=== PATIENT | female | born 1990 | race Caucasian/White ===

== ENCOUNTER 2023-04-08 13:55 | Emergency (ER) | payer MEDICAID, SELFPAY ==
[2023-04-08 14:00] VITALS: BP 140/76; PULSE 88; RESP 16; TEMP 36.6; O2SAT 100; BMI 28.8
--- NOTE | 2023-04-08 14:14 | ED.ABDPAIN1 ---
HPI - Abdominal Pain General Chief Complaint: Abdominal Pain Stated Complaint: ABDOMINAL/BACK PAIN Time Seen by Provider: 04/08/23 14:08 Source: patient Mode of arrival: walk-in History of Present Illness HPI narrative: Patient is a 32-year-old female who presents to the emergency department for the evaluation of left upper quadrant/left inferior rib cage pain. Patient states the pain radiates to her left flank. It has been present for 4 to 5 days. She states that she recently had a 2-week course of illness of cough and congestion. She was placed on Augmentin, steroids and cough medication by her PCP and feels the cough is almost completely gone. She reports minimal residual congestion. No new fevers, vomiting, diarrhea. Pain in the left upper quadrant/left inferior ribs is worse with deep breathing and movement, she does not feel short of breath. No medications taken prior to arrival.She is not concerned for . Related Data Home Medications Medication Instructions Recorded Confirmed escitalopram oxalate 5 mg tablet 5 mg PO DAILY 04/08/23 04/08/23 levonorgestrel 120 mcg-e.estradiol 1 patch topical QWEEK 04/08/23 04/08/23 30 mcg/24 hr weekly transderm patch (Twirla) Previous Rx's Medication Instructions Recorded ketorolac 10 mg tablet 10 mg PO TID PRN pain #10 tabs 04/08/23 methocarbamol 750 mg tablet 750 mg PO TID PRN pain #20 tabs 04/08/23 Allergies Allergy/AdvReac Type Severity Reaction Status Date / Time No Known Drug Allergies Allergy Verified 04/08/23 14:04 Review of Systems ROS Constitutional Denies: fever or chills Ears, nose, mouth, and throat Reports: nasal congestion; Denies: throat pain Cardiovascular Denies: chest pain Respiratory Reports: cough; Denies: shortness of breath Gastrointestinal Reports: abdominal pain; Denies: nausea, vomiting or diarrhea Genitourinary Denies: painful urination Musculoskeletal Reports: back pain Integumentary/Breast Denies: rash Neurological Denies: headache Hematologic/Lymphatic Denies: easy bruising Exam Narrative Exam Narrative: Gen.: Awake, alert, in no distress Head: Normocephalic, atraumatic ENT: Moist mucous membranes, Bilateral TMs clear, no pharyngeal erythema Respiratory: No respiratory distress, lungs clear bilaterally Cardio: Regular rate and rhythm Gastrointestinal: Abdomen is soft, Tender in the left upper quadrant and left anterior/inferior ribs. No guarding or rebound. No pain out of proportion on exam. No CVA tenderness. Extremities: Moves extremities equally Psych: Normal mood and affect Neuro: No focal neuro deficit Skin: Warm, dry, intact Constitutional Vital Signs, click to edit/add: Last Vital Signs Temp 97.8 F 04/08/23 14:00 Pulse 88 04/08/23 14:00 Resp 16 04/08/23 14:00 BP 140/76 04/08/23 14:00 Pulse Ox 100 04/08/23 14:00 O2 Del Method Room Air 04/08/23 14:00 Course Vital Signs Vital signs: Vital Signs Temperature 97.8 F 04/08/23 14:00 Pulse Rate 88 04/08/23 14:00 Respiratory Rate 16 04/08/23 14:00 Blood Pressure 140/76 04/08/23 14:00 Pulse Oximetry 100 04/08/23 14:00 Oxygen Delivery Method Room Air 04/08/23 14:00 Temperature 97.8 F 04/08/23 14:00 Pulse Rate 88 04/08/23 14:00 Respiratory Rate 16 04/08/23 14:00 Blood Pressure 140/76 04/08/23 14:00 Pulse Oximetry 100 04/08/23 14:00 Oxygen Delivery Method Room Air 04/08/23 14:00 MDM - Abdominal Pain MDM Narrative Medical decision making narrative: Lab studies including LFTs, lipase, bilirubin within normal limits. Abdominal x-rays are unremarkable, chest x-ray is clear and the patient has normal vital signs. She has no persistent coughing, hemoptysis, chest pain or complaints of shortness of breath. She will be treated for chest wall/abdominal wall pain with NSAIDs and muscle relaxants for home. Follow-up with PCP and return to the ER if symptoms change or worsen Medical Records Attestation: I reviewed the patient's medical records. Lab Data Attestation: I reviewed the patient's lab results. Labs: Lab Results 04/08/23 04/08/23 Range/Units 14:15 14:24 WBC 5.3 (4.0-11.0) 10^3/uL RBC 3.87 L (4.20-5.40) 10^6/uL Hgb 12.4 (12.0-16.0) g/dL Hct 36.8 (36.0-48.0) % MCV 95.1 (81.0-99.0) fL MCH 32.0 (26.7-34.0) pg MCHC 33.7 (29.9-35.2) g/dL RDW 12.0 (11.0-15.0) % Plt Count 227 (150-450) 10^3/uL MPV 9.3 L (9.5-13.5) fL Neut % (Auto) 71.4 (43.0-75.0) % Lymph % (Auto) 19.1 L (20.5-60.0) % [place] % (Auto) 7.4 (1.7-12.0) % Eos % (Auto) 1.5 (0.9-7.0) % Baso % (Auto) 0.4 (0.2-2.0) % Neut # (Auto) 3.8 (1.4-6.5) 10^3/uL Lymph # (Auto) 1.0 L (1.2-3.8) 10^3/uL [place] # (Auto) 0.4 (0.3-0.8) 10^3/uL Eos # (Auto) 0.1 (0.0-0.7) 10^3/uL Baso # (Auto) 0.0 (0.0-0.1) 10^3/uL Abs Immat Gran (auto) 0.01 (0.00-0.03) 10^3/uL Imm/Tot Granulo (auto) 0.2 (0.0-0.5) % Sodium 140 (136-145) mmol/L Potassium 4.1 (3.5-5.1) mmol/L Chloride 103 (98-107) mmol/L Carbon Dioxide 27.6 (21.0-32.0) mmol/L Anion Gap 13.5 BUN 12.0 (7.0-18.0) mg/dL Creatinine 0.64 (0.55-1.02) mg/dL Est GFR ( Amer) >60 (>=60) Est GFR (Non-Af Amer) >60 (>=60) BUN/Creatinine Ratio 18.8 Glucose 80 (74-106) mg/dL Calcium 8.6 (8.5-10.1) mg/dL Total Bilirubin 0.8 (0.2-1.0) mg/dL AST 18 (15-37) U/L ALT 22 (14-59) U/L Alkaline Phosphatase 53 (46-116) U/L Total Protein 7.6 (6.4-8.2) g/dL Albumin 3.7 (3.4-5.0) g/dL Globulin 3.9 g/dL Albumin/Globulin Ratio 0.9 Lipase 39.0 (16.0-77.0) U/L Urine Color Lt. yellow (YELLOW) Urine Clarity Clear (CLEAR) Urine pH 6.0 (5.0-9.0) Ur Specific [place] 1.010 (1.005-1.025) Urine Protein Negative (NEG/TRACE) mg/dL Urine Glucose (UA) Negative (NEGATIVE) mg/dL Urine Ketones Negative (NEGATIVE) mg/dL Urine Occult Blood Negative (NEGATIVE) Urine Nitrite Negative (NEGATIVE) Urine Bilirubin Negative (NEGATIVE) Urine Urobilinogen 0.2 (0.2-1.0) EU/dL Ur Leukocyte Esterase Small A (NEGATIVE) Urine RBC 0-2 (0-2) #/HPF Urine WBC 0-2 A (NONE SEEN) #/HPF Ur Squamous Epith Cells Few A (NONE/RARE) #/LPF Urine Crystals None seen (None Seen) #/HPF Urine Bacteria Trace A (NONE SEEN) #/HPF Urine Casts None seen (NONE SEEN) #/LPF Urine Mucus None seen (NONE SEEN) Ur Culture Indicated? No Urine HCG, Qual Negative (NEGATIVE) Imaging Data Abdominal x-ray: Attestation: I have reviewed the pertinent imaging results. Radiologist's impression: ITS Impressions Chest/Abdomen X-ray 04/08/23 14:46 IMPRESSION: Clear lungs Nonobstructive bowel gas pattern Electronically authenticated by: MARANDA PEREYRA Date: 04/08/2023 15:10 Discharge Plan Discharge Chief Complaint: Abdominal Pain Clinical Impression: Abdominal pain Patient Disposition: Home, Self-Care Time of Disposition Decision: 15:14 Condition: Good Mode of Transportation: Private Vehicle Prescriptions / Home Meds: New ketorolac 10 mg tablet 10 mg PO TID PRN (Reason: pain) Qty: 10 0RF methocarbamol 750 mg tablet 750 mg PO TID PRN (Reason: pain) Qty: 20 0RF No Action escitalopram oxalate 5 mg tablet 5 mg PO DAILY Twirla 120-30 mcg/24 hr patch weekly 1 patch topical QWEEK Instructions: Acute Abdominal Pain (ED) Stand Alone Forms: Portal Instructions Referrals: Kelly Cain NP [Primary Care Provider] - 1 week Discharge Date/Time: 04/08/23 15:27
[2023-04-08] MEDS: KETOROLAC TROMETHAMINE 60 MG/2 ML VIAL IM (14:31)
[2023-04-08 14:37] LABS: Bilirubin Urine NEGATIVE (NEGATIVE); Blood Urine NEGATIVE (NEGATIVE); Clarity Urine CLEAR (CLEAR); Color Urine LT. YELLOW (YELLOW); Glucose Urine UA NEGATIVE (NEGATIVE); HCG Qualitative Urine* NEGATIVE (NEGATIVE); Ketones Urine NEGATIVE (NEGATIVE); Leukocyte Esterase Urine SMALL (NEGATIVE); Nitrite Urine NEGATIVE (NEGATIVE); Protein Urine NEGATIVE (NEG/TRACE); Urobilinogen Urine 0.2 EU/dL (0.2-1.0)
[2023-04-08 14:37] LABS: Basophils Percent Auto 0.4 % (0.2-2.0); Eosinophils Absolute Auto 0.1 10^3/uL (0.0-0.7); Eosinophils Percent Auto 1.5 % (0.9-7.0); Hematocrit 36.8 % (36.0-48.0); Hemoglobin 12.4 g/dL (12.0-16.0); Immature Granulocytes Abs Auto 0.01 10^3/uL (0.00-0.03); Immature Granulocytes Pct Auto 0.2 % (0.0-0.5); Lymphocytes Percent Auto 19.1 % (20.5-60.0); Mean Corpuscular HGB Conc 33.7 g/dL (29.9-35.2); Mean Corpuscular Volume 95.1 fL (81.0-99.0); Mean Platelet Volume 9.3 fL (9.5-13.5); Monocytes Absolute Auto 0.4 10^3/uL (0.3-0.8); Monocytes Percent Auto 7.4 % (1.7-12.0); Neutrophils Absolute Auto 3.8 10^3/uL (1.4-6.5); Neutrophils Percent Auto 71.4 % (43.0-75.0); Platelet Count 227 10^3/uL (150-450); Red Blood Count 3.87 10^6/uL (4.20-5.40); White Blood Count 5.3 10^3/uL (4.0-11.0)
[2023-04-08 14:39] LABS: Urine Microscopic Indicated YES
[2023-04-08 14:46] LABS: Bacteria Urine TRACE #/HPF (NONE SEEN); Cast Seen? NONE SEEN #/LPF (NONE SEEN); Crystals Seen? None Seen #/HPF (None Seen); Mucus Urine NONE SEEN (NONE SEEN); RBC Urine 0-2 #/HPF (0-2); Squamous Epithelial Cell Urine FEW #/LPF (NONE/RARE); Urine Culture Indicated NO; WBC Urine 0-2 #/HPF (NONE SEEN)
--- NOTE | 2023-04-08 14:46 | XR_ITS ---
The [address] [address] Patient Name: PARISA MISTRY MRN: [id number] date: 1990 Sex: F Assigned Patient Location: ER Current Patient Location: ER Accession/Order Number: [id number] Exam Date: 04/08/2023 14:40 Report Date: 04/08/2023 15:10 At the request of: ARMANDO LOPEZ Procedure: XR acute abdomen series EXAMINATION: XR acute abdomen series HISTORY: Left flank pain COMPARISON: 11/24/2021 FINDINGS: LUNGS: No infiltrate, pneumothorax, or pleural effusion. MEDIASTINUM: No abnormal widening. BOWEL GAS PATTERN: Non-obstructed. Moderate stool throughout the colon FREE AIR: None. CALCIFICATIONS: [Pelvic calcifications are stable likely vascular phleboliths BONES: No fracture or visible bone lesion. OTHER: Negative. XR/XR acute abdomen series IMPRESSION: Clear lungs Nonobstructive bowel gas pattern Electronically authenticated by: MARANDA PEREYRA Date: 04/08/2023 15:10
[2023-04-08 14:56] LABS: Albumin Globulin Ratio 0.9; Albumin Level 3.7 g/dL (3.4-5.0); Alkaline Phosphatase 53 U/L (46-116); Anion Gap 13.5; Aspartate Amino Transferase 18 U/L (15-37); BUN Creatinine Ratio 18.8; Bilirubin Total 0.8 mg/dL (0.2-1.0); Calcium 8.6 mg/dL (8.5-10.1); Carbon Dioxide 27.6 mmol/L (21.0-32.0); Chloride 103 mmol/L (98-107); Estimated GFR (African America >60 (>=60); Estimated GFR (Non-African Ame >60 (>=60); Globulin 3.9 g/dL; Glucose 80 mg/dL (74-106); Potassium 4.1 mmol/L (3.5-5.1); Sodium 140 mmol/L (136-145); Total Protein 7.6 g/dL (6.4-8.2)
[2023-04-08 15:22] LABS: Alanine Aminotransferase 22 U/L (14-59)
== END 2023-04-08 15:27 | disposition home or self-care (01) ==
PROVIDERS: Physician Assistant; Emergency Provider Emergency Medicine; PCP Nurse Practitioner
DX: R10.12 Left upper quadrant pain (principal)
CPT/HCPCS: 36415; 74022; 80053; 81001; 83690; 84703; 85025; 96372; 99285; J1885

== ENCOUNTER 2023-07-29 08:51 | Outpatient (OUT) | payer MEDICAID, SELFPAY ==
[2023-07-29 09:24] LABS: Basophils Percent Auto 0.3 % (0.2-2.0); Eosinophils Absolute Auto 0.1 10^3/uL (0.0-0.7); Eosinophils Percent Auto 1.7 % (0.9-7.0); Hemoglobin 11.8 g/dL (12.0-16.0); Immature Granulocytes Abs Auto 0.01 10^3/uL (0.00-0.03); Immature Granulocytes Pct Auto 0.3 % (0.0-0.5); Lymphocytes Percent Auto 28.2 % (20.5-60.0); Mean Corpuscular HGB Conc 32.8 g/dL (29.9-35.2); Mean Corpuscular Hemoglobin 30.5 pg (26.7-34.0); Mean Platelet Volume 9.2 fL (9.5-13.5); Monocytes Absolute Auto 0.4 10^3/uL (0.3-0.8); Monocytes Percent Auto 10.2 % (1.7-12.0); Neutrophils Absolute Auto 2.1 10^3/uL (1.4-6.5); Neutrophils Percent Auto 59.3 % (43.0-75.0); Platelet Count 152 10^3/uL (150-450); Red Blood Count 3.87 10^6/uL (4.20-5.40); Red Cell Distribution Width 12.3 % (11.0-15.0); White Blood Count 3.5 10^3/uL (4.0-11.0)
[2023-07-29 10:46] LABS: Percent Iron Saturation 42.3 %
[2023-07-29 12:45] LABS: Alanine Aminotransferase 25 U/L (14-59); Albumin Globulin Ratio 1.1; Albumin Level 3.8 g/dL (3.4-5.0); Alkaline Phosphatase 66 U/L (46-116); Anion Gap 13.2; Aspartate Amino Transferase 27 U/L (15-37); BUN Creatinine Ratio 20.3; Bilirubin Total 1.3 mg/dL (0.2-1.0); Calcium 9.2 mg/dL (8.5-10.1); Carbon Dioxide 27.8 mmol/L (21.0-32.0); Chloride 104 mmol/L (98-107); Estimated GFR (African America >60 (>=60); Estimated GFR (Non-African Ame >60 (>=60); Globulin 3.5 g/dL; Glucose 86 mg/dL (74-106); Sodium 141 mmol/L (136-145); TSH W/ REFLEX FT4 1.261 uIU/mL (0.358-3.740); Total Protein 7.3 g/dL (6.4-8.2)
== END 2023-07-29 08:52 | disposition home or self-care (01) ==
LOC: LAB 08:53
PROVIDERS: PCP Nurse Practitioner Family; Visit Provider Nurse Practitioner Family
DX: R42 Dizziness and giddiness (principal); D50.9 Iron deficiency anemia, unspecified; Z98.84 Bariatric surgery status
CPT/HCPCS: 36415; 80053; 82306; 82607; 83540; 83550; 84443; 85025

== ENCOUNTER 2024-02-04 11:28 | Emergency (ER) | payer MEDICAID, SELFPAY ==
[2024-02-04 11:37] VITALS: BP 128/83; PULSE 75; TEMP 36.7; O2SAT 100; BMI 29.1
--- OUTSIDE RECORDS SUMMARY | 2024-02-04 11:54 | XMS_ITS | CCD ---
Author Organization [facility] Care Team Providers Care Production Machine Operator Name Role Phone WADE ZHANG Unavailable Unavailable DAVIDA HARVEY M.D. Unavailable Unavailable JAYSHREE CARIAS CNP Unavailable Unavailable NESS ALEXANDER Unavailable Unavailable NESS ALEXANDER Unavailable Unavailable JUAN A DÍAZ Unavailable Unavailable VASU PURDY Unavailable Unavailable Denisse Lee Unavailable Unavailable No Family Physician given Unavailable ELÍAS Avalos Attending Unavailable KELLY CAIN Primary Care Unavailable Kelly Cain Primary Care Provider [phone] Julia Morris Unavailable AICHHOLCar, AUTOMOTIVE SHOP FOREMAN KELLY Primary Care Unavailable BARTOLOME, DR JACQUIE Rey Consulting Unavailable CONNER, DR TAYLOR Choi Attending Unavailabl e CONNER, DR TAYLOR Choi Admitting Unavailabl e COLLEEN SALES Consulting Unavailable PRATT, DR MARANDA Crews Consulting Unavailable MISC, DR RICH Admitting Unavailable MISC, DR RICH Attending Unavailable AICHHOLZ, AUTOMOTIVE SHOP FOREMAN KELLY Primary Care Unavailable MISC, DR RICH Consulting Unavailable STEPHANIAHHOLZ, AUTOMOTIVE SHOP FOREMAN KELLY Consulting Unavailable AICHHOLZ, AUTOMOTIVE SHOP FOREMAN KELLY Primary Care Unavailable AICHHOLZ, AUTOMOTIVE SHOP FOREMAN KELLY Admitting Unavailable AICHHOLZ, AUTOMOTIVE SHOP FOREMAN KELLY Attending Unavailable AICHHOLZ, AUTOMOTIVE SHOP FOREMAN KELLY Primary Care Unavailable MARKER, DR REAVES Attending Unavailable MARKER, DR REAVES Consulting Unavailable MARKER, DR REAVES Admitting Unavailable Nan Jewell Unavailable Chio Holley Unavailable Payton SILVER DESIGNER-Kelly MCMULLEN Primary Care Provider KELLY CAIN Referring Unavailable KELLY CAIN Primary Care Unavailable KELLY EDWARDS Referring Unavailable KELLY CAIN Primary Care Unavailable KELLY EDWARDS Attending Unavailable KELLY EDWARDS Referring Unavailable KELLY CAIN Primary Care Unavailable KELLY CAIN Attending Unavailable KELLY CAIN Attending Unavailable Medications Current Medications Medication Drug Class(es) Dates Sig (Normalized) Sig (Original) amoxicillin 875 mg oral tablet (2 sources) Penicillin-class Antibacterial Start: 05-24-2022 take 1 tablet by mouth every twelve hours Amoxicillin 875 MG 1 tablet Orally every 12 hrs for 7 days May, Active Start: 12-24-2020 take 1 tablet by gilberto th every twelve hours Amoxicillin 875 MG 1 tablet Orally every 12 hrs for 7 days Dec, Active calcium citrate 950 mg oral tablet (1 source) calcium citrate (CALCITRATE) 200 mg (950 mg) tablet three times daily 0 Active CLASSIC 28 mg iron- 800 mcg tablet (1 source) Start: 1 take 1 tablet by mouth once daily CLASSIC 28 mg iron- 800 mcg tablet Indications: Malnutrition, unspecified type (CMS-HCC) , Intestinal malabsorption, unspecified type , History of Alyssa-en-Y gastric bypass TAKE 1 TABLET BY MOUTH EVERY DAY 90 tablet 3 01/24/2021 Active dicyclomine hydrochloride 10 mg oral capsule (1 source) Anticholinergic Start: 0 take 1 capsule by mouth three times daily as needed for pain dicyclomine (BENTYL) 10 MG capsule Take 1 capsule by mouth 3 times daily as needed (abd pain) 30 capsule 3 01/28/2020 Active Start: 01-28-2020 take 1 capsule by mo uth three times daily as needed for pain dicyclomine (BENTYL) 10 MG capsule Take 1 capsule by mouth 3 times daily as needed (abd pain) 30 capsule 3 01/28/2020 Active escitalopram 5 mg oral tablet (9 sources) Serotonin Reuptake Inhibitor Start: 05-09-2023 take 5 mg by mouth once daily Escitalopram Oxalate Active 5 MG PO Daily May 09, 2023 1:00am Start: 12-30-2018 take 1 tablet by gilberto th once daily at breakfast escitalopram (LEXAPRO) 10 mg tablet Take 1 tablet (10 mg total) by mouth daily with breakfast. 5 12/30/2018 Active take 1 tablet by gilberto th every twenty-four hours Lexapro 5 MG 1 tablet Orally Once a day Active take 1 tablet by gilberto th once daily escitalopram (LEXAPRO) 20 MG tablet Take 20 mg by mouth daily 0 Active Levonorgestrel-Ethinyl Estra d (Twirla) 120-30 mcg/24 hr patch weekly (1 source) Start: 11-13-2023 Levonorgestrel -Ethinyl Estrad (Twirla) 120-30 mcg/24 hr patch weekly Active PATCH TOPICAL November 13, 2023 12:00am vit B complex no.12/niacin,B 3, (VITAMIN B COMPLEX NO.12-NIACIN ORAL) (1 source) vit B complex no .12/niacin,B3, (VITAMIN B COMPLEX NO.12-NIACIN ORAL) Take by mouth. 0 Active Completed/Discontinued Medications Medication Drug Class(es) Dates Sig (Normalized) Sig (Original) dextromethorphan hydrobromide 1.5 mg/ml / pyrilamine maleate 1.5 mg/ml oral solution (3 sources) Uncompetitive A-cvngzt-P-aspartat e Receptor Antagonist, Sigma-1 Agonist Start: 06-08-2023 End: 06-22-2023 take 1 mL by mouth every eight hours Pyrilamine-Dextr omethorphan (Wilton Dm) 7.5-7.5 mg/5 mL liquid Discontinued 10 ML PO Every 8 hours 150 5 June 08, 2023 12:00am June 22, 2023 3:50pm doxycycline monohydrate 100 mg oral tablet (2 sources) Tetracycline-class Drug Start: 06-23-2023 End: 07-28-2023 take 100 mg by mouth twice daily Doxycycline Monohydrate Discontinued 100 MG PO Twice daily 20 June 23, 2023 12:00am July 28, 2023 2:25pm fluconazole 150 mg oral tablet (1 source) Azole Antifungal Start: 07-02-2023 End: 07-28-2023 Fluconazole Discontinued 150 MG PO Q3D 2 0 July 02, 2023 12:00am July 28, 2023 2:25pm Take 1st dose at onset of symptoms then repeat in 3 days if continued symptoms iopamidol (ISOVUE-370) 76 % injection 75 mL (1 source) Start: 01-28-2020 End: 01-28-2020 iopamidol (ISOVUE-370) 76 % injection 75 mL Ketamine (KETALAR) injection syringe 10 mg (1 source) Start: 01-28-2020 End: 01-28-2020 Ketamine (KETALAR) injection syringe 10 mg methylPREDNISolone 4 mg oral tablet (2 sources) Corticosteroid Start: 03-19-2023 Medrol 4 MG as directed Orally As Directed for 6 days Mar, Not-Taking/PRN ondansetron 4 mg oral tablet (3 sources) Serotonin-3 Receptor Antagonist Start: 05-24-2022 take 1 tablet by mouth every eight hours as needed Zofran ODT 4 MG 1 tablet on the tongue and allow to dissolve Orally every 8 hrs as needed for 4 days May, Not-Taking/PRN predniSONE 20 mg oral tablet (7 sources) Start: 05-09-2023 End: 06-22-2023 take 20 mg by mouth twice daily Prednisone Discontinued 20 MG PO Twice daily 10 June 08, 2023 12:00am June 22, 2023 3:50pm Problems Active Problems Problem Classification Problem Date Documented Da te Episodic/Chronic Abdominal pain (9 sources) Upper abdominal pain; Translations: [Epigastric pain] Onset: 11-24-2021 Episodic Acute and chronic tonsillitis (1 source) Hypertrophy of tonsils; Translations: [Hypertrophy of tonsils] Onset: 01-11-2020 01-11-2020 Chronic Allergic reactions (1 source) Unspecified contact dermatitis, unspecified cause Episodic Anxiety disorders (5 sources) Anxiety; Translations: [Anxiety disorder, unspecified] Onset: 03-31-2023 05-09-2023 Chronic Cardiac dysrhythmias (1 source) Palpitations; Translations: [Palpitations] 07-28-2023 Episodic Chronic obstructive pulmonary disease and bronchiectasis (3 sources) Bronchitis; Translations: [Bronchitis, not specified as acute or chronic] 06-23-2023 Episodic Conditions associated with dizziness or vertigo (5 sources) Dizziness and giddiness; Translations: [Dizziness] Onset: 05-06-2021 Episodic Deficiency and other anemia (1 source) Iron deficiency anemia; Translations: [Iron deficiency anemia, unspecified] 07-28-2023 Episodic Immunizations and screening for infectious disease (4 sources) Contact with and (suspected) exposure to other viral communicable diseases; Translations: [Patient encounter status] Onset: 12-24-2020 Resolved: 12-24-2020 Episodic Nausea and vomiting (1 source) Nausea Episodic Nonmalignant breast conditions (1 source) Large breast; Translations: [Hypertrophy of breast] 07-29-2023 Episodic Other ear and sense organ disorders (3 sources) Otalgia, bilateral; Translations: [OTALGIA BILATERAL] Onset: 02-17-2022 Episodic Other gastrointestinal disorders (1 source) Intestinal malabsorption, unspecified; Translations: [INTESTINAL MALABSORPTION UNS] Onset: 05-08-2021 Chronic Other gastrointestinal disorders (1 source) Bariatric surgery status; Translations: [BARIATRIC SURGERY STATUS] Onset: 02-19-2022 Episodic Other gastrointestinal disorders (1 source) History of bypass of stomach; Translations: [Bariatric surgery status] 07-28-2023 Episodic Other nutritional; endocrine; and metabolic disorders (1 source) Overweight; Translations: [Overweight] Onset: 05-13-2023 05-13-2023 Episodic Other upper respiratory infections (3 sources) Maxillary sinusitis; Translations: [Chronic maxillary sinusitis] 06-23-2023 Chronic Other upper respiratory infections (9 sources) Acute pharyngitis, unspecified; Translations: [Streptococcal pharyngitis] Onset: 12-24-2020 Resolved: 12-24-2020 Episodic Screening and history of mental health and substance abuse codes (2 sources) Standardized adult depression screening tool completed ; Translations: [Encounter for screening for depression] Onset: 05-13-2023 05-13-2023 Episodic Unclassified (2 sources) Unknown / UNK(Unknown) Onset: 09-28-2016 Unclassified (1 source) CONTACT W/AND (SUSP) EXPOS COVID-19; Translations: [CONTACT W/AND (SUSP) EXPOS COVID-19] Onset: 02-19-2022 Unclassified (1 source) Annual Exam Onset: 05-13-2023 Past or Other Problems Problem Classification Problem Date Documented Da te Episodic/Chronic Mood disorders (1 source) Mood disorders Onset: 05-13-2023 05-13-2023 Other ear and sense organ disorders (1 source) Bilateral tinnitus; Translations: [Tinnitus, bilateral] Onset: 01-11-2020 01-11-2020 Episodic Other screening for suspected conditions (not mental disorders or infectious disease) (4 sources) Encounter for other screening follow-up; Translations: [ENCOUNTER FOR OTH SCR F/U] Onset: 06-09-2021 Episodic Otitis media and related conditions (3 sources) Otitis media, unspecified, left ear; Translations: [Otitis media, unspecified, bilateral] Onset: 01-11-2020 Resolved: 12-24-2020 Episodic Unclassified (1 source) Z34.92 Onset: 09-28-2016 Unclassified (1 source) SORE THROAT,EARACHE,RU NNY NOSE Onset: 03-26-2017 Unclassified (1 source) Contact with and (suspected) exposure to covid-19 Z20.822 Unclassified (1 source) Onset: 05-13-2023 05-13-2023 Results Test Name Value Interpretation Reference Range Facility US PELVIC WITH TRANSVAGINALo n 05-21-2023 US PELVIC WITH TRANSVAGINAL US PELVIC WITH TRANSVAGINAL CLINICAL INFORMATION: Pelvic pain COMPARISON: None. PROCEDURE: Transabdominal imaging was obtained for the detection of extra-adnexal pathology. Transvaginal imaging was obtained for better visualization of the adnexa and endometrium. FINDINGS: The uterus measures 8.5 x 5.5 x 5.1 cm. The endometrium measures 1.2 cm. The right ovary measures 4.2 x 1.5 x 2.1 cm. The left ovary measures 4.7 x 3.2 x 3.1 cm with a cyst measuring 2.6 cm, no follow-up required. Prominent left vasculature left adnexal region. This is nonspecific. . IMPRESSION: * No acute findings. Finalized by Jose Luis Hampton MD on 05/21/2023 3:34 PM Normal [facility] CHLAMYDIA/GC PCR, FLon CHLAMYDIA/GC PCR, FL SPECIMEN SOURCE ThinPrep CHLAMYDIA DNA(PCR) Negative (qualifier value) Chlamydia trachomatis not detected by nucleic acid amplification. This does not exclude the possibility of infection because results are dependent on adequate specimen collection. GONORRHOEAE DNA(PCR) Negative (qualifier value) Neisseria gonorrhoeae not detected by nucleic acid amplification. This does not exclude the possibility of infection because results are dependent on adequate specimen collection. Normal [facility] Comment on above: Performed By: #### C GT #### [facility] ([id number]) [address] [facility] [place] [address] [facility] ([id number]) [address] [place] [address], [address] [place] [address] Cytologyon 05-13-2023 Cytology Normal [facility] Comment on above: Result Comment: [facility] [address] [place] [address] Gynecologic Cytology Consultation Patient Name:SONIA MISTRY:1990 (Age: 32)Gender:FTaken:4Reported:4Physician(s):[facility] ([phone])Copy To: Rec. #:[id number]: #[id number] Final Cytologic Interpretation ThinPrep Pap Test (Cervical): Satisfactory for evaluation. A transformation zone component is present. NEGATIVE FOR INTRAEPITHELIAL LESION OR MALIGNANCY. Shift in jazmín suggestive of bacterial vaginosis. [facility] [place], [place]/05/24/2023 [facility], [address] [place] [address], License number: [id number]. Electronically Signed Out By MARTHA Schuler(ASCP) Date of Last Menstrual Period: 05/06/23 Other Clinical Conditions: Z01.419 Leaf Sticker exam wo/abn findings Z11.3 Encntr screen for infections w sexl mode of transmiss Source of Specimen ThinPrep Pap Test (Cervical) Thin Prep Pap (ASTRONOMY INSTRUCTOR) Fee Code(s): G0145 HIGH RISK HPV W/GENOon HPV 31+33+35+39+45+51+52 +56+58+59+66+68 DNA ODILIA+probe Ql (Cvx) HPV SPECIMEN TYPE ThinPrep HPV 16 Negative (qualifier value) HPV 18 Negative (qualifier value) OTHER HIGH RISK HPV Positive (qualifier value) For the DNA of any or combination of the following HPV types: 31,33,35,45, 52,56,58,59,66 and 68. Normal [facility] Comment on above: Performed By: #### 7 1431-1 #### [facility] ([id number]) [address] [facility] [place] [address] [facility] ([id number]) [address] [place] [address], [address] [place] [address] No Panel InformationOrdered By: Chio Holley on 05-09-2023 Quick Strep (POC) [facility] Quick Strep (POC) [facility] COVID/FLU/RSV RT-PCRon 03-25 SARS-CoV-2 (COVID-19) RNA ODILIA+probe Ql (Unsp spec) Negative [employer] Other COVID/FLU/RSV RT-PCR Negative [facility] [email or web address] Other Quick Strepon 05-24-2022 S. pyogenes Org specific cx Ql (Throat) Positive [employer] [facility] [email or web address] Other Quick Strep [facility] [email or web address] Other Covid-19 PCR ([facility]on SARS-CoV-2 (COVID-19) RNA ODILIA+probe Ql (Unsp spec) Not detected Normal NOT DETECTED [facility] Comment on above: Result Comment: When diagnostic testing is negative, the possibility of a false negative should be considered in the context of a patient's recent exposures and the presence of clinical signs and symptoms consistent with SARS-CoV-2. This test is not yet approved or cleared by the [place] FDA. When there are no FDA-approved or cleared tests available, and other criteria are met, FDA can make tests available under an emergency access mechanism called an Emergency Use Authorization (EUA). The EUA for this test is supported by the Hvac Residential Service Technician of Health and Human Service's declaration that circumstances exist to justify the emergency use of in vitro diagnostics for the detection and/or diagnosis of the virus that causes COVID-19. This EUA will remain in effect for the duration of the COVID-19 declaration justifying emergency of IVDs, unless it is terminated or revoked by the FDA (after which the test may no longer be used). Performed By: #### C VDTBH #### [facility] [address] [address] [address] Kathie Gates GROUP A STREP CULTUREon S. pyogenes Ag Ql (Unsp spec) Culture Observations: NEGATIVE FOR GROUP A STREPTOCOCCUS. Normal [facility] Comment on above: Performed By: #### S SCRN, GRASTCX ####[facility] [address] [address]Dr. Kathie Gates INFLUENZA A AND B AGon 02-17 INFLUANEGH SEE BELOW Normal [facility] Comment on above: Result Comment: Nega tive for Flu A protein angiten. Infection due to Flu A cannot be ruled out. Flu A angiten in the sample may be below the detection limit of the test. Performed By: #### I NFLUAB #### [facility] [address] [place] [address] Dr. Kathie Gates INFLUBNEG SEE BELOW Normal [facility] Comment on above: Result Comment: Nega tive for Flu B protein antigen. Infection due to Flu B cannot be ruled out. Flu B antigen in the sample may be below the detection limit of the test. Performed By: #### I NFLUAB #### [facility] [address] [place] [address] Dr. Kathie Gates INFLUENZA A AG Negative Normal NEGATIVE SEE COMMENT [facility] Comment on above: Performed By: #### I NFLUAB #### [facility] [address] [place] [address] Dr. Kathie Gates INFLUENZA B AG Negative Normal NEGATIVE SEE COMMENT [facility] Comment on above: Performed By: #### I NFLUAB #### [facility] [address] [place] [address] Dr. Kathie Gates INTERNAL CONTROLS Within Normal Limits Normal Wi thin Normal Limits [facility] Comment on above: Performed By: #### I NFLUAB #### [facility] [address] [address] [address] Kathie Gates STREPT SCREENon 02-17-2022 STREP SCREEN A Negative Normal NEGATIVE [facility] Comment on above: Performed By: #### S SCRN GRASTCX ####[facility] [id number] [address]Dr. Kathie Gates CBC AUTO DIFFon 11-24-2021 BASO # 0.0 103/ul Normal 0.0-0.1 [facility] Comment on above: Performed By: #### C BC #### [facility] [address] [address] [address] Kathie Gates Basophils/100 WBC (Bld) 0.2 % Normal 0.2-2.0 [facility] Comment on above: Performed By: #### C BC #### [facility] [address] [place] [address] Dr. Kathie Gates EO # 0.1 103/ul Normal 0.0-0.7 [facility] Comment on above: Performed By: #### C BC #### [facility] [address] [place] [address] Dr. Kathie Gates Eosinophils/100 WBC (Bld) 1.1 % Normal 0.9-7.0 [facility] Comment on above: Performed By: #### C BC #### [facility] [address] [place] [address] Dr. Kathie Gates Erythrocyte distribution width (RBC) [Ratio] 12.0 % Normal 11.0-15.0 [facility] Comment on above: Performed By: #### C BC #### [facility] [address] [place] [address] Dr. Kathie Gates Hematocrit (Bld) [Volume fraction] 36.8 % Normal 36.0-48.0 [facility] Comment on above: Performed By: #### C BC #### [facility] [address] [place] [address] Dr. Kathie Gates Hemoglobin (Bld) [Mass/Vol] 12.7 g/dL Normal 12.0-16.0 [facility] Comment on above: Performed By: #### C BC #### [facility] [address] [place] [address] Dr. Kathie Gates IG # 0.01 10e3/ul Normal 0.00-0.03 [facility] Comment on above: Performed By: #### C BC #### [facility] [address] [place] [address] Dr. Kathie Gates IG % 0.2 % Normal 0.0-0.5 [facility] Comment on above: Performed By: #### C BC #### [facility] [address] [place] [address] Dr. Kathie Gates LYMPH # 1.2 103/ul Normal 1.2-3.8 [facility] Comment on above: Performed By: #### C BC #### [facility] [address] [place] [address] Dr. Kathie Gates Lymphocytes/100 WBC (Bld) 18.3 % Critically low 20.5-60.0 [facility] Comment on above: Performed By: #### C BC #### [facility] [address] [place] [address] Dr. Kathie Gates MANUAL DIFF REQ NO Normal [facility] Comment on above: Performed By: #### C BC #### [facility] [address] [place] [address] Dr. Kathie Gates MCH (RBC) [Entitic mass] 31.9 pg Normal 26.7-34.0 [facility] Comment on above: Performed By: #### C BC #### [facility] [address] [place] [address] Dr. Kathie Gates MCHC (RBC) [Mass/Vol] 34.5 g/dL Normal 29.9-35.2 [facility] Comment on above: Performed By: #### C BC #### [facility] [address] [place] [address] Dr. Kathie Gates MCV (RBC) [Entitic vol] 92.5 fL Normal 81.0-99.0 [facility] Comment on above: Performed By: #### C BC #### [facility] [address] [address] [address] Kathie Gates MONO # 0.5 103/ul Normal 0.3-0.8 [facility] Comment on above: Performed By: #### C BC #### [facility] [address] [address] [address] Kathie Gates Monocytes/100 WBC (Bld) 7.6 % Normal 1.7-12.0 [facility] Comment on above: Performed By: #### C BC #### [facility] [address] [place] [address] Dr. Kathie Gates NEUT # 4.8 103/ul Normal 1.4-6.5 [facility] Comment on above: Performed By: #### C BC #### [facility] [address] [place] [address] Dr. Kathie Gates Neutrophils/100 WBC (Bld) 72.6 % Normal 43.0-75.0 [facility] Comment on above: Performed By: #### C BC #### [facility] [address] [place] [address] Dr. Kathie Gates Platelet mean volume (Bld) [Entitic vol] 10.1 fL Normal 9.5-13.5 [facility] Comment on above: Performed By: #### C BC #### [facility] [address] [place] [address] Dr. Kathie Gates PLT 180 103/ul Normal 150-450 [facility] Comment on above: Performed By: #### C BC #### [facility] [address] [place] [address] Dr. Kathie Gates RBC 3.98 106/ul Critically low 4.20-5.40 [facility] Comment on above: Performed By: #### C BC #### [facility] [address] [place] [address] Dr. Kathie Gates WBC 6.6 103/ul Normal 4.0-11.0 [facility] Comment on above: Performed By: #### C BC #### [facility] [address] [place] [address] Dr. Kathie Gates ER URINE PROFILEon 2 Bilirubin Ql (U) Negative Normal NEGATIVE [facility] Comment on above: Performed By: #### P REGU, ERUR ####[facility] [address] [place], [place] [address]Dr. Kathie Gates Clarity (U) CLEAR Normal CLEAR [facility] Comment on above: Performed By: #### P REGU, ERUR ####[facility] [address] [place], [place] [address]Dr. Kathie Gates Color (U) LT. YELLOW Normal YELLOW [facility] Comment on above: Performed By: #### P REGU, ERUR ####[facility] [address] [place], [place] [address]Dr. Kathie PORTILLO A micrscopic examina tion will be performed if indicated. Normal [facility] Comment on above: Performed By: #### P REGU, ERUR ####[facility] [address] [place], [place] [address]Dr. Kathie Gates Glucose Ql (U) Negative Normal NEGATIVE [facility] Comment on above: Performed By: #### P REGU, ERUR ####[facility] [address] [place], [place] [address]Dr. Kathie Gates Hemoglobin Ql (U) Negative Normal NEGATIVE [facility] Comment on above: Performed By: #### P REGU, ERUR ####[facility] [address] [place], [place] [address]Dr. Kathie Gates Ketones Ql (U) Negative Normal NEGATIVE [facility] Comment on above: Performed By: #### P REGU, ERUR ####[facility] [address] [place], [place] [address]Dr. Kathie Gates LEUKOCYTES Negative Normal NEGATIVE [facility] Comment on above: Performed By: #### P REGU, ERUR ####[facility] [address] [place], [place] [address]Dr. Kathie Gaets Nitrite Ql (U) Negative Normal NEGATIVE [facility] Comment on above: Performed By: #### P REGU, ERUR ####[facility] [facility] [address] [place] [address]Dr. Kathie Gates pH (U) 6.0 [pH] Normal 5-9 [facility] Comment on above: Performed By: #### P ANA MARIAU, ERUR ####[facility] [address] [place] [address]Dr. Kathie Gates SPEC GRAVITY <=1.005 Abnormal 1.005-<=1.0 25 [facility] Comment on above: Performed By: #### P REGHilary, ERUR ####[facility] [address] [place], [place] [address]Dr. Kathie Gates UA PROTEIN Negative Normal NEGATIVE/ TRACE [facility] Comment on above: Performed By: #### P JORDYN, ERUR ####[facility] Ozuvpkibti[address] [place], [place] [address]Dr. Kathie Gates UR MICRO IND NOT INDICATED Normal [facility] Comment on above: Performed By: #### P JORDYN, ERUR ####[facility] Tozcy[address]ut[address] [place], [place] [address]Dr. Kathie Gates Urobilinogen Qn (U) 0.2 {Joann'U}/dL Normal 0.2 - 1. 0 [facility] Comment on above: Performed By: #### P JORDYN, ERUR ####[facility] Ltbbcqygfw[address] [place], [place] [address]Dr. Kathie Gates LIPASEon 11-24-2021 Lipase [Catalytic activity/Vol] 125.0 U/L Normal 73.0-393.0 [facility] Comment on above: Performed By: #### C MP, LIPA ####[facility] Ccaw[address] [place], [place] [address]Dr. Kathie Gates URon 11-24-2021 , QUAL Negative Normal NEGATIVE [facility] Comment on above: Performed By: #### P REGU, ERUR ####[facility] [address] [place], [place] [address]Dr. Kathie Gates PROF 14(COMP METB)on 09-12-2 022 Albumin [Mass/Vol] 4.2 g/dL Normal 3.4-5.0 [facility] Comment on above: Performed By: #### C VIBHA, LIPA ####[facility] [address] [place] [address]Dr. Kathie Kody Albumin/Globulin [Mass ratio] 1.2 {ratio} Normal [facility] Comment on above: Performed By: #### C VIBHA, LIPA ####[facility] [address] [place] [address]Dr. Kathie Gates ALP [Catalytic activity/Vol] 50 U/L Normal 46-116 [facility] Comment on above: Performed By: #### C VIBHA, LIPA ####[facility] Rigyttoiex[address] [place] [address]Dr. Kathie Gates ALT [Catalytic activity/Vol] 18 U/L Normal 14-59 [facility] Comment on above: Performed By: #### C VIBHA, LIPA ####[facility] [address] [place] [address]Dr. Kathie Gates Anion gap [Moles/Vol] 11.7 mmol/L Normal [facility] Comment on above: Performed By: #### C VIBHA, LIPA ####[facility] Arymatiuag[address] [place], [place] [address]Dr. Kathie Gates AST [Catalytic activity/Vol] 16 U/L Normal 15-37 [facility] Comment on above: Performed By: #### C VIBHA, LIPA ####[facility] [address] [place] [address]Dr. Kathie Gates Bilirubin [Mass/Vol] 0.9 mg/dL Normal 0.2-1.0 [facility] Comment on above: Performed By: #### C VIBHA, LIPA ####[facility] [address]je[address] [place] [address]Dr. Kathie Gates Calcium [Mass/Vol] 8.7 mg/dL Normal 8.5-10.1 [facility] Comment on above: Performed By: #### C VIBHA, LIPA ####[facility] [address]xvfhviwwp[address] [place] [address]Dr. Kathie Gates Chloride [Moles/Vol] 103 mmol/L Normal 98-107 [facility] Comment on above: Performed By: #### C VIBHA, LIPA ####[facility] [address]wsq[address] [place] [address]Dr. Kathie Gates CO2 [Moles/Vol] 27.7 mmol/L Normal 21.0-32.0 [facility] Comment on above: Performed By: #### C VIBHA, LIPA ####[facility] [address]zu[address] [place] [address]Dr. Kathie Gates Creatinine [Mass/Vol] 0.62 mg/dL Normal 0.55-1.02 [facility] Comment on above: Performed By: #### C VIBHA, LIPA ####[facility] [address]os[address] [place] [address]Dr. Kathie Gates EGFR-AF PORTUGUESE >60 Normal >=60 [facility] Comment on above: Performed By: #### C VIBHA, LIPA ####[facility] Qstppaokkp[address] [place] [address]Dr. Kathie Gates EGFR-NON AF PORTUGUESE >60 Normal >=60 [facility] Comment on above: Performed By: #### C VIBHA, LIPA ####[facility] [address]jobw[address] [place] [address]Dr. Kathie Gates Globulin (S) [Mass/Vol] 3.5 g/dL Normal [facility] Comment on above: Performed By: #### C VIBHA, LIPA ####[facility] Qysbtmmuiw[address] [place] [address]Dr. Kathie Gates Glucose [Mass/Vol] 83 mg/dL Normal 74-106 [facility] Comment on above: Performed By: #### C VIBHA, LIPA ####[facility] [address]ewql[address]zw[address] [place] [address]Dr. Kathie Gates Potassium [Moles/Vol] 3.4 mmol/L Critically low 3.5-5.1 [facility] Comment on above: Performed By: #### C VIBHA, LIPA ####[facility] [address] [place] [id number]. Kathie Gates Protein [Mass/Vol] 7.7 g/dL Normal 6.4-8.2 [facility] Comment on above: Performed By: #### C MP, LIPA ####[facility] [address] [place], [place] [address]Pk. Kathie Gates Sodium [Moles/Vol] 139 mmol/L Normal 136-145 [facility] Comment on above: Performed By: #### C MP, LIPA ####[facility] [address]x37[address] [place], [place] [address]Lt. Kathie Gates Urea nitrogen [Mass/Vol] 12.0 mg/dL Normal 7.0-18.0 [facility] Comment on above: Performed By: #### C MP, LIPA ####[facility] [address] [place] [id number]. Kathie Gates Urea nitrogen/Creatinine [Mass ratio] 19.4 mg/mg Normal [facility] Comment on above: Performed By: #### C MP, LIPA ####[facility] [address]amm[address] [place] [id number]. Kathie Gates XR ABD FLAT UP_PA [place] 11-24 XR ABD FLAT UP_PA CH EXAMINATION: XR ABD FLAT UP_PA CH HISTORY: Abdominal pain ; acute epigastric pain radiating to back COMPARISON: No relevant comparison available. FINDINGS: LUNGS: No infiltrate, pneumothorax, or pleural effusion. MEDIASTINUM: No abnormal widening. BOWEL GAS PATTERN: Non-obstructed. No abnormal dilation or suspicious fluid levels. Bowel sutures within left abdomen. FREE AIR: None. CALCIFICATIONS: None significant. BONES: No fracture or visible bone lesion. OTHER: Right upper quadrant surgical clips suggesting cholecystectomy. IMPRESSION: 1. No acute cardiopulmonary process. 2. No acute or suspicious abdominal findings. Electronically authenticated by: JACQUIE MANCUSO Date: 2021-11-24 15:38 Normal [facility] US PREG TVon 06-09-2021 US PREG TV EXAMINATION: US PREG TV HISTORY: screening COMPARISON: 09/06/2019 FINDINGS: Transvaginal images Anechoic echogenicity identified within the endometrial cavity, a gestational sac is suspected with a mean sac diameter of 4.2 mm pole: Not visualized Yolk sac: Not visualized The cervix measures 4.6 cm closed Uterus: Normal in size and contour. The right ovary is normal in appearance measuring 3.1 x 2.2 x 1.5 cm. The left ovary is normal in appearance measuring 3.0 x 1.9 x 2.0 cm. Dilated bilateral adnexal blood vessels IMPRESSION: Possible early intrauterine gestation. Correlation with quantitative beta hCG recommended Electronically authenticated by: MARANDA PEREYRA Date: 2021-06-09 16:03 Normal [facility] CBC AUTO DIFFon 05-06-2021 BASO # 0.0 103/ul Normal 0.0-0.1 [facility] Comment on above: Performed By: #### C BC ####[facility] Xflmzdpyeq[address] [place], [place] [address]Dr. Kathie Gates Basophils/100 WBC (Bld) 0.2 % Normal 0.2-2.0 [facility] Comment on above: Performed By: #### C BC ####[facility] Olaxoyas[address] [place], [place] [address]Dr. Kathie Gates EO # 0.1 103/ul Normal 0.0-0.7 [facility] Comment on above: Performed By: #### C BC ####[facility] Yatosfisks[address] [place], [place] [address]Dr. Kathie Gates Eosinophils/100 WBC (Bld) 1.0 % Normal 0.9-7.0 [facility] Comment on above: Performed By: #### C BC ####[facility] Htvctnaxhn[address] [place], [place] [address]Dr. Kathie Gates Erythrocyte distribution width (RBC) [Ratio] 12.3 % Normal 11.0-15.0 [facility] Comment on above: Performed By: #### C BC ####[facility] Gmxsxkthac[address] [place], [place] [address]Dr. Kathie Gates Hematocrit (Bld) [Volume fraction] 35.5 % Critically low 36.0-48.0 [facility] Comment on above: Performed By: #### C BC ####[facility] F[address] [place], [place] [id number]. Kathie Gates Hemoglobin (Bld) [Mass/Vol] 12.0 g/dL Normal 12.0-16.0 [facility] Comment on above: Performed By: #### C BC ####[facility] [address]qdjchx[address] [place] [address]Dr. Kathie Gates IG # 0.02 10e3/ul Normal 0.00-0.03 [facility] Comment on above: Performed By: #### C BC ####[facility] Itkgdmbvwq85[address] [place] [address]Dr. Kathie Gates IG % 0.3 % Normal 0.0-0.5 [facility] Comment on above: Performed By: #### C BC ####[facility] Opnejerqva[address] [place], [place] [address]Dr. Kathie Gates LYMPH # 1.7 103/ul Normal 1.2-3.8 [facility] Comment on above: Performed By: #### C BC ####[facility] Vtrzdsfevb[address] [place], [place] [address]Dr. Kathie Gates Lymphocytes/100 WBC (Bld) 26.9 % Normal 20.5-60.0 [facility] Comment on above: Performed By: #### C BC ####[facility] [address]svchglink[address] [place] [address]Dr. Kathie Gates MANUAL DIFF REQ NO Normal [facility] Comment on above: Performed By: #### C BC ####[facility] Hadwgjzmxh189[address] [place], [place] [address]Dr. Kathie Gates MCH (RBC) [Entitic mass] 31.2 pg Normal 26.7-34.0 [facility] Comment on above: Performed By: #### C BC ####[facility] Lygrfapjwa[address] [place], [place] [address]DrMaty Gates MCHC (RBC) [Mass/Vol] 33.8 g/dL Normal 29.9-35.2 [facility] Comment on above: Performed By: #### C BC ####[facility] Hqsbxywaiw[address] [place], [place] [address]Dr. Kathie Gates MCV (RBC) [Entitic vol] 92.2 fL Normal 81.0-99.0 [facility] Comment on above: Performed By: #### C BC ####[facility] [address]fgshn[address] [place] [address]Dr. Kathie Gates MONO # 0.4 103/ul Normal 0.3-0.8 [facility] Comment on above: Performed By: #### C BC ####[facility] Tlygwvajzd[address] [place], [place] [address]Dr. Kathie Kody Monocytes/100 WBC (Bld) 6.0 % Normal 1.7-12.0 [facility] Comment on above: Performed By: #### C BC ####[facility] Tmwijuocvz[address] [place], [place] [address]Dr. Kathie Gates NEUT # 4.0 103/ul Normal 1.4-6.5 [facility] Comment on above: Performed By: #### C BC ####[facility] Gsuabzamgv[address] [place], [place] [address]Dr. Kathie Gates Neutrophils/100 WBC (Bld) 65.6 % Normal 43.0-75.0 [facility] Comment on above: Performed By: #### C BC ####[facility] Sbydotitwk[address] [place], [place] [address]Dr. Kathie Kody Platelet mean volume (Bld) [Entitic vol] 9.9 fL Normal 9.5-13.5 [facility] Comment on above: Performed By: #### C BC ####[facility] Ejnrtwnocn[address] [place], [place] [address]Dr. Kathie Kody PLT 244 103/ul Normal 150-450 [facility] Comment on above: Performed By: #### C BC ####[facility] K[address]wdrmwvu[address] [place], [place] [address]DrMaty Lewisangelic Kody RBC 3.85 106/ul Critically low 4.20-5.40 [facility] Comment on above: Performed By: #### C BC ####[facility] Lcvptpnhsg[address] [place], [place] [address]DrMaty Gates WBC 6.1 103/ul Normal 4.0-11.0 [facility] Comment on above: Performed By: #### C BC ####[facility] Dneyherxlg[address] [place] [address]Dr. Kathie Gates FERRITINon 05-06-2021 Ferritin [Mass/Vol] 24.0 ng/mL Normal 6.2-137.0 [facility] Comment on above: Performed By: #### V ITAD, IRON, VITB12, FT4, FERR #### [facility] [address] [place] [address] [address] Kathie Gates FREE T4on 05-06-2021 Free T4 [Mass/Vol] 1.19 ng/dL Normal 0.78-2.19 [facility] Comment on above: Performed By: #### V ITAD, IRON, VITB12, FT4, FERR #### [facility] [address] [place] [address] Dr. Kathie Gates IRONon 05-06-2021 Iron [Mass/Vol] 39.0 ug/dL Normal 37.0-170.0 [facility] Comment on above: Performed By: #### V ITAD, IRON, VITB12, FT4, FERR #### [facility] [address] [address] [address] Kathie Gates PROF 14(COMP METB)on 022 Albumin [Mass/Vol] 3.9 g/dL Normal 3.5-5.0 [facility] Comment on above: Performed By: #### T JARETT, CMP ####[facility] Exftuylfg[address] [place] [address]DrMaty Gates Albumin/Globulin [Mass ratio] 1.1 {ratio} Normal [facility] Comment on above: Performed By: #### T JARETT, CMP ####[facility] Vshdiljgct9997 [place] [address]DrMaty Gates ALP [Catalytic activity/Vol] 62 U/L Normal 38-126 [facility] Comment on above: Performed By: #### T JARETT, CMP ####[facility] Ombxaikjrc[address] [place] [address]Dr. Kathie Gates ALT [Catalytic activity/Vol] 16 U/L Normal 9-52 [facility] Comment on above: Performed By: #### T JARETT, CMP ####[facility] Uyypsmqaej[address] [place], [place] [address]Dr. Kathie Gates Anion gap [Moles/Vol] 12.0 mmol/L Normal [facility] Comment on above: Performed By: #### T JARETT, CMP ####[facility] Hsvzkzflle[address] [place], [place] [address]Dr. Kathie Gates AST [Catalytic activity/Vol] 16 U/L Normal 14-36 [facility] Comment on above: Performed By: #### T JARETT, CMP ####[facility] Ejsvznewjj[address] [place], [place] [address]Dr. Kathie Gates Bilirubin [Mass/Vol] 0.6 mg/dL Normal 0.2-1.3 [facility] Comment on above: Performed By: #### T JARETT, CMP ####[facility] Ndausdqodr[address] [place], [place] [address]Dr. Kathie Gates Calcium [Mass/Vol] 8.9 mg/dL Normal 8.4-10.2 [facility] Comment on above: Performed By: #### T JARETT, CMP ####[facility] [address]exojkwpua[address] [place], [place] [address]Dr. Kathie Gates Chloride [Moles/Vol] 105 mmol/L Normal 98-107 [facility] Comment on above: Performed By: #### T JARETT, CMP ####[facility] Vxsvjsdhaj[address] [place], [place] [address]Dr. Kathie Gates CO2 [Moles/Vol] 28.4 mmol/L Normal 22.0-30.0 [facility] Comment on above: Performed By: #### T JARETT, CMP ####[facility] Vyogtxvnkm[address] [place], [place] [address]Dr. Kathie Gates Creatinine [Mass/Vol] 0.61 mg/dL Normal 0.52-1.04 [facility] Comment on above: Performed By: #### T JARETT, CMP ####[facility] [address] [place] [id number]. Debbielan Gates EGFR-AF PORTUGUESE >60 Normal >=60 [facility] Comment on above: Performed By: #### T JARETT, CMP ####[facility] [address]jlcakj[address] [place] [id number]. Kathie Gates EGFR-NON AF PORTUGUESE >60 Normal >=60 [facility] Comment on above: Performed By: #### T JARETT, CMP ####[facility] Blimxnolta[address] [place] [id number]. Kathie Gates Globulin (S) [Mass/Vol] 3.6 g/dL Normal [facility] Comment on above: Performed By: #### T JARETT, CMP ####[facility] Xuoszdsykt[address] [place], [place] [address]Dr. Kathie Gates Glucose [Mass/Vol] 82 mg/dL Normal 74-106 [facility] Comment on above: Performed By: #### T JARETT, CMP ####[facility] Xdzeavcabh[address] [place], [place] [address]Dr. Kathie Gates Potassium [Moles/Vol] 4.4 mmol/L Normal 3.4-5.0 [facility] Comment on above: Performed By: #### T JARETT, CMP ####[facility] R[address]ztcqqfi[address] [place], [place] [address]Dr. Debbielan Gates Protein [Mass/Vol] 7.5 g/dL Normal 6.1-8.2 [facility] Comment on above: Performed By: #### T JARETT, CMP ####[facility] Xqghklxeod[address] [place] [address]Dr. Debbielan Gates Sodium [Moles/Vol] 141 mmol/L Normal 137-145 [facility] Comment on above: Performed By: #### T JARETT, CMP ####[facility] Rmkcwtsvhp30[address] [place] [address]Dr. Kathie Gates Urea nitrogen [Mass/Vol] 19.0 mg/dL Critically high 7.0-17.0 [facility] Comment on above: Performed By: #### T JARETT, CMP ####[facility] [address]osev[address] [place] [id number]. Kathie Gates Urea nitrogen/Creatinine [Mass ratio] 31.1 mg/mg Normal [facility] Comment on above: Performed By: #### T JARETT, CMP ####[facility] [address] [place] [id number]. Kathie Gates TSHon 05-06-2021 TSH 1.008 uIU/mL Normal 0.470-4.680 [facility] Comment on above: Performed By: #### T JARETT, CMP ####[facility] T[address]ctdo[address]vb[address] [place] [id number]. Kathie Gates TSH RANGE SEE BELOW Normal [facility] Comment on above: Result Comment: <0.3 4 UIU/ml HYPERTHYROID 0.34-5.60 UIU/ml EUTHYROID >5.60 UIU/ml HYPOTHYROID Performed By: #### T JARETT, CMP ####[facility] Kqjd[address]erm[address] [place] [id number]. Kathie Gates VITAMIN B12on 05-06-2021 Cobalamin (Vitamin B12) [Mass/Vol] 413.0 pg/mL Normal 239.0-931.0 [facility] Comment on above: Performed By: #### V ITAD, IRON, VITB12, FT4, FERR #### [facility] [address] [place] [address] Dr. Kathie Gates VITAMIN D 25 OHon 05-06-2021 VIT D 25-OH 45.0 ng/mL Normal [facility] Comment on above: Performed By: #### V ITAD, IRON, VITB12, FT4, FERR #### [facility] [address] [place] [address] Dr. Ktahie Gates VIT D RANGES SEE BELOW Normal [facility] Comment on above: Result Comment: <20 ng/mL Vit D deficient 20 - <30 ng/mL Vit D insufficient 30 - 100 ng/mL Vit D sufficient >100 ng/mL Potential Toxicity Performed By: #### V ITAD, IRON, VITB12, FT4, FERR #### [facility] [address] [place] [address] [address] Kathie DUBON Quick Testingon 2020 Result Negative [employer] Other Quick Strepon 12-24-2020 S. pyogenes Org specific cx Ql (Throat) Negative [employer] Other Quick Strep [employer] Other CBC Auto Differentialon 01-13 Basophils (Bld) [#/Vol] 10*3/uL [place] Basophils/100 WBC (Bld) 0 % 0 - 2 % [place] Differential Type NOT REPORTED [place] Eosinophils (Bld) [#/Vol] 0.09 10*3/uL [place] Eosinophils/100 WBC (Bld) 1 % 1 - 4 % [place] Erythrocyte distribution width (RBC) [Ratio] 12.2 % 11.8 - 14.4 % [place] Hematocrit (Bld) [Volume fraction] 39.6 % 36.3 - 47.1 % [place] Hemoglobin (Bld) [Mass/Vol] 13.3 g/dL 11.9 - 15.1 g/dL [place] Immature granulocytes (Bld) [#/Vol] 10*3/uL [place] Immature granulocytes (Bld) [#/Vol] 0 % 0 [place] Interpretation and review of laboratory results Abnormal [place] Lymphocytes (Bld) [#/Vol] 1.15 10*3/uL [place] Lymphocytes/100 WBC (Bld) 14 % Low 24 - 43 % [place] MCH (RBC) [Entitic mass] 31.4 pg 25.2 - 33.5 pg [place] MCHC (RBC) [Mass/Vol] 33.6 g/dL 28.4 - 34.8 g/dL [place] MCV (RBC) [Entitic vol] 93.6 fL 82.6 - 102.9 fL [place] Monocytes (Bld) [#/Vol] 0.61 10*3/uL [place] Monocytes/100 WBC (Bld) 7 % 3 - 12 % [place] Platelet mean volume (Bld) [Entitic vol] 9.2 fL 8.1 - 13.5 fL [place] Platelets (Bld) [#/Vol] NOT REPORTED [place] Platelets (Bld) [#/Vol] 256 10*3/uL [place] RBC (Bld) [#/Vol] 4.23 10*6/uL 3.95 - 5.1 1 m/uL [place] RBC morphology finding Nom (Bld) NOT REPORTED [place] Segmented neutrophils/100 WBC (Bld) 78 % High 36 - 65 % [place] Segs Absolute 6.58 [place] WBC (Bld) [#/Vol] 8.5 10*3/uL [place] WBC (Bld) [#/Vol] 0.0 10*3/uL 0.0 per 10 0 WBC [place] WBC Morphology NOT REPORTED [place] CBC with Diffon 01-28-2020 Abs. Basophil <0.03 Normal 0.00-0.20 [facility] Comment on above: Performed By: #### C P, CDP, LIP #### [facility] [address] [place] [address] Historical Guide: Lei Fitzgerald MD Abs.Imm.Granulocyte <0.03 Normal 0.00-0.30 [facility] Comment on above: Performed By: #### C P, CDP, LIP #### [facility] [address] [place] [address] Historical Guide: Lei Fitzgerald MD Abs.Neutrophil (Seg) 6.58 k/uL Normal 1.50-8.10 [facility] Comment on above: Performed By: #### C P, CDP, LIP #### [facility] [address] [place] [address] Historical Guide: Lei Fitzgerald MD Basophils/100 WBC (Bld) 0 % Normal 0-2 [facility] Comment on above: Performed By: #### C P, CDP, LIP #### [facility] [address] [place] [id number] Historical Guide: Lei Fitzgerald MD Eosinophils (Bld) [#/Vol] 0.09 10*3/uL Normal 0.00-0.44 [facility] Comment on above: Performed By: #### C P, CDP, LIP #### [facility] [address] [place] [address] Historical Guide: Lei Fitzgerald MD Eosinophils/100 WBC (Bld) 1 % Normal 1-4 [facility] Comment on above: Performed By: #### C P, CDP, LIP #### [address] [place] [address] Historical Guide: Lei Fitzgerald MD Erythrocyte distribution width (RBC) [Ratio] 12.2 % Normal 11.8-14.4 [facility] Comment on above: Performed By: #### C P, CDP, LIP #### [address] [place] [place] [address] Historical Guide: Lei Fitzgerald MD Hematocrit (Bld) [Volume fraction] 39.6 % Normal 36.3-47.1 [facility] Comment on above: Performed By: #### C P, CDP, LIP #### [address] [place] [id number] Historical Guide: Lei Fitzgerald MD Hemoglobin (Bld) [Mass/Vol] 13.3 g/dL Normal 11.9-15.1 [facility] Comment on above: Performed By: #### C P, CDP, LIP #### [address] [place] [id number] Historical Guide: Lei Fitzgerald MD Immature granulocytes (Bld) [#/Vol] 0 % Normal 0 [facility] Comment on above: Performed By: #### C P, CDP, LIP #### [facility] [address] [place], [place] [address] Historical Guide: Lei Fitzgerald MD Lymphocytes (Bld) [#/Vol] 1.15 10*3/uL Normal 1.10-3.70 [facility] Comment on above: Performed By: #### C P, CDP, LIP #### [facility] [address] [place] [address] Historical Guide: Lei Fitzgerald MD Lymphocytes/100 WBC (Bld) 14 % Low 24-43 [facility] Comment on above: Performed By: #### C P, CDP, LIP #### [facility] [address] [place] [address] Historical Guide: Lei Fitzgerald MD MCH (RBC) [Entitic mass] 31.4 pg Normal 25.2-33.5 [facility] Comment on above: Performed By: #### C P, CDP, LIP #### [facility] [address] [place] [address] Historical Guide: Lei Fitzgerald MD MCHC (RBC) [Mass/Vol] 33.6 g/dL Normal 28.4-34.8 [facility] Comment on above: Performed By: #### C P, CDP, LIP #### [facility] [address] [place], [place] [address] Historical Guide: Lei Fitzgerald MD MCV (RBC) [Entitic vol] 93.6 fL Normal 82.6-102.9 [facility] [facility] Comment on above: Performed By: #### C P, CDP, LIP #### [facility] [address] [place] [id number] Historical Guide: Lei Fitzgerald MD Monocytes (Bld) [#/Vol] 0.61 10*3/uL Normal 0.10-1.20 [facility] Comment on above: Performed By: #### C P, CDP, LIP #### [facility] [address] [place], [facility] Historical Guide: Lei Fitzgerald MD Monocytes/100 WBC (Bld) 7 % Normal 3-12 [facility] Comment on above: Performed By: #### C P, CDP, LIP #### [facility] [address] [place], [place] [address] Historical Guide: Lei Fitzgerald MD Neutrophil (Seg) 78 % High 36-65 [facility] Comment on above: Performed By: #### C P, CDP, LIP #### [facility] [address] [place], [facility] Historical Guide: Lei Fitzgerald MD NRBC Automated 0.0 per 100 WBC Normal 0.0 [facility] Comment on above: Performed By: #### C P, CDP, LIP #### [facility] [address] [place], [place] [address] Historical Guide: Lei Fitzgerald MD Platelet mean volume (Bld) [Entitic vol] 9.2 fL Normal 8.1-13.5 [facility] Comment on above: Performed By: #### C P, CDP, LIP #### [address] [place], [place] [address] Historical Guide: Lei Fitzgerald MD Platelets (Bld) [#/Vol] 256 10*3/uL Normal 138-453 [facility] Comment on above: Performed By: #### C P, CDP, LIP #### [facility] [address] [place], [facility] Historical Guide: Lei Fitzgerald MD RBC (Bld) [#/Vol] 4.23 10*6/uL Normal 3.95-5.11 [facility] Comment on above: Performed By: #### C P, CDP, LIP #### [facility] [address] [place] [facility] Historical Guide: Lei Fitzgerald MD WBC (Bld) [#/Vol] 8.5 10*3/uL Normal 3.5-11.3 [facility] Comment on above: Performed By: #### C P, CDP, LIP #### [facility] [address] [place] [id number] Historical Guide: Lei Fitzgerald MD Auto Diff Performed NOT REPORTED Normal [facility] Comment on above: Performed By: #### C P, CDP, LIP #### [facility] [address] [place] [address] Historical Guide: Lei Fitzgerald MD Platelets (Bld) [#/Vol] NOT REPORTED Normal [facility] Comment on above: Performed By: #### C P, CDP, LIP #### [facility] [address] [place] [address] Historical Guide: Lei Fitzgerald MD RBC morphology finding Nom (Bld) NOT REPORTED Normal [facility] Comment on above: Performed By: #### C P, CDP, LIP #### [facility] [address] [place] [id number] Historical Guide: Lei Fitzgerald MD WBC Morphology NOT REPORTED Normal [facility] Comment on above: Performed By: #### C P, CDP, LIP #### [facility] [address] [place] [id number] Historical Guide: Lei Fitzgerald MD CT ABDOMEN PELVIS W IV CONTR [place] 01-28-2020 CT ABDOMEN PELVIS W IV CONTRAST EXAMINATION: CT OF THE ABDOMEN AND PELVIS WITH CONTRAST 01/28/2020 11:08 am TECHNIQUE: CT of the abdomen and pelvis was performed with the administration of intravenous contrast. Multiplanar reformatted images are provided for review. Dose modulation, iterative reconstruction, and/or weight based adjustment of the mA/kV was utilized to reduce the radiation dose to as low as reasonably achievable. COMPARISON: None. 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 The visualized cardiac structures are unremarkable. Organs: The liver and spleen are normal size and overall attenuation. Gallbladder has been removed. The pancreas and adrenal glands are unremarkable. The kidneys are without obstructive uropathy. The ureters are not dilated. The urinary bladder is contracted. GI/Bowel: Stomach is unremarkable with postsurgical change. Loops of small bowel are normal in caliber without evidence for obstruction. The colon contains air and fecal residue and is unremarkable. The appendix is normal. There is free fluid in the pelvis that may be physiologic. There is no intraperitoneal free air. Pelvis: The uterus is age-appropriate. Phleboliths are seen in the pelvis. Peritoneum/Retroperitone um: The psoas muscles are symmetric. The abdominal aorta is normal in caliber. The inferior vena cava is unremarkable. There is no retroperitoneal or mesenteric adenopathy. Bones/Soft Tissues: There is a small umbilical hernia containing a portion of small bowel. There is no acute osseous abnormality. IMPRESSION: No acute abdominal or pelvic abnormality. Small umbilical hernia containing a portion of bowel. Small amount of free fluid in the pelvis that may be physiologic. Interpreted by: Michael Bedoya MD Signed by: Michael Bedoya MD 01/28/20 Final result Normal [facility] CT ABDOMEN PELVIS W IV CONTR AST Additional Contrast? Noneon 01-28-2020 EXAMINATION: CT OF T ABDOMEN AND PELVIS WITH CONTRAST 01/28/2020 11:08 am TECHNIQUE: CT of the abdomen and pelvis was performed with the administration of intravenous contrast. Multiplanar reformatted images are provided for review. Dose modulation, iterative reconstruction, and/or weight based adjustment of the mA/kV was utilized to reduce the radiation dose to as low as reasonably achievable. COMPARISON: None. 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 The visualized cardiac structures are unremarkable. Organs: The liver and spleen are normal size and overall attenuation. Gallbladder has been removed. The pancreas and adrenal glands are unremarkable. The kidneys are without obstructive uropathy. The ureters are not dilated. The urinary bladder is contracted. GI/Bowel: Stomach is unremarkable with postsurgical change. Loops of small bowel are normal in caliber without evidence for obstruction. The colon contains air and fecal residue and is unremarkable. The appendix is normal. There is free fluid in the pelvis that may be physiologic. There is no intraperitoneal free air. Pelvis: The uterus is age-appropriate. Phleboliths are seen in the pelvis. Peritoneum/Retroperitone um: The psoas muscles are symmetric. The abdominal aorta is normal in caliber. The inferior vena cava is unremarkable. There is no retroperitoneal or mesenteric adenopathy. Bones/Soft Tissues: There is a small umbilical hernia containing a portion of small bowel. There is no acute osseous abnormality. [place] No acute abdominal o r pelvic abnormality. Small umbilical hernia containing a portion of bowel. Small amount of free fluid in the pelvis that may be physiologic. [place], [place], [employer] Incoming Radiant Results From [employer] - 01/28/2020 11:28 AM EST EXAMINATION: CT OF THE ABDOMEN AND PELVIS WITH CONTRAST 01/28/2020 11:08 am TECHNIQUE: CT of the abdomen and pelvis was performed with the administration of intravenous contrast. Multiplanar reformatted images are provided for review. Dose modulation, iterative reconstruction, and/or weight based adjustment of the mA/kV was utilized to reduce the radiation dose to as low as reasonably achievable. COMPARISON: None. 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 The visualized cardiac structures are unremarkable. Organs: The liver and spleen are normal size and overall attenuation. Gallbladder has been removed. The pancreas and adrenal glands are unremarkable. The kidneys are without obstructive uropathy. The ureters are not dilated. The urinary bladder is contracted. GI/Bowel: Stomach is unremarkable with postsurgical change. Loops of small bowel are normal in caliber without evidence for obstruction. The colon contains air and fecal residue and is unremarkable. The appendix is normal. There is free fluid in the pelvis that may be physiologic. There is no intraperitoneal free air. Pelvis: The uterus is age-appropriate. Phleboliths are seen in the pelvis. Peritoneum/Retroperitone um: The psoas muscles are symmetric. The abdominal aorta is normal in caliber. The inferior vena cava is unremarkable. There is no retroperitoneal or mesenteric adenopathy. Bones/Soft Tissues: There is a small umbilical hernia containing a portion of small bowel. There is no acute osseous abnormality. IMPRESSION: No acute abdominal or pelvic abnormality. Small umbilical hernia containing a portion of bowel. Small amount of free fluid in the pelvis that may be physiologic. [facility] [place], [place] Comp Metabolic Profon 2019 (cont.) Normal [facility] Comment on above: Result Comment: Aver age GFR for 20-29 years old: 116 mL/min/1.73sq m Chronic Kidney Disease: <60 mL/min/1.73sq m Kidney failure: <15 mL/min/1.73sq m eGFR calculated using average adult body mass. Additional eGFR calculator available at: http://www.AVST/multiple_crcl_2011.htm Performed By: #### C P, CDP, LIP #### [facility] [address] [place] [address] Historical Guide: Lei Fitzgerald MD Albumin [Mass/Vol] 4.6 g/dL Normal 3.5-5.2 [facility] Comment on above: Performed By: #### C P, CDP, LIP #### [facility] [address] [place] [address] Historical Guide: Lei Fitzgerald MD Albumin/Globulin [Mass ratio] 1.7 {ratio} Normal 1.0-2.5 [facility] Comment on above: Performed By: #### C P, CDP, LIP #### [facility] [address] [place] [address] Historical Guide: Lei Fitzgerald MD Alkaline Phos 70 U/L Normal 35-104 [facility] Comment on above: Performed By: #### C P, CDP, LIP #### [facility] [address] [place] [address] Historical Guide: Lei Fitzgerald MD ALT [Catalytic activity/Vol] 10 U/L Normal 5-33 [facility] Comment on above: Performed By: #### C P, CDP, LIP #### [facility] [address] [place], [place] [id number] Historical Guide: Lei Fitzgerald MD Anion gap [Moles/Vol] 11 mmol/L Normal 9-17 [facility] Comment on above: Performed By: #### C P, CDP, LIP #### [facility] [address] [place], [place] [id number] Historical Guide: Lei Fitzgerald MD AST [Catalytic activity/Vol] 17 U/L Normal <32 [facility] Comment on above: Performed By: #### C P, CDP, LIP #### [facility] [address] [place], [place] [id number] Historical Guide: Lei Fitzgerald MD Bilirubin Ql (U) 1.02 mg/dL Normal 0.3-1.2 [facility] Comment on above: Performed By: #### C P, CDP, LIP #### [facility] [address] [place], [place] [id number] Historical Guide: Lei Fitzgerald MD BUN/CRE Ratio 29 High 9-20 [facility] Comment on above: Performed By: #### C P, CDP, LIP #### [facility] [address] [place], [place] [id number] Historical Guide: Lei Fitzgerald MD Calcium [Mass/Vol] 9.3 mg/dL Normal 8.6-10.4 [facility] Comment on above: Performed By: #### C P, CDP, LIP #### [facility] [address] [place] [address] Historical Guide: Lei Fitzgerald MD Chloride [Moles/Vol] 101 mmol/L Normal 98-107 [facility] Comment on above: Performed By: #### C P, CDP, LIP #### [facility] [address] [place], [place] [id number] Historical Guide: Lei Fitzgerald MD CO2 [Moles/Vol] 25 mmol/L Normal 20-31 [facility] Comment on above: Performed By: #### C P, CDP, LIP #### [facility] [address] [place] [address] Historical Guide: Lei Fitzgerald MD Creatinine [Mass/Vol] 0.45 mg/dL Low 0.50-0.90 [facility] Comment on above: Performed By: #### C P, CDP, LIP #### [facility] [address] [place] [address] Historical Guide: Lei Fitzgerald MD GFR, Amer >60 Normal >60 [facility] Comment on above: Performed By: #### C P, CDP, LIP #### [facility] [address] [place] [address] Historical Guide: Lei Fitzgerald MD GFR,non Amer >60 Normal >60 [facility] Comment on above: Performed By: #### C P, CDP, LIP #### [facility] [address] [place] [address] Historical Guide: Lei Fitzgerald MD Glucose [Mass/Vol] 90 mg/dL Normal 70-99 [facility] Comment on above: Performed By: #### C P, CDP, LIP #### [facility] [address] [place] [address] Historical Guide: Lei Fitzgerald MD Potassium [Moles/Vol] 4.3 mmol/L Normal 3.7-5.3 [facility] Comment on above: Performed By: #### C P, CDP, LIP #### [facility] [address] [place] [address] Historical Guide: Lei Fitzgerald MD Protein [Mass/Vol] 7.3 g/dL Normal 6.4-8.3 [facility] Comment on above: Performed By: #### C P, CDP, LIP #### [facility] [address] [place] [address] Historical Guide: Lei Fitzgerald MD Sodium [Moles/Vol] 137 mmol/L Normal 135-144 [facility] Comment on above: Performed By: #### C P, CDP, LIP #### [facility] [address] [place] [address] Historical Guide: Lei Fitzgerald MD Staging: Normal [facility] Comment on above: Result Comment: Stag e 1: Some kidney damage normal GFR Stage 2: Mild kidney damage GFR 60-89 Stage 3: Moderate kidney damage GFR 30-59 Stage 4: Severe kidney damage GFR 15-29 Stage 5: Severe kidney damage GFR <15 ESRD - chronic treatment by dialysis or transplant Performed By: #### C P, CDP, LIP #### [facility] [address] [place] [address] Historical Guide: Lei Fitzgerald MD Urea nitrogen [Mass/Vol] 13 mg/dL Normal 6-20 [facility] Comment on above: Performed By: #### C P, CDP, LIP #### [facility] [address] [place] [address] Historical Guide: Lei Fitzgerald MD [facility] 01-28-2020 Albumin [Mass/Vol] 4.6 g/dL 3.5 - 5.2 g/dL [place] Albumin/Globulin [Mass ratio] 1.7 {ratio} [place] ALP [Catalytic activity/Vol] 70 U/L 35 - 104 U/L [place] ALT [Catalytic activity/Vol] 10 U/L 5 - 33 U/L [place] Anion gap [Moles/Vol] 11 mmol/L 9 - 17 mmol/L [place] AST [Catalytic activity/Vol] 17 U/L <32 [place] Bilirubin Ql (U) 1.02 mg/dL 0.3 - 1.2 mg/dL [place] Bun/Cre Ratio 29 High [place], [place] Calcium [Mass/Vol] 9.3 mg/dL 8.6 - 10. 4 mg/dL [place] Chloride [Moles/Vol] 101 mmol/L 98 - 10 7 mmol/L [place] CO2 [Moles/Vol] 25 mmol/L 20 - 31 mmol/L [place] Creatinine [Mass/Vol] 0.45 mg/dL Low 0.5 - 0.9 mg/dL [place] GFR >60 >60 mL/min [place] GFR Non- >60 >60 mL/min [place] Glucose [Mass/Vol] 90 mg/dL 70 - 99 mg/dL [place] Interpretation and review of laboratory results Abnormal [place] Potassium [Moles/Vol] 4.3 mmol/L 3.7 - 5.3 mmol/L [place] Protein [Mass/Vol] 7.3 g/dL 6.4 - 8.3 g/dL [place] Sodium [Moles/Vol] 137 mmol/L 135 - 144 mmol/L [place] Urea nitrogen [Mass/Vol] 13 mg/dL 6 - 20 mg/dL [place] HCG, ,Urineon 01-27 Beta HCG ( test) Ql (U) Negative Normal NEG [facility] Comment on above: Result Comment: Spec imens with hCG levels near the threshold of the test (25 mIU/mL) may give a negative or indeterminate result. In such cases, another test should be performed with a new specimen in 48-72 hours. If early is suspected clinically in this setting, correlation with quantitative serum b-hCG level is suggested. [facility] has confirmed the use of plasma for this test. This has not been cleared or approved by the U.S. Food and Drug Administration. The FDA has determined that such clearance is not necessary. Performed By: #### U MILIND LYLES, [facility] #### [facility] [address] [place] [address] Historical Guide: Lei Fitzgerald MD Lactic Acidon 01-28-2020 Lactate [Moles/Vol] 1.1 mmol/L Normal 0.5-2.2 [facility] Comment on above: Performed By: #### L ACTIC #### [facility] [address] [place] [address] Historical Guide: Lei Fitzgerald MD Lactate [Moles/Vol] NOT REPORTED Normal 0.7-2.1 [facility] Comment on above: Performed By: #### L ACTIC #### [facility] [address] [place] [address] Historical Guide: Lei Fitzgerald MD Lactic Acid, Plasmaon 2019 Lactate [Moles/Vol] 1.1 mmol/L 0.5 - 2. 2 mmol/L [place] Lactic Acid, Whole Blood NOT REPORTED 0.7 - 2.1 mmol/L [place] Lipaseon 01-28-2020 Lipase [Catalytic activity/Vol] 33 U/L Normal 13-60 [facility] Comment on above: Performed By: #### C P, CDP, LIP #### [facility] [address] [place] [address] Historical Guide: Lei Fitzgerald MD Lipase [Catalytic activity/Vol] 33 U/L 13 - 60 U/L [place] Metabolic Panelon 01-28-2020 GFR/1.73 sq M predicted among non-blacks MDRD (S/P/Bld) [Vol rate/Area] [place] Comment on above: Stage 1: Some kidney damage normal GFR Stage 2: Mild kidney damage GFR 60-89 Stage 3: Moderate kidney damage GFR 30-59 Stage 4: Severe kidney damage GFR 15-29 Stage 5: Severe kidney damage GFR <15 ESRD - chronic treatment by dialysis or transplant Average GFR for 20-2 9 years old: 116 mL/min/1.73sq m Chronic Kidney Disease: <60 mL/min/1.73sq m Kidney failure: <15 mL/min/1.73sq m eGFR calculated using average adult body mass. Additional eGFR calculator available at: http://www.globalrp.GoodPeople/multiple_crcl_2012.htm Microscopic Urinalysison Amorphous, UA NOT REPORTED None [place] Bacteria, UA NOT REPORTED None [place], [place] Casts UA NOT REPORTED /LPF [place] Crystals, UA NOT REPORTED None /HPF [place] Epithelial Cells UA 0 TO 2 [place] Interpretation and review of laboratory results Abnormal [place] Mucus, UA TRACE Abnormal None [place] Other Observations UA NOT REPORTED NOT REQ. [place] RBC (U) [#/Vol] None [place], [place] Renal Epithelial, UA NOT REPORTED 0 /HPF [place] Trichomonas, UA NOT REPORTED None [facility] [place] WBC, UA None [place] Yeast, UA NOT REPORTED None [place], [place] - [place] , Urineon 0 Beta HCG ( test) Ql (U) Negative NEGATIVE [place] Comment on above: Specimens with hCG l evels near the threshold of the test (25 mIU/mL) may give a negative or indeterminate result. In such cases, another test should be performed with a new specimen in 48-72 hours. If early is suspected clinically in this setting, correlation with quantitative serum b-hCG level is suggested. [facility] has confirmed the use of plasma for this test. This has not been cleared or approved by the U.S. Food and Drug Administration. The FDA has determined that such clearance is not necessary. UA w/Reflex Cultureon 2019 Acetoacetic Acid,Ur TRACE Abnormal NEG [facility] Comment on above: Performed By: #### U MICAO, UAX, [facility] #### [facility] [address] [place] [address] [place] [address] Historical Guide: Lei Fitzgerald MD Bilirubin, SemiQt,Ur Negative Normal NEG [facility] Comment on above: Performed By: #### U MICAO, UAX, CG #### [facility] [address] [place], [place] [id number] Historical Guide: Lei Fitzgerald MD Color (U) YELLOW Normal YEL [facility] Comment on above: Performed By: #### U MICAO, UAX, UHCG #### [facility] [address] [place], [place] [id number] Historical Guide: Lei Fitzgerald MD Glucose Ql (U) Negative Normal NEG [facility] Comment on above: Performed By: #### U MICAO, UAX, UHCG #### [facility] [address] [place], [place] [id number] Historical Guide: Lei Fitzgerald MD Hemoglobin, Ur Negative Normal NEG [facility] Comment on above: Performed By: #### U MICAO, UAX, UHCG #### [facility] [address] [place] [address] Dr[address] [place], [place] [id number] Historical Guide: Lei Fitzgerald MD Leukocyte esterase Test strip Ql (U) Negative Normal NEG [facility] Comment on above: Performed By: #### U MICAO, UAX, UHCG #### [address] [place], [place] [id number] Historical Guide: Lei Fitzgerald MD Nitrite,Ur Negative Normal [facility] Comment on above: Performed By: #### U MICAO, UAX, UHCG #### [facility] [address] [place] [address] [place] [place], [place] [id number] Historical Guide: Lei Fitzgerald MD pH (U) 6.0 [pH] Normal 5.0-9.0 [facility] Comment on above: Performed By: #### U MICAO, UAX, UHCG #### [facility] [address] [place], [place] [id number] Historical Guide: Lei Fitzgerald MD Protein Ql (U) Negative Normal NEG [facility] Comment on above: Performed By: #### U MICAO, UAX, UHCG #### [facility] [address] [place] [address] Historical Guide: Lei Fitzgerald MD Specific gravity (U) [Rel density] >1.030 High 1.010-1.020 [facility] Comment on above: Performed By: #### U MICAO, UAX, UHCG #### [facility] [address] [place] [address] Historical Guide: Lei Fitzgerald MD Turbidity CLEAR Normal CLEAR [facility] Comment on above: Performed By: #### U MICAO, UAX, UHCG #### [facility] [address] [place] [address] Historical Guide: Lei Fitzgerald MD Urobilinogen,Ur Normal Normal NORM [facility] Comment on above: Performed By: #### U MICAO, UAX, UHCG #### [facility] [address] [place] [address] Historical Guide: Lei Fitzgerald MD Comment NOT REPORTED Normal [facility] Comment on above: Performed By: #### U MICAO, UAX, UHCG #### [facility] [address] [place] [address] [place] [address] Historical Guide: Lei Fitzgerald MD Urinalysis Reflex to Culture on 01-28-2020 Bilirubin Urine Negative NEGATIVE [facility] [place] Color, UA YELLOW YELLOW [facility] [place] Glucose, Ur Negative NEGATIVE [facility] [place] Interpretation and review of laboratory results Abnormal [facility]- [place] Ketones Ql (U) TRACE Abnormal NEGATIVE [facility] Leukocyte esterase Test strip Ql (U) Negative NEGATIVE [facility] Nitrite, Urine Negative NEGATIVE [facility] pH, UA 6.0 [facility] [place] Protein (U) [Mass/Vol] Negative NEGATIVE [facility] Specific [place], UA >1.030 High [facility]- [place] Turbidity UA CLEAR CLEAR [facility], [place] Urinalysis Comments NOT REPORTED [facility] Urine Hgb Negative NEGATIVE [facility], [place] Urobilinogen, Urine Normal Normal [facility], [place] Urinalysis,Microon 0 ----- Normal [facility] Comment on above: Performed By: #### U MICAO, UAX, UHCG #### [facility] [address] [place], [place] [id number] Historical Guide: Lei Fitzgerald MD Epithelial cells LM.HPF (Urine sed) [#/Area] 0 TO 2 Normal 0-25 [facility] Comment on above: Performed By: #### U MICAO, UAX, UHCG #### [facility] [address] [place] [address] Historical Guide: Lei Fitzgerald MD Mucus Strands TRACE Abnormal [facility] Comment on above: Performed By: #### U MICAO, UAX, UHCG #### [facility] [address] [place] [id number] Historical Guide: Lei Fitzgerald MD RBC (U) [#/Vol] None Normal 0-2 [facility] Comment on above: Performed By: #### U MICAO, UAX, UHCG #### [address] [place] [address] Historical Guide: Lei Fitzgerald MD WBC (U) [#/Vol] None Normal 0-5 [facility] Comment on above: Performed By: #### U MICAO, UAX, UHCG #### [facility] [address] [place] [address] Historical Guide: Lei Fitzgerald MD Amorphous sediment LM Ql (Urine sed) NOT REPORTED Normal [facility] Comment on above: Performed By: #### U MICAO, UAX, UHCG #### [address] [place] [address] Historical Guide: Lei Fitzgerald MD Bacteria LM.HPF (Urine sed) [#/Area] NOT REPORTED Normal NONE [facility] Comment on above: Performed By: #### U MICAO, UAX, UHCG #### [facility] [address] [place] [address] Historical Guide: Lei Fitzgerald MD Casts LM.LPF (Urine sed) [#/Area] NOT REPORTED Normal [facility] Comment on above: Performed By: #### U MICAO, UAX, UHCG #### [facility] [address] [place] [address] Historical Guide: Lei Fitzgerald MD Crystals LM Nom (Urine sed) NOT REPORTED Normal [facility] Comment on above: Performed By: #### U MICAO, UAX, UHCG #### [facility] [address] [place] [address] Historical Guide: Lei Fitzgerald MD Epithelial, Renal NOT REPORTED Normal 0 [facility] Comment on above: Performed By: #### U MICAO, UAX, UHCG #### [facility] [address] [place] [address] Historical Guide: Lei Fitzgerald MD Other Observations NOT REPORTED Normal NREQ [facility] Comment on above: Performed By: #### U MICAO, UAX, UHCG #### [facility] [address] [place] [address] Historical Guide: Lei Fitzgerald MD Trichomonas NOT REPORTED Normal NONE [facility] Comment on above: Performed By: #### U MICAO, UAX, UHCG #### [facility] [address] [place] [address] Historical Guide: Lei Fitzgerald MD Yeast LM Ql (Urine sed) NOT REPORTED Normal NONE [facility] Comment on above: Performed By: #### U MICAO, UAX, UHCG #### [facility] [address] [place] [place] [address] Historical Guide: Lei Fitzgerald MD FOOT 3 VIEWSon 05-13-2017 FOOT [address] [id number]: JULYCORBYE TPhys: ARETHAVISHALLuis Bustillo C.N.P. ([facility]): 89 Age: 26 Sex: FAcct: [id number] Loc: LABExam Date: 05/13/17 Status: REG CLIRadiology No.: [id number] Number: [id number] # Type/[id number] RAD / FOOT 3 VIEWS LTEXAMINATION: LEFT foot AP, oblique, and lateral viewCLINICAL INDICATION: Paresthesias LEFT heel for several months, no history oftrauma.COMPARISON: NoneFINDINGS: Minimal spurring is seen at the calcaneal origin of the plantaraponeurosis. There is no acute fracture, subluxation or destructive bonelesion. No soft tissue swelling is evident.IMPRESSION:1. Minimal spurring at the origin of the plantar aponeurosis.2. No acute bony abnormality.Professional interpretation provided by [facility] [place] [address].Thank you for this referral.< >Reported By: TAYLOR CROUCH D.O.Signed In NovaPro By: TAYLOR CROUCH D.O. << Signature on File>> Reported By: TAYLOR CROUCH D.O. Signed By: TAYLOR CROUCH D.O.Tests performed at:[address] [phone] [facility] DATE OF SERVICE: 03/26/2017A 26-year-old female with a chief complaint of sore throat, ear pain, nasalcongestion. The patient had symptoms for the past week. Denies any fever or cough.Has been using a nasal decongestant but it has not been helping.PHYSICAL EXAMINATION:Vital Signs: Stable on exam.General: The patient is in no acute distress.HEENT: Left tympanic membrane is erythematous. There is purulence behind theeardrum. Nasal turbinate hypertrophy, 2+ tonsillar hypertrophy. Anterior cervicallymphadenopathy. Heart: Regular rate and rhythm. No murmurs, rubs, or gallops.Lungs: Clear to auscultation bilaterally.ASSESSMENT:1 . Left otitis media.2. Tonsillitis.PLAN: Amoxicillin 875 mg twice daily for 10 days, Tylenol or ibuprofen. Follow upas needed. Denisse Lee, [facility]/[id number]: 03/26/2017 12:32DT: 03/27/2017 19:47SSI File#: [id number] #: [id number]/Reviewed by03/29/17 0841 [facility] PATIENT NAME: SONIA MISTRY [id number] [facility] [address] [place] MEDICAL REC #: [id number], [place] [address] STATCARE REPORT STATCARE PHYSICIAN [facility] STATCARE REPORT [facility] Maternal Transporton 0 11-13-2016 Maternal Transport Normal [facility] [place] OB Discharge Summaryon 11-11 OB Discharge Summary Normal [facility] [place] Depart Summaryon 11-08-2016 Depart Summary Normal [facility] ([place] OB Progress Noteon 7 OB Progress Note Normal [facility] [place] Women's Program Inpatient Awan mmaryon 11-08-2016 Women's Program Inpatient Summary Normal [facility] [place] OB Progress Noteon 7 OB Progress Note Normal [facility] [place] OB Progress Noteon 7 OB Progress Note Normal [facility] [place] .Auto Diffon 11-05-2016 Basophils Auto #/vol (Bld) 0.00 10 3/mcL Normal 0.00-0.27 [facility] ([place] Comment on above: Performed By: #### C BC, ADIFF, ANEU, LD, CMP, GFR, FIB, APTT, PRO ####[address] [address] Basophils/100 WBC Auto (Bld) 0.1 % Normal 0.0-2.5 [facility] ([place]) Comment on above: Performed By: #### C BC, ADIFF, ANEU, LD, CMP, GFR, FIB, APTT, PRO ####[address] [address] Eosinophils 0.10 10 3/mcL Normal 0.00-0.65 [facility] ([place]) Comment on above: Performed By: #### C BC, ADIFF, ANEU, LD, CMP, GFR, FIB, APTT, PRO ####[address] [address] Eosinophils/100 leukocytes 1.0 % Normal 0.0-6.0 [facility] ([place] Comment on above: Performed By: #### C BC, ADIFF, ANEU, LD, CMP, GFR, FIB, APTT, PRO ####[address] [address] Lymphocytes 1.60 10 3/mcL Normal 0.90-4.32 [facility] ([place]) Comment on above: Performed By: #### C BC, ADIFF, ANEU, LD, CMP, GFR, FIB, APTT, PRO ####[address] [address] Lymphocytes/100 leukocytes 10.9 % Low 20.0-40.0 [facility] ([place] Comment on above: Performed By: #### C BC, ADIFF, ANEU, LD, CMP, GFR, FIB, APTT, PRO ####[address] [address] Monocytes 0.90 10 3/mcL Normal 0.09-1.40 [facility] ([place]) Comment on above: Performed By: #### C BC, ADIFF, ANEU, LD, CMP, GFR, FIB, APTT, PRO ####[address] [address] Monocytes/100 leukocytes 6.2 % Normal 2.0-13.0 [facility] ([place] Comment on above: Performed By: #### C BC, ADIFF, ANEU, LD, CMP, GFR, FIB, APTT, PRO ####[address] [address] Neutrophils/100 WBC Auto (Bld) 81.8 % High 50.0-75.0 [facility] ([place] Comment on above: Performed By: #### C BC, ADIFF, ANEU, LD, CMP, GFR, FIB, APTT, PRO ####[address] [address] .GFRon 11-05-2016 eGFR (non-black) mL/min/{1.73_m2} Normal [facility] ([place]) Comment on above: Result Comment: GFR Population mean for , Non- Americans Ages 20-29 = 116 mL/min/1.73 sq.m. Ages 30-39 = 107 mL/min/1.73 sq.m. Ages 40-49 = 99 mL/min/1.73 sq.m. Ages 50-59 = 93 mL/min/1.73 sq.m. Ages 60-69 = 85 mL/min/1.73 sq.m. Ages 70+ = 75 mL/min/1.73 sq.m.Chronic Kidney Disease: Less than 60 mL/min/1.73 square metersEnd Stage Renal Disease: Less than 15 mL/min/1.73 square meters Performed By: #### C BC, ADIFF, ANEU, LD, CMP, GFR, FIB, APTT, PRO ####[address] [address] .NEUABSon 11-05-2016 Neutrophils 11.80 10 3/mcL High 2.25-8.10 [facility] ([place]) Comment on above: Performed By: #### C BC, ADIFF, ANEU, LD, CMP, GFR, FIB, APTT, PRO ####[place] [address] CBCon 11-05-2016 Erythrocyte distribution width Auto Ratio (RBC) 13.9 % Normal 11.5-15.5 [facility] ([place] Comment on above: Performed By: #### C BC, ADIFF, ANEU, LD, CMP, GFR, FIB, APTT, PRO ####[place] [address] Erythrocytes (RBC) 3.57 10 6/mcL Low 4.10-5.30 [facility] ([place]) Comment on above: Performed By: #### C BC, ADIFF, ANEU, LD, CMP, GFR, FIB, APTT, PRO ####[place] [address] Hematocrit (HCT) 33.1 % Low 34.0-46.0 [facility] ([place] Comment on above: Performed By: #### C BC, ADIFF, ANEU, LD, CMP, GFR, FIB, APTT, PRO ####[place] [address] Hemoglobin mass conc (Bld) 11.3 G/dL Low 12.0-16.0 [facility] ([place] Comment on above: Performed By: #### C BC, ADIFF, ANEU, LD, CMP, GFR, FIB, APTT, PRO ####[place] [address] MCH 31.7 pg Normal 27.0-33.0 [facility] ([place] Comment on above: Performed By: #### C BC, ADIFF, ANEU, LD, CMP, GFR, FIB, APTT, PRO ####[place] [address] MCHC mass conc (RBC) 34.1 G/dL Normal 32.0-36.0 [facility] [place] Comment on above: Performed By: #### C BC, ADIFF, ANEU, LD, CMP, GFR, FIB, APTT, PRO ####[place] [address] MCV 92.9 fL Normal 80.0-99.0 [facility] ([place] Comment on above: Performed By: #### C BC, ADIFF, ANEU, LD, CMP, GFR, FIB, APTT, PRO ####[place] [address] Platelet mean volume (PMV) 7.8 fL Normal 6.6-10.5 [facility] ([place] Comment on above: Performed By: #### C BC, ADIFF, ANEU, LD, CMP, GFR, FIB, APTT, PRO ####[place] [address] Platelets 159 10 3/mcL Normal 150-450 [facility] ([place]) Comment on above: Performed By: #### C BC, ADIFF, ANEU, LD, CMP, GFR, FIB, APTT, PRO ####[place] [address] WBC (Leukocytes) 14.50 10 3/mcL High 4.50-10.80 [facility] [place] Comment on above: Performed By: #### C BC, ADIFF, ANEU, LD, CMP, GFR, FIB, APTT, PRO ####[place] [address] CMPon 11-05-2016 Alanine aminotransferase (ALT) 16 U/L Normal 10-49 [facility] ([place] Comment on above: Performed By: #### C BC, ADIFF, ANEU, LD, CMP, GFR, FIB, APTT, PRO ####[place] [address] Albumin 2.0 G/dL Low 3.2-4.8 [facility] ([place] Comment on above: Performed By: #### C BC, ADIFF, ANEU, LD, CMP, GFR, FIB, APTT, PRO ####[place] [address] Albumin/Globulin Ratio 0.6 {ratio} Low 0.9-1.6 [facility] ([place] Comment on above: Performed By: #### C BC, ADIFF, ANEU, LD, CMP, GFR, FIB, APTT, PRO ####[address] [address] Alk Phos 76 U/L Normal 38-126 [facility] ([place] Comment on above: Performed By: #### C BC, ADIFF, ANEU, LD, CMP, GFR, FIB, APTT, PRO ####[place] [address] Aspartate aminotransferase (AST) 21 U/L Normal 8-34 [facility] ([place] Comment on above: Performed By: #### C BC, ADIFF, ANEU, LD, CMP, GFR, FIB, APTT, PRO ####[place] [address] Bili Total 0.6 mg/dL Normal 0.2-1.2 [facility] ([place] Comment on above: Performed By: #### C BC, ADIFF, ANEU, LD, CMP, GFR, FIB, APTT, PRO ####[place] [address] BUN/Creatinine Ratio 23.3 ratio High 10.0-22.0 [facility] [place] Comment on above: Performed By: #### C BC, ADIFF, ANEU, LD, CMP, GFR, FIB, APTT, PRO ####[place] [address] Calcium 7.3 mg/dL Low 8.4-10.1 [facility] ([place] Comment on above: Performed By: #### C BC, ADIFF, ANEU, LD, CMP, GFR, FIB, APTT, PRO ####[place] [address] Chloride 100 mmol/L Normal 98-110 [facility] ([place] Comment on above: Performed By: #### C BC, ADIFF, ANEU, LD, CMP, GFR, FIB, APTT, PRO ####[place] [address] CO2 28 mmol/L Normal 22-32 [facility] ([place] Comment on above: Performed By: #### C BC, ADIFF, ANEU, LD, CMP, GFR, FIB, APTT, PRO ####[place] [address] Creatinine 0.60 mg/dL Normal 0.50-1.20 [facility] ([place] Comment on above: Performed By: #### C BC, ADIFF, ANEU, LD, CMP, GFR, FIB, APTT, PRO ####[place] [address] Electrolyte Balance 9.0 mEq/L Normal 4.0-15.0 [facility] ([place]) Comment on above: Performed By: #### C BC, ADIFF, ANEU, LD, CMP, GFR, FIB, APTT, PRO ####[place] [address] Globulin 3.3 G/dL Normal 1.5-3.8 [facility] ([place] Comment on above: Performed By: #### C BC, ADIFF, ANEU, LD, CMP, GFR, FIB, APTT, PRO ####[place] [address] Glucose mass conc 85 mg/dL Normal 70-110 [facility] ([place] Comment on above: Performed By: #### C BC, ADIFF, ANEU, LD, CMP, GFR, FIB, APTT, PRO ####[place] [address] Potassium molar conc 4.3 mmol/L Normal 3.5-5.0 [facility] [place] Comment on above: Performed By: #### C BC, ADIFF, ANEU, LD, CMP, GFR, FIB, APTT, PRO ####[place] [address] Protein 5.3 G/dL Low 6.0-8.5 [facility] ([place] Comment on above: Performed By: #### C BC, ADIFF, ANEU, LD, CMP, GFR, FIB, APTT, PRO ####[place] [address] Sodium 137 mmol/L Normal 136-145 [facility] ([place] Comment on above: Performed By: #### C BC, ADIFF, ANEU, LD, CMP, GFR, FIB, APTT, PRO ####[address] [address] Urea nitrogen 14.0 mg/dL Normal 8.0-22.0 [facility] ([place]) Comment on above: Performed By: #### C BC, ADIFF, ANEU, LD, CMP, GFR, FIB, APTT, PRO ####[place] [address] Drilling Manager Progress Noteon 11-05-2016 Drilling Manager Progress Note Normal [facility] ([place] LDHon 11-05-2016 LDH 275 U/L High 120-246 [facility] ([place] Comment on above: Performed By: #### C BC, ADIFF, ANEU, LD, CMP, GFR, FIB, APTT, PRO ####[place] [address] MGon 11-05-2016 Magnesium 5.8 mg/dL Critically abnormal 1.6-2.4 [facility] ([place] Comment on above: Performed By: #### C BC, ADIFF, ANEU, LD, CMP, GFR, FIB, APTT, PRO ####[place] [address] OB Anesthesia Procedure Prog ress Noteon 11-05-2016 OB Anesthesia Procedure Progress Note Normal [facility] ([place] OB Progress Noteon 7 OB Progress Note Normal [facility] ([place] .Auto Diffon 11-04-2016 Basophils Auto #/vol (Bld) 0.00 10 3/mcL Normal 0.00-0.27 [facility] ([place] Comment on above: Performed By: #### C BC, ADIFF, ANEU, LD, CMP, GFR, FIB, APTT, PRO ####[place] [address] Basophils/100 WBC Auto (Bld) 0.1 % Normal 0.0-2.5 [facility] ([place] Comment on above: Performed By: #### C BC, ADIFF, ANEU, LD, CMP, GFR, FIB, APTT, PRO ####[place] [id number] Eosinophils 0.10 10 3/mcL Normal 0.00-0.65 [facility] ([place]) Comment on above: Performed By: #### C BC, ADIFF, ANEU, LD, CMP, GFR, FIB, APTT, PRO ####[address] [address] Eosinophils/100 leukocytes 0.5 % Normal 0.0-6.0 [facility] ([place] Comment on above: Performed By: #### C BC, ADIFF, ANEU, LD, CMP, GFR, FIB, APTT, PRO ####[address] [address] Lymphocytes 1.80 10 3/mcL Normal 0.90-4.32 [facility] ([place]) Comment on above: Performed By: #### C BC, ADIFF, ANEU, LD, CMP, GFR, FIB, APTT, PRO ####[address] [address] Lymphocytes/100 leukocytes 10.4 % Low 20.0-40.0 [facility] ([place] Comment on above: Performed By: #### C BC, ADIFF, ANEU, LD, CMP, GFR, FIB, APTT, PRO ####[address] [address] Monocytes 1.00 10 3/mcL Normal 0.09-1.40 [facility] ([place]) Comment on above: Performed By: #### C BC, ADIFF, ANEU, LD, CMP, GFR, FIB, APTT, PRO ####[address] [address] Monocytes/100 leukocytes 5.4 % Normal 2.0-13.0 [facility] ([place] Comment on above: Performed By: #### C BC, ADIFF, ANEU, LD, CMP, GFR, FIB, APTT, PRO ####[address] [address] Neutrophils/100 WBC Auto (Bld) 83.6 % High 50.0-75.0 [facility] ([place] Comment on above: Performed By: #### C BC, ADIFF, ANEU, LD, CMP, GFR, FIB, APTT, PRO ####[address] [address] Basophils Auto #/vol (Bld) 0.00 10 3/mcL Normal 0.00-0.27 [facility] ([place] Comment on above: Performed By: #### C BC, ADIFF, ANEU, LD, CMP, GFR, FIB, APTT, PRO ####[address] [address] Basophils/100 WBC Auto (Bld) 0.2 % Normal 0.0-2.5 [facility] ([place]) Comment on above: Performed By: #### C BC, ADIFF, ANEU, LD, CMP, GFR, FIB, APTT, PRO ####[address] [address] Eosinophils 0.10 10 3/mcL Normal 0.00-0.65 [facility] ([place]) Comment on above: Performed By: #### C BC, ADIFF, ANEU, LD, CMP, GFR, FIB, APTT, PRO ####[address] [address] Eosinophils/100 leukocytes 0.6 % Normal 0.0-6.0 [facility] ([place] Comment on above: Performed By: #### C BC, ADIFF, ANEU, LD, CMP, GFR, FIB, APTT, PRO ####[address] [address] Lymphocytes 1.60 10 3/mcL Normal 0.90-4.32 [facility] ([place]) Comment on above: Performed By: #### C BC, ADIFF, ANEU, LD, CMP, GFR, FIB, APTT, PRO ####[address] [address] Lymphocytes/100 leukocytes 11.4 % Low 20.0-40.0 [facility] ([place] Comment on above: Performed By: #### C BC, ADIFF, ANEU, LD, CMP, GFR, FIB, APTT, PRO ####[address] [address] Monocytes 0.80 10 3/mcL Normal 0.09-1.40 [facility] ([place]) Comment on above: Performed By: #### C BC, ADIFF, ANEU, LD, CMP, GFR, FIB, APTT, PRO ####[address] [address] Monocytes/100 leukocytes 5.8 % Normal 2.0-13.0 [facility] ([place]) Comment on above: Performed By: #### C BC, ADIFF, ANEU, LD, CMP, GFR, FIB, APTT, PRO ####[address] [address] Neutrophils/100 WBC Auto (Bld) 82.0 % High 50.0-75.0 [facility] ([place] Comment on above: Performed By: #### C BC, ADIFF, ANEU, LD, CMP, GFR, FIB, APTT, PRO ####[address] [address] Basophils Auto #/vol (Bld) 0.00 10 3/mcL Normal 0.00-0.27 [facility] ([place] Comment on above: Performed By: #### C BC, ADIFF, ANEU, LD, CMP, GFR, FIB, APTT, PRO ####[address] [address] Basophils/100 WBC Auto (Bld) 0.2 % Normal 0.0-2.5 [facility] ([place] Comment on above: Performed By: #### C BC, ADIFF, ANEU, LD, CMP, GFR, FIB, APTT, PRO ####[address] [address] Eosinophils 0.10 10 3/mcL Normal 0.00-0.65 [facility] ([place]) Comment on above: Performed By: #### C BC, ADIFF, ANEU, LD, CMP, GFR, FIB, APTT, PRO ####[address] [address] Eosinophils/100 leukocytes 0.7 % Normal 0.0-6.0 [facility] ([place] Comment on above: Performed By: #### C BC, ADIFF, ANEU, LD, CMP, GFR, FIB, APTT, PRO ####[address] [address] Lymphocytes 2.00 10 3/mcL Normal 0.90-4.32 [facility] ([place]) Comment on above: Performed By: #### C BC, ADIFF, ANEU, LD, CMP, GFR, FIB, APTT, PRO ####[address] [address] Lymphocytes/100 leukocytes 16.6 % Low 20.0-40.0 [facility] ([place]) Comment on above: Performed By: #### C BC, ADIFF, ANEU, LD, CMP, GFR, FIB, APTT, PRO ####[address] [address] Monocytes 1.10 10 3/mcL Normal 0.09-1.40 [facility] ([place]) Comment on above: Performed By: #### C BC, ADIFF, ANEU, LD, CMP, GFR, FIB, APTT, PRO ####[address] [address] Monocytes/100 leukocytes 9.4 % Normal 2.0-13.0 [facility] ([place] Comment on above: Performed By: #### C BC, ADIFF, ANEU, LD, CMP, GFR, FIB, APTT, PRO ####[address] [address] Neutrophils/100 WBC Auto (Bld) 73.1 % Normal 50.0-75.0 [facility] ([place] Comment on above: Performed By: #### C BC, ADIFF, ANEU, LD, CMP, GFR, FIB, APTT, PRO ####[address] [address] .GFRon 11-04-2016 eGFR (non-black) mL/min/{1.73_m2} Normal [facility] ([place]) Comment on above: Result Comment: GFR Population mean for , Non- Americans Ages 20-29 = 116 mL/min/1.73 sq.m. Ages 30-39 = 107 mL/min/1.73 sq.m. Ages 40-49 = 99 mL/min/1.73 sq.m. Ages 50-59 = 93 mL/min/1.73 sq.m. Ages 60-69 = 85 mL/min/1.73 sq.m. Ages 70+ = 75 mL/min/1.73 sq.m.Chronic Kidney Disease: Less than 60 mL/min/1.73 square metersEnd Stage Renal Disease: Less than 15 mL/min/1.73 square meters Performed By: #### C BC, ADIFF, ANEU, LD, CMP, GFR, FIB, APTT, PRO ####[address] [address] eGFR (non-black) mL/min/{1.73_m2} Normal [facility] ([place]) Comment on above: Result Comment: GFR Population mean for , Non- Americans Ages 20-29 = 116 mL/min/1.73 sq.m. Ages 30-39 = 107 mL/min/1.73 sq.m. Ages 40-49 = 99 mL/min/1.73 sq.m. Ages 50-59 = 93 mL/min/1.73 sq.m. Ages 60-69 = 85 mL/min/1.73 sq.m. Ages 70+ = 75 mL/min/1.73 sq.m.Chronic Kidney Disease: Less than 60 mL/min/1.73 square metersEnd Stage Renal Disease: Less than 15 mL/min/1.73 square meters Performed By: #### C BC, ADIFF, ANEU, LD, CMP, GFR, FIB, APTT, PRO ####[address] [address] eGFR (non-black) mL/min/{1.73_m2} Normal [facility] ([place]) Comment on above: Result Comment: GFR Population mean for , Non- Americans Ages 20-29 = 116 mL/min/1.73 sq.m. Ages 30-39 = 107 mL/min/1.73 sq.m. Ages 40-49 = 99 mL/min/1.73 sq.m. Ages 50-59 = 93 mL/min/1.73 sq.m. Ages 60-69 = 85 mL/min/1.73 sq.m. Ages 70+ = 75 mL/min/1.73 sq.m.Chronic Kidney Disease: Less than 60 mL/min/1.73 square metersEnd Stage Renal Disease: Less than 15 mL/min/1.73 square meters Performed By: #### C BC, ADIFF, ANEU, LD, CMP, GFR, FIB, APTT, PRO ####[address] [address] .NEUABSon 11-04-2016 Neutrophils 14.90 10 3/mcL High 2.25-8.10 [facility] ([place]) Comment on above: Performed By: #### C BC, ADIFF, ANEU, LD, CMP, GFR, FIB, APTT, PRO ####[place] [address] Neutrophils 11.40 10 3/mcL High 2.25-8.10 [facility] ([place]) Comment on above: Performed By: #### C BC, ADIFF, ANEU, LD, CMP, GFR, FIB, APTT, PRO ####[place] [address] Neutrophils 8.70 10 3/mcL High 2.25-8.10 [facility] ([place]) Comment on above: Performed By: #### C BC, ADIFF, ANEU, LD, CMP, GFR, FIB, APTT, PRO ####[place] [address] CBCon 11-04-2016 Erythrocyte distribution width Auto Ratio (RBC) 13.7 % Normal 11.5-15.5 [facility] ([place]) Comment on above: Performed By: #### C BC, ADIFF, ANEU, LD, CMP, GFR, FIB, APTT, PRO ####[place] [address] Erythrocytes (RBC) 3.90 10 6/mcL Low 4.10-5.30 [facility] ([place] Comment on above: Performed By: #### C BC, ADIFF, ANEU, LD, CMP, GFR, FIB, APTT, PRO ####[place] [address] Hematocrit (HCT) 36.5 % Normal 34.0-46.0 [facility] ([place] Comment on above: Performed By: #### C BC, ADIFF, ANEU, LD, CMP, GFR, FIB, APTT, PRO ####[place] [address] Hemoglobin mass conc (Bld) 12.1 G/dL Normal 12.0-16.0 [facility] ([place] Comment on above: Performed By: #### C BC, ADIFF, ANEU, LD, CMP, GFR, FIB, APTT, PRO ####[place] [address] MCH 30.9 pg Normal 27.0-33.0 [facility] ([place] Comment on above: Performed By: #### C BC, ADIFF, ANEU, LD, CMP, GFR, FIB, APTT, PRO ####[place] [address] MCHC mass conc (RBC) 33.0 G/dL Normal 32.0-36.0 [facility] [place] Comment on above: Performed By: #### C BC, ADIFF, ANEU, LD, CMP, GFR, FIB, APTT, PRO ####[place] [address] MCV 93.7 fL Normal 80.0-99.0 [facility] ([place] Comment on above: Performed By: #### C BC, ADIFF, ANEU, LD, CMP, GFR, FIB, APTT, PRO ####[place] [address] Platelet mean volume (PMV) 7.9 fL Normal 6.6-10.5 [facility] ([place] Comment on above: Performed By: #### C BC, ADIFF, ANEU, LD, CMP, GFR, FIB, APTT, PRO ####[place] [address] Platelets 205 10 3/mcL Normal 150-450 [facility] ([place]) Comment on above: Performed By: #### C BC, ADIFF, ANEU, LD, CMP, GFR, FIB, APTT, PRO ####[place] [address] WBC (Leukocytes) 17.80 10 3/mcL High 4.50-10.80 [facility] [place] Comment on above: Performed By: #### C BC, ADIFF, ANEU, LD, CMP, GFR, FIB, APTT, PRO ####[place] [address] Erythrocyte distribution width Auto Ratio (RBC) 13.9 % Normal 11.5-15.5 [facility] ([place] Comment on above: Performed By: #### C BC, ADIFF, ANEU, LD, CMP, GFR, FIB, APTT, PRO ####[place] [address] Erythrocytes (RBC) 4.02 10 6/mcL Low 4.10-5.30 [facility] [place] Comment on above: Performed By: #### C BC, ADIFF, ANEU, LD, CMP, GFR, FIB, APTT, PRO ####[place] [address] Hematocrit (HCT) 37.8 % Normal 34.0-46.0 [facility] ([place] Comment on above: Performed By: #### C BC, ADIFF, ANEU, LD, CMP, GFR, FIB, APTT, PRO ####[place] [address] Hemoglobin mass conc (Bld) 12.6 G/dL Normal 12.0-16.0 [facility] ([place] Comment on above: Performed By: #### C BC, ADIFF, ANEU, LD, CMP, GFR, FIB, APTT, PRO ####[place] [address] MCH 31.4 pg Normal 27.0-33.0 [facility] ([place] Comment on above: Performed By: #### C BC, ADIFF, ANEU, LD, CMP, GFR, FIB, APTT, PRO ####[place] [address] MCHC mass conc (RBC) 33.4 G/dL Normal 32.0-36.0 [facility] [place] Comment on above: Performed By: #### C BC, ADIFF, ANEU, LD, CMP, GFR, FIB, APTT, PRO ####[address] [address] MCV 94.0 fL Normal 80.0-99.0 [facility] ([place] Comment on above: Performed By: #### C BC, ADIFF, ANEU, LD, CMP, GFR, FIB, APTT, PRO ####[address] [address] Platelet mean volume (PMV) 8.4 fL Normal 6.6-10.5 [facility] ([place] Comment on above: Performed By: #### C BC, ADIFF, ANEU, LD, CMP, GFR, FIB, APTT, PRO ####[place] [id number] Platelets 199 10 3/mcL Normal 150-450 [facility] ([place]) Comment on above: Performed By: #### C BC, ADIFF, ANEU, LD, CMP, GFR, FIB, APTT, PRO ####[place] [address] WBC (Leukocytes) 13.90 10 3/mcL High 4.50-10.80 [facility] [place] Comment on above: Performed By: #### C BC, ADIFF, ANEU, LD, CMP, GFR, FIB, APTT, PRO ####[place] [address] Erythrocyte distribution width Auto Ratio (RBC) 13.9 % Normal 11.5-15.5 [facility] ([place] Comment on above: Performed By: #### C BC, ADIFF, ANEU, LD, CMP, GFR, FIB, APTT, PRO ####[place] [address] Erythrocytes (RBC) 3.92 10 6/mcL Low 4.10-5.30 [facility] [place] Comment on above: Performed By: #### C BC, ADIFF, ANEU, LD, CMP, GFR, FIB, APTT, PRO ####[address] [address] Hematocrit (HCT) 36.5 % Normal 34.0-46.0 [facility] ([place] Comment on above: Performed By: #### C BC, ADIFF, ANEU, LD, CMP, GFR, FIB, APTT, PRO ####[place] [address] Hemoglobin mass conc (Bld) 12.3 G/dL Normal 12.0-16.0 [facility] ([place] Comment on above: Performed By: #### C BC, ADIFF, ANEU, LD, CMP, GFR, FIB, APTT, PRO ####[place] [address] MCH 31.3 pg Normal 27.0-33.0 [facility] ([place] Comment on above: Performed By: #### C BC, ADIFF, ANEU, LD, CMP, GFR, FIB, APTT, PRO ####[place] [address] MCHC mass conc (RBC) 33.7 G/dL Normal 32.0-36.0 [facility] [place] Comment on above: Performed By: #### C BC, ADIFF, ANEU, LD, CMP, GFR, FIB, APTT, PRO ####[place] [address] MCV 93.0 fL Normal 80.0-99.0 [facility] ([place] Comment on above: Performed By: #### C BC, ADIFF, ANEU, LD, CMP, GFR, FIB, APTT, PRO ####[place] [address] Platelet mean volume (PMV) 8.7 fL Normal 6.6-10.5 [facility] ([place] Comment on above: Performed By: #### C BC, ADIFF, ANEU, LD, CMP, GFR, FIB, APTT, PRO ####[place] [address] Platelets 203 10 3/mcL Normal 150-450 [facility] ([place] Comment on above: Performed By: #### C BC, ADIFF, ANEU, LD, CMP, GFR, FIB, APTT, PRO ####[place] [address] WBC (Leukocytes) 11.90 10 3/mcL High 4.50-10.80 [facility] [place] Comment on above: Performed By: #### C BC, ADIFF, ANEU, LD, CMP, GFR, FIB, APTT, PRO ####[address] [address] [facility] DNAon 11-04-2016 [facility] DNA Negative Normal Negative [facility] Comment on above: Performed By: #### L 200.3000, L200.3190 ####ML - [facility] [id number] [place] [address] CMPon 11-04-2016 Albumin/Globulin Ratio 0.6 {ratio} Low 0.9-1.6 [facility] ([place] Comment on above: Performed By: #### C BC, ADIFF, ANEU, LD, CMP, GFR, FIB, APTT, PRO ####[address] [address] Alk Phos 86 U/L Normal 38-126 [facility] ([place] Comment on above: Performed By: #### C BC, ADIFF, ANEU, LD, CMP, GFR, FIB, APTT, PRO ####[place] [address] Bili Total 0.4 mg/dL Normal 0.2-1.2 [facility] ([place] Comment on above: Performed By: #### C BC, ADIFF, ANEU, LD, CMP, GFR, FIB, APTT, PRO ####[place] [address] BUN/Creatinine Ratio 20.3 ratio Normal 10.0-22.0 [facility] [place] Comment on above: Performed By: #### C BC, ADIFF, ANEU, LD, CMP, GFR, FIB, APTT, PRO ####[place] [address] Creatinine 0.74 mg/dL Normal 0.50-1.20 [facility] ([place] Comment on above: Performed By: #### C BC, ADIFF, ANEU, LD, CMP, GFR, FIB, APTT, PRO ####[address] [address] Globulin 3.5 G/dL Normal 1.5-3.8 [facility] ([place] Comment on above: Performed By: #### C BC, ADIFF, ANEU, LD, CMP, GFR, FIB, APTT, PRO ####[place] [address] Protein 5.6 G/dL Low 6.0-8.5 [facility] ([place] Comment on above: Performed By: #### C BC, ADIFF, ANEU, LD, CMP, GFR, FIB, APTT, PRO ####[place] [address] Alanine aminotransferase (ALT) 18 U/L Normal 10-49 [facility] ([place] Comment on above: Performed By: #### C BC, ADIFF, ANEU, LD, CMP, GFR, FIB, APTT, PRO ####[place] [address] Albumin 2.1 G/dL Low 3.2-4.8 [facility] ([place] Comment on above: Performed By: #### C BC, ADIFF, ANEU, LD, CMP, GFR, FIB, APTT, PRO ####[place] [address] Aspartate aminotransferase (AST) 24 U/L Normal 8-34 [facility] ([place] Comment on above: Performed By: #### C BC, ADIFF, ANEU, LD, CMP, GFR, FIB, APTT, PRO ####[place] [address] Calcium 7.9 mg/dL Low 8.4-10.1 [facility] ([place] Comment on above: Performed By: #### C BC, ADIFF, ANEU, LD, CMP, GFR, FIB, APTT, PRO ####[place] [address] Chloride 98 mmol/L Normal 98-110 [facility] ([place] Comment on above: Performed By: #### C BC, ADIFF, ANEU, LD, CMP, GFR, FIB, APTT, PRO ####[address] [address] CO2 26 mmol/L Normal 22-32 [facility] ([place] Comment on above: Performed By: #### C BC, ADIFF, ANEU, LD, CMP, GFR, FIB, APTT, PRO ####[address] [address] Electrolyte Balance 10.0 mEq/L Normal 4.0-15.0 [facility] ([place]) Comment on above: Performed By: #### C BC, ADIFF, ANEU, LD, CMP, GFR, FIB, APTT, PRO ####[address] [address] Glucose mass conc 83 mg/dL Normal 70-110 [facility] ([place] Comment on above: Performed By: #### C BC, ADIFF, ANEU, LD, CMP, GFR, FIB, APTT, PRO ####[place] [address] Potassium molar conc 4.3 mmol/L Normal 3.5-5.0 [facility] [place] Comment on above: Performed By: #### C BC, ADIFF, ANEU, LD, CMP, GFR, FIB, APTT, PRO ####[place] [address] Sodium 134 mmol/L Low 136-145 [facility] ([place] Comment on above: Performed By: #### C BC, ADIFF, ANEU, LD, CMP, GFR, FIB, APTT, PRO ####[place] [address] Urea nitrogen 15.0 mg/dL Normal 8.0-22.0 [facility] ([place]) Comment on above: Performed By: #### C BC, ADIFF, ANEU, LD, CMP, GFR, FIB, APTT, PRO ####[place] [id number] Albumin/Globulin Ratio 0.6 {ratio} Low 0.9-1.6 [facility] ([place] Comment on above: Performed By: #### C BC, ADIFF, ANEU, LD, CMP, GFR, FIB, APTT, PRO ####[place] [address] Alk Phos 84 U/L Normal 38-126 [facility] ([place] Comment on above: Performed By: #### C BC, ADIFF, ANEU, LD, CMP, GFR, FIB, APTT, PRO ####[place] [address] Bili Total 0.2 mg/dL Normal 0.2-1.2 [facility] ([place] Comment on above: Performed By: #### C BC, ADIFF, ANEU, LD, CMP, GFR, FIB, APTT, PRO ####[place] [address] Globulin 3.4 G/dL Normal 1.5-3.8 [facility] ([place] Comment on above: Performed By: #### C BC, ADIFF, ANEU, LD, CMP, GFR, FIB, APTT, PRO ####[place] [address] Protein 5.5 G/dL Low 6.0-8.5 [facility] ([place] Comment on above: Performed By: #### C BC, ADIFF, ANEU, LD, CMP, GFR, FIB, APTT, PRO ####[place] [address] Alanine aminotransferase (ALT) 16 U/L Normal 10-49 [facility] ([place] Comment on above: Performed By: #### C BC, ADIFF, ANEU, LD, CMP, GFR, FIB, APTT, PRO ####[place] [address] Albumin 2.1 G/dL Low 3.2-4.8 [facility] ([place] Comment on above: Performed By: #### C BC, ADIFF, ANEU, LD, CMP, GFR, FIB, APTT, PRO ####[place] [address] Aspartate aminotransferase (AST) 21 U/L Normal 8-34 [facility] ([place] Comment on above: Performed By: #### C BC, ADIFF, ANEU, LD, CMP, GFR, FIB, APTT, PRO ####[place] [address] BUN/Creatinine Ratio 23.1 ratio High 10.0-22.0 [facility] [place] Comment on above: Performed By: #### C BC, ADIFF, ANEU, LD, CMP, GFR, FIB, APTT, PRO ####[place] [address] Calcium 8.6 mg/dL Normal 8.4-10.1 [facility] ([place] Comment on above: Performed By: #### C BC, ADIFF, ANEU, LD, CMP, GFR, FIB, APTT, PRO ####[place] [address] Chloride 103 mmol/L Normal 98-110 [facility] ([place] Comment on above: Performed By: #### C BC, ADIFF, ANEU, LD, CMP, GFR, FIB, APTT, PRO ####[place] [address] CO2 25 mmol/L Normal 22-32 [facility] ([place] Comment on above: Performed By: #### C BC, ADIFF, ANEU, LD, CMP, GFR, FIB, APTT, PRO ####[place] [address] Creatinine 0.65 mg/dL Normal 0.50-1.20 [facility] ([place] Comment on above: Performed By: #### C BC, ADIFF, ANEU, LD, CMP, GFR, FIB, APTT, PRO ####[place] [address] Electrolyte Balance 11.0 mEq/L Normal 4.0-15.0 [facility] ([place]) Comment on above: Performed By: #### C BC, ADIFF, ANEU, LD, CMP, GFR, FIB, APTT, PRO ####[place] [address] Glucose mass conc 81 mg/dL Normal 70-110 [facility] ([place] Comment on above: Performed By: #### C BC, ADIFF, ANEU, LD, CMP, GFR, FIB, APTT, PRO ####[place] [address] Potassium molar conc 4.6 mmol/L Normal 3.5-5.0 [facility] [place] Comment on above: Performed By: #### C BC, ADIFF, ANEU, LD, CMP, GFR, FIB, APTT, PRO ####[address] [address] Sodium 139 mmol/L Normal 136-145 [facility] ([place] Comment on above: Performed By: #### C BC, ADIFF, ANEU, LD, CMP, GFR, FIB, APTT, PRO ####[place] [address] Urea nitrogen 15.0 mg/dL Normal 8.0-22.0 [facility] ([place]) Comment on above: Performed By: #### C BC, ADIFF, ANEU, LD, CMP, GFR, FIB, APTT, PRO ####[place] [id number] Calcium 8.7 mg/dL Normal 8.4-10.1 [facility] ([place] Comment on above: Performed By: #### C BC, ADIFF, ANEU, LD, CMP, GFR, FIB, APTT, PRO ####[place] [address] Alanine aminotransferase (ALT) 18 U/L Normal 10-49 [facility] ([place] Comment on above: Performed By: #### C BC, ADIFF, ANEU, LD, CMP, GFR, FIB, APTT, PRO ####[place] [address] Albumin 2.2 G/dL Low 3.2-4.8 [facility] ([place] Comment on above: Performed By: #### C BC, ADIFF, ANEU, LD, CMP, GFR, FIB, APTT, PRO ####[place] [address] Albumin/Globulin Ratio 0.6 {ratio} Low 0.9-1.6 [facility] ([place] Comment on above: Performed By: #### C BC, ADIFF, ANEU, LD, CMP, GFR, FIB, APTT, PRO ####[address] [address] Alk Phos 86 U/L Normal 38-126 [facility] ([place] Comment on above: Performed By: #### C BC, ADIFF, ANEU, LD, CMP, GFR, FIB, APTT, PRO ####[place] [address] Aspartate aminotransferase (AST) 22 U/L Normal 8-34 [facility] ([place] Comment on above: Performed By: #### C BC, ADIFF, ANEU, LD, CMP, GFR, FIB, APTT, PRO ####[place] [address] Bili Total 0.4 mg/dL Normal 0.2-1.2 [facility] ([place] Comment on above: Performed By: #### C BC, ADIFF, ANEU, LD, CMP, GFR, FIB, APTT, PRO ####[place] [address] BUN/Creatinine Ratio 28.6 ratio High 10.0-22.0 [facility] [place] Comment on above: Performed By: #### C BC, ADIFF, ANEU, LD, CMP, GFR, FIB, APTT, PRO ####[place] [address] Chloride 106 mmol/L Normal 98-110 [facility] ([place] Comment on above: Performed By: #### C BC, ADIFF, ANEU, LD, CMP, GFR, FIB, APTT, PRO ####[place] [address] CO2 22 mmol/L Normal 22-32 [facility] ([place] Comment on above: Performed By: #### C BC, ADIFF, ANEU, LD, CMP, GFR, FIB, APTT, PRO ####[place] [address] Creatinine 0.56 mg/dL Normal 0.50-1.20 [facility] ([place] Comment on above: Performed By: #### C BC, ADIFF, ANEU, LD, CMP, GFR, FIB, APTT, PRO ####[place] [address] Electrolyte Balance 11.0 mEq/L Normal 4.0-15.0 [facility] ([place]) Comment on above: Performed By: #### C BC, ADIFF, ANEU, LD, CMP, GFR, FIB, APTT, PRO ####[place] [id number] Globulin 3.5 G/dL Normal 1.5-3.8 [facility] ([place] Comment on above: Performed By: #### C BC, ADIFF, ANEU, LD, CMP, GFR, FIB, APTT, PRO ####[place] [address] Glucose mass conc 75 mg/dL Normal 70-110 [facility] ([place] Comment on above: Performed By: #### C BC, ADIFF, ANEU, LD, CMP, GFR, FIB, APTT, PRO ####[place] [address] Potassium molar conc 4.6 mmol/L Normal 3.5-5.0 [facility] [place] Comment on above: Performed By: #### C BC, ADIFF, ANEU, LD, CMP, GFR, FIB, APTT, PRO ####[place] [address] Protein 5.7 G/dL Low 6.0-8.5 [facility] ([place] Comment on above: Performed By: #### C BC, ADIFF, ANEU, LD, CMP, GFR, FIB, APTT, PRO ####[place] [address] Sodium 139 mmol/L Normal 136-145 [facility] ([place] Comment on above: Performed By: #### C BC, ADIFF, ANEU, LD, CMP, GFR, FIB, APTT, PRO ####[place] [address] Urea nitrogen 16.0 mg/dL Normal 8.0-22.0 [facility] ([place]) Comment on above: Performed By: #### C BC, ADIFF, ANEU, LD, CMP, GFR, FIB, APTT, PRO ####[place] [address] LANDD Anesthesia Recordon LANDD Anesthesia Record Normal [facility] ([place] LANDD Intraop Recordon 11-04 LANDD Intraop Record Normal [facility] [place] LDHon 11-04-2016 LDH 281 U/L High 120-246 [facility] ([place] Comment on above: Performed By: #### C BC, ADIFF, ANEU, LD, CMP, GFR, FIB, APTT, PRO ####[place] [address] LDH 205 U/L Normal 120-246 [facility] ([place] Comment on above: Performed By: #### C BC, ADIFF, ANEU, LD, CMP, GFR, FIB, APTT, PRO ####[place] [address] LDH 193 U/L Normal 120-246 [facility] ([place] Comment on above: Performed By: #### C BC, ADIFF, ANEU, LD, CMP, GFR, FIB, APTT, PRO ####[place] [address] MABOon 11-04-2016 ABO/Rh Interp Positive Invalid Interpretation Code [facility] ([place] Comment on above: Performed By: #### C BC, ADIFF, ANEU, LD, CMP, GFR, FIB, APTT, PRO ####[place] [address] MABSon 11-04-2016 Antibody Screen Manual Negative Normal [facility] ([place] Comment on above: Performed By: #### C BC, ADIFF, ANEU, LD, CMP, GFR, FIB, APTT, PRO ####[place] [address] MGon 11-04-2016 Magnesium 5.8 mg/dL Critically abnormal 1.6-2.4 [facility] ([place] Comment on above: Performed By: #### C BC, ADIFF, ANEU, LD, CMP, GFR, FIB, APTT, PRO ####[place] [id number] [place] [address] Magnesium 5.1 mg/dL High 1.6-2.4 [facility] ([place] Comment on above: Performed By: #### C BC, ADIFF, ANEU, LD, CMP, GFR, FIB, APTT, PRO ####[place] [id number] [place] [address] Maternal Medicine Prog ress Noteon 11-04-2016 Maternal Medicine Progress Note Normal [facility] ([place] NEISGONNAAon 11-04-2016 NEISGONNAA Negative Normal Negative [facility] Comment on above: Result Comment: Perf ormed at: =G - [facility] [address] [id number] Director: Rita Aguilera MD, Phone: [phone] Performed By: #### L 200.7177, L225.8236 ####ML - [facility] [id number] [place] [address] OB Progress Noteon 7 OB Progress Note Normal [facility] ([place] OB Progress Note Normal [facility] ([place] Operative Noteon 11-04-2016 Operative Note Normal [facility] ([place]) Operative Reporton 7 Operative Report Normal [facility] ([place] CTPCRon 11-03-2016 C. trachomatis Interp C. trachomatis DNA not detected. Specimen is presumptive negative for C. trachomatis. A negative result does not preclude C. trachomatis infection because results depend on adequate specimen collection, absence of inhibitors, and sufficient DNA to be detected. Normal [facility] ([place] Comment on above: Performed By: #### C BC, ADIFF, ANEU, LD, CMP, GFR, FIB, APTT, PRO ####[place] [id number] [place] [address] C.trachomatis PCR Negative Normal [facility] ([place] Comment on above: Result Comment: Ceci lloyd (PCR) assay performed on the [employer] 4800 system. Performed By: #### C BC, ADIFF, ANEU, LD, CMP, GFR, FIB, APTT, PRO ####[address] [address] Chlam Source Cervix Normal [facility] ([place] Comment on above: Performed By: #### C BC, ADIFF, ANEU, LD, CMP, GFR, FIB, APTT, PRO ####[place] [address] Maternal Medicine Prog ress Noteon 11-03-2016 Maternal Medicine Progress Note [facility] ([place]) NGPCRon 11-03-2016 GC PCR Source Cervix Normal [facility] ([place]) Comment on above: Performed By: #### C BC, ADIFF, ANEU, LD, CMP, GFR, FIB, APTT, PRO ####[place] [address] N. gonorrhoeae (PCR) Negative [facility] ([place]) Comment on above: Result Comment: Mole cular (PCR) assay performed on the [employer] 4800 System. Performed By: #### C BC, ADIFF, ANEU, LD, CMP, GFR, FIB, APTT, PRO ####[place] [address] N. gonorrhoeae Interp N. gonorrhoeae DNA not detected. Specimen is presumptive negative for N. gonorrhoeae. A negative result does not preclude Neisseria gonorrhoeae infection because results depend on adequate specimen collection, absence of inhibitors, and sufficient DNA to be detected. [facility] ([place]) Comment on above: Performed By: #### C BC, ADIFF, ANEU, LD, CMP, GFR, FIB, APTT, PRO ####[place] [address] Neonatology Consultationon 0 11-03-2016 Neonatology Consultation [facility] ([place]) OB Progress Noteon 7 OB Progress Note [facility] ([place]) OB Progress Note [facility] ([place] US BIOPHYSICAL PROFILEon US BIOPHYSICAL PROFILE ORIGINAL ------ OBSTETRICS REPORT (Signed Final 11/03/2016 08:56 am) -Patient Info ID #: [id number] : [birth year] (26 yrs)(F) Name: SONIA Jordan JULY Visit Date: 11/03/2016 06:28 am Performed By Performed By: Paula Forte RDMS Referred By: Wade Zhang MD Location: [facility] --Indications Severe PreE Labor and Delivery patient ----- Evaluation Num Of Fetuses: 1 Heart Rate: 136 bpm Presentation: Cephalic Placenta: Anterior, Fundal, Grade 2 Amniotic Fluid VALE FV: Within Normal Limits VALE Sum: 18.28 cm Larg Pckt: 5.03 cm RUQ: 4.37 cm LUQ: 5.03 cm RLQ: 4.48 cm LLQ: 4.4 cm Biophysical Evaluation Amniotic F.V: Pocket => 2 cm two F. Tone: Observed planes F. Movement: Observed Score: 6/8 F. Breathing: Not Observed ------Biometry Ge stational Age Clinical WILLIAM: 32w 0d WILLIAM: 12/29/16 Best: 32w 0d Det. By: Clinical WILLIAM WILLIAM: 12/29/16 ------Impression BIOPHYSICAL PROFILE, utilizing the More protocol, established a score of 6 out of 8 was obtained and breathing was not seen. Incidental cord Doppler studies normal. Clinical correlation recommended. The imaging study is done on Labor and Delivery Unit and the results were made available to the resident physicians at the conclusion of the imaging study for incorporation into the clinical management. --------- Thank you for sharing in the care of Ms. YANGTTE Nikki MISTRY with us. Please do not hesitate to contact us if you have any questions or concerns. Rg Purdy MDElectronically Signed Final Report 11/03/2016 08:56 am Normal [facility] ([place] .Auto Diffon 11-02-2016 Basophils Auto #/vol (Bld) 0.00 10 3/mcL Normal 0.00-0.27 [facility] ([place] Comment on above: Performed By: #### C BC, ADIFF, ANEU, LD, CMP, GFR, FIB, APTT, PRO ####[address] [address] Basophils/100 WBC Auto (Bld) 0.2 % Normal 0.0-2.5 [facility] ([place] Comment on above: Performed By: #### C BC, ADIFF, ANEU, LD, CMP, GFR, FIB, APTT, PRO ####[address] [address] Eosinophils 0.00 10 3/mcL Normal 0.00-0.65 [facility] ([place]) Comment on above: Performed By: #### C BC, ADIFF, ANEU, LD, CMP, GFR, FIB, APTT, PRO ####[address] [address] Eosinophils/100 leukocytes 0.1 % Normal 0.0-6.0 [facility] ([place] Comment on above: Performed By: #### C BC, ADIFF, ANEU, LD, CMP, GFR, FIB, APTT, PRO ####[address] [address] Lymphocytes 1.60 10 3/mcL Normal 0.90-4.32 [facility] ([place]) Comment on above: Performed By: #### C BC, ADIFF, ANEU, LD, CMP, GFR, FIB, APTT, PRO ####[address] [address] Lymphocytes/100 leukocytes 8.2 % Low 20.0-40.0 [facility] ([place] Comment on above: Performed By: #### C BC, ADIFF, ANEU, LD, CMP, GFR, FIB, APTT, PRO ####[address] [address] Monocytes 1.10 10 3/mcL Normal 0.09-1.40 [facility] ([place]) Comment on above: Performed By: #### C BC, ADIFF, ANEU, LD, CMP, GFR, FIB, APTT, PRO ####[address] [address] Monocytes/100 leukocytes 5.9 % Normal 2.0-13.0 [facility] ([place] Comment on above: Performed By: #### C BC, ADIFF, ANEU, LD, CMP, GFR, FIB, APTT, PRO ####[address] [address] Neutrophils/100 WBC Auto (Bld) 85.6 % High 50.0-75.0 [facility] ([place] Comment on above: Performed By: #### C BC, ADIFF, ANEU, LD, CMP, GFR, FIB, APTT, PRO ####[address] [address] .NEUABSon 11-02-2016 Neutrophils 16.60 10 3/mcL High 2.25-8.10 [facility] ([place]) Comment on above: Performed By: #### C BC, ADIFF, ANEU, LD, CMP, GFR, FIB, APTT, PRO ####[address] [address] CBCon 11-02-2016 Erythrocyte distribution width Auto Ratio (RBC) 14.1 % Normal 11.5-15.5 [facility] ([place] Comment on above: Performed By: #### C BC, ADIFF, ANEU, LD, CMP, GFR, FIB, APTT, PRO ####[address] [address] Erythrocytes (RBC) 4.14 10 6/mcL Normal 4.10-5.30 [facility] [place] Comment on above: Performed By: #### C BC, ADIFF, ANEU, LD, CMP, GFR, FIB, APTT, PRO ####[address] [address] Hematocrit (HCT) 38.5 % Normal 34.0-46.0 [facility] ([place] Comment on above: Performed By: #### C BC, ADIFF, ANEU, LD, CMP, GFR, FIB, APTT, PRO ####[place] [address] Hemoglobin mass conc (Bld) 13.0 G/dL Normal 12.0-16.0 [facility] ([place] Comment on above: Performed By: #### C BC, ADIFF, ANEU, LD, CMP, GFR, FIB, APTT, PRO ####[place] [address] MCH 31.3 pg Normal 27.0-33.0 [facility] ([place] Comment on above: Performed By: #### C BC, ADIFF, ANEU, LD, CMP, GFR, FIB, APTT, PRO ####[place] [address] MCHC mass conc (RBC) 33.7 G/dL Normal 32.0-36.0 [facility] [place] Comment on above: Performed By: #### C BC, ADIFF, ANEU, LD, CMP, GFR, FIB, APTT, PRO ####[place] [address] MCV 92.9 fL Normal 80.0-99.0 [facility] ([place] Comment on above: Performed By: #### C BC, ADIFF, ANEU, LD, CMP, GFR, FIB, APTT, PRO ####[place] [address] Platelet mean volume (PMV) 8.0 fL Normal 6.6-10.5 [facility] ([place] Comment on above: Performed By: #### C BC, ADIFF, ANEU, LD, CMP, GFR, FIB, APTT, PRO ####[place] [address] Platelets 238 10 3/mcL Normal 150-450 [facility] ([place]) Comment on above: Performed By: #### C BC, ADIFF, ANEU, LD, CMP, GFR, FIB, APTT, PRO ####[place] [address] WBC (Leukocytes) 19.40 10 3/mcL High 4.50-10.80 [facility] [place] Comment on above: Performed By: #### C BC, ADIFF, ANEU, LD, CMP, GFR, FIB, APTT, PRO ####[place] [address] CMPon 11-02-2016 Albumin/Globulin Ratio 0.6 {ratio} Low 0.9-1.6 [facility] ([place] Comment on above: Performed By: #### C BC, ADIFF, ANEU, LD, CMP, GFR, FIB, APTT, PRO ####[place] [address] Alk Phos 105 U/L Normal 38-126 [facility] ([place] Comment on above: Performed By: #### C BC, ADIFF, ANEU, LD, CMP, GFR, FIB, APTT, PRO ####[place] [address] Bili Total 0.3 mg/dL Normal 0.2-1.2 [facility] ([place] Comment on above: Performed By: #### C BC, ADIFF, ANEU, LD, CMP, GFR, FIB, APTT, PRO ####[place] [address] Globulin 3.8 G/dL Normal 1.5-3.8 [facility] ([place] Comment on above: Performed By: #### C BC, ADIFF, ANEU, LD, CMP, GFR, FIB, APTT, PRO ####[place] [address] Protein 6.0 G/dL Normal 6.0-8.5 [facility] ([place] Comment on above: Performed By: #### C BC, ADIFF, ANEU, LD, CMP, GFR, FIB, APTT, PRO ####[place] [address] Alanine aminotransferase (ALT) 21 U/L Normal 10-49 [facility] ([place] Comment on above: Performed By: #### C BC, ADIFF, ANEU, LD, CMP, GFR, FIB, APTT, PRO ####[place] [address] Albumin 2.2 G/dL Low 3.2-4.8 [facility] ([place] Comment on above: Performed By: #### C BC, ADIFF, ANEU, LD, CMP, GFR, FIB, APTT, PRO ####[place] [address] Aspartate aminotransferase (AST) 23 U/L Normal 8-34 [facility] ([place] Comment on above: Performed By: #### C BC, ADIFF, ANEU, LD, CMP, GFR, FIB, APTT, PRO ####[place] [address] BUN/Creatinine Ratio 22.4 ratio High 10.0-22.0 [facility] [place] Comment on above: Performed By: #### C BC, ADIFF, ANEU, LD, CMP, GFR, FIB, APTT, PRO ####[place] [address] Calcium 7.6 mg/dL Low 8.4-10.1 [facility] ([place] Comment on above: Performed By: #### C BC, ADIFF, ANEU, LD, CMP, GFR, FIB, APTT, PRO ####[place] [address] Chloride 101 mmol/L Normal 98-110 [facility] ([place] Comment on above: Performed By: #### C BC, ADIFF, ANEU, LD, CMP, GFR, FIB, APTT, PRO ####[place] [address] CO2 24 mmol/L Normal 22-32 [facility] ([place] Comment on above: Performed By: #### C BC, ADIFF, ANEU, LD, CMP, GFR, FIB, APTT, PRO ####[place] [address] Creatinine 0.67 mg/dL Normal 0.50-1.20 [facility] ([place] Comment on above: Performed By: #### C BC, ADIFF, ANEU, LD, CMP, GFR, FIB, APTT, PRO ####[address] [address] Electrolyte Balance 10.0 mEq/L Normal 4.0-15.0 [facility] ([place]) Comment on above: Performed By: #### C BC, ADIFF, ANEU, LD, CMP, GFR, FIB, APTT, PRO ####[address] [address] Glucose mass conc 96 mg/dL Normal 70-110 [facility] ([place] Comment on above: Performed By: #### C BC, ADIFF, ANEU, LD, CMP, GFR, FIB, APTT, PRO ####[place] [address] Potassium molar conc 4.3 mmol/L Normal 3.5-5.0 [facility] [place] Comment on above: Performed By: #### C BC, ADIFF, ANEU, LD, CMP, GFR, FIB, APTT, PRO ####[place] [address] Sodium 135 mmol/L Low 136-145 [facility] ([place] Comment on above: Performed By: #### C BC, ADIFF, ANEU, LD, CMP, GFR, FIB, APTT, PRO ####[place] [address] Urea nitrogen 15.0 mg/dL Normal 8.0-22.0 [facility] ([place]) Comment on above: Performed By: #### C BC, ADIFF, ANEU, LD, CMP, GFR, FIB, APTT, PRO ####[place] [address] GFRon 11-02-2016 eGFR (non-black) mL/min/{1.73_m2} Normal [facility] ([place]) Comment on above: Result Comment: GFR Population mean for , Non- Americans Ages 20-29 = 116 mL/min/1.73 sq.m. Ages 30-39 = 107 mL/min/1.73 sq.m. Ages 40-49 = 99 mL/min/1.73 sq.m. Ages 50-59 = 93 mL/min/1.73 sq.m. Ages 60-69 = 85 mL/min/1.73 sq.m. Ages 70+ = 75 mL/min/1.73 sq.m.Chronic Kidney Disease: Less than 60 mL/min/1.73 square metersEnd Stage Renal Disease: Less than 15 mL/min/1.73 square meters Performed By: #### C BC, ADIFF, ANEU, LD, CMP, GFR, FIB, APTT, PRO ####[place] [address] GRP B SCNon 11-02-2016 GRP B SCN GROUP B STREP NO BET A HEMOLYTIC STREP ISOLATED Normal [facility] Comment on above: Performed By: #### M 150.0200 ####[facility] - [facility] [id number] [place] [address] LDHon 11-02-2016 LDH 266 U/L High 120-246 [facility] ([place] Comment on above: Performed By: #### C BC, ADIFF, ANEU, LD, CMP, GFR, FIB, APTT, PRO ####[place] [address] MGon 11-02-2016 Magnesium 6.3 mg/dL Critically abnormal 1.6-2.4 [facility] ([place] Comment on above: Performed By: #### C BC, ADIFF, ANEU, LD, CMP, GFR, FIB, APTT, PRO ####[place] [address] .Auto Diffon 11-01-2016 Basophils Auto #/vol (Bld) 0.00 10 3/mcL Normal 0.00-0.27 [facility] ([place] Comment on above: Performed By: #### C BC, ADIFF, ANEU, LD, CMP, GFR, FIB, APTT, PRO ####[place] [address] Basophils/100 WBC Auto (Bld) 0.1 % Normal 0.0-2.5 [facility] ([place] Comment on above: Performed By: #### C BC, ADIFF, ANEU, LD, CMP, GFR, FIB, APTT, PRO ####[place] [address] Eosinophils 0.00 10 3/mcL Normal 0.00-0.65 [facility] ([place]) Comment on above: Performed By: #### C BC, ADIFF, ANEU, LD, CMP, GFR, FIB, APTT, PRO ####[address] [address] Eosinophils/100 leukocytes 0.0 % Normal 0.0-6.0 [facility] ([place] Comment on above: Performed By: #### C BC, ADIFF, ANEU, LD, CMP, GFR, FIB, APTT, PRO ####[address] [address] Lymphocytes 0.90 10 3/mcL Normal 0.90-4.32 [facility] ([place]) Comment on above: Performed By: #### C BC, ADIFF, ANEU, LD, CMP, GFR, FIB, APTT, PRO ####[address] [address] Lymphocytes/100 leukocytes 4.8 % Low 20.0-40.0 [facility] ([place] Comment on above: Performed By: #### C BC, ADIFF, ANEU, LD, CMP, GFR, FIB, APTT, PRO ####[address] [address] Monocytes 0.50 10 3/mcL Normal 0.09-1.40 [facility] ([place]) Comment on above: Performed By: #### C BC, ADIFF, ANEU, LD, CMP, GFR, FIB, APTT, PRO ####[address] [address] Monocytes/100 leukocytes 2.5 % Normal 2.0-13.0 [facility] ([place] Comment on above: Performed By: #### C BC, ADIFF, ANEU, LD, CMP, GFR, FIB, APTT, PRO ####[address] [address] Neutrophils/100 WBC Auto (Bld) 92.6 % High 50.0-75.0 [facility] ([place] Comment on above: Performed By: #### C BC, ADIFF, ANEU, LD, CMP, GFR, FIB, APTT, PRO ####[address] [address] Basophils Auto #/vol (Bld) 0.10 10 3/mcL Normal 0.00-0.27 [facility] ([place] Comment on above: Performed By: #### C BC, ADIFF, ANEU, LD, CMP, GFR, FIB, APTT, PRO ####[address] [address] Basophils/100 WBC Auto (Bld) 0.3 % Normal 0.0-2.5 [facility] ([place] Comment on above: Performed By: #### C BC, ADIFF, ANEU, LD, CMP, GFR, FIB, APTT, PRO ####[address] [address] Eosinophils 0.00 10 3/mcL Normal 0.00-0.65 [facility] ([place] Comment on above: Performed By: #### C BC, ADIFF, ANEU, LD, CMP, GFR, FIB, APTT, PRO ####[address] [address] Eosinophils/100 leukocytes 0.0 % Normal 0.0-6.0 [facility] ([place] Comment on above: Performed By: #### C BC, ADIFF, ANEU, LD, CMP, GFR, FIB, APTT, PRO ####[address] [address] Lymphocytes 0.80 10 3/mcL Low 0.90-4.32 [facility] ([place]) Comment on above: Performed By: #### C BC, ADIFF, ANEU, LD, CMP, GFR, FIB, APTT, PRO ####[address] [address] Lymphocytes/100 leukocytes 4.4 % Low 20.0-40.0 [facility] ([place] Comment on above: Performed By: #### C BC, ADIFF, ANEU, LD, CMP, GFR, FIB, APTT, PRO ####[address] [address] Monocytes 0.40 10 3/mcL Normal 0.09-1.40 [facility] ([place]) Comment on above: Performed By: #### C BC, ADIFF, ANEU, LD, CMP, GFR, FIB, APTT, PRO ####[address] [address] Monocytes/100 leukocytes 2.0 % Normal 2.0-13.0 [facility] ([place] Comment on above: Performed By: #### C BC, ADIFF, ANEU, LD, CMP, GFR, FIB, APTT, PRO ####[address] [address] Neutrophils/100 WBC Auto (Bld) 93.3 % High 50.0-75.0 [facility] ([place] Comment on above: Performed By: #### C BC, ADIFF, ANEU, LD, CMP, GFR, FIB, APTT, PRO ####[address] [address] .NEUABSon 11-01-2016 Neutrophils 16.80 10 3/mcL High 2.25-8.10 [facility] ([place]) Comment on above: Performed By: #### C BC, ADIFF, ANEU, LD, CMP, GFR, FIB, APTT, PRO ####[address] [address] Neutrophils 16.90 10 3/mcL High 2.25-8.10 [facility] ([place]) Comment on above: Performed By: #### C BC, ADIFF, ANEU, LD, CMP, GFR, FIB, APTT, PRO ####[address] [address] APTTon 11-01-2016 aPTT 19.8 s Low 25.0-35.0 [facility] ([place] Comment on above: Result Comment: For Heparin anticoagulation therapy, the recommendedtherapeutic range is: 54-77 seconds (APTT Correlationwith Anti-Xa therapeutic range of 0.3-0.7 units/ml).PLEASE REFERENCE THE PHARMACY PROTOCOL FOR DOSING. Performed By: #### C BC, ADIFF, ANEU, LD, CMP, GFR, FIB, APTT, PRO ####[place] [address] aPTT None Normal [facility] ([place] Comment on above: Performed By: #### C BC, ADIFF, ANEU, LD, CMP, GFR, FIB, APTT, PRO ####[place] [address] CBCon 11-01-2016 Erythrocyte distribution width Auto Ratio (RBC) 14.0 % Normal 11.5-15.5 [facility] ([place] Comment on above: Performed By: #### C BC, ADIFF, ANEU, LD, CMP, GFR, FIB, APTT, PRO ####[place] [address] Erythrocytes (RBC) 4.33 10 6/mcL Normal 4.10-5.30 [facility] [place] Comment on above: Performed By: #### C BC, ADIFF, ANEU, LD, CMP, GFR, FIB, APTT, PRO ####[place] [address] Hematocrit (HCT) 39.9 % Normal 34.0-46.0 [facility] ([place] Comment on above: Performed By: #### C BC, ADIFF, ANEU, LD, CMP, GFR, FIB, APTT, PRO ####[place] [address] Hemoglobin mass conc (Bld) 13.6 G/dL Normal 12.0-16.0 [facility] ([place] Comment on above: Performed By: #### C BC, ADIFF, ANEU, LD, CMP, GFR, FIB, APTT, PRO ####[place] [address] MCH 31.3 pg Normal 27.0-33.0 [facility] ([place] Comment on above: Performed By: #### C BC, ADIFF, ANEU, LD, CMP, GFR, FIB, APTT, PRO ####[place] [address] MCHC mass conc (RBC) 34.0 G/dL Normal 32.0-36.0 [facility] [place] Comment on above: Performed By: #### C BC, ADIFF, ANEU, LD, CMP, GFR, FIB, APTT, PRO ####[address] [address] MCV 92.1 fL Normal 80.0-99.0 [facility] ([place] Comment on above: Performed By: #### C BC, ADIFF, ANEU, LD, CMP, GFR, FIB, APTT, PRO ####[place] [address] Platelet mean volume (PMV) 8.3 fL Normal 6.6-10.5 [facility] ([place] Comment on above: Performed By: #### C BC, ADIFF, ANEU, LD, CMP, GFR, FIB, APTT, PRO ####[place] [address] Platelets 223 10 3/mcL Normal 150-450 [facility] ([place] Comment on above: Performed By: #### C BC, ADIFF, ANEU, LD, CMP, GFR, FIB, APTT, PRO ####[place] [address] WBC (Leukocytes) 18.10 10 3/mcL High 4.50-10.80 [facility] [place] Comment on above: Performed By: #### C BC, ADIFF, ANEU, LD, CMP, GFR, FIB, APTT, PRO ####[place] [address] Erythrocyte distribution width Auto Ratio (RBC) 13.6 % Normal 11.5-15.5 [facility] ([place] Comment on above: Performed By: #### C BC, ADIFF, ANEU, LD, CMP, GFR, FIB, APTT, PRO ####[place] [address] Erythrocytes (RBC) 4.45 10 6/mcL Normal 4.10-5.30 [facility] [place] Comment on above: Performed By: #### C BC, ADIFF, ANEU, LD, CMP, GFR, FIB, APTT, PRO ####[place] [address] Hematocrit (HCT) 40.7 % Normal 34.0-46.0 [facility] ([place] Comment on above: Performed By: #### C BC, ADIFF, ANEU, LD, CMP, GFR, FIB, APTT, PRO ####[place] [address] Hemoglobin mass conc (Bld) 13.9 G/dL Normal 12.0-16.0 [facility] ([place] Comment on above: Performed By: #### C BC, ADIFF, ANEU, LD, CMP, GFR, FIB, APTT, PRO ####[place] [address] MCH 31.2 pg Normal 27.0-33.0 [facility] ([place] Comment on above: Performed By: #### C BC, ADIFF, ANEU, LD, CMP, GFR, FIB, APTT, PRO ####[place] [address] MCHC mass conc (RBC) 34.1 G/dL Normal 32.0-36.0 [facility] [place] Comment on above: Performed By: #### C BC, ADIFF, ANEU, LD, CMP, GFR, FIB, APTT, PRO ####[place] [address] MCV 91.5 fL Normal 80.0-99.0 [facility] ([place] Comment on above: Performed By: #### C BC, ADIFF, ANEU, LD, CMP, GFR, FIB, APTT, PRO ####[place] [address] Platelet mean volume (PMV) 8.0 fL Normal 6.6-10.5 [facility] ([place] Comment on above: Performed By: #### C BC, ADIFF, ANEU, LD, CMP, GFR, FIB, APTT, PRO ####[place] [address] Platelets 207 10 3/mcL Normal 150-450 [facility] ([place] Comment on above: Performed By: #### C BC, ADIFF, ANEU, LD, CMP, GFR, FIB, APTT, PRO ####[address] [address] WBC (Leukocytes) 18.10 10 3/mcL High 4.50-10.80 [facility] [place] Comment on above: Performed By: #### C BC, ADIFF, ANEU, LD, CMP, GFR, FIB, APTT, PRO ####[facility] [place] [address] Basophils Auto #/vol (Bld) 0.10 x10(3) Normal 0.00-0.10 [facility] Comment on above: Performed By: #### L 200.0010 ####ML [facility] [id number] [place] [address] Basophils/100 WBC Auto (Bld) 0.4 % Normal 0.0-1.0 [facility] Comment on above: Performed By: #### L 200.0010 ####ML [facility] [id number] [place] [address] Eosinophils 0.10 x10(3) Normal 0.00-0.54 [facility] Comment on above: Performed By: #### L 200.0010 ####ML [facility] MICNF[address]HFV[address] [place] [address] Eosinophils/100 leukocytes 0.8 % Normal 0.5-4.9 [facility] Comment on above: Performed By: #### L 200.0010 ####ML [facility] AJRMVFJAMM[address] [place] [address] Erythrocyte distribution width Auto Ratio (RBC) 13.4 % Normal 12.5-15.7 [facility] Comment on above: Performed By: #### L 200.0010 ####[facility] [id number] [place] [address] Erythrocytes (RBC) 4.43 x10(6) Normal 3.30-5.00 [facility] Comment on above: Performed By: #### L 200.0010 ####[facility] [id number] [place] [address] Hematocrit (HCT) 40.6 % Normal 36.0-48.0 [facility] Comment on above: Performed By: #### L 200.0010 ####ML [address] [address] Hemoglobin mass conc (Bld) 13.8 g/dL Normal 12.0-16.0 [facility] Comment on above: Performed By: #### L 200.0010 ####ML [address] [address] Lymphocytes 1.60 x10(3) Normal 1.00-3.50 [facility] Comment on above: Performed By: #### L 200.0010 ####ML [address] [address] Lymphocytes/100 leukocytes 10.0 % Low 16.0-48.0 [facility] Comment on above: Performed By: #### L 200.0010 ####ML [address] [address] MCH 31.2 pg Normal 28.5-32.9 [facility] Comment on above: Performed By: #### L 200.0010 ####ML [address] [address] MCHC mass conc (RBC) 34.0 g/dL Normal 33.0-36.0 [facility] Comment on above: Performed By: #### L 200.0010 ####ML [address] [address] MCV 91.6 fL Normal 80.0-99.0 [facility] Comment on above: Performed By: #### L 200.0010 ####ML [address] [address] Monocytes 1.00 x10(3) High 0.30-0.80 [facility] Comment on above: Performed By: #### L 200.0010 ####ML [address] [address] Monocytes/100 leukocytes 6.5 % Normal 4.3-11.2 [facility] Comment on above: Performed By: #### L 200.0010 ####ML [address] [address] Neutrophils 12.90 x10(3) High 1.40-6.50 [facility] Comment on above: Performed By: #### L 200.0010 ####[facility] [id number] [place] [address] Neutrophils/100 WBC Auto (Bld) 82.3 % High 45.0-73.0 [facility] Comment on above: Performed By: #### L 200.0010 ####[facility] [id number] [place] [address] Platelet mean volume (PMV) 8.0 fL Normal 7.5-9.5 [facility] Comment on above: Performed By: #### L 200.0010 ####[facility] - [facility] [id number] [place] [address] Platelets 184 X10(3) Normal 150-450 [facility] Comment on above: Performed By: #### L 200.0010 ####[facility] - [facility] [id number] [place] [address] WBC (Leukocytes) 15.6 x10(3) High 4.5-10.0 [facility] Comment on above: Performed By: #### L 200.0010 ####[facility] - [facility] [id number] [place] [address] CMPon 11-01-2016 Albumin/Globulin Ratio 0.6 {ratio} Low 0.9-1.6 [facility] ([place] Comment on above: Performed By: #### C BC, ADIFF, ANEU, LD, CMP, GFR, FIB, APTT, PRO ####[place] [address] [place] [address] Alk Phos 97 U/L Normal 38-126 [facility] ([place] Comment on above: Performed By: #### C BC, ADIFF, ANEU, LD, CMP, GFR, FIB, APTT, PRO ####[place] [address] [place] [address] Bili Total 0.4 mg/dL Normal 0.2-1.2 [facility] ([place] Comment on above: Performed By: #### C BC, ADIFF, ANEU, LD, CMP, GFR, FIB, APTT, PRO ####[place] [address] BUN/Creatinine Ratio 22.8 ratio High 10.0-22.0 [facility] [place] Comment on above: Performed By: #### C BC, ADIFF, ANEU, LD, CMP, GFR, FIB, APTT, PRO ####[place] [address] Creatinine 0.57 mg/dL Normal 0.50-1.20 [facility] ([place] Comment on above: Performed By: #### C BC, ADIFF, ANEU, LD, CMP, GFR, FIB, APTT, PRO ####[place] [address] Globulin 4.0 G/dL High 1.5-3.8 [facility] ([place] Comment on above: Performed By: #### C BC, ADIFF, ANEU, LD, CMP, GFR, FIB, APTT, PRO ####[place] [address] Protein 6.3 G/dL Normal 6.0-8.5 [facility] ([place] Comment on above: Performed By: #### C BC, ADIFF, ANEU, LD, CMP, GFR, FIB, APTT, PRO ####[place] [address] Alanine aminotransferase (ALT) 23 U/L Normal 10-49 [facility] ([place] Comment on above: Performed By: #### C BC, ADIFF, ANEU, LD, CMP, GFR, FIB, APTT, PRO ####[place] [address] Albumin 2.3 G/dL Low 3.2-4.8 [facility] ([place] Comment on above: Performed By: #### C BC, ADIFF, ANEU, LD, CMP, GFR, FIB, APTT, PRO ####[place] [address] Aspartate aminotransferase (AST) 26 U/L Normal 8-34 [facility] ([place] Comment on above: Performed By: #### C BC, ADIFF, ANEU, LD, CMP, GFR, FIB, APTT, PRO ####[place] [address] Calcium 8.2 mg/dL Low 8.4-10.1 [facility] ([place] Comment on above: Performed By: #### C BC, ADIFF, ANEU, LD, CMP, GFR, FIB, APTT, PRO ####[place] [address] Chloride 103 mmol/L Normal 98-110 [facility] ([place] Comment on above: Performed By: #### C BC, ADIFF, ANEU, LD, CMP, GFR, FIB, APTT, PRO ####[place] [address] CO2 22 mmol/L Normal 22-32 [facility] ([place] Comment on above: Performed By: #### C BC, ADIFF, ANEU, LD, CMP, GFR, FIB, APTT, PRO ####[place] [address] Electrolyte Balance 12.0 mEq/L Normal 4.0-15.0 [facility] ([place]) Comment on above: Performed By: #### C BC, ADIFF, ANEU, LD, CMP, GFR, FIB, APTT, PRO ####[place] [id number] Glucose mass conc 101 mg/dL Normal 70-110 [facility] [facility] ([place] Comment on above: Performed By: #### C BC, ADIFF, ANEU, LD, CMP, GFR, FIB, APTT, PRO ####[place] [address] Potassium molar conc 5.2 mmol/L High 3.5-5.0 [facility] ([place]) Comment on above: Performed By: #### C BC, ADIFF, ANEU, LD, CMP, GFR, FIB, APTT, PRO ####[place] [address] Sodium 137 mmol/L Normal 136-145 [facility] ([place]) Comment on above: Performed By: #### C BC, ADIFF, ANEU, LD, CMP, GFR, FIB, APTT, PRO ####[place] [id number] Urea nitrogen 13.0 mg/dL Normal 8.0-22.0 [facility] ([place]) Comment on above: Performed By: #### C BC, ADIFF, ANEU, LD, CMP, GFR, FIB, APTT, PRO ####[address] [address] Alanine aminotransferase (ALT) 26 U/L Normal 10-49 [facility] ([place]) Comment on above: Performed By: #### C BC, ADIFF, ANEU, LD, CMP, GFR, FIB, APTT, PRO ####[place] [address] Albumin 2.2 G/dL Low 3.2-4.8 [facility] ([place]) Comment on above: Performed By: #### C BC, ADIFF, ANEU, LD, CMP, GFR, FIB, APTT, PRO ####[place] [id number] Albumin/Globulin Ratio 0.6 {ratio} Low 0.9-1.6 [facility] ([place]) Comment on above: Performed By: #### C BC, ADIFF, ANEU, LD, CMP, GFR, FIB, APTT, PRO ####[place] [address] Alk Phos 105 U/L Normal 38-126 [facility] ([place]) Comment on above: Performed By: #### C BC, ADIFF, ANEU, LD, CMP, GFR, FIB, APTT, PRO ####[place] [address] Aspartate aminotransferase (AST) 46 U/L High 8-34 [facility] ([place]) Comment on above: Performed By: #### C BC, ADIFF, ANEU, LD, CMP, GFR, FIB, APTT, PRO ####[place] [address] Bili Total 0.5 mg/dL Normal 0.2-1.2 [facility] ([place]) Comment on above: Performed By: #### C BC, ADIFF, ANEU, LD, CMP, GFR, FIB, APTT, PRO ####[place] [address] BUN/Creatinine Ratio 17.9 ratio Normal 10.0-22.0 [facility] [place]) Comment on above: Performed By: #### C BC, ADIFF, ANEU, LD, CMP, GFR, FIB, APTT, PRO ####[place] [address] Calcium 8.7 mg/dL Normal 8.4-10.1 [facility] ([place]) Comment on above: Performed By: #### C BC, ADIFF, ANEU, LD, CMP, GFR, FIB, APTT, PRO ####[place] [address] Chloride 105 mmol/L Normal 98-110 [facility] ([place]) Comment on above: Performed By: #### C BC, ADIFF, ANEU, LD, CMP, GFR, FIB, APTT, PRO ####[place] [address] CO2 22 mmol/L Normal 22-32 [facility] ([place]) Comment on above: Performed By: #### C BC, ADIFF, ANEU, LD, CMP, GFR, FIB, APTT, PRO ####[place] [address] Creatinine 0.56 mg/dL Normal 0.50-1.20 [facility] ([place]) Comment on above: Performed By: #### C BC, ADIFF, ANEU, LD, CMP, GFR, FIB, APTT, PRO ####[place] [address] Electrolyte Balance 10.0 mEq/L Normal 4.0-15.0 [facility] ([place]) Comment on above: Performed By: #### C BC, ADIFF, ANEU, LD, CMP, GFR, FIB, APTT, PRO ####[place] [address] Globulin 3.9 G/dL High 1.5-3.8 [facility] ([place]) Comment on above: Performed By: #### C BC, ADIFF, ANEU, LD, CMP, GFR, FIB, APTT, PRO ####[address] [address] Glucose mass conc 88 mg/dL Normal 70-110 [facility] ([place]) Comment on above: Performed By: #### C BC, ADIFF, ANEU, LD, CMP, GFR, FIB, APTT, PRO ####[address] [address] Potassium molar conc 4.9 mmol/L Normal 3.5-5.0 [facility] [place]) Comment on above: Result Comment: Spec imen slightly hemolyzed. Performed By: #### C BC, ADIFF, ANEU, LD, CMP, GFR, FIB, APTT, PRO ####[place] [address] Protein 6.1 G/dL Normal 6.0-8.5 [facility] ([place]) Comment on above: Performed By: #### C BC, ADIFF, ANEU, LD, CMP, GFR, FIB, APTT, PRO ####[place] [address] Sodium 137 mmol/L Normal 136-145 [facility] ([place]) Comment on above: Performed By: #### C BC, ADIFF, ANEU, LD, CMP, GFR, FIB, APTT, PRO ####[place] [address] Urea nitrogen 10.0 mg/dL Normal 8.0-22.0 [facility] ([place]) Comment on above: Performed By: #### C BC, ADIFF, ANEU, LD, CMP, GFR, FIB, APTT, PRO ####[address] [address] A:G RATIO 0.90 Low 1.1-2.5 [facility] Comment on above: Performed By: #### L 100.0005 ####ML - U[facility] [id number] [place] [address] Alanine aminotransferase (ALT) 18 U/L Normal 5-33 [facility] Comment on above: Performed By: #### L 100.0005 ####ML - U[facility] [id number] [place] [address] Albumin 2.9 g/dL Low 3.5-5.2 [facility] Comment on above: Performed By: #### L 100.0005 ####[address] [address] ALK. PHOS 81 U/L Normal 35-105 [facility] Comment on above: Performed By: #### L 100.0005 ####[facility] [id number] [place] [address] Anion gap 17.4 mmol/L Normal 15-22 [facility] Comment on above: Performed By: #### L 100.0005 ####[facility] [id number] [place] [address] Aspartate aminotransferase (AST) 29 U/L Normal 5-32 [facility] Comment on above: Performed By: #### L 100.0005 ####[address] [address] Bilirubin Ql (U) 0.5 mg/dL Normal 0.2-1.2 [facility] Comment on above: Performed By: #### L 100.0005 ####[facility] [id number] [place] [address] Calcium 8.8 mg/dL Normal 8.6-10.0 [facility] Comment on above: Performed By: #### L 100.0005 ####[facility] [id number] [place] [address] Chloride 103 mmol/L Normal 98-107 [facility] Comment on above: Performed By: #### L 100.0005 ####ML [facility] YPBZIWKFHA[address] [place] [address] CO2 21 mmol/L Low 22-29 [facility] Comment on above: Performed By: #### L 100.0005 ####[facility] [id number] [place] [address] Creatinine 0.53 mg/dL Normal 0.50-0.90 [facility] Comment on above: Performed By: #### L 100.0005 ####[facility] CRSORFZHYS[address] [place] [address] eGFR (non-black) > 60 ml/min/1.73m2 Normal [facility] Comment on above: Result Comment: eGFR >= 60 Indicates normal kidney function. * eGFR IS AN ESTIMATE * (AFR LU = ) (non-AFR AM = NON-) ____ MDRD calculation used in the eGFR should not be used to dose medications. For further limitations of the eGFR please refer to the Physician Website or the National Kidney Disease Education Program website (www.nkdep.nih.gov). Performed By: #### L 100.0005 #### - [address] [address] Globulin 3.2 g/dL Normal 1.5-4.5 [facility] Comment on above: Performed By: #### L 100.0005 ####[address] [address] Glucose mass conc 89 mg/dL Normal 74-106 [facility] Comment on above: Performed By: #### L 100.0005 ####ML [address] [address] Potassium molar conc 4.4 mmol/L Normal 3.5-5.0 [facility] Comment on above: Performed By: #### L 100.0005 ####[address] [address] Protein 6.1 g/dL Low 6.4-8.3 [facility] Comment on above: Performed By: #### L 100.0005 ####[address] [address] Sodium 137 mmol/L Normal 135-145 [facility] Comment on above: Performed By: #### L 100.0005 ####[address] [address] Urea nitrogen 11 mg/dL Normal 6-20 [facility] Comment on above: Performed By: #### L 100.0005 ####ML - UH [id number] [place] [address] FIBon 11-01-2016 Fibrinogen >700 High 250-550 [facility] ([place]) Comment on above: Performed By: #### C BC, ADIFF, ANEU, LD, CMP, GFR, FIB, APTT, PRO ####[address] [address] GFRon 11-01-2016 eGFR (non-black) mL/min/{1.73_m2} Normal [facility] ([place]) Comment on above: Result Comment: GFR Population mean for , Non- Americans Ages 20-29 = 116 mL/min/1.73 sq.m. Ages 30-39 = 107 mL/min/1.73 sq.m. Ages 40-49 = 99 mL/min/1.73 sq.m. Ages 50-59 = 93 mL/min/1.73 sq.m. Ages 60-69 = 85 mL/min/1.73 sq.m. Ages 70+ = 75 mL/min/1.73 sq.m.Chronic Kidney Disease: Less than 60 mL/min/1.73 square metersEnd Stage Renal Disease: Less than 15 mL/min/1.73 square meters Performed By: #### C BC, ADIFF, ANEU, LD, CMP, GFR, FIB, APTT, PRO ####[address] [address] eGFR (non-black) mL/min/{1.73_m2} Normal [facility] ([place]) Comment on above: Result Comment: GFR Population mean for , Non- Americans Ages 20-29 = 116 mL/min/1.73 sq.m. Ages 30-39 = 107 mL/min/1.73 sq.m. Ages 40-49 = 99 mL/min/1.73 sq.m. Ages 50-59 = 93 mL/min/1.73 sq.m. Ages 60-69 = 85 mL/min/1.73 sq.m. Ages 70+ = 75 mL/min/1.73 sq.m.Chronic Kidney Disease: Less than 60 mL/min/1.73 square metersEnd Stage Renal Disease: Less than 15 mL/min/1.73 square meters Performed By: #### C BC, ADIFF, ANEU, LD, CMP, GFR, FIB, APTT, PRO ####[place] [id number] [place] [address] HISTORY AND PHYSICALon 11-01 HISTORY AND PHYSICAL [place], [place] [address]SWRVET INFORMATION MANAGEMENTHISTORY AND PHYSICALPatient: SONIA MISTRY CHINYERE M.D.[id number] FStatus: REG CLI LDDATE OF DWVOXFLQL66/20/2017BRIEF HISTORY OF PRESENT ILLNESSThe patient is a very pleasant 26-year-old 1 at 31 weeks' and 5 days' gestation whopresented with complaints of nausea as well as lower backache and just not feeling right.The patient states her has been uncomplicated prior to this point. Good fetalmovement. No leakage of fluid. No vaginal bleeding. Blood pressures at the office hadbeen very normal but when she arrived here her blood pressure was markedly elevated,initial blood pressure 192/112 and so her repeat blood pressure was 185/117, so first doseof labetalol 20 mg IV was administered as soon as an IV placement was confirmed. Bloodpressure cuff sizing was double checked and appropriate fit of the cuff was present. Whileresting here at the hospital her lower backache has improved. Her nausea has remained. Noemesis.PAST MEDICAL HISTORYMorbid obesity. Anxiety. The patient was on Prozac prior to but has not takenit during her . No other medical problems.PAST SURGICAL HISTORYNo surgeries.FAMILY HISTORYThe patient denies any family history of medical problems.SOCIAL HISTORYThe patient denies any tobacco, alcohol or street drug use.REVIEW OF SYSTEMSThe patient has nausea. No headache. No vision change. Lower back pain that has improvedbut occasionally does radiate to her right and left lower quadrant. No upper abdominalpain at all. No dysuria or frequency. No leakage of fluid. No vaginal bleeding. Goodfetal movement.PHYSICAL EXAMINATIONVital signs: Her last blood pressure was 166/98 and then now 178/91 and she is going to bedue for another dose of labetalol. heart tone baseline is 135-140 with accelerationsup to the 150s, reassuring for this early gestation, category I. TOCO shows nocontractions at all. General appearance: Well nourished female comfortablysitting up in bed, alert and oriented x 3, in no distress. Lungs: Clear to auscultationbilaterally. Cardiovascular: Regular rate and rhythm. Abdomen: Positive bowel sounds,gravid. No right upper quadrant or epigastric tenderness. Back: No CVA tenderness. Thepatient has mild tenderness with palpation of the sacral area of her spine. Abdomen issoft, nontender. Extremities: No clubbing, cyanosis. Trace to +1 edema. Calvesnontender. No palpable cord. +2 to 3 deep tendon reflexes. Negative clonus.LABORATORY STUDIESShow her protein creatinine ratio is 4. Urinalysis shows over 300 of protein of course andher AST, ALT is 29 and 18 respectively and alk phos is actually 81 which is within normal.Platelets are 184,000, H&H of 13.8/40.6 with white count of 15.6. The remainder of herlabs are unremarkable.IMPRESSIONS evere preeclampsia.PLANThe patient has been given Celestone and magnesium sulfate has been initiated. Labetaloldosing x 2 with her third dose being due. First dose was 20, second dose was 40 and wewill increase to 80 as per the hypertensive protocol. The patient has also gottenpenicillin. Once her blood pressures have been stabilized (I have discussed the patientwith Dr. Alexander) then we will be transporting her to [facility]. We will continue toclosely follow and preeclampsia protocols have been initiated and have been closelyfollowing fetus and heart tracing has remained very reassuring. Discussed plan withthe patient and she clearly understands and is agreeable with plan. The goal at [facility] be to hopefully get her second dose of steroids at [place] and closely follow there. 11/02/16 0842 __DAVIDA HARVEY M.D.cc: [facility]; NESS ALEXANDER M.D.; WADE ZHANG M.D.; ORAFU,CHINYEREM.D. << Signature on File>> Reported By: DAVIDA HARVEY M.D. Signed By: DAVIDA HARVEY M.D.Tests performed at:[address] [phone] Normal [facility] LDHon 11-01-2016 LDH 248 U/L High 120-246 [facility] ([place]) Comment on above: Performed By: #### C BC, ADIFF, ANEU, LD, CMP, GFR, FIB, APTT, PRO ####[place] [address] LDH 369 U/L High 120-246 [facility] ([place]) Comment on above: Performed By: #### C BC, ADIFF, ANEU, LD, CMP, GFR, FIB, APTT, PRO ####[place] [address] MABSon 11-01-2016 Antibody Screen Manual Negative Normal [facility] ([place]) Comment on above: Performed By: #### C BC, ADIFF, ANEU, LD, CMP, GFR, FIB, APTT, PRO ####[place] [address] MGon 11-01-2016 Magnesium 5.9 mg/dL Critically abnormal 1.6-2.4 [facility] ([place]) Comment on above: Result Comment: Spec imen slightly hemolyzed. Results may be falsely elevated. Performed By: #### C BC, ADIFF, ANEU, LD, CMP, GFR, FIB, APTT, PRO ####[place] [address] Magnesium 5.4 mg/dL Critically abnormal 1.6-2.4 [facility] ([place]) Comment on above: Performed By: #### C BC, ADIFF, ANEU, LD, CMP, GFR, FIB, APTT, PRO ####[place] [address] MTP/CREA RATIOon 11-01-2016 MTP/CREAT RATIO 4.06 RATIO Normal [facility] Comment on above: Result Comment: NORM AL RATIO IS <0.2 Performed By: #### L 100.0779 ####ML - [facility] [id number] [place] [address] URINE PROTEIN ( 414.5 mg/dL High 0-10 [facility] Comment on above: Performed By: #### L 100.0779 ####ML - [facility] [id number] [place] [address] URINE CREATININ 102.2 mg/dL Normal [facility] Comment on above: Result Comment: NO R EFERENCE RANGES ESTABLISHED. Performed By: #### L 100.0779 ####ML - [facility] [id number] [place] [address] OB History and Physicalon OB History and Physical Normal [facility] ([place]) OB History and Physical Normal [facility]) OB Progress Noteon 7 OB Progress Note Normal [facility]) PROon 11-01-2016 INR Coag RelTime (PPP) 0.8 {INR} Normal [facility]) Comment on above: Result Comment: The [employer] (CHEST, 1992, 102:312S-25S)recommended therapeutic range for oral anticoagulant therapy is:LOW RISK: Prophylaxis of venous thrombosis INR: 2.0-3.0 Treatment of pulmonary embolism 2.0-3.0 Prevention of systemic embolism 2.0-3.0HIGH RISK: Mechanical prosthetic valves 2.5-3.5 Performed By: #### C BC, ADIFF, ANEU, LD, CMP, GFR, FIB, APTT, PRO ####[place] [id number] [place] [address] Prothrombin time (PT) Coag time (PPP) 9.9 s Normal 9.0-14.4 [facility] ([place]) Comment on above: Result Comment: Effe ctive 09/27/07, Protime results may be affected by some antibiotics (i.e. Ciprofloxacin, Azithromycin, Bactrim) which may potentiate the action of oral anticoagulants, with further increase in Protime/INR. Performed By: #### C BC, ADIFF, ANEU, LD, CMP, GFR, FIB, APTT, PRO ####[place] [address] [place] [address] RPCURon 11-01-2016 Creatinine 29.1 mg/dL Normal [facility] ([place]) Comment on above: Performed By: #### C BC, ADIFF, ANEU, LD, CMP, GFR, FIB, APTT, PRO ####[address] [address] U Protein 142.0 mg/dL Normal [facility] ([place]) Comment on above: Performed By: #### C BC, ADIFF, ANEU, LD, CMP, GFR, FIB, APTT, PRO ####[address] [address] U Ratio Prot/Creat 4.9 ratio Normal [facility] ([place]) Comment on above: Performed By: #### C BC, ADIFF, ANEU, LD, CMP, GFR, FIB, APTT, PRO ####[address] [address] TABOon 11-01-2016 ABO/Rh Interp Positive Invalid Interpretation Code [facility] ([place]) Comment on above: Order Comment: colle ct every 72 hours Performed By: #### C BC, ADIFF, ANEU, LD, CMP, GFR, FIB, APTT, PRO ####[address] [address] TABSon 11-01-2016 Antibody Screen Tango Positive [facility] ([place]) Comment on above: Order Comment: Tango antibody screen results invalidated by fibrin/clotting in test wells. Repeat antibody screen performed at bench.collect every 72 hours Performed By: #### C BC, ADIFF, ANEU, LD, CMP, GFR, FIB, APTT, PRO ####[address] [address] TYPE AND SCREENon 11-01-2016 AB SCRN Negative [facility] Comment on above: Performed By: #### B 100.0700 ####ML - [facility] [id number] [place] [address] BLD TYPE Positive [facility] Comment on above: Performed By: #### B 100.0700 ####ML - [facility] [id number] [place] [address] UAon 11-01-2016 UA Appear Clear Normal Clear [facility] ([place]) Comment on above: Performed By: #### U A, RPCUR, UAMIC ####[place] [address] UA Blood Negative Normal Neg-Trace [facility] ([place]) Comment on above: Performed By: #### U A, RPCUR, UAMIC ####[place] [address] UA Leuk Est Negative Normal Negative [facility] ([place]) Comment on above: Performed By: #### U A, RPCUR, UAMIC ####[place] [address] UA Nitrite Negative Normal Negative [facility] ([place]) Comment on above: Performed By: #### U A, RPCUR, UAMIC ####[place] [address] UA pH 5.5 Normal 5.0 - 8.0 [facility] ([place]) Comment on above: Performed By: #### U A, RPCUR, UAMIC ####[place] [address] UA Protein 100 mg/dL Abnormal Negative [facility] ([place]) Comment on above: Performed By: #### U A, RPCUR, UAMIC ####[place] [address] UA Spec Grav 1.010 Normal 1.006-1.029 [facility] ([place]) Comment on above: Performed By: #### U A, RPCUR, UAMIC ####[place] [address] UA Specimen Type Catheter Normal [facility] ([place]) Comment on above: Performed By: #### U A, RPCUR, UAMIC ####[place] [address] UA Urobilinogen 0.2 E.U./dL Normal 0.2-1.0 [facility] ([place]) Comment on above: Performed By: #### U A, RPCUR, UAMIC ####[address] [address] Urine, color Yellow Normal [facility] ([place]) Comment on above: Performed By: #### U A, RPCUR, UAMIC ####[address] [address] Urine, glucose Negative Normal Negative [facility] ([place]) Comment on above: Performed By: #### U A, RPCUR, UAMIC ####[address] [address] Urine, ketones presence Negative Normal Neg-Trace [facility] ([place]) Comment on above: Performed By: #### U A, RPCUR, UAMIC ####[address] [address] Urine, urobilinogen Negative Normal Neg-Trace [facility] ([place]) Comment on above: Performed By: #### U A, RPCUR, UAMIC ####[address] [address] UAMICon 11-01-2016 UA Amorphus Trace Normal [facility] ([place]) Comment on above: Performed By: #### C BC, ADIFF, ANEU, LD, CMP, GFR, FIB, APTT, PRO ####[address] [address] UA Mucous Trace Normal [facility] ([place]) Comment on above: Performed By: #### C BC, ADIFF, ANEU, LD, CMP, GFR, FIB, APTT, PRO ####[address] [address] UA Squam Epithelial 0-2 Normal 0-20 [facility] ([place]) Comment on above: Performed By: #### C BC, ADIFF, ANEU, LD, CMP, GFR, FIB, APTT, PRO ####[address] [address] UA WBC 0-2 Normal 0-5 [facility] ([place]) Comment on above: Performed By: #### C BC, ADIFF, ANEU, LD, CMP, GFR, FIB, APTT, PRO ####[address] [address] Urine, erythrocytes 0-2 Normal 0-2 [facility] ([place]) Comment on above: Performed By: #### C BC, ADIFF, ANEU, LD, CMP, GFR, FIB, APTT, PRO ####[address] [place] [address] UCon 11-01-2016 UC No Growth Normal [facility] Comment on above: Performed By: #### M 120.0100 ####ML - [id number] [place] [address] URINALYSISon 11-01-2016 Bilirubin Ql (U) Negative Normal NEGATIVE [facility] Comment on above: Performed By: #### L 200.3000, L200.3190 ####ML - [id number] [place] [address] URINE APPEARANC CLEAR Normal CLEAR [facility] Comment on above: Performed By: #### L 200.3000, L200.3190 ####ML - [id number] [place] [address] URINE KETONE Negative Normal NEGATIVE [facility] Comment on above: Performed By: #### L 200.3000, L200.3190 ####ML - U[facility] [id number] [place] [address] URINE SPECIFIC 1.025 Normal 1.001-1.035 [facility] Comment on above: Performed By: #### L 200.3000, L200.3190 ####ML - [id number] [place] [address] URINE UROBILINO 0.2 EU/DL Normal 0.2-1.0 [facility] Comment on above: Performed By: #### L 200.3000, L200.3190 ####ML - U[facility] [id number] [place] [address] Urine, color YELLOW Normal YELLOW [facility] Comment on above: Performed By: #### L 200.3000, L200.3190 ####ML - U[facility] [id number] [place] [address] Urine, glucose presence Negative Normal NEGATIVE [facility] Comment on above: Performed By: #### L 200.3000, L200.3190 ####ML - [id number] [place] [address] Urine, hemoglobin presence TRACE-INTACT Normal [facility] Comment on above: Performed By: #### L 200.3000, L200.3190 ####ML - [id number] [place] [address] Urine, leukocyte esterase presence Negative Normal [facility] Comment on above: Performed By: #### L 200.3000, L200.3190 ####ML - [id number] [place] [address] Urine, nitrite presence Negative Normal [facility] Comment on above: Performed By: #### L 200.3000, L200.3190 ####ML - [id number] [place] [address] Urine, pH 6.5 [pH] Normal 5.0-8.0 [facility] Comment on above: Performed By: #### L 200.3000, L200.3190 ####ML - [id number] [place] [address] Urine, protein presence >=300 [facility] Comment on above: Performed By: #### L 200.3000, L200.3190 ####ML - [id number] [place] [address] URINE MICROSCOPon 11-01-2016 AMORPHOUS TR Normal [facility] Comment on above: Performed By: #### L 200.3000, L200.3190 ####ML - [id number] [place] [address] FINE GRANULAR 0-1 Normal [facility] Comment on above: Performed By: #### L 200.3000, L200.3190 ####ML - [id number] [place] [address] HYALINE 0-3 Normal [facility] Comment on above: Performed By: #### L 200.3000, L200.3190 ####ML - [id number] [place] [address] RENAL EPI OCC Normal [facility] Comment on above: Performed By: #### L 200.3000, L200.3190 ####ML - UH [id number] [place] [address] SQUAMOUS MOD Normal NEGATIVE [facility] Comment on above: Performed By: #### L 200.3000, L200.3190 ####ML - UH [id number] [place] [address] Urine, bacteria in sediment 1+ Normal NEGATIVE [facility] Comment on above: Performed By: #### L 200.3000, L200.3190 ####ML - UH [id number] [place] [address] Urine, erythrocytes 3-6 Normal 0-2 [facility] Comment on above: Performed By: #### L 200.3000, L200.3190 ####ML - UH [id number] [place] [address] Urine, leukocytes 3-6 Normal 0-5 [facility] Comment on above: Performed By: #### L 200.3000, L200.3190 ####ML - UH [id number] [facility] [facility] [address] Urine, mucus presence in sediment 2+ Normal NEGATIVE [facility] Comment on above: Performed By: #### L 200.3000, L200.3190 ####ML - UH [id number] [place] [facility] [address] US OB W/BIOPHYSICAL /CORD DO PPLERon 11-01-2016 US OB W/BIOPHYSICAL /CORD DOPPLER ORIGINAL ------ OBSTETRICS REPORT (Signed Final 11/01/2016 12:21 pm) -Patient Info ID #: [id number] : [birth year] (26 yrs)(F) Name: SONIA Jordan JULY Visit Date: 11/01/2016 11:34 am Performed By Performed By: Justa Gaspar RDMN Referred By: Wade Zhang MD Location: [facility] --Indications Pre-E with severe features Labor and Delivery patient ----- Evaluation Num Of Fetuses: 1 Heart Rate: 143 bpm Presentation: Cephalic Placenta: Anterior, Fundal, Grade 3 Amniotic Fluid VALE FV: Within Normal Limits VALE Sum: 13.39 cm Larg Pckt: 4.18 cm RUQ: 2.6 cm LUQ: 4.18 cm RLQ: 3.2 cm LLQ: 3.41 cm Biophysical Evaluation Amniotic F.V: Pocket => 2 cm two F. Tone: Observed planes F. Movement: Observed Score: 8/8 in 10 minutes F. Breathing: Observed ------Biometry BPD: 79.3 mm G. Age: 31w 6d OFD: 105.2 mm HC: 294.4 mm G. Age: 32w 4d 34 % AC: 275.5 mm G. Age: 31w 5d 45 % FL: 62 mm G. Age: 32w 1d 49 % CI: 75.4 % 70 - 86 FL/HC: 21.1 % 19.1 - 21.3 HC/AC: 1.07 0.96 - 1.17 FL/BPD: 78.2 % 71 - 87 FL/AC: 22.5 % 20 - 24 Est. FW: 1857 gm 4 lb 2 oz 35 % G estational Age Clinical WILLIAM: 31w 5d WILLIAM: 12/29/16 U/S Today: 32w 0d WILLIAM: 12/27/16 Best: 31w 5d Det. By: Clinical WILLIAM WILLIAM: 12/29/16 ------Anatomy Cranium: Normal appearance Cavum: Normal appearance Ventricles: Normal appearance Choroid Plexus: Normal appearance Cerebellum: Normal appearance Posterior Fossa: Normal appearance Face: Normal appearance Heart: Normal appearing 4 Chamber view RVOT: Normal appearance LVOT: Normal appearance Aortic Arch: Suboptimal views due to body habitus Ductal Arch: Suboptimal views due to body habitus Diaphragm: Normal appearance Stomach: Normal appearance Abdomen: Normal appearance Abdominal Wall: Normal appearance Cord Vessels: Normal appearing 3 vessel Kidneys: Normal appearance Bladder: Normal appearance Spine: Normal appearance --------Targeted Anatomy Central Nervous System Lat. Ventricles: 5.1 -Doppler - Vessels Artery S/D RI PI PSV cm/s UA/Vess Comments Umbilical 5.6 Artery - Abdomen Umbilical 3.3 Artery - Mid Umbilical 2.8 Artery - Placenta Ce rvix Uterus Adnexa Left Ovary: Not visualized due to patient body habitus Right Ovary: Not visualized due to patient body habitus -----Impression The uterus contains a single live active fetus in cephalic presentation. Amniotic fluid volume is normal. Previous studies are not available for comparison for this but estimated weight and biometry are appropriate for gestational age based upon provided clinical WILLIAM. No evidence of anomaly was seen but ultrasound is limited in its ability to detect all anomalies. The study was slightly difficult due to maternal body habitus. BIOPHYSICAL PROFILE: Biophysical profile was carried out using the More protocol. Score of 8/8 is reassuring well-being at present. UMBILICAL CORD ARTERY DOPPLER STUDY: Umbilical artery S/D ratios demonstrate diastolic flow. --- Thank you for sharing in the care of Ms. SONIA MISTRY with us. Please do not hesitate to contact us if you have any questions or concerns. Ness Alexander MDElectronically Signed Final Report 11/01/2016 12:21 pm Normal [facility] ([place]) 1HR GLUCOSEon 09-28-2016 Glucose mass conc 119 mg/dL Normal [facility] Comment on above: Order Comment: 1HR G LUCOSE VERNON 1H GLU 1HR GLUCOSE from [id number]. Performed By: #### L 100.0080 ####ML - UH [id number] [place] [address] Vital Signs Date Time Vital Sign Value Performing Clinician Facility 11-13-2023 09:56-0400 Body height 167.64 cm [facility] 11-13-2023 09:56-0400 Body mass index (BMI) [Ratio] 29.5 kg/m2 [facility] 11-13-2023 09:56-0400 Body temperature 97.9 [degF] [facility] 11-13-2023 09:56-0400 Body weight 83.09 kg [facility] 11-13-2023 09:56-0400 Diastolic blood pressure 76 mm[Hg] [facility] 11-13-2023 09:56-0400 Heart rate 65 /min [facility] 11-13-2023 09:56-0400 Respiratory rate 18 /min [facility] 11-13-2023 09:56-0400 SaO2% (BldA) [Mass fraction] 97 % [facility] 11-13-2023 09:56-0400 Systolic blood pressure 115 mm[Hg] [facility] 06-23-2023 15:43-0400 Body height 165.1 cm [facility] 06-23-2023 15:43-0400 Body mass index (BMI) [Ratio] 31.1 kg/m2 [facility] 06-23-2023 15:43-0400 Body weight 84.82 kg [facility] 06-23-2023 15:43-0400 Diastolic blood pressure 76 mm[Hg] [facility] 06-23-2023 15:43-0400 Systolic blood pressure 120 mm[Hg] [facility] 06-08-2023 18:03-0400 Body height 165.1 cm [facility] 06-08-2023 18:03-0400 Body mass index (BMI) [Ratio] 29.9 kg/m2 [facility] 06-08-2023 18:03-0400 Body temperature 98.5 [degF] [facility] 06-08-2023 18:03-0400 Body weight 81.64 kg [facility] 06-08-2023 18:03-0400 Heart rate 76 /min [facility] 06-08-2023 18:03-0400 Respiratory rate 16 /min [facility] 06-08-2023 18:03-0400 SaO2% (BldA) [Mass fraction] 98 % [facility] 05-13-2023 13:58-0500 Body height 167.6 cm [facility] 05-13-2023 13:58-0500 Body mass index (BMI) [Ratio] 29.89 kg/m2 [facility] 05-13-2023 13:58-0500 Body weight 84.01 kg [facility] 05-13-2023 13:58-0500 Diastolic blood pressure 76 mm[Hg] [facility] 05-13-2023 13:58-0500 Systolic blood pressure 114 mm[Hg] [facility] 05-09-2023 13:19-0500 Body height 165.1 cm [facility] 05-09-2023 13:19-0500 Body mass index (BMI) [Ratio] 29.9 kg/m2 [facility] 05-09-2023 13:19-0500 Body temperature 96.8 [degF] [facility] 05-09-2023 13:19-0500 Body weight 81.76 kg [facility] 05-09-2023 13:19-0500 Heart rate 76 /min [facility] 05-09-2023 13:19-0500 Respiratory rate 18 /min [facility] 05-09-2023 13:19-0500 SaO2% (BldA) [Mass fraction] 97 % [facility] 04-05-2023 13:50-0500 Body height 165.1 cm [facility] 04-05-2023 13:50-0500 Body weight 81.64 kg [facility] 03-25-2023 17:20-0500 Body height 165.1 cm Chio Holley Other [facility] 03-25-2023 17:20-0500 Body mass index (BMI) [Ratio] 30.18 kg/m2 Chio Holley Other [employer] [facility] [email or web address] Other 03-25-2023 17:20-0500 Body temperature 97.4 [degF] Chio Holley Other [employer] Other 03-25-2023 17:20-0500 Body weight 82.28 kg Chio Holley Other [facility] 03-25-2023 17:20-0500 Respiratory rate 18 /min Hcio Holley Other [employer] Other 03-25-2023 17:20-0500 SaO2% (BldA) [Mass fraction] 99 % Chio Holley Other [employer] Other 03-19-2023 17:40-0500 Body height 165.1 cm Nan Jewell Other [facility] 03-19-2023 17:40-0500 Body mass index (BMI) [Ratio] 29.82 kg/m2 Nan Jewell Other [employer] Other 03-19-2023 17:40-0500 Body temperature 96.8 [degF] Nan Jewell Other [employer] Other 03-19-2023 17:40-0500 Body weight 81.29 kg Nan Jewell Other [employer] Other 03-19-2023 17:40-0500 Body weight 81.28 kg [facility] 03-19-2023 17:40-0500 Respiratory rate 18 /min Nan Jewell Other [employer] Other 03-19-2023 17:40-0500 SaO2% (BldA) [Mass fraction] 99 % Nan Jewell Other [employer] Other 05-24-2022 13:45-0400 Body height 165.1 cm Julia Riveraault Other [employer] Other 05-24-2022 13:45-0400 Body mass index (BMI) [Ratio] 28.19 kg/m2 Julia Alexandra Other [employer] Other 05-24-2022 13:45-0400 Body temperature 97.8 [degF] Julia Alexandra Other [employer] Other 05-24-2022 13:45-0400 Body weight 76.84 kg Julia Alexandra Other [employer] Other 05-24-2022 13:45-0400 Diastolic blood pressure 74 mm[Hg] Julia Alexandra Other [employer] Other 05-24-2022 13:45-0400 SaO2% (BldA) [Mass fraction] 99 % Julia Morris Other [employer] Other 05-24-2022 13:45-0400 Systolic blood pressure 134 mm[Hg] Julia Morris Other [employer] Other 12-24-2020 16:15-0400 Body height 165.1 cm Julia Morris Other [employer] Other 12-24-2020 16:15-0400 Body mass index (BMI) [Ratio] 26.12 kg/m2 Julia Morris Other [employer] Other 12-24-2020 16:15-0400 Body weight 71.22 kg Julia Morris Other [employer] Other 01-28-2020 11:45-0500 Pulse Oximetry 100 % [facility] [employer] [facility] [place] 01-28-2020 11:31-0500 BP Diastolic 81 mm[Hg] [facility] [employer]- [facility], [place] 01-28-2020 11:31-0500 BP Systolic 122 mm[Hg] [facility] [employer] [facility] [place] 01-28-2020 10:15-0500 Body Temperature 96.91 [degF] [facility] [place] 01-28-2020 10:15-0500 Body weight 72.58 kg [facility] [place] 01-28-2020 10:15-0500 Pulse (Heart Rate) 76 /min [facility]ías [email or web address] [facility] 01-28-2020 10:15-0500 Respiratory Rate 16 /min [facility] [employer] [email or web address] [place] Encounters Encounter Date Encounter Type Care Provider Facility Start: 12-07-2023 End: 12-07-2023 ambulatory KELLY CAIN Not Available Start: 11-13-2023 End: 11-13-2023 ambulatory [facility] Work Phone: Start: 11-13-2023 End: 11-13-2023 Patient encounter procedure [facility] Work Phone: Start: 11-10-2023 End: 11-10-2023 [facility] Start: 06-23-2023 End: 06-23-2023 ambulatory [facility] Work Phone: Start: 06-23-2023 End: 06-23-2023 [facility] encounter [facility] Work Phone: Start: 06-08-2023 End: 06-08-2023 ambulatory [facility] Work Phone: Start: 06-08-2023 End: 06-08-2023 Patient encounter procedure [facility] Work Phone: Start: 05-21-2023 End: 05-22-2023 ambulatory [facility] Start: 05-13-2023 End: 05-13-2023 ambulatory [facility] Start: 05-13-2023 End: 05-13-2023 Initial preventive medicine new pt age 18-39yrs [facility] [employer] [facility] Comment on above: Well woman exam with routine gynecological exam (Primary Dx); Cervical smear, as part of routine gynecological examination; Screening for STD (sexually transmitted disease); Pelvic pain; Standardized adult depression screening tool completed Start: 05-13-2023 End: 05-13-2023 Patient encounter procedure [facility] [employer] [facility] Start: 05-13-2023 End: 05-14-2023 ambulatory [facility] Start: 05-13-2023 End: 05-13-2023 Encounter for gynecological examination (general) (routine) without abnormal findings [facility] Work Phone: Start: 05-09-2023 End: 05-09-2023 ambulatory [facility] Work Phone: Start: 05-09-2023 End: 05-09-2023 Patient encounter procedure [facility] Work Phone: Start: 04-05-2023 End: 04-05-2023 Patient encounter procedure [facility]- Start: 03-25-2023 End: 03-25-2023 ambulatory Chio Kishan Other [employer] Other Start: 03-25-2023 Office outpatient vi sit 25 minutes Chio Kishan [facility] Start: 03-25-2023 End: 03-25-2023 Patient encounter procedure [facility] Work Phone: Start: 03-19-2023 End: 03-19-2023 ambulatory Nan Fanta Other [employer] Other Start: 03-19-2023 Office outpatient vi sit 15 minutes Nan Fanta [facility] Start: 03-19-2023 End: 03-19-2023 Patient encounter procedure [facility] Work Phone: Start: 05-24-2022 End: 05-24-2022 ambulatory Julai Morris Other [employer] Other Start: 05-24-2022 Office outpatient vi sit 15 minutes Julia Morris [facility] Start: 02-17-2022 End: 02-17-2022 ambulatory [employer] KELLY AICHKATINAZ Facility:[facility]1 Start: 11-24-2021 End: 11-24-2021 ambulatory [employer] KELLY AICHHOLZ Facility:[facility] Start: 06-09-2021 End: 06-10-[address] MARANDA PEREYRA Facility:[facility] Start: 05-06-2021 End: 05-07-2021 ambulatory [employer] KELLY AICHMARCOS Facility:[facility]1 Start: 12-24-2020 Office outpatient vi sit 15 minutes Julia Morris [facility] Start: 01-28-2020 Emergency department patient visit ELÍAS CRISMARU [facility] Start: 01-28-2020 End: 01-28-2020 Emergency department patient visit Elías Crismaru Work Phone: [facility] ED Comment on above: Pain of upper abdome n (Primary Dx) Start: 05-13-2017 Ambulatory JAYSHREE CARIAS Facil ity:[facility] Start: 03-26-2017 Ambulatory Denisse Lee Facili ty:[facility] Start: 11-01-2016 End: 11-08-2016 Evaluation and management of inpatient NESS ALEXANDER Facility:A Start: 11-01-2016 Ambulatory DAVIDA Rowe ORCARMELITAU Fac ility:[facility] Start: 09-28-2016 Ambulatory WADE Julien NWIZU Facility :[facility] Procedures Date Procedure Procedure Detail Performing Clinician Start: 05-13-2023 Adult depression scr eening assessment [facility] [employer] Start: 05-09-2023 Quick Strep (POC) Start: 01-28-2020 Ct abdomen & pelvis w/contrast material ELÍAS CRISMARU Start: 01-28-2020 Assay of lactate CIPRIA N CRISMARU Start: 01-28-2020 Urinalysis microscopic only ELÍAS CRISMARU Start: 01-28-2020 Urine test visual color cmprsn meths ELÍAS CRISMARU Start: 01-28-2020 Urnls dip stick/tabl et rgnt auto w/o microscopy ELÍAS CRISMARU Start: 01-28-2020 Assay of lipase ELÍAS CRISMARU Start: 01-28-2020 Blood count complete auto&auto difrntl wbc ELÍAS CRISMARU Start: 01-28-2020 Comprehensive metabo lic panel ELÍAS CRISMARU Start: 01-28-2020 INSERT PERIPHERAL IV CI PRIAN CRISMARU Start: 01-28-2020 Ct abdomen & pelvis w/contrast material Elías Crismaru Work Phone: Start: 01-28-2020 Assay of lactate Cipria n Crismaru Work Phone: Start: 01-28-2020 Urinalysis microscopic only Elías Crismaru Work Phone: Start: 01-28-2020 Urine test visual color cmprsn meths Elías Au Work Phone: Start: 01-28-2020 Urnls dip stick/tabl et rgnt auto w/o microscopy Elías Au Work Phone: Start: 01-28-2020 Assay of lipase Elías Au Work Phone: Start: 01-28-2020 Blood count complete auto&auto difrntl wbc Elías Au Work Phone: Start: 01-28-2020 Comprehensive metabo lic panel Elías Au Work Phone: Start: 02-24-2019 Microscopic observat ion [Identifier] in Cervix by Cyto stain [facility] [employer] Plan of Treatment Date Care Activity Detail Author Start: 05-12-2024 Adult BMI Follow Up Plan Adult BMI Follow Up Plan [employer] Start: 05-12-2024 [facility] Start: 05-12-2024 [facility] Start: 05-12-2024 Tobacco [facility]ening [facility] Start: 05-13-2023 End: 05-12-2024 Cytopathology procedure, preparation of smear, genital source Pap Smear Pathology and Cytology Routine Cervical smear, as part of routine gynecological examination Expected: 05/13/2023 (Approximate), Expires: 05/12/2024 [employer] Work Phone: Comment on above: Expected: 05/13/2023 (Approximate), Expires: 05/12/2024 Start: 05-13-2023 End: 05-12-2024 US Pelvis transabdominal and transvaginal Ultrasound pelvic with transvaginal Imaging Routine Pelvic pain Expected: 05/13/2023, Expires: 05/12/2024 [employer] Comment on above: Expected: 05/13/2023 , Expires: 05/12/2024 Start: 05-13-2023 End: 05-12-2024 Vaginitis Panel PCR Vaginitis Panel PCR Microbiology Routine Screening for STD (sexually transmitted disease) Expected: 05/13/2023 (Approximate), Expires: 05/12/2024 [facility] Comment on above: Expected: 05/13/2023 (Approximate), Expires: 05/12/2024 Start: 11-13-2022 COVID-19 Vaccine () COVID-19 Vaccine () [facility] Start: 11-13-2022 Influenza vaccination Influenza Vacc ine [facility] Start: 02-24-2022 Screening for malign ant neoplasm of cervix Pap Smear [facility] Start: 11-14-2019 Influenza vaccination Flu vaccine (# 1) [place], [place] Start: 07-11-2011 Screening for malign ant neoplasm of cervix Cervical cancer screen [place], [place] Start: 2009 DTaP,Tdap and Td Vac cines (1 - Tdap) DTaP,Tdap and Td Vaccines (1 - Tdap) [facility] Start: 2009 DTaP/Tdap/Td vaccine (1 - Tdap) DTaP/Tdap/Td vaccine (1 - Tdap) [place], [place] Start: 2005 HIV screening HIV screen [place], [place] Start: 07-11-1991 Varicella vaccine (1 of 2 - 2-dose childhood series) Varicella vaccine (1 of 2 - 2-dose childhood series) [place], [place] End: 05-12-2024 Chlamydia/GC by PCR ThinPrep fluid Chlamydia/GC by PCR ThinPrep fluid Microbiology Routine Screening for STD (sexually transmitted disease) 1 Occurrences starting 05/13/2023 until 05/12/2024 [facility] Comment on above: 1 Occurrences starti ng 05/13/2023 until 05/12/2024 End: 05-12-2024 High risk HPV w/robert High risk HPV w/robert Lab Routine Cervical smear, as part of routine gynecological examination 1 Occurrences starting 05/13/2023 until 05/12/2024 [facility] Comment on above: 1 Occurrences starti ng 05/13/2023 until 05/12/2024 Immunizations Immunization Date Immunization Notes Care Provider Yon Rivers15-2020 influenza virus vacc ine, unspecified formulation [facility] [employer] Payers Date Payer Category Payer Medicaid [facility] MEDICAID [facility] MEDICAID [id number] 2022-Present [address] [place] [address] [id number] 2022 Medicaid [id number] 2016 Unknown [id number] 1990 Unknown [id number] 1990 Unknown [id number] 1990 Unknown [id number] 1990 Unknown [id number] 1990 Unknown [id number] 1990 Unknown [id number] [id number] 1990 Unknown [id number] 1990 Unknown [id number] 1990 Unknown [id number] 1990 Unknown [id number] 1959 Unknown [id number] Unknown [id number] Social History Date Type Detail Facility Start: 01-28-2020 End: 06-23-2023 Tobacco smoking status NHIS Never smoker [facility] Start: 01-28-2020 End: 05-13-2023 Tobacco use and exposure Never used [employer] [facility] ANGELA Stephens Start: 1990 Sex Assigned At Not on file M [place], [place] Exposure to SARS-CoV -2 (event) Yes [place], [place] Start: 07-16-2021 End: 05-13-2023 Sex Assigned At [facility] Start: 1990 Sex Assigned At Female F [facility] Start: 05-13-2023 Alcohol intake Ex-drinker (finding) [facility] Start: 07-16-2021 End: 05-13-2023 History of Social function [facility] Do you belong to any clubs or organizations such as judaism groups, unions, fraternal or athletic groups, or school groups? No [facility] Are you now , , , , never or living with a partner? Never [facility] How often to you hav e a drink containing alcohol? 2-4 times a month [facility] How many standard dr inks containing alcohol do you have on a typical day? 1 or 2 [facility] How often do you hav e 6 or more drinks on 1 occasion? Never [facility] How hard is it for y ou to pay for the very basics like food, housing, medical care, and heating Somewhat hard [facility] Adolescent depressio n screening assessment 4 [facility] Do you feel stress - tense, restless, nervous, or anxious, or unable to sleep at night because your mind is troubled all the time - these days [OSQ] Only a little [facility] Start: 07-16-2021 Education 12 [facility] Goals Date Patient Goal Desired Activity /State Personal health goal Comment on above: Formatting of this n ote might be different from the original. Evaluation of progress towards goal: Patients goal is to discharge to home. Clinical Notes 10-13-2016 to 05-13-2023 Kelly Edwards APRN-[employer] - 05/13/2023 2:00 PM EST Note Date & Type Note Facility 05-13-2023 History of Present illness Narrative Annual Well Woman Visit 05/13/2023 Phong Mistry is a 32 y.o. 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 Periods are regular every 28-30 days, lasting 5 days. Dysmenorrhea: moderate, occurring premenstrually. Cyclic symptoms include breast tenderness. No intermenstrual bleeding, spotting, or abnormal discharge. Some pelvic pain prior to periods. Patient desires STD testing today. Complaints today: none Relationship status: not in a relationship The patient reports that there is not domestic violence in her life. 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 Non-smoker Children YES How many One Current contraception: condoms History of abnormal Pap smear: no Last pap: 02/2019 Regular self breast exam: yes Last mammogram: n/a Family history of breast cancer: yes - Maternal Great Grandmother Family history of uterine or ovarian cancer: no Family history of pancreatic or prostate cancer: yes - Mother-pancreatic Family history of colon cancer: no Covid vaccinated: yes Flu shot this flu season: no HPV vaccinated: yes PHQ9 depression screenin LMP 05/06/2023 OB History 1 Para 1 Term 1 AB Living SAB IAB Ectopic Multiple Live Births The following portions of the patient's history were reviewed and updated as appropriate: allergies, current medications, past family history, past medical history, past social history, past surgical history and problem list. MEDICAL HX Past Medical History: Diagnosis Date Visual impairment Glasses SURGICAL HX Past Surgical History: Procedure Laterality Date ABDOMINOPLASTY N/A 07/09/2020 Performed by Karthik Denney MD at [facility] SECTION 2017 EXCISION CYST HEAD/NECK Left 05/02/2020 Performed by Milton Richard MD PhD at [facility] GASTRIC BYPASS 04/2019 LAPAROSCOPIC ALYSSA EN Y GASTRIC BYPASS WITH CHOLECYSTECTOMY N/A 04/25/2019 Performed by Karthik Denney MD at [facility] PANNICULECTOMY N/A 07/09/2020 Performed by Karthik Denney MD at [facility] PLANTAR FASCIA RELEASE Left 2018 FAMILY HX Family History Problem Relation Age of Onset Pancreatic cancer Mother 55 No known genetic testing Stroke Father Diabetes Father Hypertension Father Melanoma Father 65 nose Diabetes Sister Hypertension Sister Breast cancer Maternal great-grandmother MGMs mom, age unknown Anesthesia problems Neg Hx MEDS Current Outpatient Medications Medication Sig Dispense Refill calcium citrate (CALCITRATE) 200 mg (950 mg) tablet three times daily CLASSIC 28 mg iron- 800 mcg tablet TAKE 1 TABLET BY MOUTH EVERY DAY 90 tablet 3 escitalopram (LEXAPRO) 10 mg tablet Take 1 tablet (10 mg total) by mouth daily with breakfast. 5 vit B complex no.12/niacin,B3, (VITAMIN B COMPLEX NO.12-NIACIN ORAL) Take by mouth. No current facility-administered medications for this visit. ALLERGIES No Known Allergies Review of Systems Constitutional: Negative. Respiratory: Negative. Negative for chest tightness and shortness of breath. Cardiovascular: Negative. Negative for chest pain and palpitations. Gastrointestinal: Negative. Negative for constipation, diarrhea, nausea and vomiting. Endocrine: Negative. Genitourinary: Positive for dyspareunia and pelvic pain. Negative for menstrual problem. Musculoskeletal: Negative. Skin: Negative. Allergic/Immunologic: Negative. Neurological: Negative. Hematological: Negative. Psychiatric/Behavioral: Negative. Objective BP 114/76 Ht 167.6 cm (5' 6 ) Wt 84 kg (185 lb 3.2 oz) LMP 05/06/2023 (Approximate) BMI 29.89 kg/m Physical Exam Vitals and nursing note reviewed. Constitutional: Appearance: Normal appearance. HENT: Head: Normocephalic and atraumatic. Cardiovascular: Rate and Rhythm: Normal rate and regular rhythm. Pulses: Normal pulses. Heart sounds: Normal heart sounds. Pulmonary: Effort: Pulmonary effort is normal. Breath sounds: Normal breath sounds. Chest: Breasts: Breasts are symmetrical. Right: Normal. No mass, skin change or tenderness. Left: Normal. No mass, skin change or tenderness. Abdominal: General: Bowel sounds are normal. Palpations: Abdomen is soft. Genitourinary: General: Normal vulva. Labia: Right: No rash or lesion. Left: No rash or lesion. Vagina: Normal. Cervix: Normal. Uterus: Normal. Not enlarged and not tender. Adnexa: Right adnexa normal and left adnexa normal. Right: No mass, tenderness or fullness. Left: No mass, tenderness or fullness. Musculoskeletal: General: Normal range of motion. Cervical back: Normal range of motion and neck supple. Skin: General: Skin is warm and dry. Neurological: Mental Status: She is alert and oriented to person, place, and time. Psychiatric: Mood and Affect: Mood normal. Speech: Speech normal. Behavior: Behavior normal. Thought Content: Thought content normal. Judgment: Judgment normal. Assessment/Plan: Sonia was seen today for annual exam. Diagnoses and all orders for this visit: Well woman exam with routine gynecological exam Cervical smear, as part of routine gynecological examination - Pap Smear; Future - High risk HPV w/robert; Future Screening for STD (sexually transmitted disease) - Chlamydia/GC by PCR ThinPrep fluid; Future - Vaginitis Panel PCR; Future Pelvic pain - Ultrasound pelvic with transvaginal; Future Standardized adult depression screening tool completed BMI is above average; Discussed eating tips for weight loss and and exercise steps. Breast self exam technique reviewed and patient encouraged to perform self-exam monthly. Discussed healthy lifestyle modifications. Educational material distributed. 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 Follow up as needed. Await pap. Discussed ASCCP screening guidelines. Discussed taking a multivitamin. Discussed Calcium and Vitamin D for prevention of osteoporosis. Discussed need for yearly mammogram after 40 yo. Discussed colon cancer screening recommendations to begin at 45 yo, patient to discuss with PCP. All questions answered. NATASHA SANTIAGO APRN-CNP Lisa M Franco, APRN-CNP 05/13/23 1433 documented in this encounter [facility] 03-25-2023 Evaluation note Encounter Date Diagnosis Assessment Notes Mar, Contact with and (suspected) exposure to covid-19 (ICD-10 - Z20.822) Mar, Viral URI with cough (ICD-10 - J06.9) Advised patient that COVID/Influenza A/B/RSV test was negative today. Advised patient that will treat as viral URI. Supportive care as directed, increase fluids and rest, Tylenol/Motrin as directed, OTC cough/cold remedies as directed on packaging, cool mist humidifier, throat lozenges. Discussed infection control practices such as good hand washing and mask wearing. Patient to follow up with PCP if symptoms persist or worsen despite treatment. Immediate eval for SOB, difficulty breathing, chest pain, fevers that do not break with antipyretic or any other concerning symptoms as reviewed on patient education handout. Patient verbalizes understanding and is agreeable to treatment plan. Patient left in stable condition. [facility] Other 01-05-2024 Evaluation note* Encounter Date Diagnosis Assessment Notes Treatment Notes Treatment Clinical Notes Mar, Contact dermatitis, unspecified contact dermatitis type, unspecified trigger (ICD-10 - L25.9) Drink plenty fluids, get plenty of rest. Take the Medrol Dosepak as prescribed until gone. Be very careful of any make-up or lotions that you apply to your face. You may apply's very small amounts of hydrocortisone cream to your face once or twice a day for the rash. Take Benadryl if the rash becomes itchy. Follow-up with your family physician if no improvement in 2 to 3 days [employer] Other 03-12-2023 Evaluation note* Encounter Date Diagnosis Assessment Notes Treatment Notes Treatment Clinical Notes May, Sore throat (ICD-10 - J02.9) May, Strep pharyngitis (ICD-10 - J02.0) Symptoms presented in office today indicate Strep Throat. Take medications as directed. Saltwater gargles may help with pain and disrupts bacteria and viral infections. Continue tylenol/ibu for general discomfort. Encourage fluids. Symptoms should improve within the next 4-7 days. May, Nausea (ICD-10 - R11.0) Teresa Greco 05/24/2022 01:01:08 PM > Pt given Zofran 4mg 2 tab po in office [employer] Other 10-12-2021 Evaluation note* Encounter Date Diagnosis Assessment Notes Treatment Notes Treatment Clinical Notes Dec, Contact with and (suspected) exposure to other viral communicable diseases (ICD-10 - Z20.828) Today test was performed in office. Results are currently negative. That does not mean that you will not develop COVID or do not currently have a low viral count of COVID. The rapid test works best if symptoms have been over 72 hours and the results can vary if you are asymptomatic There is a higher chance of false negative results to occur if testing is performed too soon. It is recommended that even if results are negative and you have been exposed to someone that has COVID that you follow current CDC recommendations. These can be found at CDC.GOV. Follow up with primary care provider if symptoms persist or do not improve Dec, Sore throat (ICD-10 - J02.9) Dec, Left acute otitis media (ICD-10 - H66.92) Dec, Other Additional time spent conducting pre-visit phone call, screening for symptoms, instructions on social distancing, application and removal of PPE, and cleaning of examination room, equipment and supplies was preformed. Patient education given for testing methodology and results. Patient care instructions given in writting by [facility] document. [employer] Other 08-01-2017 History general Narrative - Reported* Type Description Date Medical History Anxiety Surgical History C section Surgical History Foot Surgery Surgical History gastric bypass Hospitalization History in oct high blood pressure baby had to be delivered. [employer] Other Evaluation noteNo assessment information available [facility] Work Phone: Evaluation note* Diagnosis Well woman exam with routine gynecological exam- Primary Routine gynecological examination Cervical smear, as part of routine gynecological examination Screening for malignant neoplasm of the cervix Screening for STD (sexually transmitted disease) Pelvic pain Standardized adult depression screening tool completed [facility] Diagnosis Onset Date Resolution Status Viral URI with cough noneact rigoberto Viral URI with cough noneact rigoberto [facility] Work Phone: Evaluation note* Diagnosis Onset Date Resolution Status Viral URI with cough noneact rigoberto Viral URI with cough noneact rigoberto Bronchitis acute Maxillary sinusitis acute [facility] Work Phone: Instructions* Attachments The following attachments cannot be sent through Care Everywhere. * Pelvic Pain (Chadian) * Control Options (Chadian) [facility] Family History No Family History Records Found Relationship Condition Age at Onset Recorded Date/T sarah father Heart disease Unknown Unknown Not Specified Malignant neoplasm Unknown Relationship Condition Age at Onset Recorded Date/T sarah father Heart disease Unknown Unknown mother Malignant neoplasm Unknown Advance Directives No Advanced Directives Records Found Advance Directive Response Recorded Date/ Time Advance Directives No April 1:03pm Latest Code Status on File Code Status Date Activated Date Inactivated Comments Full Code 07/09/2020 1:46 PM 2020 4:02 PM Code Status History Code Status Date Activated Date Inactivated Comments Full Code 04/25/2019 11:02 AM 04/26/2019 3:24 PM Advance Directive Response Recorded Date/ Time Advance Directives No April 2:03pm Assessments Diagnosis Pain of upper abdomen Abdominal pain, other specified site Chief Complaint and Reason for Visit Chief Complaint Rash On Face Ear Ache, Chest Congestion, Cough Cough, Left Chest/Rib Pain With Cough/De head cold, congestion, cough Chief Complaint Rash On Face Ear Ache, Chest Congestion, Cough Cough, Left Chest/Rib Pain With Cough/De head cold, congestion, cough Chest congestion, cough, sore throat Reason for Visit Viral URI with cough Viral URI with cough Chief Complaint Cough, Left Chest/Ri b Pain With Cough/De head cold, congestion, cough Chest congestion, cough, sore throat Sick Reason for Visit Viral URI with cough Viral URI with cough Bronchitis Maxillary sinusitis Chief Complaint both eyes, poss pink eye Additional Source Comments INFORMATION SOURCE (unrecogn ized section and content) DATE CREATED AUTHOR 09/03/2017 [facility] DATE CREATED AUTHOR AUTHOR'S ORGANIZ ATION 09/08/2017 [facility] ([place]) DATE CREATED AUTHOR AUTHOR'S ORGANIZ ATION 09/10/2017 [facility] DATE CREATED AUTHOR AUTHOR[facility]S ORGANIZ ATION [facility] DATE CREATED AUTHOR AUTHOR'S ORGANIZ ATION 02/23/2022 [facility] DATE CREATED AUTHOR AUTHOR'S ORGANIZ ATION 05/16/2023 [facility] DATE CREATED AUTHOR AUTHOR'S ORGANIZ ATION [facility]20[facility] DATE CREATED AUTHOR AUTHOR'S ORGANIZ ATION 12/10/2023 [facility] Reason for Visit (unrecogniz ed section and content) Reason Comments Abdominal Pain mid upper abd pain, onset for a week. PT states she has an out pt CT ordered for tomorrow Reason Comments Annual Exam Care Teams (unrecognized sec tion and content) Team Status: Active Member Role Status Dates Kelly Cain Primary Care Provider Active Team Status: Inactive Member Role Status Dates NURIS JimenezC Attending Provider Active S tart: March 19, 2023 End: March 19, 2023 Team Status: Inactive Member Role Status Dates Chio Holley APRN Attending Provider Active Start: March 25, 2023 End: March 25, 2023 Team Status: Inactive Member Role Status Dates Maria Victoria Nguyen RN Attending Provider Active Start : April 05, 2023 End: April 05, 2023 Team Status: Inactive Member Role Status Dates Kelly Cain Primary Care Provider Active Sta rt: May 09, 2023 End: May 09, 2023 Chio Holley APRN Attending Provider Active Start: May 09, 2023 End: May 09, 2023 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 [address] [place] [address] PCP - General Nurse Practitioner 01/09/19 Team Status: Inactive Member Role Status Dates Kelly Cain Primary Care Provider Active Sta rt: June 08, 2023 End: June 08, 2023 Chio Holley APRN Attending Provider Active Start: June 08, 2023 End: June 08, 2023 Team Status: Active Member Role Status Dates Olive Russo APRN NP-C Primary Care Provider Active Team Status: Inactive Member Role Status Dates Olive Russo APRN NP-C Primary Care Provider, Attending Provider Active Start: June 23, 2023 End: June 23, 2023 Team Status: Inactive Member Role Status Dates Olive Russo APRN NP-C Primary Care Provider Active Start: November 13, 2023 End: November 13, 2023 Eliana Fernandez APRN Attending Provider Active Start: November 13, 2023 End: November 13, 2023 Goals (unrecognized section and content) Goals may be documented in a n alternate section FOR RECORDS PERTAINING TO PATIENTS WHO ARE OR HAVE BEEN ENROLLED IN A CHEMICAL DEPENDENCY/SUBSTANCEABUSE PROGRAM, SOME INFORMATION MAY BE OMITTED. This clinical summary was aggregated from multiple sources. Caution should be exercised in using it in the provision of clinical care. This summary normalizes information from multiple sources, and as a consequence, information in this document may materially change the coding, format and clinical context of patient data. In addition, data may be omitted in some cases. CLINICAL DECISIONS SHOULD BE BASED ON THE PRIMARY CLINICAL RECORDS. [facility]. provides no warranty or guarantee of the accuracy or completeness of information in this document.
[2024-02-04 12:14] LABS: Basophils Percent Auto 0.2 % (0.2-2.0); Eosinophils Absolute Auto 0.1 10^3/uL (0.0-0.7); Eosinophils Percent Auto 1.3 % (0.9-7.0); Hematocrit 36.5 % (36.0-48.0); Hemoglobin 12.8 g/dL (12.0-16.0); Lymphocytes Absolute Auto 1.5 10^3/uL (1.2-3.8); Lymphocytes Percent Auto 31.4 % (20.5-60.0); Mean Corpuscular HGB Conc 35.1 g/dL (29.9-35.2); Mean Corpuscular Hemoglobin 33.1 pg (26.7-34.0); Mean Corpuscular Volume 94.3 fL (81.0-99.0); Mean Platelet Volume 9.1 fL (9.5-13.5); Monocytes Absolute Auto 0.4 10^3/uL (0.3-0.8); Monocytes Percent Auto 8.5 % (1.7-12.0); Neutrophils Absolute Auto 2.8 10^3/uL (1.4-6.5); Neutrophils Percent Auto 58.6 % (43.0-75.0); Platelet Count 202 10^3/uL (150-450); Red Blood Count 3.87 10^6/uL (4.20-5.40); White Blood Count 4.7 10^3/uL (4.0-11.0)
[2024-02-04 12:27] LABS: HCG Qualitative NEGATIVE (NEGATIVE); Internal Control Within Normal Limits
[2024-02-04 12:28] LABS: Alanine Aminotransferase 16 U/L (14-59); Albumin Globulin Ratio 1.1; Alkaline Phosphatase 59 U/L (46-116); Anion Gap 12.4; Aspartate Amino Transferase 18 U/L (15-37); BUN Creatinine Ratio 17.9; Bilirubin Total 1.3 mg/dL (0.2-1.0); Carbon Dioxide 27.7 mmol/L (21.0-32.0); Chloride 104 mmol/L (98-107); Estimated GFR (African America >60 (>=60 mL/min/1.73m^2); Estimated GFR (Non-African Ame >60 (>=60 mL/min/1.73m^2); Globulin 3.6 g/dL; Glucose 90 mg/dL (74-106); Potassium 4.1 mmol/L (3.5-5.1); Sodium 140 mmol/L (136-145); Total Protein 7.6 g/dL (6.4-8.2)
--- NOTE | 2024-02-04 13:06 | ED.GENADUL1 ---
HPI HPI - General Adult General Chief complaint: Headache Stated complaint: HEADACHES Time Seen by Provider: 02/04/24 11:48 Source: patient Mode of arrival: walk-in History of Present Illness HPI narrative: The patient is coming today after she had a headache 5 days ago that resolved she also had abdominal pain that is continuous comes and goes on the right side sometimes with a history of cholecystectomy and on the left side sometimes The patient does not have any active pain at the moment Related Data Home Medications ?Medication ?Instructions ?Recorded ?Confirmed escitalopram oxalate 5 mg tablet 5 mg PO DAILY 04/08/23 02/04/24 Allergies Allergy/AdvReac Type Severity Reaction Status Date / Time No Known Drug Allergies Allergy Verified 04/08/23 14:04 Opioid HPI Opioid Management Most Recent Opioid Data: Last Pain Scale 6 02/04/24 11:45 02/04/24 Review of Systems ROS Status of ROS 10 or more systems reviewed and unremarkable except as noted in history and below PFSH PFSH Social History Little interest or pleasure in doing things: not at all Feeling down, depressed, or hopeless: not at all Exam Narrative Exam Narrative: Nurses notes and vital signs reviewed and patient is not hypoxic. General: Well-appearing and in no apparent distress. Skin: Warm, dry, no pallor noted. No rash. Head: Normocephalic, atraumatic. Neck: Supple, non-tender. Eye: Pupils are equal, round and EOMI. No scleral icterus. Ears, Nose, Mouth, and Throat: TM are clear, no nasal mucosal hypertrophy. Oral mucosa is moist, no posterior oropharynx erythema, uvula is mid-line Cardiovascular: Regular Rate and Rhythm without murmur, gallop or rub. Respiratory: No accessory muscle use or respiratory distress. Lungs are clear to auscultation, no wheezing, rales or rhonchi Chest Wall: no tenderness Back: No midline thoracic or lumbar vertebral tenderness. No CVA tenderness Musculoskeletal: normal ROM, no calf or popliteal tenderness, no lower extremity edema/swelling GI: Abdomen is soft, non-distended. Normal bowel sounds. No masses appreciated. No tenderness to palpation. No rebound, guarding, or rigidity noted. Neurological: A&O x4. No cranial nerve dysfunction observed. No truncal ataxia. Moves all extremities. Sensation intact. Psychiatric: Cooperative and interactive. Normal mood and affect. Constitutional Vital Signs, click to edit/add: Last Vital Signs Temp 98.0 F 02/04/24 11:37 Pulse 75 02/04/24 11:37 Resp 18 02/04/24 11:37 BP 128/83 02/04/24 11:37 Pulse Ox 100 02/04/24 11:37 O2 Del Method Room Air 02/04/24 11:37 Course Vital Signs Vital signs: Vital Signs Temperature 98.0 F 02/04/24 11:37 Pulse Rate 75 02/04/24 11:37 Respiratory Rate 18 02/04/24 11:37 Blood Pressure 128/83 02/04/24 11:37 Pulse Oximetry 100 02/04/24 11:37 Oxygen Delivery Method Room Air 02/04/24 11:37 Temperature 98.0 F 02/04/24 11:37 Pulse Rate 75 02/04/24 11:37 Respiratory Rate 18 02/04/24 11:37 Blood Pressure 128/83 02/04/24 11:37 Pulse Oximetry 100 02/04/24 11:37 Oxygen Delivery Method Room Air 02/04/24 11:37 Medical Decision Making MDM Narrative Medical decision making narrative: The patient examination was benign and her pain is not active her CBC chemistry did not show any acute pathology Patient was discharged to follow-up with her primary care The patient is to follow up with primary care physician in next 2-3 days or to return to the emergency department should any of the signs or symptoms worsen or new symptoms develop. The patient agrees with the following Diagnosis and Treatment plan and the patient will be discharged home. Lab Data Labs: Lab Results 02/04/24 Range/Units 12:05 WBC 4.7 (4.0-11.0) 10^3/uL RBC 3.87 L (4.20-5.40) 10^6/uL Hgb 12.8 (12.0-16.0) g/dL Hct 36.5 (36.0-48.0) % MCV 94.3 (81.0-99.0) fL MCH 33.1 (26.7-34.0) pg MCHC 35.1 (29.9-35.2) g/dL RDW 12.0 (11.0-15.0) % Plt Count 202 (150-450) 10^3/uL MPV 9.1 L (9.5-13.5) fL Neut % (Auto) 58.6 (43.0-75.0) % Lymph % (Auto) 31.4 (20.5-60.0) % Stephenson % (Auto) 8.5 (1.7-12.0) % Eos % (Auto) 1.3 (0.9-7.0) % Baso % (Auto) 0.2 (0.2-2.0) % Neut # (Auto) 2.8 (1.4-6.5) 10^3/uL Lymph # (Auto) 1.5 (1.2-3.8) 10^3/uL Stephenson # (Auto) 0.4 (0.3-0.8) 10^3/uL Eos # (Auto) 0.1 (0.0-0.7) 10^3/uL Baso # (Auto) 0.0 (0.0-0.1) 10^3/uL Abs Immat Gran (auto) 0.00 (0.00-0.03) 10^3/uL Imm/Tot Granulo (auto) 0.0 (0.0-0.5) % Sodium 140 (136-145) mmol/L Potassium 4.1 (3.5-5.1) mmol/L Chloride 104 (98-107) mmol/L Carbon Dioxide 27.7 (21.0-32.0) mmol/L Anion Gap 12.4 BUN 12.0 (7.0-18.0) mg/dL Creatinine 0.67 (0.55-1.02) mg/dL Est GFR ( Amer) >60 (>=60 mL/min/1.73m^2) Est GFR (Non-Af Amer) >60 (>=60 mL/min/1.73m^2) BUN/Creatinine Ratio 17.9 Glucose 90 (74-106) mg/dL Calcium 9.0 (8.5-10.1) mg/dL Total Bilirubin 1.3 H (0.2-1.0) mg/dL AST 18 (15-37) U/L ALT 16 (14-59) U/L Alkaline Phosphatase 59 (46-116) U/L Total Protein 7.6 (6.4-8.2) g/dL Albumin 4.0 (3.4-5.0) g/dL Globulin 3.6 g/dL Albumin/Globulin Ratio 1.1 Serum HCG, Qual Negative (NEGATIVE) Discharge Plan Discharge Chief Complaint: Headache Clinical Impression: Abdominal pain, Headache Patient Disposition: Home, Self-Care Time of Disposition Decision: 13:06 Condition: Good Prescriptions / Home Meds: No Action escitalopram oxalate 5 mg tablet 5 mg PO DAILY Print Language: Indonesian Instructions: Abdominal Pain (ED) Referrals: JANIE AGUIRRE [Primary Care Provider] - 1 week
== END 2024-02-04 13:17 | disposition home or self-care (01) ==
PROVIDERS: Emergency Provider Emergency Medicine; PCP Nurse Practitioner Family
DX: R51.9 Headache, unspecified (principal); R10.9 Unspecified abdominal pain; Z90.49 Acquired absence of other specified parts of digestive tract
CPT/HCPCS: 36415; 80053; 84703; 85025; 99283

== ENCOUNTER 2024-06-12 12:24 | Outpatient (OUT) | payer MEDICAID, SELFPAY ==
[2024-06-12 13:09] LABS: Alanine Aminotransferase 14 U/L (14-59); Albumin Globulin Ratio 1.2; Albumin Level 3.9 g/dL (3.4-5.0); Alkaline Phosphatase 58 U/L (46-116); Aspartate Amino Transferase 18 U/L (15-37); Bilirubin Direct 0.2 mg/dL (0.0-0.2); Bilirubin Total 0.7 mg/dL (0.2-1.0); Globulin 3.3 g/dL; Total Protein 7.2 g/dL (6.4-8.2)
[2024-06-14 08:09] LABS: Deamidated Gliadin Abs, IgA 3 units (0-19); Deamidated Gliadin Abs, IgG 2 units (0-19); Endomysial Antibody IgA Negative (Negative); Immunoglobulin A, Qn, Serum 179 mg/dL (87-352); t-Transglutaminase (tTG) IgA <2 U/mL (0-3); t-Transglutaminase (tTG) IgG 4 U/mL (0-5)
== END 2024-06-12 12:25 | disposition home or self-care (01) ==
LOC: LAB 12:25
PROVIDERS: PCP Nurse Practitioner Family; Visit Provider Internal Medicine
DX: R19.5 Other fecal abnormalities (principal); Z98.84 Bariatric surgery status
CPT/HCPCS: 36415; 80076; 82784; 86231; 86258; 86364

== ENCOUNTER 2024-09-22 02:27 | Emergency (ER) | payer MEDICAID, SELFPAY ==
[2024-09-22 02:32] VITALS: BP 149/88; PULSE 85; O2SAT 100; BMI 29.1
--- OUTSIDE RECORDS SUMMARY | 2024-09-22 02:39 | XMS_ITS | Clinical Summary ---
Author Organization [facility] Address [address] [place] [address] Care Team Providers Care Cryptographic Technician Name Role Phone Kelly Cain APRN - LEONEL Primary Care Provide r Allergies No known active allergies Medications escitalopram (LEXAPRO) 20 MG tablet Take 20 mg by mouth daily Active dicyclomine (BENTYL) 10 MG capsule Take 1 capsule by mouth 3 times daily as needed (abd pain) 30 capsule 3 01/28/2020 Active Social History Tobacco Use Types Packs/Day Years Used Date Smoking Tobacco: Never Smokeless Tobacco: Never Comments No Sex and Gender Information Value Date Recorded Sex Assigned at Not on file Legal Sex Female 10:09 AM EST Gender Identity Not on file Sexual Orientation Not on file Last Filed Vital Signs Vital Sign Reading Time Taken Comments Blood Pressure 122/81 01/28/2020 11:31 AM EST Pulse 76 01/28/2020 10:15 AM EST Temperature 36.1 C (96.9 F) 01/28/2020 10:15 AM EST Respiratory Rate 16 01/28/2020 10:15 AM EST Oxygen Saturation 100% 01/28/2020 11:45 AM EST Inhaled Oxygen Concentration - - Weight 72.6 kg (160 lb) 01/28/2020 10:15 AM EST Height - - Body Mass Index - - Plan of Treatment Not on file Insurance [employer] Care Teams Cryptographic Technician Relationship Specialty Start Date End Date Kelly Cain, TURNER MACHINE - [employer] [address] [place] [address] PCP - General Nurse Practitioner 01/28/20
--- OUTSIDE RECORDS SUMMARY | 2024-09-22 02:39 | XMS_ITS | Clinical Summary ---
Author Organization [facility] Healthcare Address [address] [facility] [place] [address] [place] [address] Care Team Providers Care Digital Librarian Name Role Phone Christopher Ruffin MD Primary Care Provider [phone] Kelly Cain NP Unavailable [phone] Allergies No known active allergies Medications cetirizine (ZyrTEC) 10 MG tabletIndication s:Environmental and seasonal allergies Take 1 tablet (10 mg) by mouth Daily 30 tablet 2 06/15/2023 Active calcium citrate (Calcitrate) 950 (200 Ca) MG tablet three times daily Active escitalopram (Lexapro) 5 MG tabletIndication s:Generalized anxiety disorder Take 1 tablet (5 mg) by mouth in the morning. 90 tablet 1 11/10/2023 Active Active Problems Problem Noted Date Diagnosed Date Nausea & vomiting 03/06/2024 Iron deficiency anemia 12/07/2023 Change in consistency of stool 12/07/2023 Assessment & Plan (12/07/2023 3:07 PM EDT): Will refer to GI Differentials: EPI, related to bariatric procedure/absorption issues Macromastia 11/10/2023 Assessment & Plan (11/10/2023 3:37 PM EDT): Referral for plastics to discuss breast reduction surgery Yeast dermatitis 11/10/2023 Equinus contracture of left ankle 06/24/2023 S/P bariatric surgery 06/24/2023 Environmental and seasonal allergies 06/15/2023 Pelvic pain in female 05/13/2023 Generalized anxiety disorder 03/31/2023 Assessment & Plan (11/10/2023 3:35 PM EDT): Continue with use of lexapro at 5mg daily Resolved Problems Problem Noted Date Diagnosed Date Resolved Date GERD (gastroesophageal reflux disease) 06/24/2023 11/10/2023 Encounters Date Type Department Care Team Description 2024 [facility] [address] [place] [address] Rose Mary Cornejo MD from Last 3 Months Family History Medical History Relation Name Comments Asthma Brother Diabetes Father Stroke Father Diabetes Sister Relation Name Status Comments Brother Father Sister Social History Tobacco Use Types Packs/Day Years Used Date Smoking Tobacco: Never Smokeless Tobacco: Never Tobacco Cessation:Counseling Given: Not Answered Alcohol Use Standard Drinks/Week Comments Not Currently 0 (1 standard drink = 0.6 oz pur e alcohol) coffee 1 cup daily B1300 Health Literacy Answer Date Recor ded How often do you need to hav e someone help you when you read instructions, pamphlets, or other written material from your doctor or pharmacy? Never 11/09/2023 Social Connection and Isolation Panel [NHANES] A nswer Date Recorded In a typical week, how many times do you talk on the phone with family, friends, or neighbors? Once a week 11/09/2023 How often do you get together with friends or re latives? Once a week 11/09/2023 How often do you attend latter-day or anglican serv ices? Never 11/09/2023 Do you belong to any clubs o r organizations such as latter-day groups, unions, fraternal or athletic groups, or school groups? No 11/09/2023 How often do you attend meet ings of the clubs or organizations you belong to? Never 11/09/2023 Are you , , di vorced, , never , or living with a partner? Never 11/09/2023 AUDIT-C Answer Date Recorded Q1: How often do you have a drink containing alc ohol? Monthly or less 11/09/2023 Q2: How many drinks containi ng alcohol do you have on a typical day when you are drinking? 1 or 2 11/09/2023 Q3: How often do you have si x or more drinks on one occasion? Never 11/09/2023 Overall Financial Resource Strain (CARDIA) Answe r Date Recorded How hard is it for you to pa y for the very basics like food, housing, medical care, and heating? Hard 11/09/2023 [facility] [place] of Occupat ional Health - Occupational Stress Questionnaire Answer Date Recorded Do you feel stress - tense, restless, nervous, or anxious, or unable to sleep at night because your mind is troubled all the time - these days? To some extent 11/09/2023 Exercise Vital Sign Answer Date Recorde d On average, how many days pe r week do you engage in moderate to strenuous exercise (like a brisk walk)? 4 days 11/09/2023 On average, how many minutes do you engage in exercise at this level? 60 min 11/09/2023 Hunger Vital Sign Answer Date Recorded Within the past 12 months, y ou worried that your food would run out before you got the money to buy more. Often true 11/09/19 24 Within the past 12 months, t he food you bought just didn't last and you didn't have money to get more. Often true 11/09/2023 PRAPARE - Transportation Answer Date Re corded In the past 12 months, has l ack of transportation kept you from medical appointments or from getting medications? No 10/14 In the past 12 months, has l ack of transportation kept you from meetings, work, or from getting things needed for daily living? No 11/09/2023 Housing Stability Vital Sign Answer Tip e Recorded In the last 12 months, was t here a time when you were not able to pay the mortgage or rent on time? Yes 11/09/2023 Number of Times Moved in the Last Year Not on fi le 11/09/2023 At any time in the past 12 m [facility], were you homeless or living in a care home (including now)? No 11/09/2023 Comments Unknown Sex and Gender Information Value Date Recorded Sex Assigned at Not on file Legal Sex Female 8:24 PM EDT Gender Identity Not on file Sexual Orientation Not on file Last Filed Vital Signs Vital Sign Reading Time Taken Comments Blood Pressure 112/80 12/07/2023 1:47 PM EDT Pulse 68 12/07/2023 1:47 PM EDT Temperature 36.9 C (98.5 F) 12/07/2023 1:47 PM EDT Respiratory Rate 18 12/07/2023 1:47 PM EDT Oxygen Saturation 100% 12/07/2023 1:47 PM EDT Inhaled Oxygen Concentration - - Weight 83.9 kg (185 lb) 12/07/2023 1:47 PM EDT Height 167.6 cm (5' 6 ) 12/07/2023 1:47 PM EDT Body Mass Index 29.86 12/07/2023 1:47 PM EDT Plan of Treatment Health Maintenance Due Date Last Done Comments Pap Smear 09/11/2018 09/12/2015, 08/02/2014 Influenza Vaccine (#1) 2024 Cervical Cancer Screening 06/12/2029 HPV/Cotest 06/12/2029 06/12/2024, 05/13/2023 Procedures Procedure Name Priority Date/Time Associated Diagnosis Comments SCANNED LABS Routine 2024 2:38 PM EDT from Last 3 Months Results * SCANNED LABS (2024 2:38 PM EDT) Rose Mary Cornejo MD LAB CHG PERFORMABLES Final Resul t from Last 3 Months Insurance [employer] [place] Care Teams Digital Librarian Relationship Specialty Start Date End Date Christopher Ruffin MD [address] [place] [address] PCP - General Family Medicine 05/07/23 Kelly Cain NP [address] [place] [address] Nurse Practitioner Family Medicine 10/19/23
--- OUTSIDE RECORDS SUMMARY | 2024-09-22 02:39 | XMS_ITS | Encounter Summary ---
Author Organization [facility] Address [address] [facility] [facility] [place] [address] [place] [address] Care Team Providers Care Photoradio Operator Name Role Phone Christopher Ruffin MD Primary Care Provider [phone] Kelly Cain NP Unavailable [phone] Encounter Details Date Type Department Care Team ([facility] Contact Info) Description 2024 Orders Only [facility] [address] [place] [id number] Rose Mary Cornejo MD [address] [place], [place] [id number] Social History Tobacco Use Types Packs/Day Years Used Date Smoking Tobacco: Never Smokeless Tobacco: Never Alcohol Use Standard Drinks/Week Comments Not Currently [...] week 11/09/2023 How often do you attend christianity or quaker serv ices? Never 11/09/2023 Do you belong to any clubs o r organizations such as christianity groups, unions, fraternal or athletic groups, or [...] housing, medical care, and heating? Hard 11/09/2023 [facility] [place] of Occupat ional Health - Occupational Stress [...] any time in the past 12 m [facility], were you homeless or living in a detention (including now)? No 11/09/2023 Comments Unknown Sex and Gender Information Value Date Recorded Sex Assigned at Not on file Legal Sex Female 8:24 PM EDT Gender Identity Not on file Sexual Orientation Not on file documented as of this encounter Plan of Treatment Not on file documented as of this encounter Procedures Procedure Name Priority Date/Time Associated Diagnosis Comments SCANNED LABS Routine 2024 2:38 PM EDT documented in this encounter Results * SCANNED LABS (2024 2:38 PM EDT) us Rose Mary Cornejo MD LAB CHG PERFORMABLES Final Resul t documented in this encounter Visit Diagnoses Not on filedocumented in this encounter Care Teams Photoradio Operator Relationship Specialty Start Date End Date Christopher Ruffin MD [address] [place] [id number] PCP - General Family Medicine 05/07/23 Kelly Cain NP [address] [place] [id number] Nurse Practitioner Family Medicine 10/19/23 documented as of this encounter
--- OUTSIDE RECORDS SUMMARY | 2024-09-22 02:39 | XMS_ITS | CCD ---
Author Organization [facility] CliniSypr Care Team Providers Care Evaluation Manager Name Role Phone WADE ZHANG Unavailable Unavailable DAVIDA HARVEY M.D. Unavailable Unavailable JAYSHREE CARIAS CNP Unavailable Unavailable NESS ZAMARRIPA Unavailable Unavailable NESS ZAMARRIPA Unavailable Unavailable JUAN A DÍAZ Unavailable Unavailable VASU PURDY Unavailable Unavailable Denisse Lee Unavailable Unavailable No Family Physician given Unavailable ELÍAS Avalos Attending Unavailable KELLY CAIN Primary Care Unavailable Kelly Cain Primary Care Provider Julia Morris Unavailable AICHHOLZ, MEAT SEAFOOD ASSOCIATE KELLY Primary Care Unavailable BARTOLOME, DR JACQUIE Rey Consulting Unavailable CONNER, DR TAYLOR Choi Attending Unavailpalmer PRIETO, DR TAYLOR Choi Admitting Unavailpalmer e COLLEEN SALES Consulting Unavailable WEST, DR MARANDA Crews Consulting Unavailable MISC, DR RICH Admitting Unavailable MISC, DR RICH Attending Unavailable AICHHOLZ, MEAT SEAFOOD ASSOCIATE KELLY Primary Care Unavailable MISC, DR RICH Consulting Unavailable AICHHOLZ, MEAT SEAFOOD ASSOCIATE KELLY Consulting Unavailable AICHHOLZ, MEAT SEAFOOD ASSOCIATE KELLY Primary Care Unavailable AICHHOLZ, MEAT SEAFOOD ASSOCIATE KELLY Admitting Unavailable AICHHOLZ, MEAT SEAFOOD ASSOCIATE KELLY Attending Unavailable AICHHOLZ, MEAT SEAFOOD ASSOCIATE KELLY Primary Care Unavailable MARKER, DR REAVES Attending Unavailable MARKER, DR REAVES Consulting Unavailable MARKER, DR REAVES Admitting Unavailable Nan Jewell Unavailable Chio Holley Unavailable AICHHOLZ, KELLY Attending Unavailable AICHHOLZ, KELLY Attending Unavailable Christopher Ruffin MD Primary Care Provider Aicemily WORKERS COMPENSATION CLAIMS SPECIALIST, Kelly Unavailable Aichholz TECHNICAL ADVISOR-MEAT SEAFOOD ASSOCIATE, Kelly J Primary Care Provider Aichholz TECHNICAL ADVISOR-MEAT SEAFOOD ASSOCIATE, Kelly J Primary Care Provider Aichholz TECHNICAL ADVISOR-MEAT SEAFOOD ASSOCIATE, Kelly J Primary Care Provider FELICITY SARAH Attending Unavailable AICHHOLZ, KELLY J Referring Unavailable AICHHOLZ, KELLY J Primary Care Unavailable BLAYNE, RIMA Referring Unavailable AICHHOLZ, KELLY J Primary Care Unavailable CISNEROS, RIMA Admitting Unavailable CISNEROS, RIMA Attending Unavailable BLAYNE, RIMA Referring Unavailable AICHHOLZ, KELLY J Primary Care Unavailable ANITA LAI Attending Unavailable AICHHOLZ, KELLY J Primary Care Unavailable Eriberto Kimbrough MD Attending Provider [phone] Payton, Kelly J Primary Care Provider Eriberto Kimbrough Attending Unavailable Eriberto Kimbrough Admitting Unavailable Aichholz, Kelly J Primary Care Unavailable Aichholz TECHNICAL ADVISOR-MEAT SEAFOOD ASSOCIATE, Kelly J Primary Care Provider Aicholz TECHNICAL ADVISOR-MEAT SEAFOOD ASSOCIATE, Kelly J Primary Care Provider FELICITY SARAH Referring Unavailable AICHHOLZ, KELLY J Primary Care Unavailable DELILAH CAIN Referring Unavailable AICHHOLZ, KELLY J Primary Care Unavailable SUZIE, ROSE MARY L Referring Unavailable AICHHOLZ, KELLY J Primary Care Unavailable AICHHOLZ, KELLY J Referring Unavailable AICHHOLZ, KELLY J Primary Care Unavailable SUZIE, ROSE MARY L Admitting Unavailable SUZIE, ROSE MARY L Attending Unavailable SUZIE, ROSE MARY L Referring Unavailable AICHHOLZ, KELLY J Primary Care Unavailable DELILAH CAIN Attending Unavailable AICHHOLZ, KELLY J Referring Unavailable AICHHOLZ, KELLY J Primary Care Unavailable SUZIE, ROSE MARY L Attending Unavailable AICHHOLZ, KELLY J Referring Unavailable AICHHOLZ, KELLY J Primary Care Unavailable SUZIE, ROSE MARY L Attending Unavailable AICHHOLZ, KELLY J Referring Unavailable AICHHOLZ, KELLY J Primary Care Unavailable SUZIE, ROSE MARY L Attending Unavailable KELLY CAIN Referring Unavailable KELLY CAIN Primary Care Unavailable Medications Current Medications Medication Drug Class(es) [...] 12 hrs for 7 days Dec, Active ascorbic acid 1000 mg oral tablet (7 sources) Vitamin C take 1 tablet by gilberto th in the morning ascorbic acid, vitamin C, (VITAMIN C) 1000 mg tablet Take 1 tablet (1,000 mg total) by mouth in the morning. Active calcium citrate 950 mg oral tablet (17 sources) calcium citrate (CALCITRATE) 200 mg (950 mg) tablet Active calcium citrate (CALCITRATE) 200 mg (950 mg) tablet three times daily Active cetirizine hydrochloride 10 mg oral tablet (7 sources) Histamine-1 Receptor Antagonist Start: 06-15-2023 take 1 tablet by mouth once daily cetirizine (ZyrTEC) 10 MG tablet Indications: Environmental and seasonal allergies Take 1 tablet (10 mg) by mouth Daily 30 tablet 2 06/15/2023 Active CLASSIC 28 mg iron- 800 mcg tablet (10 sources) Start: 01-24-2021 take 1 tablet by mouth once daily CLASSIC 28 mg iron- 800 mcg tablet Indications: Malnutrition, unspecified type , Intestinal malabsorption, unspecified type , History of Alyssa-en-Y gastric bypass TAKE 1 TABLET BY MOUTH EVERY DAY 90 tablet 3 01/24/2021 Active Start: 01-24-2021 take 1 tablet by gilberto th once daily CLASSIC 28 mg iron- 800 mcg tablet Indications: Malnutrition, unspecified type (CMS-HCC) , Intestinal malabsorption, unspecified type , History of Alyssa-en-Y gastric bypass TAKE 1 TABLET BY MOUTH EVERY DAY 90 tablet 3 01/24/2021 Active CLENPIQ 10 mg-3.5 gram- 12 gram/175 mL solution (3 sources) Start: 06-06-2024 End: 07-18-2024 CLENPIQ 10 mg-3.5 gram- 12 gram/175 mL solution 06/06/2024 07/18/2024 Discontinued Start: 06-06-2024 CLENPIQ 10 mg- 3.5 gram- 12 gram/175 mL solution 06/06/2024 Active dicyclomine hydrochloride 10 mg oral capsule (1 source) Anticholinergic Start: 01-28-2020 take 1 capsule by mouth three times [...] 01/28/2020 Active escitalopram 5 mg oral tablet (20 sources) Serotonin Reuptake Inhibitor Start: 05-09-2023 End: 02-08-2024 take 1 tablet by mouth once daily Escitalopram Oxalate 5 mg tablet Active 5 MG PO Daily May 09, 2023 1:00am Start: 12-30-2018 End: 05-01-2024 take 1 tablet by mouth once daily at breakfast escitalopram (LEXAPRO) 10 mg tablet Take 1 tablet (10 mg total) by mouth daily with breakfast. 5 12/30/2018 05/01/2024 Discontinued take 1 tablet by gilberto once daily escitalopram (LEXAPRO) 20 MG tablet Take 20 mg by mouth daily 0 Active Levonorgestrel-Eth Estradiol (Twirla) 120-30 MCG/24HR patch weekly (4 sources) Start: 11-13-2023 Levonorgestrel-Eth Estradiol (Twirla) 120-30 MCG/24HR patch weekly 11/13/2023 Active ondansetron 4 mg disintegrating oral tablet (4 sources) Serotonin-3 Receptor Antagonist Start: 03-06-2024 End: 03-11-2024 take 1 tablet by mouth every eight hours for nausea ondansetron ODT (Zofran-ODT) 4 MG disintegrating tablet Indications: Nausea and vomiting, unspecified vomiting type Take 1 tablet (4 mg) by mouth every 8 (eight) hours if needed for nausea or vomiting for up to 5 days 15 tablet 03/06/2024 03/11/2024 Active Start: 05-24-2022 take 1 tablet by gilberto th every eight hours as needed Zofran ODT 4 MG 1 tablet on the tongue and allow to dissolve Orally every 8 hrs as needed for 4 days May, Not-Taking/PRN vit B complex no.12/niacin,B 3, (VITAMIN B COMPLEX NO.12-NIACIN ORAL) (10 sources) vit B complex no .12/niacin,B3, (VITAMIN B COMPLEX NO.12-NIACIN ORAL) Take by mouth. Active vit B complex no .12/niacin,B3, (VITAMIN B COMPLEX NO.12-NIACIN ORAL) Take by mouth. 0 Active Completed/Discontinued Medications Medication Drug Class(es) Dates Sig (Normalized) Sig (Original) amoxicillin 875 mg / clavulanate 125 mg oral tablet (2 sources) Penicillin-class Antibacterial Start: 05-01-2024 End: 06-06-2024 take 1 tablet by mouth twice daily Amoxicillin-Pot Clavulanate 875-125 mg tablet Discontinued 1 TAB PO Twice daily 01 01May 01, 2024 1:00am June 06, 2024 12:03pm cephalexin 500 mg oral capsule (3 sources) Cephalosporin Antibacterial Start: 05-01-2024 End: 06-06-2024 Cephalexin 500 mg capsule Discontinued MG PO May 01, 2024 1:00am June 06, 2024 12:03pm dextromethorphan hydrobromide 1.5 mg/ml / pyrilamine maleate 1.5 mg/ml oral solution (6 sources) Uncompetitive O-xcnjhl-B-aspartat e Receptor Antagonist, Sigma-1 Agonist Start: 06-08-2023 End: 06-22-2023 take 1 mL by mouth every eight hours Pyrilamine-Dextrom ethorphan ([place] Dm) 7.5-7.5 mg/5 mL liquid Discontinued 10 ML PO Every 8 hours 150 5 June 08, 2023 12:00am June 22, 2023 3:50pm doxycycline monohydrate 100 mg oral tablet (5 sources) Tetracycline-class Drug Start: 06-23-2023 End: 07-28-2023 take 1 tablet by mouth twice daily Doxycycline Monohydrate 100 mg tablet Discontinued 100 MG PO Twice daily 20 June 23, 2023 12:00am July 28, 2023 2:25pm fluconazole 150 mg oral tablet (4 sources) Azole Antifungal Start: 07-02-2023 End: 07-28-2023 Fluconazole 150 mg tablet Discontinued 150 MG PO Q3D 2 0 July 02, 2023 12:00am July 28, 2023 2:25pm Take 1st dose at onset of symptoms then repeat in 3 days if continued symptoms fluticasone propionate 0.05 mg/actuat metered dose nasal spray (2 sources) Corticosteroid Start: 06-15-2023 End: 11-10-2023 take 2 spray(s) nasal route once daily fluticasone (Flonase) 50 MCG/ACT nasal spray Indications: Environmental and seasonal allergies Administer 2 sprays into each nostril Daily Shake gently. Before first use, prime pump. After use, clean tip and replace cap. 16 g 2 06/15/2023 11/10/2023 Discontinued (Therapy completed) iopamidol (ISOVUE-370) 76 % injection 75 mL (1 source) Start: 01-28-2020 End: 01-28-2020 iopamidol (ISOVUE-370) 76 % injection 75 mL Ketamine (KETALAR) injection syringe 10 mg (1 source) Start: 01-28-2020 End: 01-28-2020 Ketamine (KETALAR) injection syringe 10 mg Levonorgestrel-Ethiny l Estrad (Twirla) 120-30 mcg/24 hr patch weekly (4 sources) Start: 11-13-2023 End: 06-06-2024 Levonorgestrel-Eth inyl Estrad (Twirla) 120-30 mcg/24 hr patch weekly Discontinued PATCH TOPICAL November 13, 2023 12:00am June 06, 2024 12:03pm Start: 11-13-2023 Levonorgestrel -Ethinyl Estrad (Twirla) 120-30 mcg/24 hr patch weekly Active PATCH TOPICAL November 12, 2023 11:00pm Start: 11-13-2023 Levonorgestrel -Ethinyl Estrad (Twirla) 120-30 mcg/24 hr patch weekly Active PATCH TOPICAL November 13, 2023 12:00am methylPREDNISolone 4 mg oral tablet (2 sources) Corticosteroid Start: 03-19-2023 Medrol 4 MG as directed Orally As Directed for 6 days Mar, Not-Taking/PRN oxyCODONE hydrochloride 5 mg oral tablet (3 sources) Opioid Agonist Start: 05-01-2024 End: 06-06-2024 Oxycodone 5 mg tablet Discontinued MG PO May 01, 2024 1:00am June 06, 2024 12:03pm polymyxin b [id number] unt/ml / trimethoprim 1 mg/ml ophthalmic solution (3 sources) Dihydrofolate Reductase Inhibitor Antibacterial, Polymyxin-class Antibacterial Start: 11-13-2023 End: 06-06-2024 Polymyxin B Sulf-Trimethoprim 10,000 unit- 1 mg/mL drops Discontinued 1 DROPS EYE-BOTH Every three hours 10 7 November 13, 2023 12:00am June 06, 2024 12:03pm while awake; do not exceed 6 doses in 24 hours predniSONE 20 mg oral tablet (13 sources) Start: 05-09-2023 End: 06-22-2023 take 1 tablet by mouth twice daily Prednisone 20 mg tablet Discontinued 20 MG PO Twice daily 10 June 08, 2023 12:00am June 22, 2023 3:50pm Scopolamine Base 1 mg over 3 days patch 3 day (3 sources) Start: 05-01-2024 End: 06-06-2024 Scopolamine Base 1 mg over 3 days patch 3 day Discontinued TOPICAL May 01, 2024 1:00am June 06, 2024 12:03pm Start: 05-01-2024 Scopolamine Ba se 1 mg over 3 days patch 3 day Active TOPICAL May 01, 2024 12:00am Sod Picosulf-Mag Ox-Citric Ac (2 sources) Start: 06-06-2024 End: 06-15-2024 take 1 dose by mouth once daily Sod Picosulf-Mag Ox-Citric Ac (Clenpiq) 10 mg-3.5 gram- 12 gram/175 mL solution Discontinued 175 ML PO Daily 350 0 June 06, 2024 12:00am June 15, 2024 7:22am take first dose at 3PM evening before colonoscopy; 2nd dose at 9pm the night before colonoscopy Start: 06-06-2024 take 1 dose by mouth once daily Sod Picosulf-Mag Ox-Citric Ac (Clenpiq) 10 mg-3.5 gram- 12 gram/175 mL solution Active 175 ML PO Daily 350 0 June 06, 2024 12:00am take first dose at 3PM evening before colonoscopy; 2nd dose at 9pm the night before colonoscopy Twirla 120-30 MCG/24HR patch weekly (2 sources) Start: 05-21-2023 End: 11-10-2023 Twirla 120-30 MCG/24HR patch weekly 05/21/2023 11/10/2023 Discontinued (Therapy completed) Problems Active Problems Problem Classification Problem Date Documented Da te Episodic/Chronic Acute and chronic tonsillitis (10 sources) Hypertrophy of tonsils; Translations: [Hypertrophy of tonsils] Onset: 01-11-2020 01-11-2020 Chronic Allergic reactions (1 source) Unspecified contact dermatitis, unspecified cause Episodic Anxiety disorders (20 sources) Anxiety; Translations: [Anxiety disorder, unspecified] Onset: 03-31-2023 05-09-2023 Chronic Blindness and vision defects (7 sources) Visual impairment; Translations: [Unspecified visual loss] 05-01-2024 Chronic Cancer of cervix (10 sources) Low grade squamous intraepithelial lesion on cervical Papanicolaou smear; Translations: [Low grade squamous intraepithelial lesion on cytologic smear of cervix (LGSIL)] Onset: 06-28-2024 07-04-2024 Episodic Cardiac dysrhythmias (4 sources) Palpitations; Translations: [Palpitations] 07-28-2023 Episodic Chronic obstructive pulmonary disease and bronchiectasis (6 sources) Bronchitis; Translations: [Bronchitis, not specified as acute or chronic] 06-23-2023 Episodic Complications of surgical procedures or medical care (6 sources) Post-surgical malabsorption; Translations: [Postsurgical malabsorption, not elsewhere classified] Onset: 03-10-2024 03-09-2024 Chronic Conditions associated with dizziness or vertigo (8 sources) Dizziness and giddiness; Translations: [Dizziness] Onset: 05-06-2021 Episodic Contraceptive and procreative management (1 source) Patient encounter status; Translations: [Encounter for other general counseling and advice on procreation] 06-12-2024 Episodic Immunizations and screening for infectious disease (4 sources) Contact with and (suspected) exposure to other viral communicable diseases; Translations: [Patient encounter status] Onset: 12-24-2020 Resolved: 12-24-2020 Episodic Inflammation; infection of eye (except that caused by tuberculosis or sexually transmitteddisease) (3 sources) Bacterial conjunctivitis; Translations: [Unspecified conjunctivitis] 11-13-2023 Episodic Nausea and vomiting (3 sources) Nausea; Translations: [Nausea and vomiting] Onset: 03-06-2024 Episodic Other ear and sense organ disorders (3 sources) Otalgia, bilateral; Translations: [OTALGIA BILATERAL] Onset: 02-17-2022 Episodic Other gastrointestinal disorders (1 source) Intestinal malabsorption, unspecified; Translations: [INTESTINAL MALABSORPTION UNS] Onset: 05-08-2021 Chronic Other gastrointestinal disorders (4 sources) History of bypass of stomach; Translations: [Bariatric surgery status] 07-28-2023 Episodic Other gastrointestinal disorders (7 sources) Change in stool consistency; Translations: [Other fecal abnormalities] Onset: 12-07-2023 12-07-2023 Episodic Other gastrointestinal disorders (2 sources) Other fecal abnormalities; Translations: [Abnormal feces] 06-06-2024 Episodic Other gastrointestinal disorders (1 source) Change in bowel habit; Translations: [Change in bowel habit] Onset: 06-15-2024 Episodic Other liver diseases (1 source) Increased bilirubin level; Translations: [Unspecified jaundice] 06-06-2024 Episodic Other liver diseases (1 source) Unspecified jaundice; Translations: [Disorders of bilirubin excretion] 06-06-2024 Episodic Other screening for suspected conditions (not mental disorders or infectious disease) (7 sources) Encounter for other screening follow-up; Translations: [Patient encounter status] Onset: 06-09-2021 Episodic Other upper respiratory disease (14 sources) Allergic disposition; Translations: [Other allergic rhinitis] Onset: 06-15-2023 06-15-2023 Chronic Other upper respiratory infections (6 sources) Maxillary sinusitis; Translations: [Chronic maxillary sinusitis] 06-23-2023 Chronic Other upper respiratory infections (11 sources) Acute pharyngitis, unspecified; Translations: [Streptococcal pharyngitis] Onset: 12-24-2020 Resolved: 12-24-2020 Episodic Residual codes; unclassified (1 source) Family history of malignant neoplasm of pancreas; Translations: [Family history of malignant neoplasm of digestive organs] 06-12-2024 Episodic Unclassified (2 sources) Unknown / UNK(Unknown) Onset: 09-28-2016 Unclassified (1 source) CONTACT W/AND (SUSP) EXPOS COVID-19; Translations: [CONTACT W/AND (SUSP) EXPOS COVID-19] Onset: 02-19-2022 Unclassified (1 source) MACROMASTIA Onset: 05-11-2024 Unclassified (1 source) Consult Onset: 03-20-2024 Unclassified (1 source) Autogenerated Problem Onset: 07-19-2024 07-19-2024 Unclassified (1 source) abnormal PAP test Onset: 08-14-2024 Unclassified (1 source) Gynecologic Exam Onset: 06-12-2024 Past or Other Problems Problem Classification Problem Date Documented Da te Episodic/Chronic Abdominal pain (20 sources) Upper abdominal pain; Translations: [Epigastric pain] Onset: 2 Episodic Complications of surgical procedures or medical care (7 sources) Postprocedural hematoma of skin and subcutaneous tissue following other procedure; Translations: [Subcutaneous hematoma] Onset: 5 05-11-2024 Episodic Deficiency and other anemia (15 sources) Iron deficiency anemia; Translations: [Iron deficiency anemia, unspecified] Onset: 4 Resolved: 5 07-28-2023 Episodic Esophageal disorders (7 sources) Gastroesophageal reflux disease; Translations: [Gastro-esophageal reflux disease without esophagitis] Onset: 4 Resolved: 4 11-10-2023 Chronic Mood disorders (10 sources) Mood disorders Onset: 4 Resolved: 5 05-13-2023 Mycoses (8 sources) Candidiasis of skin; Translations: [Candidiasis of skin and nail] Onset: 4 11-10-2023 Episodic Nonmalignant breast conditions (19 sources) Large breast; Translations: [Hypertrophy of breast] Onset: 4 07-29-2023 Episodic Other acquired deformities (14 sources) Equinus contracture of the ankle; Translations: [Contracture, left ankle] Onset: 4 Resolved: 5 06-24-2023 Chronic Other ear and sense organ disorders (10 sources) Bilateral tinnitus; Translations: [Tinnitus, bilateral] Onset: 0 01-11-2020 Episodic Other gastrointestinal disorders (3 sources) Bariatric surgery status; Translations: [BARIATRIC SURGERY STATUS] Onset: 2 Episodic Other gastrointestinal disorders (11 sources) History of bariatric surgical procedure; Translations: [Bariatric surgery status] Onset: 4 11-10-2023 Episodic Other nutritional; endocrine; and metabolic disorders (10 sources) Overweight; Translations: [Overweight] Onset: 4 05-13-2023 Episodic Otitis media and related conditions (14 sources) Otitis media, unspecified, left ear; Translations: [Otitis media, unspecified, bilateral] Onset: 0 Resolved: 1 Episodic Residual codes; unclassified (2 sources) Acquired absence of stomach [part of]; Translations: [Acquired absence of stomach (part of)] Onset: 4 Episodic Screening and history of mental health and substance abuse codes (1 source) Standardized adult depression screening tool completed ; Translations: [Encounter for screening for depression] 05-13-2023 Episodic Unclassified (1 source) Z34.92 Onset: 7 Unclassified (1 source) SORE THROAT,EARACHE,RUNNY NOSE Onset: 8 Unclassified (1 source) Contact with and (suspected) exposure to covid-19 Z20.822 Unclassified (10 sources) Onset: 4 Resolved: 5 05-13-2023 Results Test Name Value Interpretation Reference Range Facility POCT , urineon 06-14 Beta HCG ( test) Ql (U) Negative [facility] Interpretation and review of laboratory results Normal [facility] Surgical Pathologyon 025 Surgical Pathology Normal [facility] Comment on above: Result Comment: [facility] [address] [place] [address] Surgical Pathology Consultation Patient Name:SONIA MISTRY:1990 (Age: 33)Gender:FTaken:07/04/2024Reported:2024Physician(s):Rose Mary Larsen M.D. ([phone])Copy To: Rec. #:[id number]: #[id number] Final Pathologic Diagnosis 1. Cervix at 7:00, biopsy: Low-grade squamous intraepithelial lesion (MARCIO-1). 2. Endocervical curettings: Low-grade squamous intraepithelial lesion (MARCIO-1). Report Electronically Signed Out acr/5Aisaias Rodriguez MD Interpretation performed at [facility], [address] [place] [id number], License number: [id number]. Clinical History LSIL on Pap smear of cervix R87.612. LSIL pap smear and positive other high risk HPV. Gross Description 1. Received in formalin labeled JULY, 7:00 o'clock colposcopy is a pale-hairston delicate soft tissue bit, 0.6 cm in greatest dimension. The specimen is filtered and submitted in a single cassette. (1, ns, [id number], m4) TB 2. Received in formalin labeled, JULY, ECC is a plastic metal brush with a pale-hairston mucoid material mixed with scant hairston friable soft tissue fragments, 1.6 x 0.8 x 0.1 cm in aggregate. The specimens are filtered and submitted in a single cassette. (1, ns, [id number], m4) TB tgb/07/05/2024RG Specimen(s) Received 1: Cervical biopsy 7 o'clock 2: Endocervical curettings Fee Codes(s): 1; 36541 2; 00266 Basophils Auto (Bld) [#/Vol] Ordered By: Eriberto Kimbrough on 06-15-2024 Basophils (Bld) [#/Vol] Automated basophil count 0.0-0.2 [facility] Basophils/100 WBC Auto (Bld) Ordered By: Eriberto Kimbrough on 06-15-2024 Basophils/100 WBC (Bld) Automated basophil % . [facility] C-Reactive Proteinon 025 CRP [Mass/Vol] mg/L Normal 0.0-0.5 [facility] Comment on above: Result Comment: PERF ORMED BY: [facility] [place] [address] PATHOLOGIST RADIOLOGICAL EQUIPMENT SPECIALIST LACI MILNER M.D. Performed By: #### I BD DIAG, CBC, CRP, ESR #### [place] [address] [place] Calprotectin, Fecalon 2024 Calprotectin, Fecal 112 Normal 0-120 [facility] Comment on above: Result Comment: Conc entration Interpretation Follow-Up < 5 - 50 ug/g Normal None >50 -120 ug/g Borderline Re-evaluate in 4-6 weeks >120 ug/g Abnormal Repeat as clinically indicated Performed at: - [facility] [id number] Librarian Special Collections: Fabi Barakat MD, Phone: [phone] PERFORMED BY: [place] [id number] PATHOLOGIST RADIOLOGICAL EQUIPMENT SPECIALIST LACI MILNER M.D. Performed By: #### C ALPROTECT #### [facility] , Complete Blood Count Auto Di ffon 06-15-2024 Basophils (Bld) [#/Vol] 0.0 10*3/uL Normal 0.0-0.2 [facility] Comment on above: Performed By: #### I BD DIAG, CBC, CRP, ESR #### [place] [address] [place] Basophils/100 WBC (Bld) 0.4 % Normal . [facility] Comment on above: Performed By: #### I BD DIAG, CBC, CRP, ESR #### [place] [address] [place] Eosinophils (Bld) [#/Vol] 0.0 10*3/uL Normal 0.0-0.45 [facility] Comment on above: Performed By: #### I BD DIAG, CBC, CRP, ESR #### [place] [address] [place] Eosinophils/100 WBC (Bld) 0.9 % Normal . [facility] Comment on above: Performed By: #### I BD DIAG, CBC, CRP, ESR #### [address] Erythrocyte distribution width (RBC) [Ratio] 15.1 % Normal 11.9-15.3 [facility] Comment on above: Performed By: #### I BD DIAG, CBC, CRP, ESR #### [address] Hematocrit (Bld) [Volume fraction] 26.5 % Low 34.0-46.4 [facility] Comment on above: Performed By: #### I BD DIAG, CBC, CRP, ESR #### [address] Hemoglobin (Bld) [Mass/Vol] 8.7 g/dL Low 11.8-15.4 [facility] Comment on above: Performed By: #### I BD DIAG, CBC, CRP, ESR #### [address] Lymphocytes (Bld) [#/Vol] 0.9 10*3/uL Low 1.00-4.8 [facility] Comment on above: Performed By: #### I BD DIAG, CBC, CRP, ESR #### [address] Lymphocytes/100 WBC (Bld) 17.1 % Normal . [facility] Comment on above: Performed By: #### I BD DIAG, CBC, CRP, ESR #### [address] MCH (RBC) [Entitic mass] 27.6 pg Normal 24.7-34.3 [facility] Comment on above: Performed By: #### I BD DIAG, CBC, CRP, ESR #### [address] MCV (RBC) [Entitic vol] 83.9 fL Normal 80-100 [facility] Comment on above: Performed By: #### I BD DIAG, CBC, CRP, ESR #### [place] [address] Mean Corpuscular HGB Conc 32.9 g/dL Normal 32.0-35.0 [facility] Comment on above: Performed By: #### I BD DIAG, CBC, CRP, ESR #### [address] Monocytes (Bld) [#/Vol] 0.4 10*3/uL Normal 0.0-0.8 [facility] Comment on above: Performed By: #### I BD DIAG, CBC, CRP, ESR #### [address] Monocytes/100 WBC (Bld) 7.2 % Normal . [facility] Comment on above: Performed By: #### I BD DIAG, CBC, CRP, ESR #### [address] Neutrophils (Bld) [#/Vol] 3.8 10*3/uL Normal 1.8-7.7 [facility] Comment on above: Performed By: #### I BD DIAG, CBC, CRP, ESR #### [address] Neutrophils/100 WBC (Bld) 74.4 % Normal . [facility] Comment on above: Performed By: #### I BD DIAG, CBC, CRP, ESR #### [address] NRBC% 0.1 /100{WBC} Normal 0-0.5 [facility] Comment on above: Performed By: #### I BD DIAG, CBC, CRP, ESR #### [address] Platelet mean volume (Bld) [Entitic vol] 7.6 fL Normal 6.3-10.[address] [facility] Comment on above: Performed By: #### I BD DIAG, CBC, CRP, ESR #### [place] [address] [place] Platelets (Bld) [#/Vol] 172 10*3/uL Normal 150-450 [facility] Comment on above: Performed By: #### I BD DIAG, CBC, CRP, ESR #### [address] RBC (Bld) [#/Vol] 3.16 10*6/uL Low 3.60-5.00 [facility] Comment on above: Performed By: #### I BD DIAG, CBC, CRP, ESR #### [facility] [address] WBC (Bld) [#/Vol] 5.1 10*3/uL Normal 3.8-11.6 [facility] Comment on above: Performed By: #### I BD DIAG, CBC, CRP, ESR #### [address] Eosinophils Auto (Bld) [#/Vo l]Ordered By: Eriberto Kimbrough on 06-15-2024 Eosinophils (Bld) [#/Vol] Automated eosinophil count 0.0-0.45 [facility] Eosinophils/100 WBC Auto (Bl d)Ordered By: Eriberto Kimbrough on 06-15-2024 Eosinophils/100 WBC (Bld) Automated eosinophil % . [facility] Erythrocyte Sedimentation Ra van 06-15-2024 ESR (Bld) [Velocity] 4 mm/h Normal 0-19 [facility] Comment on above: Result Comment: PERF ORMED BY: [address] [place] [address] PATHOLOGIST RADIOLOGICAL EQUIPMENT SPECIALIST LACI MILNER M.D. Performed By: #### I BD DIAG, CBC, CRP, ESR #### [address] Erythrocyte distribution wid th Auto (RBC) [Ratio]Ordered By: Eriberto Kimbrough on 06-15-2024 Erythrocyte distribution width (RBC) [Ratio] Erythrocyte distribution width [Ratio] by Automated count 11.9-15.3 [facility] Gastrointestinal Profile, PC Hong 06-15-2024 Adenovirus F 40/41 Not detected Normal Not Detected [facility] Comment on above: Order Comment: SOURC E OF SPECIMEN: colonoscopy aspirate Performed By: #### G I PROFILE, STL #### [facility] , Astrovirus Not detected Normal Not Detected [facility] Comment on above: Order Comment: SOURC E OF SPECIMEN: colonoscopy aspirate Performed By: #### G I PROFILE, STL #### [facility] , C Difficile Toxin A/B Not detected Normal Not Detected [facility] Comment on above: Order Comment: SOURC E OF SPECIMEN: colonoscopy aspirate Performed By: #### G I PROFILE, STL #### [facility] , Campylobacter Not detected Normal Not Detected [facility] Comment on above: Order Comment: SOURC E OF SPECIMEN: colonoscopy aspirate Performed By: #### G I PROFILE, STL #### [facility] , Cryptosporidium Not detected Normal Not Detected [facility] Comment on above: Order Comment: SOURC E OF SPECIMEN: colonoscopy aspirate Performed By: #### G I PROFILE, STL #### [facility] , Cyclospora cayetanensis Not detected Normal Not Detected [facility] Comment on above: Order Comment: SOURC E OF SPECIMEN: colonoscopy aspirate Performed By: #### G I PROFILE, STL #### [facility] , E coli O157 Not applicable Normal Not Detected [facility] Comment on above: Order Comment: SOURC E OF SPECIMEN: colonoscopy aspirate Performed By: #### G I PROFILE, STL #### [facility] , Entamoeba histolytica Not detected Normal Not Detected [facility] Comment on above: Order Comment: SOURC E OF SPECIMEN: colonoscopy aspirate Performed By: #### G I PROFILE, STL #### [facility] , Enteroaggregative E coli Not detected Normal Not Detected [facility] Comment on above: Order Comment: SOURC E OF SPECIMEN: colonoscopy aspirate Performed By: #### G I PROFILE, STL #### [facility] , Enteropathogenic E coli Not detected Normal Not Detected [facility] Comment on above: Order Comment: SOURC E OF SPECIMEN: colonoscopy aspirate Performed By: #### G I PROFILE, STL #### [facility] , Enterotoxigenic E coli Not detected Normal Not Detected [facility] Comment on above: Order Comment: SOURC E OF SPECIMEN: colonoscopy aspirate Performed By: #### G I PROFILE, STL #### [facility] , Giardia lamblia Not detected Normal Not Detected [facility] Comment on above: Order Comment: SOURC E OF SPECIMEN: colonoscopy aspirate Performed By: #### G I PROFILE, STL #### [facility] , Norovirus GI/GII Not detected Normal Not Detected [facility] Comment on above: Order Comment: SOURC E OF SPECIMEN: colonoscopy aspirate Performed By: #### G I PROFILE, STL #### [facility] , Plesiomonas shigelloides Not detected Normal Not Detected [facility] Comment on above: Order Comment: SOURC E OF SPECIMEN: colonoscopy aspirate Performed By: #### G I PROFILE, STL #### [facility] , Rotavirus A Not detected Normal Not Detected [facility] Comment on above: Order Comment: SOURC E OF SPECIMEN: colonoscopy aspirate Performed By: #### G I PROFILE, STL #### [facility] , Salmonella Not detected Normal Not Detected [facility] Comment on above: Order Comment: SOURC E OF SPECIMEN: colonoscopy aspirate Performed By: #### G I PROFILE, STL #### [facility] , Sapovirus Not detected Normal Not Detected [facility] Comment on above: Order Comment: SOURC E OF SPECIMEN: colonoscopy aspirate Result Comment: Perf ormed at: - [facility] [address] [id number] Librarian Special Collections: Fabi Barakat MD, Phone: [phone] PERFORMED BY: [address] [place] [address] PATHOLOGIST RADIOLOGICAL EQUIPMENT SPECIALIST LACI MILNER M.D. Performed By: #### G I PROFILE, STL #### [facility] , Ipvqx-fjrvj-fwriwmjj g E coli Not detected Normal Not Detected [facility] Comment on above: Order Comment: SOURC E OF SPECIMEN: colonoscopy aspirate Performed By: #### G I PROFILE, STL #### [facility] , Shigella/Enteroinvas rigoberto E coli Not detected Normal Not Detected [facility] Comment on above: Order Comment: SOURC E OF SPECIMEN: colonoscopy aspirate Performed By: #### G I PROFILE, STL #### [facility] , Vibrio Not detected Normal Not Detected [facility] Comment on above: Order Comment: SOURC E OF SPECIMEN: colonoscopy aspirate Performed By: #### G I PROFILE, STL #### [facility] , Vibrio cholerae Not detected Normal Not Detected [facility] Comment on above: Order Comment: SOURC E OF SPECIMEN: colonoscopy aspirate Performed By: #### G I PROFILE, STL #### [facility] , Yersinia enterocolitica Not detected Normal Not Detected [facility] Comment on above: Order Comment: SOURC E OF SPECIMEN: colonoscopy aspirate Performed By: #### G I PROFILE, STL #### [facility] , HCG ( test) IA.rapi d Ql (U)Ordered By: Eriberto Kimbrough on 06-15-2024 HCG ( test) Ql (U) Urine human chorionic gonadotropin (hCG) detection by immunoassay [facility] HCG,Urineon 06-15-2024 Beta HCG ( test) Ql (U) Negative Normal [facility] Comment on above: Result Comment: PERF ORMED BY: [place] [address] PATHOLOGIST RADIOLOGICAL EQUIPMENT SPECIALIST LACI MILNER M.D. Performed By: #### U HCG #### [place] [address] [place] Hematocrit Auto (Bld) [Volum e fraction]Ordered By: Eriberto Kimbrough on 06-15-2024 Hematocrit (Bld) [Volume fraction] Hematocrit [Volume Fraction] of Blood by Automated count Low 34.0-46.4 [facility] Hemoglobin [Mass/volume] in BloodOrdered By: Eriberto Kimbrough on 06-15-2024 Hemoglobin (Bld) [Mass/Vol] Hemoglobin [Mass/volume] in Blood Low 11.8-15.4 [facility] IBD [facility] 025 IBD Comment Normal [facility] Comment on above: Result Comment: See report. Scanned copy available in EMR. PERFORMED BY: [facility] [address] [place] [address] PATHOLOGIST RADIOLOGICAL EQUIPMENT SPECIALIST LACI MILNER M.D. Performed By: #### I BD DIAG, CBC, CRP, ESR #### [facility] [address] [place] [id number] [facility] 06-15-2024 L ---- Specimen: [id number] Received: 06/15/24 Status: MICHELLE Osorio Num: [id number] Spec Type: Surgical Subm Dr: Eriberto Kimbrough MD Tissues: A Small Intestine - Biopsy/Polyp (TERMINAL ILEUM) B Colon Biopsy (RANDOM COLON BX) Procedures: HE/4, Gross/Micro L4/2 Age/ Patient Sex Location Account Attending Physician Sonia Mistry Nikki 33/F [id number] Eriberto Kimbrough MD SPEC NUM: [id number] RECD: 06/15/24 STATUS: MICHELLE OSORIO NUM: [id number] ASHLYN: 06/15/24 [facility] DR: Eriberto Kimbrough MD ENTERED: 06/15/24 [facility] DR: EFE TYPE: Surgical DEPT: S ENTERED BY: [id number] RECV BY: [id number] ORDERED: HE/4, Gross/Micro L4/2 ORDERED: HE/4, Gross/Micro L4/2 Pathological Diagnosis A. Terminal ileum (biopsy): ? Fragments of terminal ileal mucosa, no diagnostic abnormality ? No acute or chronic inflammatory changes or granuloma are identified B. Random colon biopsy: ? Fragments of colonic mucosa with lymphoid aggregates, no diagnostic abnormality ? No acute or chronic inflammatory changes are identified ? No adenomatous changes are identified Clinical Information Change in stool diarrhea, Part A rule out Crohn's, Part B rule out microscopic colitis and irritable bowel disease Gross Description Part A is received in formalin labeled with the patients name, date of , and terminal ileum are 2 hairston-urrutia, focally erythematous, friable, 0.3 and 0.4 cm in greatest dimension tissue bits. The specimen is entirely submitted in a single cassette. (1, ns, [id number] A) Part B is received in formalin labeled with the patients name, date of , and random colon BX are 7 hairston-urrutia, focally erythematous, friable, 0.2 to 0.4 cm in greatest dimension tissue bits. The specimen is entirely submitted in a single cassette. (1, ns, B) Specimen: Received: 06/15/24 Status: MICHELLE Osorio Num: [id number] Spec Type: Surgical Subm Dr: Eriberto Kimbrough MD Tissues: A Small Intestine - Biopsy/Polyp (TERMINAL ILEUM) B Colon Biopsy (RANDOM COLON BX) Procedures: HE/Rose, Gross/Micro L4/2 Patient: Sonia Mistry T [id number] (Continued) Specimen: Received: 06/15/24 (Continued) Gross Description (Continued) Signed (signature on file) Wilian Lobato MD 06/16/24 0836 Specimen: Received: 06/15/24 Status: MICHELLE Osorio Num: [id number] Spec Type: Surgical Subm Dr: Eriberto Kimbrough MD Tissues: A Small Intestine - Biopsy/Polyp (TERMINAL ILEUM) B Colon Biopsy (RANDOM COLON BX) Procedures: HE/4, Gross/Micro L4/2 Patient: Sonia Mistry T [id number] (Continued) Specimen: Received: 06/15/24 (Continued) Gross Description (Continued) J CPT Codes 02500 x 2 Specimen: [id number] Received: 06/15/24 Status: MICHELLE Osorio Num: [id number] Spec Type: Surgical Subm Dr: Eriberto Kimbrough MD Tissues: A Small Intestine - Biopsy/Polyp (TERMINAL ILEUM) B Colon Biopsy (RANDOM COLON BX) Procedures: HE/4, Gross/Micro L4/2 Patient: Sonia Mistry [id number] (Continued) Signed (signature on file) Wilian Lobato MD 06/16/2436 Normal [facility] Leukocytes [#/volume] correc rosaura for nucleated erythrocytes in Blood by Automated counOrdered By: Eriberto Kimbrough on 06-15-2024 WBC corrected for nucl RBC Auto (Bld) [#/Vol] Leukocytes [#/volume] corrected for nucleated erythrocytes in Blood by Automated coun 3.8-11.6 [facility] Lymphocytes Auto (Bld) [#/Vo l]Ordered By: Eriberto Kimbrough on 06-15-2024 Lymphocytes (Bld) [#/Vol] Lymphocytes [#/volume] in Blood by Automated count Low 1.00-4.8 [facility] Lymphocytes/100 WBC Auto (Bl d)Ordered By: Eriberto Kimbrough on 06-15-2024 Lymphocytes/100 WBC (Bld) Lymphocytes/100 leukocytes in Blood by Automated count . [facility] MCH Auto (RBC) [Entitic mass ]Ordered By: Eriberto Kimbrough on 06-15-2024 MCH (RBC) [Entitic mass] MCH [Entitic mass] by Automated count 24.7-34.3 [facility] MCHC Auto (RBC) [Mass/Vol]Or dered By: Eriberto Kimbrough on 06-15-2024 MCHC (RBC) [Mass/Vol] MCHC [Mass/volume] by Automated count 32.0-35.0 [facility] MCV Auto (RBC) [Entitic vol] Ordered By: Eriberto Kimbrough on 06-15-2024 MCV (RBC) [Entitic vol] MCV [Entitic volume] by Automated count 80-100 [facility] Monocytes Auto (Bld) [#/Vol] Ordered By: Eriberto Kimbrough on 06-15-2024 Monocytes (Bld) [#/Vol] Automated blood monocyte count 0.0-0.8 [facility] Monocytes/100 WBC Auto (Bld) Ordered By: Eriberto Kimbrough on 06-15-2024 Monocytes/100 WBC (Bld) Automated monocyte % . [facility] Neutrophils Auto (Bld) [#/Vo l]Ordered By: Eriberto Kimbrough on 06-15-2024 Neutrophils (Bld) [#/Vol] Neutrophils [#/volume] in Blood by Automated count 1.8-7.7 [facility] Neutrophils/100 WBC Auto (Bl d)Ordered By: Eriberto Kimbrough on 06-15-2024 Neutrophils/100 WBC (Bld) Automated neutrophil % . [facility] Nucleated erythrocytes [Pres ence] in Blood by Automated countOrdered By: Eriberto Kimbrough on 06-15-2024 Nucleated RBC Auto Ql (Bld) Nucleated erythrocytes [Presence] in Blood by Automated count 0-0.5 [facility] Platelet mean volume Auto (B ld) [Entitic vol]Ordered By: Eriberto Kimbrough on 06-15-2024 Platelet mean volume (Bld) [Entitic vol] Platelet mean volume [Entitic volume] in Blood by Automated count 6.3-10.7 [facility] Platelets Auto (Bld) [#/Vol] Ordered By: Eriberto Kimbrough on 06-15-2024 Platelets (Bld) [#/Vol] Platelets [#/volume] in Blood by Automated count 150-450 [facility] RBC Auto (Bld) [#/Vol]Ordere d By: Eriberto iKmbrough on 06-15-2024 RBC (Bld) [#/Vol] Erythrocytes [#/volu me] in Blood by Automated count Low 3.60-5.00 [facility] WBC Auto (Bld) [#/Vol]Ordere d By: Eriberto Kimbrough on 06-15-2024 WBC (Bld) [#/Vol] Leukocytes [#/volume ] in Blood by Automated count 3.8-11.6 [facility] CHLAMYDIA/GC PCR, FLon 06-12 CHLAMYDIA/GC PCR, FL CHLAMYDIA PCR, FL Negative (qualifier value) Chlamydia trachomatis not detected by nucleic acid amplification. This does not exclude the possibility of infection because results are dependent on adequate specimen collection. GONORRHOEAE PCR, FL Negative (qualifier value) Neisseria gonorrhoeae not detected by nucleic acid amplification. This does not exclude the possibility of infection because results are dependent on adequate specimen collection. Normal [facility] Comment on above: Performed By: #### C BCA, 76810-5, 2498-4, LIVR, 2731-8, 2284- 8, 2132-9, 70109-5 #### [facility] ([id number]) [address], [address] [place] [address] #### 5631-7, 5763-8, VITASP, 15048-6 #### [facility] ([id number]) [address] [facility] [place] [address] Cytologyon 06-12-2024 Cytology Abnormal [facility] Comment on above: Result Comment: [facility] [address] [place] [address] Gynecologic Cytology Consultation Patient Name:SONIA MISTRY:1990 (Age: 33)Gender:FTaken:06/12/2024Reported:06/20/2024Physician(s):Delilah Cain C.N.M. ([phone])Copy To: Rec. #:[id number]: #[id number] Final Cytologic Interpretation ThinPrep Pap Test (Cervical): Satisfactory for evaluation. A transformation zone component is present. SQUAMOUS EPITHELIAL CELL ABNORMALITY A low-grade squamous intraepithelial lesion (LSIL) is present. k/06/20/2024 Interpretation performed at [email or web address], [address] [place] [address], License number: [id number]. Electronically Signed Out By Zeke Sarmiento MD Date of Last Menstrual Period: 05/23/24 Other Clinical Conditions: Z01.419 Wax Pumper exam wo/abn findings Z12.4 Screening for malignant neoplasm of cervix Source of Specimen ThinPrep Pap Test (Cervical) Thin Prep Pap (CHILDCARE AIDE) Fee Code(s): G0145, 41904 The Pap test is a screening test with an inherent, but low, probability of error. The Pap test is primarily effective for the diagnosis and prevention of squamous cell carcinoma. Regular screening is critical for prevention. ThinPrep liquid-based slides, which meet the Agency Cashier criteria for automated screening, have been screened by the ThinPrep Imaging System (as of 11/29/06) along with an additional manual rescreening by a box toe cementer and, if indicated, by a pathologist. Globulin Calc (S) [Mass/Vol] on 06-12-2024 Globulin (S) [Mass/Vol] Serum globulin measurement by calculation (mass/volume) [facility] HIGH RISK HPV W/GENOon 06-12 HPV 31+33+35+39+45+51+52 +56+58+59+66+68 DNA ODILIA+probe Ql (Cvx) HPV SPECIMEN TYPE ThinPrep HPV 16 Negative (qualifier value) HPV 18 Negative (qualifier value) OTHER HIGH RISK HPV Positive (qualifier value) For the DNA of any or combination of the following HPV types: 31,33,35,45, 52,56,58,59,66 and 68. Normal [facility] Comment on above: Performed By: #### C BCA, 19217-8, 2498-4, LIVR, 2731-8, 2284- 8, 2132-9, 16098-3 #### [facility] ([id number]) [address] [place] [address], [address] [place] [address] #### 5631-7, 5763-8, VITASP, 94190-0 #### [facility] ([id number]) [address] [facility] [place] [address] IgA [Mass/volume] in Serum o r Plasmaon 06-12-2024 IgA [Mass/Vol] IgA [Mass/volume] in Serum or Plasma 87-352 [facility] Comment on above: Performed at: - [facility] [address] [id number] Director: Rafael Mares PhD, Phone: [phone] Laboratory - Chemistry and C hemistry - challengeon 06-12-2024 Albumin [Mass/Vol] 3.9 g/dL 3.4-5.0 [facility] ALP [Catalytic activity/Vol] 58 U/L 46-116 [facility] ALT [Catalytic activity/Vol] 14 U/L 14-59 [facility] AST [Catalytic activity/Vol] 18 U/L 15-37 [facility] Bilirubin [Mass/Vol] 0.7 mg/dL 0.2-1.0 [facility] Bilirubin.direct [Mass/Vol] 0.2 mg/dL 0.0-0.2 [facility] Protein [Mass/Vol] 7.2 g/dL 6.4-8.2 [facility] No Panel Informationon 06-12 Endomysial IgA Antibody Negative Negative [facility] Serum gliadin peptide IgA an tibody assay (units/volume)on 06-12-2024 Gliadin peptide IgA Qn (S) Serum gliadin peptide IgA antibody assay (units/volume) 0-19 [facility] Comment on above: Negative 0 - 19 Weak Positive 20 - 30 Moderate to Strong Positive >30 Serum gliadin peptide IgG an tibody assay (units/volume)on 06-12-2024 Gliadin peptide IgG Qn (S) Serum gliadin peptide IgG antibody assay (units/volume) 0-19 [facility] Comment on above: Negative 0 - 19 Weak Positive 20 - 30 Moderate to Strong Positive >30 Serum or plasma albumin/glob ulin mass ratioon 06-12-2024 Albumin/Globulin [Mass ratio] Serum or plasma albumin/globulin mass ratio [facility] Serum tissue transglutaminas e (tTG) IgA antibody assay (units/volume)on 06-12-2024 tTG IgA Qn (S) Serum tissue transglutaminase (tTG) IgA antibody assay (units/volume) 0-3 [facility] Comment on above: Negative 0 - 3 Weak Positive 4 - 10 Positive >10 Tissue Transglutaminase (tTG) has been identified as the endomysial antigen. Studies have demonstr- ated that endomysial IgA antibodies have over 99% specificity for gluten sensitive enteropathy. Serum tissue transglutaminas e (tTG) IgG antibody assay (units/volume)on 06-12-2024 tTG IgG Qn (S) Serum tissue transglutaminase (tTG) IgG antibody assay (units/volume) 0-5 [facility] Comment on above: Negative 0 - 5 Weak Positive 6 - 9 Positive >9 COMPLETE BLOOD COUNTon 05-12 Erythrocyte distribution width (RBC) [Ratio] 12.9 % Normal 11.5-15.0 [facility] Comment on above: Performed By: #### C BC #### [facility] ([id number]) [address] [place] [address], [address] [place] [address] Hematocrit (Bld) [Volume fraction] 25.1 % Low 35-47 [facility] Comment on above: Performed By: #### C BC #### [facility] ([id number]) [address] [place] [address], [address] [place] [address] Hemoglobin (Bld) [Mass/Vol] 8.6 g/dL Low 11.7-15.5 [facility] Comment on above: Performed By: #### C BC #### [facility] ([id number]) [address], [address] [place] [address] MCH (RBC) [Entitic mass] 32.4 pg Normal 27-34 [facility] Comment on above: Performed By: #### C BC #### [facility] ([id number]) [address], [address] [place] [address] MCHC (RBC) [Mass/Vol] 34.3 g/dL Normal 32-36 [facility] Comment on above: Performed By: #### C BC #### [facility] ([id number]) [address], [address] [place] [address] MCV (RBC) [Entitic vol] 95 fL Normal 80-100 [facility] Comment on above: Performed By: #### C BC #### [facility] ([id number]) [address], [address] [place] [address] Platelet mean volume (Bld) [Entitic vol] 8.2 fL Normal 7-12 [facility] Comment on above: Performed By: #### C BC #### [facility] ([id number]) [address], [address] [place] [address] Platelets (Bld) [#/Vol] 235 10*3/uL Normal 150-450 [facility] Comment on above: Performed By: #### C BC #### [facility] ([id number]) [address] [facility] [address] [place] [address] RBC COUNT 2.66 X10E12/L Low 3.80-5.20 [facility] Comment on above: Performed By: #### C BC #### [facility] ([id number]) [address] [place] [address] WBC (Bld) [#/Vol] 14.9 10*3/uL High 4.0-11.0 [facility] Comment on above: Performed By: #### C BC #### [facility] ([id number]) [address] [facility], [address] [place] [address] HCG ( test) Ql (U)o n 05-11-2024 Beta HCG ( test) Ql (U) Negative Normal NEG [facility] Comment on above: Performed By: #### 2 106-3 #### [facility] ([id number]) [address] [place] [address] Surgical Pathologyon 025 Surgical Pathology Normal [facility] Comment on above: Result Comment: [facility] [address] [place] [address] Surgical Pathology Consultation Patient Name:SONIA MISTRY:1990 (Age: 33)Gender:FTaken:05/11/2024Reported:05/17/2024Physician(s):Rima Cisneros MD ([phone])Copy To: Rec. #:[id number]: #[id number] Final Pathologic Diagnosis 1. Right breast tissue (360 g): Benign breast parenchyma with stromal fibrosis and fibrocystic changes. Incidental fibroadenoma. Unremarkable skin. 2. Left breast tissue (179 g): Benign breast parenchyma with stromal fibrosis. Apocrine metaplasia. Unremarkable skin. Report Electronically Signed Out ssi/05/17/2024Selvin Flores M.D. Interpretation performed at [facility], [address] [place] [address], License number: [id number]. Clinical History Macromastia. Gross Description 1. Received in formalin labeled JULY, right breast tissue are 360 g of multiple portions of skin and subcutaneous tissue, 19.5 x 13 x 4.5 cm in aggregate. The epidermal surface is focally disrupted, pink-hairston, finely wrinkled, and generally unremarkable. The subcutaneous tissue is serially sectioned to reveal cut surfaces consisting of 5% pale urrutia, focally dense-nodular breast tissue and 95% yellow-hairston lobulated adipose tissue. No definitive lesion is identified. Latin Dance Instructor sections of the specimens are submitted in cassettes A-C. (3, ss, [id number], m5) LUCÍA 2. Received in formalin labeled JULY, left breast tissue are 179 g of multiple portions of skin and subcutaneous tissue, 16 x 12.5 x 3.0 cm in aggregate. The epidermal surface is focally disrupted, pink-hairston, finely wrinkled, and generally unremarkable. The subcutaneous tissue is serially sectioned to reveal cut surfaces consisting of 5% pale urrutia, focally dense interspersed fibrous breast tissue and 95% yellow-hairston lobulated adipose tissue. No definitive nodule or lesion is identified. Latin Dance Instructor sections of the specimens are submitted in cassettes A-C. (3, ss, [id number], m5) LUCÍA hayes/05/12/2024NSK Specimen(s) Received 1: Right breast tissue 2: Left breast tissue Fee Codes(s): 1; 44559 2; 06151 BASIC METABOLIC PANLon 05-01 Anion gap [Moles/Vol] 13 mmol/L Normal 5-15 [facility] Comment on above: Performed By: #### B MP #### [facility] ([id number]) [address], [address] [place] [address] Calcium [Mass/Vol] 10.2 mg/dL Normal 8.5-10.5 [facility] Comment on above: Performed By: #### B MP #### [facility] ([id number]) [address], [address] [place] [address] Chloride [Moles/Vol] 102 mmol/L Normal 98-109 [facility] Comment on above: Performed By: #### B MP #### [facility] ([id number]) [address], [address] [place] [address] CO2 [Moles/Vol] 28 mmol/L Normal 22-32 [facility] Comment on above: Performed By: #### B MP #### [facility] ([id number]) [address], [address] [place] [address] Creatinine [Mass/Vol] 0.74 mg/dL Normal 0.40-1.00 [facility] Comment on above: Result Comment: METH OD TRACEABLE TO IDMS STANDARD Performed By: #### B MP #### [facility] ([id number]) [address], [address] [place] [address] eGFR (CKD-EPI) NON-RACE DEPENDENT >90 Normal >59 [facility] Comment on above: Result Comment: Reported eGFR is based on the CKD-EPI 2020 equation that does not use a race coefficient. Performed By: #### B MP #### [facility] ([id number]) [address], [address] [place] [address] Glucose [Mass/Vol] 83 mg/dL Normal 65-99 [facility] Comment on above: Performed By: #### B MP #### [facility] ([id number]) [address], [address] [place] [address] Potassium [Moles/Vol] 4.1 mmol/L Normal 3.5-5.0 [facility] Comment on above: Performed By: #### B MP #### [facility] ([id number]) [address], [address] [place] [address] Sodium [Moles/Vol] 143 mmol/L Normal 134-146 [facility] Comment on above: Performed By: #### B MP #### [facility] ([id number]) [address], [address] [place] [address] Urea nitrogen [Mass/Vol] 15 mg/dL Normal 5-23 [facility] Comment on above: Performed By: #### B MP #### [facility] ([id number]) [address] [facility], [address] [place] [address] Basic Metabolic Panelon 04-15 Anion gap [Moles/Vol] 13 mmol/L 5 - 15 mmol/L [facility] Calcium [Mass/Vol] 10.2 mg/dL 8.5 - 10. 5 mg/dL [facility] Chloride [Moles/Vol] 102 mmol/L 98 - 10 9 mmol/L [facility] CO2 [Moles/Vol] 28 mmol/L 22 - 32 mmol/L [facility] Creatinine [Mass/Vol] 0.74 mg/dL 0.40 - 1.00 mg/dL [facility] Comment on above: METHOD TRACEABLE TO [facility] STANDARD eGFR (CKD-EPI)non-race dependent - PINF [facility] Comment on above: Reported eGFR is based on the CKD-EPI 2020 equation that does not use a race coefficient. Glucose [Mass/Vol] 83 mg/dL 65 - 99 mg/dL [facility] Potassium [Moles/Vol] 4.1 mmol/L 3.5 - 5.0 mmol/L [facility] Sodium [Moles/Vol] 143 mmol/L 134 - 146 mmol/L [facility] Urea nitrogen [Mass/Vol] 15 mg/dL 5 - 23 mg/dL [facility] CALCIUMon 03-10-2024 Calcium [Mass/Vol] 9.3 mg/dL Normal 8.5-10.5 [facility] Comment on above: Performed By: #### C BCA, 92520-5, 2498-4, LIVR, 2731-8, 2284- 8, 2132-9, 12124-5 #### [facility] ([id number]) [address] [facility], [address] [place] [address] #### 5631-7, 5763-8, VITASP, 96746-2 #### [facility] ([id number]) [address] [place] [address], [place] [address] CBC AND AUTO DIFFon 03-10-20 ABSOLUTE BASOPHIL 0.0 X10E9/L Normal 0.0-0.2 [facility] Comment on above: Performed By: #### C BCA, 54884-9, 2498-4, LIVR, 2731-8, 2284- 8, 2-9, 60315-0 #### [facility] ([id number]) [address], [address] [place] [address] #### 5631-7, 5763-8, VITASP, 12729-4 #### [facility] ([id number]) [address] [place] [address] ABSOLUTE NEUTROPHIL 3.2 X10E9/L Normal 1.5-6.6 [facility] Comment on above: Performed By: #### C BCA, 95814-2, 2498-4, LIVR, 2731-8, 2284- 8, 2131-9, 33163-7 #### [facility] ([id number]) [address] [facility] [place] [address] #### 5631-7, 5763-8, VITASP, 92280-1 #### [facility] ([id number]) [address] [place] [address] Basophils/100 WBC (Bld) 0.2 % Normal [facility] Comment on above: Performed By: #### C BCA, 08863-5, 2498-4, LIVR, 2731-8, 2284- 8, 2131-9, 22713-8 #### [facility] ([id number]) [address] [facility] [place] [address] #### 5631-7, 5763-8, VITASP, 92281-8 #### [facility] ([id number]) [address] [place] [address] Eosinophils (Bld) [#/Vol] 0.0 10*3/uL Normal 0.0-0.4 [facility] Comment on above: Performed By: #### C BCA, 78060-8, 2498-4, LIVR, 2731-8, 2284- 8, 213-9, 55255-4 #### [facility] ([id number]) [address], [address] [place] [address] #### 5631-7, 5763-8, VITASP, 74922-5 #### [facility] ([id number]) [address] [place] [address] Eosinophils/100 WBC (Bld) 1.0 % Normal [facility] Comment on above: Performed By: #### C BCA, 58110-2, 2498-4, LIVR, 2731-8, 2283- 8, 2131-9, 91772-3 #### [facility] ([id number]) [address], [address] [place] [address] #### 5631-7, 5763-8, VITASP, 63762-7 #### [facility] ([id number]) [address] [place] [address] Erythrocyte distribution width (RBC) [Ratio] 12.6 % Normal 11.5-15.0 [facility] Comment on above: Performed By: #### C BCA, 15788-5, 2498-4, LIVR, 2731-8, 2284- 8, 2131-9, 78908-4 #### [facility] ([id number]) [address], [address] [place] [address] #### 5631-7, 5763-8, VITASP, 46046-0 #### [facility] ([id number]) [address] [place] [address] Hematocrit (Bld) [Volume fraction] 38.8 % Normal 35-47 [facility] Comment on above: Performed By: #### C BCA, 31566-2, 2498-4, LIVR, 2731-8, 2284- 8, 2131-9, 66535-4 #### [facility] ([id number]) [address] [place] [address], [address] [place] [address] #### 5631-7, 5763-8, VITASP, 74112-7 #### [facility] ([id number]) [address] [place] [address] Hemoglobin (Bld) [Mass/Vol] 13.5 g/dL Normal 11.7-15.5 [facility] Comment on above: Performed By: #### C BCA, 99240-8, 2498-4, LIVR, 2731-8, 4- 8, 2131-9, 63955-8 #### [facility] ([id number]) [address] [place] [address], [address] [place] [address] #### 5631-7, 5763-8, VITASP, 61914-2 #### [facility] ([id number]) [address] [place] [address] Lymphocytes (Bld) [#/Vol] 1.1 10*3/uL Normal 1.0-3.5 [facility] Comment on above: Performed By: #### C BCA, 91357-5, 2498-4, LIVR, 2731-8, 2284- 8, 2131-9, 95261-3 #### [facility] ([id number]) [address] [place] [address], [address] [place] [address] #### 5631-7, 5763-8, VITASP, 88487-2 #### [facility] ([id number]) [address] [place] [address] Lymphocytes/100 WBC (Bld) 23.9 % Normal [facility] Comment on above: Performed By: #### C BCA, 74941-7, 2498-4, LIVR, 2731-8, 2284- 8, 2131-9, 20260-8 #### [facility] ([id number]) [address], [address] [place] [address] #### 5631-7, 5763-8, VITASP, 08807-3 #### [facility] ([id number]) [address] [place] [address]20 MCH (RBC) [Entitic mass] 32.8 pg Normal 27-34 [facility] Comment on above: Performed By: #### C BCA, 91505-5, 2498-4, LIVR, 2731-8, 2284- 8, 2131-9, 30400-6 #### [facility] ([id number]) [address], [address] [place] [address] #### 5631-7, 5763-8, VITASP, 91959-5 #### [facility] ([id number]) [address] [place] [address] MCHC (RBC) [Mass/Vol] 34.7 g/dL Normal 32-36 [facility] Comment on above: Performed By: #### C BCA, 23351-3, 2498-4, LIVR, 2731-8, 2284- 8, 2131-9, 40845-3 #### [facility] ([id number]) [address], [address] [place] [address] #### 5631-7, 5763-8, VITASP, 65497-9 #### [facility] ([id number]) [address] [place] [address]40 MCV (RBC) [Entitic vol] 95 fL Normal 80-100 [facility] Comment on above: Performed By: #### C BCA, 12024-7, 2498-4, LIVR, 2731-8, 2284- 8, 2131-9, 12321-5 #### [facility] ([id number]) [address], [address] [place] [address] #### 5631-7, 5763-8, VITASP, 29749-7 #### [facility] ([id number]) [address] [place] [address] Monocytes (Bld) [#/Vol] 0.3 10*3/uL Normal 0-0.9 [facility] Comment on above: Performed By: #### C BCA, 91565-7, 2498-4, LIVR, 2731-8, 2284- 8, 2-9, 53589-6 #### [facility] ([id number]) [address], [address] [place] [address] #### 5631-7, 5763-8, VITASP, 46173-0 #### [facility] ([id number]) [address] [place] [address]41 Monocytes/100 WBC (Bld) 7.4 % Normal [facility] Comment on above: Performed By: #### C BCA, 24377-4, 2498-4, LIVR, 2731-8, 2284- 8, 2-9, 18423-3 #### [facility] ([id number]) [address], [address] [place] [address] #### 5631-7, 5763-8, VITASP, 28826-0 #### [facility] ([id number]) [address] [place] [address]234 Neutrophils/100 WBC (Bld) 67.5 % Normal [facility] Comment on above: Performed By: #### C BCA, 22190-0, 2498-4, LIVR, 2731-8, 2284- 8, 2132-9, 63421-4 #### [facility] ([id number]) [address], [address] [place] [address] #### 5631-7, 5763-8, VITASP, 98631-8 #### [facility] ([id number]) [address] [place] [address] Platelet mean volume (Bld) [Entitic vol] 8.3 fL Normal 7-12 [facility] Comment on above: Performed By: #### C BCA, 03381-1, 2498-4, LIVR, 2731-8, 2284- 8, 2132-9, 59122-6 #### [facility] ([id number]) [address], [address] [place] [address] #### 5631-7, 5763-8, VITASP, 81856-2 #### [facility] ([id number]) [address] [place] [address] Platelets (Bld) [#/Vol] 194 10*3/uL Normal 150-450 [facility] Comment on above: Performed By: #### C BCA, 12139-8, 2498-4, LIVR, 2731-8, 2284- 8, 2132-9, 79338-6 #### [facility] ([id number]) [address], [address] [place] [address] #### 5631-7, 5763-8, VITASP, 04596-0 #### [facility] ([id number]) [address] [place] [address] 27549 RBC COUNT 4.10 X10E12/L Normal 3.80-5.20 [facility] Comment on above: Performed By: #### C BCA, 10398-0, 2498-4, LIVR, 2731-8, 2284- 8, 2132-9, 12797-9 #### [facility] ([id number]) [address], [address] [place] [address] #### 5631-7, 5763-8, VITASP, 54277-9 #### [facility] ([id number]) [address] [place] [address]37 WBC (Bld) [#/Vol] 4.7 10*3/uL Normal 4.0-11.0 [facility] Comment on above: Performed By: #### C BCA, 91790-7, 2498-4, LIVR, 2731-8, 2284- 8, 2132-9, 00267-8 #### [facility] ([id number]) [address] [place] [address], [address] [place] [address] #### 5631-7, 5763-8, VITASP, 38552-3 #### [facility] ([id number]) [address] [place] [address] 82271 Copper [Mass/Vol]on 03-10-20 24 Copper, S 109 mcg/dL Normal 77-206 [facility] Comment on above: Result Comment: NOTE ADDITIONAL INFORMATION This test was developed and its performance characteristics determined by [facility] in a manner consistent with CLIA requirements. This test has not been cleared or approved by the U.S. Food and Drug Administration. Test Performed by: [facility] [address] [place] [address] Librarian Special Collections: Slava Martino Ph.D.; CLIA# [id number] Performed By: #### C BCA, 36699-9, 2498-4, LIVR, 2731-8, 2284-8, 2132-9, 99032-3 #### [facility] ([id number]) [address] [place] [address], [address] [place] [address] #### 5631-7, 5763-8, VITASP, 28975-4 #### [facility] ([id number]) [address] [place] [address] 38633 Folate [Mass/Vol]on 03-10-20 24 FOLIC ACID 17.5 ng/mL Normal >5.8 [facility] Comment on above: Result Comment: NEW REFERENCE RANGE Performed By: #### C BCA, 09997-0, 2498-4, LIVR, 2731-8, 2284-8, 2132-9, 22284-0 #### [facility] ([id number]) [address], [address] [place] [address] #### 5631-7, 5763-8, VITASP, 01770-2 #### [facility] ([id number]) [address] [place] [address] 78097 IRONon 03-10-2024 Iron [Mass/Vol] 123 ug/dL Normal 50-170 [facility] Comment on above: Performed By: #### C BCA, 20687-5, 2498-4, LIVR, 2731-8, 2284- 8, 2132-9, 29188-1 #### [facility] ([id number]) [address], [address] [place] [address] #### 5631-7, 5763-8, VITASP, 66747-6 #### [facility] ([id number]) [address] [place] [address] 19726 LIVER PANELon 03-10-2024 Albumin [Mass/Vol] 4.6 g/dL Normal 3.2-5.3 [facility] Comment on above: Performed By: #### C BCA, 71187-9, 2498-4, LIVR, 2731-8, 2284- 8, 2132-9, 45863-1 #### [facility] ([id number]) [address], [address] [place] [address] #### 5631-7, 5763-8, VITASP, 39351-7 #### [facility] ([id number]) [address] [place] [address] 67267 ALP [Catalytic activity/Vol] 49 U/L Normal 39-130 [facility] Comment on above: Performed By: #### C BCA, 80441-9, 2498-4, LIVR, 2731-8, 2284- 8, 2132-9, 19108-4 #### [facility] ([id number]) [address], [address] [place] [address] #### 5631-7, 5763-8, VITASP, 46064-6 #### [facility] ([id number]) [address] [place] [address] 64956 ALT [Catalytic activity/Vol] 9 U/L Normal 0-31 [facility] Comment on above: Performed By: #### C BCA, 20724-1, 2498-4, LIVR, 2731-8, 2284- 8, 2-9, 19713-5 #### [facility] ([id number]) [address], [address] [place] [address] #### 5631-7, 5763-8, VITASP, 93083-4 #### [facility] ([id number]) [address] [place] [address] 13715 AST [Catalytic activity/Vol] 17 U/L Normal 0-41 [facility] Comment on above: Performed By: #### C BCA, 25071-1, 2498-4, LIVR, 2731-8, 2284- 8, 2-9, 68173-0 #### [facility] ([id number]) [address], [address] [place] [address] #### 5631-7, 5763-8, VITASP, 06579-1 #### [facility] ([id number]) [address] [place] [address] 56586 Bilirubin [Mass/Vol] 1.4 mg/dL High 0.3-1.2 [facility] Comment on above: Performed By: #### C BCA, 07518-4, 2498-4, LIVR, 2731-8, 2284- 8, 2132-9, 02054-6 #### [facility] ([id number]) [address], [address] [place] [address] #### 5631-7, 5763-8, VITASP, 57223-1 #### [facility] ([id number]) [address] [place] [address] 16785 Bilirubin.direct [Mass/Vol] 0.2 mg/dL Normal 0.0-0.4 [facility] Comment on above: Performed By: #### C BCA, 32740-2, 2498-4, LIVR, 2731-8, 2284- 8, 2132-9, 92794-6 #### [facility] ([id number]) [address], [address] [place] [address] #### 5631-7, 5763-8, VITASP, 94675-2 #### [facility] ([id number]) [address] [place] [address] 06039 Protein [Mass/Vol] 7.2 g/dL Normal 6.0-8.0 [facility] Comment on above: Performed By: #### C BCA, 73545-0, 2498-4, LIVR, 2731-8, 2284- 8, 2132-9, 89391-1 #### [facility] ([id number]) [address], [address] [place] [address] #### 5631-7, 5763-8, VITASP, 08398-2 #### [facility] ([id number]) [address] [place] [address] 13527 Parathyrin.intact [Mass/Vol] on 03-10-2024 PTH INTACT 54 pg/mL Normal 12-88 [facility] Comment on above: Performed By: #### C BCA, 87078-5, 2498-4, LIVR, 2731-8, 2284- 8, 2-9, 82405-2 #### [facility] ([id number]) [address] [facility], [address] [place] [address] #### 5631-7, 5763-8, VITASP, 49432-3 #### [facility] ([id number]) [address] [place] [address] Thiamine (Bld) [Moles/Vol]on 03-10-2024 Thiamin (Vitamin B1), WB 103 nmol/L Normal 70-180 [facility] Comment on above: Result Comment: NOTE ADDITIONAL INFORMATION This test was developed and its performance characteristics determined by [facility] in a manner consistent with CLIA requirements. This test has not been cleared or approved by the U.S. Food and Drug Administration. Test Performed by: [facility] [address] [place] [address] Librarian Special Collections: Slava Martino Ph.D.; CLIA# [id number] Performed By: #### C BCA, 67160-7, 2498-4, LIVR, 1-8, 4-8, 2131-9, 26593-6 #### [facility] ([id number]) [address] [facility] [place] [address] #### 5631-7, 5763-8, VITASP, 75902-2 #### [facility] ([id number]) [address] [place] [address] 47877 VITAMIN A(RETINOL)on 024 RETINYL PALMITATE <0.02 Normal 0.00-0.10 [facility] Comment on above: Performed By: #### C BCA, 53283-6, 2498-4, LIVR, 2731-8, 2284- 8, 2-9, 38047-8 #### [facility] ([id number]) [address] [facility], [address] [place] [address] #### 5631-7, 5763-8, VITASP, 02979-1 #### [facility] ([id number]) [address] [place] [address] 22504 VIT A,SER/PL INTERP NORMAL Normal [facility] Comment on above: Result Comment: NOTE This test was developed and its performance characteristics determined by [facility]. It has not been cleared or approved by the US Food and Drug Administration. This test was performed in a CLIA certified laboratory and is intended for clinical purposes. Performed By: [facility] [address] [place] [address] [facility] Dentist: Yo García MD, PhD CLIA Number: [id number] Performed By: #### C BCA, 31596-9, 2498-4, LIVR, 2731-8, 2284-8, 2-9, 09841-0 #### [facility] ([id number]) [address] [place] [address], [address] [place] [address] #### 5631-7, 5763-8, VITASP, 44514-6 #### [facility] ([id number]) [address] [place] [address] VITAMIN A(RETINOL) 0.50 mg/L Normal 0.30-1.20 [facility] Comment on above: Performed By: #### C BCA, 58974-5, 2498-4, LIVR, 2731-8, 2284- 8, 2132-9, 72229-8 #### [facility] ([id number]) [address] [place] [address], [address] [place] [address] #### 5631-7, 5763-8, VITASP, 58069-7 #### [facility] ([id number]) [address] [place] [address] VITAMIN B12on 03-10-2024 Cobalamin (Vitamin B12) [Mass/Vol] 439 pg/mL Normal 180-914 [facility] Comment on above: Performed By: #### C BCA, 91900-3, 2498-4, LIVR, 2731-8, 2284- 8, 2-9, 09326-3 #### [facility] ([id number]) [address], [address] [place] [address] #### 5631-7, 5763-8, VITASP, 74137-8 #### [facility] ([id number]) [address] [place] [address] Vitamin D+Metabolites [Mass/ Vol]on 03-10-2024 VITAMIN D 25 HYD TOT 36.6 ng/mL Normal 30-100 [facility] Comment on above: Result Comment: Vitamin D status 25 [place] Vitamin D Deficiency <20 ng/mL Insufficiency 20-29 ng/mL Sufficiency 30-100 ng/mL Toxicity >100 ng/mL NOTE: A pediatric reference range has not been established by the plug and mold finisher of this kit. The [place] [employer] recommends a Vitamin D level of = or >20ng/mL in infants and children. Performed By: #### C BCA, 61579-7, 2498-4, LIVR, 2731-8, 2284-8, 2-9, 73802-3 #### [facility] ([id number]) [address], [address] [place] [address] #### 5631-7, 5763-8, VITASP, 77079-7 #### [facility] ([id number]) [address] [place] [address] Zinc [Mass/Vol]on 03-10-2024 Zinc, S 83 mcg/dL Normal 60-106 [facility] Comment on above: Result Comment: NOTE ADDITIONAL INFORMATION This test was developed and its performance characteristics determined by [facility] in a manner consistent with CLIA requirements. This test has not been cleared or approved by the U.S. Food and Drug Administration. Test Performed by: [facility] [address] [place] [address] Librarian Special Collections: Slava Martino Ph.D.; CLIA# [id number] Performed By: #### C BCA, 57768-0, 2498-4, LIVR, 2731-8, 2284-8, 2132-9, 87694-0 #### [facility] ([id number]) [address] [place] [address], [address] [place] [address] #### 5631-7, 5763-8, VITASP, 38657-6 #### [facility] ([id number]) [address] [place] [address], [place] [address] Basophils Auto (Bld) [#/Vol] on 02-04-2024 Basophils (Bld) [#/Vol] Automated basophil count 0.0-0.1 [facility] Basophils/100 WBC Auto (Bld) on 02-04-2024 Basophils/100 WBC (Bld) Automated basophil % 0.2-2.0 [facility] [facility] Eosinophils/100 WBC Auto (Bl d)on 02-04-2024 Eosinophils/100 WBC (Bld) Automated eosinophil % 0.9-7.0 [facility] Erythrocyte distribution wid th Auto (RBC) [Ratio]on 02-04-2024 Erythrocyte distribution width (RBC) [Ratio] Erythrocyte distribution width [Ratio] by Automated count 11.0-15.0 [facility] Estimated glomerular filtrat ion rate (GFR) non- Americanon 02-04-2024 GFR/1.73 sq M.predicted among non-blacks MDRD (S/P/Bld) [Vol rate/Area] Estimated glomerular filtration rate (GFR) non- >=60 mL/min/1.73 m 2 [facility] Globulin Calc (S) [Mass/Vol] on 02-04-2024 Globulin (S) [Mass/Vol] Serum globulin measurement by calculation (mass/volume) [facility] Hematocrit Auto (Bld) [Volum e fraction]on 02-04-2024 Hematocrit (Bld) [Volume fraction] Hematocrit [Volume Fraction] of Blood by Automated count 36.0-48.0 [facility] Hemoglobin [Mass/volume] in Bloodon 02-04-2024 Hemoglobin (Bld) [Mass/Vol] Hemoglobin [Mass/volume] in Blood 12.0-16.0 [facility] Laboratory - Chemistry and C hemistry - challengeon 02-04-2024 Albumin [Mass/Vol] 4.0 g/dL 3.4-5.0 [facility] ALP [Catalytic activity/Vol] 59 U/L 46-116 [facility] ALT [Catalytic activity/Vol] 16 U/L 14-59 [facility] AST [Catalytic activity/Vol] 18 U/L 15-37 [facility] Bilirubin [Mass/Vol] 1.3 mg/dL High 0.2-1.0 [facility] [place] [facility] Calcium [Mass/Vol] 9.0 mg/dL 8.5-10.1 [facility] Chloride [Moles/Vol] 104 mmol/L 98-107 [facility] [place] [facility] CO2 [Moles/Vol] 27.7 mmol/L 21.0-32.0 [facility] Creatinine [Mass/Vol] 0.67 mg/dL 0.55-1.02 [facility] GFR/1.73 sq M.predicted MDRD (S/P/Bld) [Vol rate/Area] mL/min/{1.73_m2} >=60 mL/min/1.73 m 2 [facility] Glucose [Mass/Vol] 90 mg/dL 74-106 [facility] Potassium [Moles/Vol] 4.1 mmol/L 3.5-5.1 [facility] Protein [Mass/Vol] 7.6 g/dL 6.4-8.2 [facility] Sodium [Moles/Vol] 140 mmol/L 136-145 [facility] Urea nitrogen [Mass/Vol] 12.0 mg/dL 7.0-18.0 [facility] Urea nitrogen/Creatinine [Mass ratio] 17.9 mg/mg [facility] Laboratory - Hematology and Cell countson 02-04-2024 Immature granulocytes/100 WBC (Bld) 0.0 % 0.0-0.5 [facility] Leukocytes [#/volume] correc rosaura for nucleated erythrocytes in Blood by Automated counon 02-04-2024 WBC corrected for nucl RBC Auto (Bld) [#/Vol] Leukocytes [#/volume] corrected for nucleated erythrocytes in Blood by Automated coun 4.0-11.0 [facility] Lymphocytes Auto (Bld) [#/Vo l]on 02-04-2024 Lymphocytes (Bld) [#/Vol] Lymphocytes [#/volume] in Blood by Automated count 1.2-3.8 [facility] Lymphocytes/100 WBC Auto (Bl d)on 02-04-2024 Lymphocytes/100 WBC (Bld) Lymphocytes/100 leukocytes in Blood by Automated count 20.5-60.0 [facility] MCH Auto (RBC) [Entitic mass ]on 02-04-2024 MCH (RBC) [Entitic mass] MCH [Entitic mass] by Automated count 26.7-34.0 [facility] MCHC Auto (RBC) [Mass/Vol]on 02-04-2024 MCHC (RBC) [Mass/Vol] MCHC [Mass/volume] by Automated count 29.9-35.2 [facility] MCV Auto (RBC) [Entitic vol] on 02-04-2024 MCV (RBC) [Entitic vol] MCV [Entitic volume] by Automated count 81.0-99.0 [facility] Monocytes Auto (Bld) [#/Vol] on 02-04-2024 Monocytes (Bld) [#/Vol] Automated blood monocyte count 0.3-0.8 [facility] Monocytes/100 WBC Auto (Bld) on 02-04-2024 Monocytes/100 WBC (Bld) Automated monocyte % 1.7-12.0 [facility] Neutrophils Auto (Bld) [#/Vo l]on 02-04-2024 Neutrophils (Bld) [#/Vol] Neutrophils [#/volume] in Blood by Automated count 1.4-6.5 [facility] Neutrophils/100 WBC Auto (Bl d)on 02-04-2024 Neutrophils/100 WBC (Bld) Automated neutrophil % 43.0-75.0 [facility] No Panel Informationon 02-03 Eosinophils # (Auto) 0.1 10 3/uL 0.0-0.7 [facility] Human Chorionic Gonadotropin, Qual Negative NEGATIVE [facility] Immature Granulocyte # (Auto) 0.00 10 3/uL 0.00-0.03 [facility] Platelet mean volume Auto (B ld) [Entitic vol]on 02-04-2024 Platelet mean volume (Bld) [Entitic vol] Platelet mean volume [Entitic volume] in Blood by Automated count Low 9.5-13.5 [facility] Platelets Auto (Bld) [#/Vol] on 02-04-2024 Platelets (Bld) [#/Vol] Platelets [#/volume] in Blood by Automated count 150-450 [facility] RBC Auto (Bld) [#/Vol]on RBC (Bld) [#/Vol] Erythrocytes [#/volu me] in Blood by Automated count Low 4.20-5.40 [facility] Serum or plasma albumin/glob ulin mass ratioon 02-04-2024 Albumin/Globulin [Mass ratio] Serum or plasma albumin/globulin mass ratio [facility] Serum or plasma anion gap de terminationon 02-04-2024 Anion gap [Moles/Vol] Serum or plasma anion gap determination [facility] No Panel InformationOrdered By: Chio Holley on 05-09-2023 Quick Strep (POC) [facility] Quick Strep (POC) [facility] COVID/FLU/RSV RT-PCRon 03-25 SARS-CoV-2 (COVID-19) RNA ODILIA+probe Ql (Unsp spec) Negative [facility] Other COVID/FLU/RSV RT-PCR Negative [facility] Other Quick Strepon 05-24-2022 S. pyogenes Org specific cx Ql (Throat) Positive [facility] Other Quick Strep [facility] Other Covid-19 PCR (CVDTB)on SARS-CoV-2 (COVID-19) RNA ODILIA+probe Ql (Unsp spec) Not detected Normal NOT DETECTED [facility] Comment on above: Result Comment: When diagnostic [...] for this test is supported by the Preparing Box Tender of Health and Human Service's declaration that [...] used). Performed By: #### C VDTBH #### [facility] [address] [address] [address] Kathie Gates GROUP A STREP CULTUREon S. pyogenes Ag Ql (Unsp spec) Culture Observations: NEGATIVE FOR GROUP A STREPTOCOCCUS. Normal [facility] Comment on above: Performed By: #### S SCRN, GRASTCX ####[facility] [address] [place], [place] [address]IwDr. Kathie Gates INFLUENZA A AND B AGon 02-17 INFLUANEGH SEE BELOW Normal [facility] Comment on above: Result Comment: Nega tive for Flu A protein angiten. Infection due to Flu A cannot be ruled out. Flu A angiten in the sample may be below the detection limit of the test. Performed By: #### I NFLUAB #### [facility] [address] [place], [place] [address] Dr. Kathie Gates INFLUBNEG SEE BELOW Normal [facility] Comment on above: Result Comment: Nega tive for Flu B protein antigen. Infection due to Flu B cannot be ruled out. Flu B antigen in the sample may be below the detection limit of the test. Performed By: #### I NFLUAB #### [facility] [address] [place] [address] Dr. Kathie Gates INFLUENZA A AG Negative Normal NEGATIVE SEE COMMENT [facility] Comment on above: Performed By: #### I NFLUAB #### [facility] [address] [place] [address] Dr. Kathie Gates INFLUENZA B AG Negative Normal NEGATIVE SEE COMMENT [facility] Comment on above: Performed By: #### I NFLUAB #### [facility] [address] [place] [address] Dr. Kathie Gates INTERNAL CONTROLS Within Normal Limits Normal Wi thin Normal Limits [facility] Comment on above: Performed By: #### I NFLUAB #### [facility] [address] [place] [address] Dr. Kathie Gates STREPT SCREENon 02-17-2022 STREP SCREEN A Negative Normal NEGATIVE [facility] Comment on above: Performed By: #### S SCRN, GRASTCX ####[facility] [address] [address]Dr. Kathie Gates CBC AUTO DIFFon 11-24-2021 BASO # 0.0 103/ul Normal 0.0-0.1 [facility] Comment on above: Performed By: #### C BC #### [facility] [address] [place] [address] Dr. Kathie Gates Basophils/100 WBC (Bld) 0.2 % Normal 0.2-2.0 [facility] Comment on above: Performed By: #### C BC #### [facility] [address] [place] [address] Dr. Kathie Gates EO # 0.1 103/ul Normal 0.0-0.7 [facility] Comment on above: Performed By: #### C BC #### [facility] [address] [place] [address] Dr. Kathie Gates Eosinophils/100 WBC (Bld) 1.1 % Normal 0.9-7.0 [facility] Comment on above: Performed By: #### C BC #### [facility] [address] [place] [address] Dr. Kathie Gates Erythrocyte distribution width (RBC) [Ratio] 12.0 % Normal 11.0-15.0 [facility] Comment on above: Performed By: #### C BC #### [facility] [address] [place] [address] Dr. Kathie Gates Hematocrit (Bld) [Volume fraction] 36.8 % Normal 36.0-48.0 [facility] Comment on above: Performed By: #### C BC #### [facility] [address] [place] [address] Dr. Kathie Gates Hemoglobin (Bld) [Mass/Vol] 12.7 g/dL Normal 12.0-16.0 [facility] Comment on above: Performed By: #### C BC #### [facility] [address] [place] [address] Dr. Kathie Gates IG # 0.01 10e3/ul Normal 0.00-0.03 [facility] Comment on above: Performed By: #### C BC #### [facility] [address] [place] [address] Dr. Kathie Gates IG % 0.2 % Normal 0.0-0.5 [facility] Comment on above: Performed By: #### C BC #### [facility] [address] [place] [address] Dr. Kathie Gates LYMPH # 1.2 103/ul Normal 1.2-3.8 [facility] Comment on above: Performed By: #### C BC #### [facility] [address] [place] [address] Dr. Kathie Gates Lymphocytes/100 WBC (Bld) 18.3 % Critically low 20.5-60.0 [facility] Comment on above: Performed By: #### C BC #### [facility] [address] [place] [address] Dr. Kathie Gates MANUAL DIFF REQ NO Normal [facility] Comment on above: Performed By: #### C BC #### [facility] [address] [place] [address] Dr. Kathie Gates MCH (RBC) [Entitic mass] 31.9 pg Normal 26.7-34.0 [facility] Comment on above: Performed By: #### C BC #### [facility] [address] [place] [address] Dr. Kathie Gates MCHC (RBC) [Mass/Vol] 34.5 g/dL Normal 29.9-35.2 [facility] Comment on above: Performed By: #### C BC #### [facility] [address] [place] [address] Dr. Kathie Gates MCV (RBC) [Entitic vol] 92.5 fL Normal 81.0-99.0 [facility] Comment on above: Performed By: #### C BC #### [facility] [address] [place] [address] Dr. Kathie Gates MONO # 0.5 103/ul Normal 0.3-0.8 [facility] Comment on above: Performed By: #### C BC #### [facility] [address] [place] [address] Dr. Kathie Gates Monocytes/100 WBC (Bld) 7.6 % Normal 1.7-12.0 [facility] Comment on above: Performed By: #### C BC #### [facility] [address] [place] [address] Dr. Kathie Gates NEUT # 4.8 103/ul Normal 1.4-6.5 [facility] Comment on above: Performed By: #### C BC #### [facility] [address] [place] [address] Dr. Kathie Gates Neutrophils/100 WBC (Bld) 72.6 % Normal 43.0-75.0 [facility] Comment on above: Performed By: #### C BC #### [facility] [address] [place] [address] Dr. Kathie Gates Platelet mean volume (Bld) [Entitic vol] 10.1 fL Normal 9.5-13.5 [facility] Comment on above: Performed By: #### C BC #### [facility] [address] [address] [address] Kathie Gates PLT 180 103/ul Normal 150-450 [facility] Comment on above: Performed By: #### C BC #### [facility] [address] [address] [address] Kathie Gates RBC 3.98 106/ul Critically low 4.20-5.40 [facility] Comment on above: Performed By: #### C BC #### [facility] [address] [address] [address] Kathie Gates WBC 6.6 103/ul Normal 4.0-11.0 [facility] Comment on above: Performed By: #### C BC #### [facility] [address] [address] [address] Kathie Gates ER URINE PROFILEon 2 Bilirubin Ql (U) Negative Normal NEGATIVE [facility] Comment on above: Performed By: #### P REGU, ERUR ####[facility] [address] [address]Dr. Kathie Gates Clarity (U) CLEAR Normal CLEAR [facility] Comment on above: Performed By: #### P REGU, ERUR ####[facility] [address] [id number]. Kathie Gates Color (U) LT. YELLOW Normal YELLOW [facility] Comment on above: Performed By: #### P REGU, ERUR ####[facility] [address] [id number]. Kathie Gates ERUAHD A micrscopic examina tion will be performed if indicated. Normal [facility] Comment on above: Performed By: #### P REGU, ERUR ####[facility] [address] [id number] Gates Glucose Ql (U) Negative Normal NEGATIVE [facility] Comment on above: Performed By: #### P REGU, ERUR ####[facility] [address] [place], [place] [address]Dr. Kathie Gates Hemoglobin Ql (U) Negative Normal NEGATIVE [facility] Comment on above: Performed By: #### P REGU, ERUR ####[facility] [address] [place], [place] [address]Dr. Debbieangelic Gates Ketones Ql (U) Negative Normal NEGATIVE [facility] Comment on above: Performed By: #### P REGU, ERUR ####[facility] [address] [place], [place] [address]Dr. Debbieangelic Kody LEUKOCYTES Negative Normal NEGATIVE [facility] Comment on above: Performed By: #### P REGU, ERUR ####[facility] [address] [place], [place] [address]Dr. Debbieangelic Gates Nitrite Ql (U) Negative Normal NEGATIVE [facility] Comment on above: Performed By: #### P REGU, ERUR ####[facility] [address] [place], [place] [address]Dr. Kathie Gates pH (U) 6.0 [pH] Normal 5-9 [facility] Comment on above: Performed By: #### P REGU, ERUR ####[facility] [address] [place], [place] [address]Dr. Kathie Gates SPEC GRAVITY <=1.005 Abnormal 1.005-<=1.[address] [facility] Comment on above: Performed By: #### P REGU, ERUR ####[facility] [address] [place], [place] [address]Dr. Kathie Gates UA PROTEIN Negative Normal NEGATIVE/ TRACE [facility] Comment on above: Performed By: #### P REGU, ERUR ####[facility] [address] [place], [place] [address]Dr. Kathie Gates UR MICRO IND NOT INDICATED Normal [facility] Comment on above: Performed By: #### P REGU, ERUR ####[facility] [address] [place], [place] [address]Dr. Kathie Gates Urobilinogen Qn (U) 0.2 {Joann'U}/dL Normal 0.2 - 1. 0 [facility] Comment on above: Performed By: #### P FENG COBBR ####[facility] [address] [address]Dr. Kathie Gates LIPASEon 11-24-2021 Lipase [Catalytic activity/Vol] 125.0 U/L Normal 73.0-393.0 [facility] Comment on above: Performed By: #### C MP, LIPA ####[facility] [address] [address]Dr. Kathie Gates URon 11-24-2021 , QUAL Negative Normal NEGATIVE [facility] Comment on above: Performed By: #### FENG RAMR ####[facility] [address] [place], [place] [address]Dr. Kathie Gates PROF 14(COMP METB)on 022 Albumin [Mass/Vol] 4.2 g/dL Normal 3.4-5.0 [facility] [place] Comment on above: Performed By: #### C MP, LIPA ####[facility] [address] [place], [place] [address]Dr. Kathie Gates Albumin/Globulin [Mass ratio] 1.2 {ratio} Normal [facility] Comment on above: Performed By: #### C MP, LIPA ####[facility] [address] [address]Dr. Kathie Gates ALP [Catalytic activity/Vol] 50 U/L Normal 46-116 [facility] Comment on above: Performed By: #### C MP, LIPA ####[facility] [address] [address]Dr. Kathie Gates ALT [Catalytic activity/Vol] 18 U/L Normal 14-59 [facility] Comment on above: Performed By: #### C MP, LIPA ####[facility] [address] [place], [place] [address]Dr. Kathie Gates Anion gap [Moles/Vol] 11.7 mmol/L Normal [facility] Comment on above: Performed By: #### C MP, LIPA ####[facility] [address] [address]Dr. Kathie Gates AST [Catalytic activity/Vol] 16 U/L Normal 15-37 [facility] Comment on above: Performed By: #### C MP, LIPA ####[facility] [address] [address]Dr. Kathie Gates Bilirubin [Mass/Vol] 0.9 mg/dL Normal 0.2-1.0 [facility] Comment on above: Performed By: #### C MP, LIPA ####[facility] [address] [address]Dr. Kathie Gates Calcium [Mass/Vol] 8.7 mg/dL Normal 8.5-10.1 [facility] [place] Comment on above: Performed By: #### C MP, LIPA ####[facility] [address] [place], [place] [address]Dr. Kathie Gates Chloride [Moles/Vol] 103 mmol/L Normal 98-107 [facility] Comment on above: Performed By: #### C MP, LIPA ####[facility] [address] [place], [place] [address]Dr. Kathie Gates CO2 [Moles/Vol] 27.7 mmol/L Normal 21.0-32.0 [facility] Comment on above: Performed By: #### C MP, LIPA ####[facility] [address] [place], [place] [address]Dr. Kathie Gates Creatinine [Mass/Vol] 0.62 mg/dL Normal 0.55-1.02 [facility] Comment on above: Performed By: #### C MP, LIPA ####[facility] [address] [address]Dr. Kathie Gates EGFR-AF MALAWIAN >60 Normal >=60 [facility] Comment on above: Performed By: #### C MP, LIPA ####[facility] [address] [place], [place] [address]Dr. Kathie Gates EGFR-NON AF MALAWIAN >60 Normal >=60 [facility] Comment on above: Performed By: #### C MP, LIPA ####[facility] [address] [address]Dr. Kathie Gates Globulin (S) [Mass/Vol] 3.5 g/dL Normal [facility] Comment on above: Performed By: #### C MP, LIPA ####[facility] [address] [address]Dr. Kathie Gates Glucose [Mass/Vol] 83 mg/dL Normal 74-106 [facility] [place] Comment on above: Performed By: #### C MP, LIPA ####[facility] [address] [address]Dr. Kathie Gates Potassium [Moles/Vol] 3.4 mmol/L Critically low 3.5-5.1 [facility] Comment on above: Performed By: #### C MP, LIPA ####[facility] [address] [place], [place] [address]Dr. Kathie Gates Protein [Mass/Vol] 7.7 g/dL Normal 6.4-8.2 [facility] Comment on above: Performed By: #### C MP, LIPA ####[facility] [address] [place], [place] [address]Dr. Kathie Gates Sodium [Moles/Vol] 139 mmol/L Normal 136-145 [facility] [place] Comment on above: Performed By: #### C MP, LIPA ####[facility] [address] [place], [place] [address]Dr. Kathie Gates Urea nitrogen [Mass/Vol] 12.0 mg/dL Normal 7.0-18.0 [facility] Comment on above: Performed By: #### C MP, LIPA ####[facility] [address] [place], [place] [address]Dr. Kathie Gates Urea nitrogen/Creatinine [Mass ratio] 19.4 mg/mg Normal [facility] Comment on above: Performed By: #### C MP, LIPA ####[facility] [address] [place], [place] [address]Dr. Kathie Kody XR ABD FLAT UP_PA [place] 11-24 XR [...] by: JACQUIE MANCUSO Date: 2021-11-24 15:38 Normal [facility] US PREG TVon 06-09-2021 US PREG TV [...] MARANDA PEREYRA Date: 2021-06-09 16:03 Normal [facility] CBC AUTO DIFFon 05-06-2021 BASO # 0.0 103/ul Normal 0.0-0.1 [facility] Comment on above: Performed By: #### C BC ####[facility] [address] [id number]. Kathie Gates Basophils/100 WBC (Bld) 0.2 % Normal 0.2-2.0 [facility] Comment on above: Performed By: #### C BC ####[facility] [address] [id number] Gates EO # 0.1 103/ul Normal 0.0-0.7 [facility] Comment on above: Performed By: #### C BC ####[facility] [address] [address]Dr. Kathie Gates Eosinophils/100 WBC (Bld) 1.0 % Normal 0.9-7.0 [facility] Comment on above: Performed By: #### C BC ####[facility] [address] [address]Dr. Kathie Gates Erythrocyte distribution width (RBC) [Ratio] 12.3 % Normal 11.0-15.0 [facility] Comment on above: Performed By: #### C BC ####[facility] [address] [place], [place] [address]Dr. Kathie Gates Hematocrit (Bld) [Volume fraction] 35.5 % Critically low 36.0-48.0 [facility] Comment on above: Performed By: #### C BC ####[facility] [address] [place], [place] [address]Dr. Kathie Gates Hemoglobin (Bld) [Mass/Vol] 12.0 g/dL Normal 12.0-16.0 [facility] Comment on above: Performed By: #### C BC ####[facility] Cyw[address]tv[address] [place], [place] [address]Dr. Kathie Gates IG # 0.02 10e3/ul Normal 0.00-0.03 [facility] Comment on above: Performed By: #### C BC ####[facility] R[address] [place], [place] [address]Dr. Kathie Gates IG % 0.3 % Normal 0.0-0.5 The [facility] Comment on above: Performed By: #### C BC ####[facility] Cfsejmfzrz[address] [place], [place] [address]Dr. Kathie Gates LYMPH # 1.7 103/ul Normal 1.2-3.8 The [facility] Comment on above: Performed By: #### C BC ####[facility] Furomkochf[address] [place], [place] [address]Dr. Kathie Gates Lymphocytes/100 WBC (Bld) 26.9 % Normal 20.5-60.0 The [facility] Comment on above: Performed By: #### C BC ####[facility] [address] [place] [id number]. Kathie Gates MANUAL DIFF REQ NO Normal [facility] Comment on above: Performed By: #### C BC ####[facility] Qftgrwaith[address] [place] [id number]. Kathie Gates MCH (RBC) [Entitic mass] 31.2 pg Normal 26.7-34.0 [facility] Comment on above: Performed By: #### C BC ####[facility] [address]osioryn[address] [place] [id number]. Kathie Gates MCHC (RBC) [Mass/Vol] 33.8 g/dL Normal 29.9-35.2 The [facility] Comment on above: Performed By: #### C BC ####[facility] Poezblaawg[address] [place], [place] [address]Dr. Kathie Gates MCV (RBC) [Entitic vol] 92.2 fL Normal 81.0-99.0 [facility] Comment on above: Performed By: #### C BC ####[facility] [address] [place], [place] [id number]. Kathie Gates MONO # 0.4 103/ul Normal 0.3-0.8 [facility] Comment on above: Performed By: #### C BC ####[facility] Esw[address]pjkrz[address] [place], [place] [address]Dr. Kathie Gates Monocytes/100 WBC (Bld) 6.0 % Normal 1.7-12.0 The [facility] Comment on above: Performed By: #### C BC ####[facility] [address]zzxhujpi[address] [place], [place] [address]Dr. Kathie Gates NEUT # 4.0 103/ul Normal 1.4-6.5 The [facility] Comment on above: Performed By: #### C BC ####[facility] F[address] [place], [place] [address]Dr. Kathie Gates Neutrophils/100 WBC (Bld) 65.6 % Normal 43.0-75.0 The [facility] Comment on above: Performed By: #### C BC ####[facility] Zvxluqzzhj[address] [place] [id number]. Debbieangelic Kody Platelet mean volume (Bld) [Entitic vol] 9.9 fL Normal 9.5-13.5 [facility] Comment on above: Performed By: #### C BC ####[facility] R[address]vwxx3[address] [place] [address]Dr. Debbieangelic Kody PLT 244 103/ul Normal 150-450 [facility] Comment on above: Performed By: #### C BC ####[facility] Uqmvzbctei[address] [place] [address]Dr. Kathie Gates RBC 3.85 106/ul Critically low 4.20-5.40 [facility] Comment on above: Performed By: #### C BC ####[facility] [address] [place] [address]Dr. Kathie Gates WBC 6.1 103/ul Normal 4.0-11.0 [facility] Comment on above: Performed By: #### C BC ####[facility] Hbnubsgigz65[address] [place] [address]Dr. Kathie Gates FERRITINon 05-06-2021 Ferritin [Mass/Vol] 24.0 ng/mL Normal 6.2-137.0 [facility] Comment on above: Performed By: #### V ITAD, IRON, VITB12, FT4, FERR #### [facility] Laboratory [address] [address] [address] Kathie Gates FREE T4on 05-06-2021 Free T4 [Mass/Vol] 1.19 ng/dL Normal 0.78-2.19 [facility] [place] Comment on above: Performed By: #### V ITAD, IRON, VITB12, FT4, FERR #### [facility] Laboratory [address] [address] [address] Kathie Gates IRONon 05-06-2021 Iron [Mass/Vol] 39.0 ug/dL Normal 37.0-170.0 [facility] Comment on above: Performed By: #### V ITAD, IRON, VITB12, FT4, FERR #### [facility] Laboratory [address] [place], [place] [address] Dr. Kathie Gates PROF 14(COMP METB)on 022 Albumin [Mass/Vol] 3.9 g/dL Normal 3.5-5.0 [facility] [place] Comment on above: Performed By: #### T JARETT, CMP ####[facility] X[address]xk[address] [place] [id number]. Kathie Gates Albumin/Globulin [Mass ratio] 1.1 {ratio} Normal [facility] Comment on above: Performed By: #### T JARETT, CMP ####[facility] [address] [place] [address]Dr. Kathie Gates ALP [Catalytic activity/Vol] 62 U/L Normal 38-126 [facility] Comment on above: Performed By: #### T JARETT, CMP ####[facility] Q[address]xv35[address] [place] [address]Dr. Kathie Gates ALT [Catalytic activity/Vol] 16 U/L Normal 9-52 [facility] Comment on above: Performed By: #### T JARETT, CMP ####[facility] M[address]vdtnxnx[address] [place] [address]Dr. Kathie Gates Anion gap [Moles/Vol] 12.0 mmol/L Normal [facility] Comment on above: Performed By: #### T JARETT, CMP ####[facility] Kzhfilztgp28[address] [place] [address]Dr. Kathie Gates AST [Catalytic activity/Vol] 16 U/L Normal 14-36 [facility] Comment on above: Performed By: #### T JARETT, CMP ####[facility] [address]scchztiy[address] [place] [address]Dr. Kathie Gates Bilirubin [Mass/Vol] 0.6 mg/dL Normal 0.2-1.3 [facility] Comment on above: Performed By: #### T JARETT, CMP ####[facility] [address]oy[address] [place] [address]Dr. Kathie Gates Calcium [Mass/Vol] 8.9 mg/dL Normal 8.4-10.2 The [facility] Comment on above: Performed By: #### T SH, CMP ####[facility] [address]amsxftqq[address] [place] [address]Dr. Kathie Gates Chloride [Moles/Vol] 105 mmol/L Normal 98-107 [facility] Comment on above: Performed By: #### T SH, CMP ####[facility] [address]fq[address] [place] [address]Dr. Kathie Gates CO2 [Moles/Vol] 28.4 mmol/L Normal 22.0-30.0 [facility] Comment on above: Performed By: #### T SH, CMP ####[facility] Cow[address]lszc[address] [place], [place] [address]Dr. Kathie Gates Creatinine [Mass/Vol] 0.61 mg/dL Normal 0.52-1.04 [facility] Comment on above: Performed By: #### T SH, CMP ####[facility] Mvnzkvgdgq[address] [place], [place] [address]Dr. Kathie Gates EGFR-AF MALAWIAN >60 Normal >=60 [facility] Comment on above: Performed By: #### T SH, CMP ####[facility] G[address]pfbxb[address] [place], [place] [address]Dr. Kathie Gates EGFR-NON AF MALAWIAN >60 Normal >=60 [facility] Comment on above: Performed By: #### T SH, CMP ####[facility] E[address]xzfquhc[address] [place], [place] [address]Dr. Kathie Gates Globulin (S) [Mass/Vol] 3.6 g/dL Normal [facility] Comment on above: Performed By: #### T SH, CMP ####[facility] [address]zxzy[address] [place], [place] [address]Dr. Kathie Gates Glucose [Mass/Vol] 82 mg/dL Normal 74-106 The [facility] Comment on above: Performed By: #### T SH, CMP ####[facility] Bhwwzzzhkr[address] [place], [place] [address]Dr. Kathie Gates Potassium [Moles/Vol] 4.4 mmol/L Normal 3.4-5.0 [facility] Comment on above: Performed By: #### T SH, CMP ####[facility] M[address]yrzv[address] [place] [address]Dr. Kathie Gates Protein [Mass/Vol] 7.5 g/dL Normal 6.1-8.2 [facility] [place] Comment on above: Performed By: #### T SH, CMP ####[facility] [address]it[address] [place] [address]Dr. Kathie Gates Sodium [Moles/Vol] 141 mmol/L Normal 137-145 [facility] Comment on above: Performed By: #### T SH, CMP ####[facility] [address]vx[address]dvu[address] [place], [place] [address]Dr. Kathie Gates Urea nitrogen [Mass/Vol] 19.0 mg/dL Critically high 7.0-17.0 [facility] Comment on above: Performed By: #### T JARETT, CMP ####[facility] Yexk[address]lmip[address] [place], [place] [address]Dr. Kathie Gates Urea nitrogen/Creatinine [Mass ratio] 31.1 mg/mg Normal The [facility] Comment on above: Performed By: #### T JARETT, CMP ####[facility] O[address]fqj[address] [place], [place] [address]Dr. Kathie Gates TSHon 05-06-2021 TSH 1.008 uIU/mL Normal 0.470-4.680 [facility] Comment on above: Performed By: #### T JARETT, CMP ####[facility] Eqposoqkvi[address] [place], [place] [address]Dr. Kathie Gates TSH RANGE SEE BELOW Normal The [facility] Comment on above: Result Comment: <0.3 4 UIU/ml HYPERTHYROID 0.34-5.60 UIU/ml EUTHYROID >5.60 UIU/ml HYPOTHYROID Performed By: #### T SH, CMP ####[facility] Mmfhutdxob[address] [place], [place] [address]Dr. Kathie Gates VITAMIN B12on 05-06-2021 Cobalamin (Vitamin B12) [Mass/Vol] 413.0 pg/mL Normal 239.0-931.0 [facility] Comment on above: Performed By: #### V ITAD, IRON, VITB12, FT4, FERR #### [facility] Laboratory [address] [address] [address] Kathie Gates VITAMIN D 25 OHon 05-06-2021 VIT D 25-OH 45.0 ng/mL Normal [facility] Comment on above: Performed By: #### V ITAD, IRON, VITB12, FT4, FERR #### [facility] Laboratory [address] [address] [address] Kathie Gates VIT D RANGES SEE BELOW Normal [facility] Comment on above: Result Comment: <20 ng/mL Vit D deficient 20 - <30 ng/mL Vit D insufficient 30 - 100 ng/mL Vit D sufficient >100 ng/mL Potential Toxicity Performed By: #### V ITAD, IRON, VITB12, FT4, FERR #### [facility] Laboratory [address] [address] [address] Kathie Gates COVID Quick Testingon 2020 Result Negative [employer] Other Quick Strepon 12-24-2020 S. pyogenes Org specific cx Ql (Throat) Negative [employer] Other Quick Strep [employer] Other CBC Auto Differentialon 01-13 Basophils (Bld) [#/Vol] 10*3/uL [facility], [place] Basophils/100 WBC (Bld) 0 % 0 - 2 % [place], [place] Differential Type NOT REPORTED [place] Eosinophils (Bld) [#/Vol] 0.09 10*3/uL [place] Eosinophils/100 WBC (Bld) 1 % 1 - 4 % [place] Erythrocyte distribution width (RBC) [Ratio] 12.2 % 11.8 - 14.4 % [place] Hematocrit (Bld) [Volume fraction] 39.6 % 36.3 - 47.1 % [place] Hemoglobin (Bld) [Mass/Vol] 13.3 g/dL 11.9 - 15.1 g/dL [place] Immature granulocytes (Bld) [#/Vol] 10*3/uL [place] Immature granulocytes (Bld) [#/Vol] 0 % 0 [place] Interpretation and review of laboratory results Abnormal [place] Lymphocytes (Bld) [#/Vol] 1.15 10*3/uL [place] Lymphocytes/100 WBC (Bld) 14 % Low 24 - 43 % [place] MCH (RBC) [Entitic mass] 31.4 pg 25.2 - 33.5 pg [place] MCHC (RBC) [Mass/Vol] 33.6 g/dL 28.4 - 34.8 g/dL [place] MCV (RBC) [Entitic vol] 93.6 fL 82.6 - 102.9 fL [place] Monocytes (Bld) [#/Vol] 0.61 10*3/uL [place] Monocytes/100 WBC (Bld) 7 % 3 - 12 % [place] Platelet mean volume (Bld) [Entitic vol] 9.2 fL 8.1 - 13.5 fL [place] Platelets (Bld) [#/Vol] NOT REPORTED [place] Platelets (Bld) [#/Vol] 256 10*3/uL [place] RBC (Bld) [#/Vol] 4.23 10*6/uL 3.95 - 5.1 1 m/uL [place] RBC morphology finding Nom (Bld) NOT REPORTED [place] Segmented neutrophils/100 WBC (Bld) 78 % High 36 - 65 % [place] Segs Absolute 6.58 [place] WBC (Bld) [#/Vol] 8.5 10*3/uL [place] WBC (Bld) [#/Vol] 0.0 10*3/uL 0.0 per 10 0 WBC [place] WBC Morphology NOT REPORTED [place] CBC with Diffon 01-28-2020 Abs. Basophil <0.03 Normal 0.00-0.20 [facility] Comment on above: Performed By: #### C P, CDP, LIP #### [address] [place] [address] Librarian Special Collections: Lei Fitzgerald MD Abs.Imm.Granulocyte <0.03 Normal 0.00-0.30 [facility] Comment on above: Performed By: #### C P, CDP, LIP #### [address] [place] [address] Librarian Special Collections: Lei Fitzgerald MD Abs.Neutrophil (Seg) 6.58 k/uL Normal 1.50-8.10 [facility] Comment on above: Performed By: #### C P, CDP, LIP #### [address] [place] [address] Librarian Special Collections: Lei Fitzgerald MD Basophils/100 WBC (Bld) 0 % Normal 0-2 [facility] Comment on above: Performed By: #### C P, CDP, LIP #### [address] [place] [address] Librarian Special Collections: Lei Fitzgerald MD Eosinophils (Bld) [#/Vol] 0.09 10*3/uL Normal 0.00-0.44 [facility] Comment on above: Performed By: #### C P, CDP, LIP #### [address] [place] [address] Librarian Special Collections: Lei Fitzgerald MD Eosinophils/100 WBC (Bld) 1 % Normal 1-4 [facility] Comment on above: Performed By: #### C P, CDP, LIP #### [address] [place] [address] Librarian Special Collections: Lei Fitzgerald MD Erythrocyte distribution width (RBC) [Ratio] 12.2 % Normal 11.8-14.4 [facility] Comment on above: Performed By: #### C P, CDP, LIP #### [facility] [address] [place], [facility]83 Librarian Special Collections: Lei Fitzgerald MD Hematocrit (Bld) [Volume fraction] 39.6 % Normal 36.3-47.1 [facility] Comment on above: Performed By: #### C P, CDP, LIP #### [facility] [address] [place] [facility]83 Librarian Special Collections: Lei Fitzgerald MD Hemoglobin (Bld) [Mass/Vol] 13.3 g/dL Normal 11.9-15.1 [facility] Comment on above: Performed By: #### C P, CDP, LIP #### [facility] [address] [place] [facility]83 Librarian Special Collections: Lei Fitzgerald MD Immature granulocytes (Bld) [#/Vol] 0 % Normal 0 [facility] Comment on above: Performed By: #### C P, CDP, LIP #### [facility] [address] [place], [facility]83 Librarian Special Collections: Lei Fitzgerald MD Lymphocytes (Bld) [#/Vol] 1.15 10*3/uL Normal 1.10-3.70 [facility] Comment on above: Performed By: #### C P, CDP, LIP #### [address] [place] [facility]83 Librarian Special Collections: Lei Fitzgerald MD Lymphocytes/100 WBC (Bld) 14 % Low 24-43 [facility] Comment on above: Performed By: #### C P, CDP, LIP #### [facility] [address] [place] [facility]83 Librarian Special Collections: Lei Fitzgerald MD MCH (RBC) [Entitic mass] 31.4 pg Normal 25.2-33.5 [facility] Comment on above: Performed By: #### C P, CDP, LIP #### [facility] [address] [place] [facility]83 Librarian Special Collections: Lei Fitzgerald MD MCHC (RBC) [Mass/Vol] 33.6 g/dL Normal 28.4-34.8 [facility] Comment on above: Performed By: #### C P, CDP, LIP #### [facility] [address] [place], [place] [address] Librarian Special Collections: Lei Fitzgerald MD MCV (RBC) [Entitic vol] 93.6 fL Normal 82.6-102.9 [facility] Comment on above: Performed By: #### C P, CDP, LIP #### [facility] [address] [place] [address] Librarian Special Collections: Lei Fitzgerald MD Monocytes (Bld) [#/Vol] 0.61 10*3/uL Normal 0.10-1.20 [facility] Comment on above: Performed By: #### C P, CDP, LIP #### [facility] [address] [place], [facility]83 Librarian Special Collections: Lei Fitzgerald MD Monocytes/100 WBC (Bld) 7 % Normal 3-12 [facility] Comment on above: Performed By: #### C P, CDP, LIP #### [address] [place], [place] [address] Librarian Special Collections: Lei Fitzgerald MD Neutrophil (Seg) 78 % High 36-65 [facility] Comment on above: Performed By: #### C P, CDP, LIP #### [facility] [address] [place], [place] [address] Librarian Special Collections: Lei Fitzgerald MD NRBC Automated 0.0 per 100 WBC Normal 0.0 [facility] Comment on above: Performed By: #### C P, CDP, LIP #### [facility] [address] [place], [place] [address] Librarian Special Collections: Lei Fitzgerald MD Platelet mean volume (Bld) [Entitic vol] 9.2 fL Normal 8.1-13.5 [facility] Comment on above: Performed By: #### C P, CDP, LIP #### [facility] [address] [place], [facility]83 Librarian Special Collections: Lei Fitzgerald MD Platelets (Bld) [#/Vol] 256 10*3/uL Normal 138-453 [facility] Comment on above: Performed By: #### C P, CDP, LIP #### [facility] [address] [place], [facility]83 Librarian Special Collections: Lei Fitzgerald MD RBC (Bld) [#/Vol] 4.23 10*6/uL Normal 3.95-5.11 [facility] Comment on above: Performed By: #### C P, CDP, LIP #### [facility] [address] [place], [place] [address] Librarian Special Collections: Lei Fitzgerald MD WBC (Bld) [#/Vol] 8.5 10*3/uL Normal 3.5-11.3 [facility] Comment on above: Performed By: #### C P, CDP, LIP #### [facility] [address] [place], [facility]83 Librarian Special Collections: Lei Fitzgerald MD Auto Diff Performed NOT REPORTED Normal [facility] Comment on above: Performed By: #### C P, CDP, LIP #### [facility] [address] [place], [facility]83 Librarian Special Collections: Lei Fitzgerald MD Platelets (Bld) [#/Vol] NOT REPORTED Normal [facility] Comment on above: Performed By: #### C P, CDP, LIP #### [facility] [address] [place], [facility]83 Librarian Special Collections: Lei Fitzgerald MD RBC morphology finding Nom (Bld) NOT REPORTED Normal [facility] Comment on above: Performed By: #### C P, CDP, LIP #### [facility] [address] [place] [address] Librarian Special Collections: Lei Fitzgerald MD WBC Morphology NOT REPORTED Normal [facility] Comment on above: Performed By: #### C RADHA Restrepo LIP #### [facility] [address] [place] [address] Librarian Special Collections: Lei Fitzgerald MD CT ABDOMEN PELVIS W [...] Michael Bedoya MD 01/28/20 Final result Normal [facility] CT ABDOMEN PELVIS W IV CONTR AST Additional Contrast? Noneon 01-28-2020 EXAMINATION: CT OF T HE ABDOMEN AND PELVIS WITH CONTRAST 01/28/2020 11:08 [...] bowel. There is no acute osseous abnormality. [facility], [place] No acute abdominal o r pelvic abnormality. Small umbilical hernia containing a portion of bowel. Small amount of free fluid in the pelvis that may be physiologic. [place], [place], [facility] Incoming Radiant Results From [email or web address] - 01/28/2020 11:28 AM EST EXAMINATION: CT [...] in the pelvis that may be physiologic. [facility], [place] Comp Metabolic Profon 2019 (cont.) Normal [facility] Comment on above: Result Comment: Aver age GFR for 20-29 years old: 116 mL/min/1.73sq m Chronic Kidney Disease: <60 mL/min/1.73sq m Kidney failure: <15 mL/min/1.73sq m eGFR calculated using average adult body mass. Additional eGFR calculator available at: http://www.[employer].com/multiple_crcl_2012.htm Performed By: #### C RADHA Restrepo, LIP #### [facility] [address] [place] [address] Librarian Special Collections: Lei Fitzgerald MD Albumin [Mass/Vol] 4.6 g/dL Normal 3.5-5.2 [facility] Comment on above: Performed By: #### C PRADHA, LIP #### [facility] [address] [place], [place] [address] Librarian Special Collections: Lei Fitzgerald MD Albumin/Globulin [Mass ratio] 1.7 {ratio} Normal 1.0-2.5 [facility] Comment on above: Performed By: #### C P, CDP, LIP #### [facility] [address] [place] [id number] Librarian Special Collections: Lei Fitzgerald MD Alkaline Phos 70 U/L Normal 35-104 [facility] Comment on above: Performed By: #### C P, CDP, LIP #### [facility] [address] [place], [place] [address] Librarian Special Collections: Lei Fitzgerald MD ALT [Catalytic activity/Vol] 10 U/L Normal 5-33 [facility] Comment on above: Performed By: #### C P, CDP, LIP #### [facility] [address] [place], [place] [address] Librarian Special Collections: Lei Fitzgerald MD Anion gap [Moles/Vol] 11 mmol/L Normal 9-17 [facility] Comment on above: Performed By: #### C P, CDP, LIP #### [facility] [address] [place], [place] [address] Librarian Special Collections: Lei Fitzgerald MD AST [Catalytic activity/Vol] 17 U/L Normal <32 [facility] Comment on above: Performed By: #### C P, CDP, LIP #### [facility] [address] [place], [place] [address] Librarian Special Collections: Lei Fitzgerald MD Bilirubin Ql (U) 1.02 mg/dL Normal 0.3-1.2 [facility] Comment on above: Performed By: #### C P, CDP, LIP #### [facility] [address] [place], [place] [address] Librarian Special Collections: Lei Fitzgerald MD BUN/CRE Ratio 29 High 9-20 [facility] Comment on above: Performed By: #### C P, CDP, LIP #### [facility] [address] [place] [address] Librarian Special Collections: Lei Fitzgearld MD Calcium [Mass/Vol] 9.3 mg/dL Normal 8.6-10.4 [facility] Comment on above: Performed By: #### C P, CDP, LIP #### [facility] [address] [place], [place] [address] Librarian Special Collections: Lei Fitzgerald MD Chloride [Moles/Vol] 101 mmol/L Normal 98-107 [facility] [facility] Comment on above: Performed By: #### C P, CDP, LIP #### [facility] [address] [place], [place] [id number] Librarian Special Collections: Lei Fitzgerald MD CO2 [Moles/Vol] 25 mmol/L Normal 20-31 [facility] Comment on above: Performed By: #### C P, CDP, LIP #### [facility] [address] [place] [address] Librarian Special Collections: Lei Fitzgerald MD Creatinine [Mass/Vol] 0.45 mg/dL Low 0.50-0.90 [facility] Comment on above: Performed By: #### C P, CDP, LIP #### [facility] [address] [place] [address] Librarian Special Collections: Lei Fitzgerald MD GFR, Amer >60 Normal >60 [facility] Comment on above: Performed By: #### C P, CDP, LIP #### [facility] [address] [place] [address] Librarian Special Collections: Lei Fitzgerald MD GFR,non Amer >60 Normal >60 [facility] Comment on above: Performed By: #### C P, CDP, LIP #### [facility] [address] [place], [place] [id number] Librarian Special Collections: Lei Fitzgerald MD Glucose [Mass/Vol] 90 mg/dL Normal 70-99 [facility] Comment on above: Performed By: #### C P, CDP, LIP #### [facility] [address] [place], [place] [address] Librarian Special Collections: Lei Fitzgerald MD Potassium [Moles/Vol] 4.3 mmol/L Normal 3.7-5.3 [facility] Comment on above: Performed By: #### C P, CDP, LIP #### [facility] [address] [place] [address] Librarian Special Collections: Lei Fitzgerald MD Protein [Mass/Vol] 7.3 g/dL Normal 6.4-8.3 [facility] Comment on above: Performed By: #### C P, CDP, LIP #### [facility] [address] [place], [place] [id number] Librarian Special Collections: Lei Fitzgerald MD Sodium [Moles/Vol] 137 mmol/L Normal 135-144 [facility] Comment on above: Performed By: #### C P, CDP, LIP #### [address] [place], [place] [address] Librarian Special Collections: Lei Fitzgerald MD Staging: Normal [facility] Comment on above: Result Comment: Stag e 1: Some kidney damage normal GFR Stage 2: Mild kidney damage GFR 60-89 Stage 3: Moderate kidney damage GFR 30-59 Stage 4: Severe kidney damage GFR 15-29 Stage 5: Severe kidney damage GFR <15 ESRD - chronic treatment by dialysis or transplant Performed By: #### C P, CDP, LIP #### [facility] [address] [place] [address] Librarian Special Collections: Lei Fitzgerald MD Urea nitrogen [Mass/Vol] 13 mg/dL Normal 6-20 [facility] Comment on above: Performed By: #### C P, CDP, LIP #### [facility] [address] [place] [address] Librarian Special Collections: Lei Fitzgerald MD Comprehensive Metabolic Pane [facility] 01-28-2020 Albumin [Mass/Vol] 4.6 g/dL 3.5 - 5.2 g/dL [place] Albumin/Globulin [Mass ratio] 1.7 {ratio} [place] ALP [Catalytic activity/Vol] 70 U/L 35 - 104 U/L [place] ALT [Catalytic activity/Vol] 10 U/L 5 - 33 U/L [place] Anion gap [Moles/Vol] 11 mmol/L 9 - 17 mmol/L [place] AST [Catalytic activity/Vol] 17 U/L <32 [place] Bilirubin Ql (U) 1.02 mg/dL 0.3 - 1.2 mg/dL [place] Bun/Cre Ratio 29 [place] Calcium [Mass/Vol] 9.3 mg/dL 8.6 - 10. 4 mg/dL [place] Chloride [Moles/Vol] 101 mmol/L 98 - 10 7 mmol/L [place] CO2 [Moles/Vol] 25 mmol/L 20 - 31 mmol/L [place] Creatinine [Mass/Vol] 0.45 mg/dL Low 0.5 - 0.9 mg/dL [place] GFR >60 >60 mL/min [place] GFR Non- >60 >60 mL/min [place] Glucose [Mass/Vol] 90 mg/dL 70 - 99 mg/dL [place] Interpretation and review of laboratory results Abnormal [place] Potassium [Moles/Vol] 4.3 mmol/L 3.7 - 5.3 mmol/L [place] Protein [Mass/Vol] 7.3 g/dL 6.4 - 8.3 g/dL [place] Sodium [Moles/Vol] 137 mmol/L 135 - 144 mmol/L [place] Urea nitrogen [Mass/Vol] 13 mg/dL 6 - 20 mg/dL [place] HCG, ,Urineon 01-27 Beta HCG ( test) Ql (U) Negative Normal NEG [facility] Comment on above: Result Comment: Spec imens with hCG levels near the threshold of the test (25 mIU/mL) may give a negative or indeterminate result. In such cases, another test should be performed with a new specimen in 48-72 hours. If early is suspected clinically in this setting, correlation with quantitative serum b-hCG level is suggested. [facility] has confirmed the use of plasma for this test. This has not been cleared or approved by the U.S. Food and Drug Administration. The FDA has determined that such clearance is not necessary. Performed By: #### U MILIND LYLES, CG #### [facility] [address] [address] Librarian Special Collections: Lei Fitzgerald MD Lactic Acidon 01-28-2020 Lactate [Moles/Vol] 1.1 mmol/L Normal 0.5-2.2 [facility] Comment on above: Performed By: #### L ACTIC #### [facility] [address] [address] Librarian Special Collections: Lei Fitzgerald MD Lactate [Moles/Vol] NOT REPORTED Normal 0.7-2.1 [facility] Comment on above: Performed By: #### L ACTIC #### [facility] [address] [place] [address] Librarian Special Collections: Lei Fitzgerald MD Lactic Acid, Plasmaon 2019 Lactate [Moles/Vol] 1.1 mmol/L 0.5 - 2. 2 mmol/L [place] Lactic Acid, Whole Blood NOT REPORTED 0.7 - 2.1 mmol/L [place] Lipaseon 01-28-2020 Lipase [Catalytic activity/Vol] 33 U/L Normal 13-60 [facility] Comment on above: Performed By: #### C P, CDP, LIP #### [facility] [address] [place] [address] Librarian Special Collections: Lei Fitzgerald MD Lipase [Catalytic activity/Vol] 33 U/L 13 - 60 U/L [place] Metabolic Panelon 01-28-2020 GFR/1.73 sq M predicted among non-blacks MDRD (S/P/Bld) [Vol rate/Area] [place] Comment on above: Stage 1: Some [...] body mass. Additional eGFR calculator available at: http://www.[employer]/multiple_crcl_2012.htm Microscopic Urinalysison Amorphous, UA NOT REPORTED None [place] Bacteria, UA NOT REPORTED None [place] Casts UA NOT REPORTED /LPF [place] Crystals, UA NOT REPORTED None /HPF [place] Epithelial Cells UA 0 TO 2 [place] Interpretation and review of laboratory results Abnormal [place] Mucus, UA TRACE Abnormal None [place] Other Observations UA NOT REPORTED NOT REQ. [place] RBC (U) [#/Vol] None [place] Renal Epithelial, UA NOT REPORTED 0 /HPF [place], [place] Trichomonas, UA NOT REPORTED None [place] WBC, UA None [place] Yeast, UA NOT REPORTED None [place], [place] - [place] , Urineon 0 Beta HCG ( test) Ql (U) Negative NEGATIVE [place] Comment on above: Specimens with hCG l evels near the threshold of the test (25 mIU/mL) may give a negative or indeterminate result. In such cases, another test should be performed with a new specimen in 48-72 hours. If early is suspected clinically in this setting, correlation with quantitative serum b-hCG level is suggested. [facility] has confirmed the use of plasma for this test. This has not been cleared or approved by the U.S. Food and Drug Administration. The FDA has determined that such clearance is not necessary. UA w/Reflex Cultureon 2019 Acetoacetic Acid,Ur TRACE Abnormal NEG [facility] Comment on above: Performed By: #### U MICAO, UAX, UHCG #### [facility] [address] [place] [address] Dr. [place], [place] [id number] Librarian Special Collections: Lei Fitzgerald MD Bilirubin, SemiQt,Ur Negative Normal [facility] Comment on above: Performed By: #### U MICAO, UAX, UHCG #### [address] [place], [facility]83 Librarian Special Collections: Lei Fitzgerald MD Color (U) YELLOW Normal YEL [facility] Comment on above: Performed By: #### U MICAO, UAX, UHCG #### [address] [place], [place] [address]83 Librarian Special Collections: Lei Fitzgerald MD Glucose Ql (U) Negative Normal NEG [facility] Comment on above: Performed By: #### U MICAO, UAX, UHCG #### [address] [place], [place] [address]83 Librarian Special Collections: Lei Fitzgerald MD Hemoglobin, Ur Negative Normal NEG [facility] Comment on above: Performed By: #### U MICAO, UAX, UHCG #### [address] [place], [facility]83 Librarian Special Collections: Lei Fitzgerald MD Leukocyte esterase Test strip Ql (U) Negative Normal [facility] Comment on above: Performed By: #### U MICAO, UAX, UHCG #### [facility] [address] [place], [place] [address] Librarian Special Collections: Lei Fitzgerald MD Nitrite,Ur Negative Normal NEG [facility] Comment on above: Performed By: #### U MICAO, UAX, UHCG #### [facility] [address] [place], [place] [address]283 Librarian Special Collections: Lei Fitzgerald MD pH (U) 6.0 [pH] Normal 5.0-9.0 [facility] Comment on above: Performed By: #### U MICAO, UAX, UHCG #### [facility] [address] [place], [place] [address] Librarian Special Collections: Lei Fitzgerald MD Protein Ql (U) Negative Normal NEG [facility] Comment on above: Performed By: #### U MICAO, UAX, UHCG #### [facility] [address] [place], [facility]83 Librarian Special Collections: Lei Fitzgerald MD Specific gravity (U) [Rel density] >1.030 High 1.010-1.020 [facility] Comment on above: Performed By: #### U MICAO, UAX, UHCG #### [facility] [address] [place] [address] Dr. [place], [place] 9690683 Librarian Special Collections: Lei Fitzgerald MD Turbidity CLEAR Normal CLEAR [facility] Comment on above: Performed By: #### U MICAO, UAX, UHCG #### [facility] [address] [place], [place] [address]83 Librarian Special Collections: Lei Fitzgerald MD Urobilinogen,Ur Normal Normal NORM [facility] Comment on above: Performed By: #### U MICAO, UAX, UHCG #### [facility] [address] [place], [place] [address] Librarian Special Collections: Lei Fitzgerald MD Comment NOT REPORTED Normal [facility] Comment on above: Performed By: #### U MICAO, UAX, UHCG #### [facility] [address] [place] [address] Librarian Special Collections: Lei Fitzgerald MD Urinalysis Reflex to Culture on 01-28-2020 Bilirubin Urine Negative NEGATIVE [facility] [place] Color, UA YELLOW YELLOW [place] Glucose, Ur Negative NEGATIVE [place] Interpretation and review of laboratory results Abnormal [place] Ketones Ql (U) TRACE Abnormal NEGATIVE [place] Leukocyte esterase Test strip Ql (U) Negative NEGATIVE [place] Nitrite, Urine Negative NEGATIVE [place] pH, UA 6.0 [place] Protein (U) [Mass/Vol] Negative NEGATIVE [place] Specific [place], UA >1.030 [place] Turbidity UA CLEAR CLEAR [place] Urinalysis Comments NOT REPORTED [place] Urine Hgb Negative NEGATIVE [place] Urobilinogen, Urine Normal Normal [place] Urinalysis,Microon 0 ----- Normal [facility] Comment on above: Performed By: #### U MICAO, UAX, [facility] #### [facility] [address] [place] [address] Librarian Special Collections: Lei Fitzgerald MD Epithelial cells LM.HPF (Urine sed) [#/Area] 0 TO 2 Normal 0-25 [facility] Comment on above: Performed By: #### U MICAO, UAX, UHCG #### [facility] [address] [address] Librarian Special Collections: Lei Fitzgerald MD Mucus Strands TRACE Abnormal NONE [facility] Comment on above: Performed By: #### U MICAO, UAX, UHCG #### [facility] [address] [place] [address] Librarian Special Collections: Lei Fitzgerald MD RBC (U) [#/Vol] None Normal 0-2 [facility] Comment on above: Performed By: #### U MICAO, UAX, UHCG #### [facility] [address] [place], [place] [address] Librarian Special Collections: Lei Fitzgerald MD WBC (U) [#/Vol] None Normal 0-5 [facility] Comment on above: Performed By: #### U MICAO, UAX, UHCG #### [facility] [address] [place], [place] [address] Librarian Special Collections: Lei Fitzgerald MD Amorphous sediment LM Ql (Urine sed) NOT REPORTED Normal [facility] Comment on above: Performed By: #### U MICAO, UAX, UHCG #### [address] [place], [place] [address] Librarian Special Collections: Lei Fitzgerald MD Bacteria LM.HPF (Urine sed) [#/Area] NOT REPORTED Normal [facility] Comment on above: Performed By: #### U MICAO, UAX, UHCG #### [address] [place] [address] Librarian Special Collections: Lei Fitzgerald MD Casts LM.LPF (Urine sed) [#/Area] NOT REPORTED Normal [facility] Comment on above: Performed By: #### U MICAO, UAX, UHCG #### [address] [place], [place] [address] Librarian Special Collections: Lei Fitzgerald MD Crystals LM Nom (Urine sed) NOT REPORTED Normal [facility] Comment on above: Performed By: #### U MICAO, UAX, UHCG #### [facility] [address] [address] Librarian Special Collections: Lei Fitzgerald MD Epithelial, Renal NOT REPORTED Normal 0 [facility] Comment on above: Performed By: #### U MICAO, UAX, UHCG #### [facility] [address] [place], [place] [address]83 Librarian Special Collections: Lei Fitzgerald MD Other Observations NOT REPORTED Normal NREQ [facility] Comment on above: Performed By: #### U MICAO, UAX, UHCG #### [facility] [address] [place] 258[address] Librarian Special Collections: Lei Fitzgerald MD Trichomonas NOT REPORTED Normal NONE [facility] Comment on above: Performed By: #### U MICAO, UAX, UHCG #### [facility] [address] [place], [place] 428[address]83 Librarian Special Collections: Lei Fitzgerald MD Yeast LM Ql (Urine sed) NOT REPORTED Normal [facility] Comment on above: Performed By: #### U MICAO, UAX, UHCG #### [facility] [address] [place] [address] Librarian Special Collections: Lei Fitzgerald MD FOOT 3 VIEWSon 05-13-2017 FOOT [address] [id number]: SONIA MISTRY TPhys: JAYSHREE CARIAS C.N.P. ([facility]): 89 Age: 26 Sex: FAcct: [id number] Loc: LABExam Date: 05/13/17 Status: REG CLIRadiology No.: [id number] Number: [id number] # [id number] RAD / FOOT 3 VIEWS LTEXAMINATION: LEFT [...] abnormality.Professional interpretation provided by [facility]-66.Thank you for this referral.< >Reported By: TAYLOR CROUCH D.O.Signed In NovaPro By: TAYLOR CROUCH D.O. << Signature on File>> Reported By: TAYLOR CROUCH D.O. Signed By: TAYLOR CROUCH D.O.Tests performed at:[address] [phone] [facility] 03-26-2017 [facility] DATE OF SERVICE: 03/26/2017A 26-year-old female with [...] or ibuprofen. Follow upas needed. Denisse Lee, [facility]/[id number]: 03/26/2017 12:32DT: 03/27/2017 19:47SSI File#: [id number] #: [id number]/Reviewed by03/29/17 [address] PATIENT NAME: JULYSONIA T1320 [facility] MEDICAL REC #: [id number], [place] [address] STATCARE REPORT STATCARE PHYSICIAN Normal [facility] JACKYNMDenisse [facility] RE[facility] 11-13-2016 Maternal Transport Normal [facility] ([place]) OB Discharge Summaryon 11-11 OB Discharge Summary Normal [facility] ([place]) Depart Summaryon 11-08-2016 Depart Summary Normal [facility] ([place]) OB Progress Noteon 7 OB Progress Note Normal [facility]) Women's Program Inpatient Awan mmaryon 11-08-2016 Women's Program Inpatient Summary Normal [facility]) OB Progress Noteon 7 OB Progress Note Normal [facility] ([place]) OB Progress Noteon 7 OB Progress Note Normal [facility] ([place]) .Auto Diffon 11-05-2016 Basophils Auto #/vol (Bld) 0.00 10 3/mcL Normal 0.00-0.27 [facility] ([place]) Comment on above: Performed By: #### C BC, ADIFF, ANEU, LD, CMP, GFR, FIB, APTT, PRO ####[address] [address] Basophils/100 WBC Auto (Bld) 0.1 % Normal 0.0-2.5 [facility] ([place]) Comment on above: Performed By: #### C BC, ADIFF, ANEU, LD, CMP, GFR, FIB, APTT, PRO ####[address] [address] Eosinophils 0.10 10 3/mcL Normal 0.00-0.65 [facility] ([place]) Comment on above: Performed By: #### C BC, ADIFF, ANEU, LD, CMP, GFR, FIB, APTT, PRO ####[address] [address] Eosinophils/100 leukocytes 1.0 % Normal 0.0-6.0 [facility] ([place]) Comment on above: Performed By: #### C BC, ADIFF, ANEU, LD, CMP, GFR, FIB, APTT, PRO ####[address] [address] Lymphocytes 1.60 10 3/mcL Normal 0.90-4.32 [facility] ([place]) Comment on above: Performed By: #### C BC, ADIFF, ANEU, LD, CMP, GFR, FIB, APTT, PRO ####[address] [address] Lymphocytes/100 leukocytes 10.9 % Low 20.0-40.0 [facility] ([place]) Comment on above: Performed By: #### C BC, ADIFF, ANEU, LD, CMP, GFR, FIB, APTT, PRO ####[address] [address] Monocytes 0.90 10 3/mcL Normal 0.09-1.40 [facility] ([place]) Comment on above: Performed By: #### C BC, ADIFF, ANEU, LD, CMP, GFR, FIB, APTT, PRO ####[address] [address] Monocytes/100 leukocytes 6.2 % Normal 2.0-13.0 [facility] ([place]) Comment on above: Performed By: #### C BC, ADIFF, ANEU, LD, CMP, GFR, FIB, APTT, PRO ####[address] [address] Neutrophils/100 WBC Auto (Bld) 81.8 % High 50.0-75.0 [facility] ([place]) Comment on above: Performed By: #### C BC, ADIFF, ANEU, LD, CMP, GFR, FIB, APTT, PRO ####[address] [address] .GFRon 11-05-2016 eGFR (non-black) mL/min/{1.73_m2} Normal [facility] ([place]) Comment on above: Result Comment: GFR Population [...] ANEU, LD, CMP, GFR, FIB, APTT, PRO ####[address] [address] .NEUABSon 11-05-2016 Neutrophils 11.80 10 3/mcL High 2.25-8.10 [facility] ([place]) Comment on above: Performed By: #### C BC, ADIFF, ANEU, LD, CMP, GFR, FIB, APTT, PRO ####[place] [address] CBCon 11-05-2016 Erythrocyte distribution width Auto Ratio (RBC) 13.9 % Normal 11.5-15.5 [facility] ([place]) Comment on above: Performed By: #### C BC, ADIFF, ANEU, LD, CMP, GFR, FIB, APTT, PRO ####[place] [address] Erythrocytes (RBC) 3.57 10 6/mcL Low 4.10-5.30 [facility] ([place]) Comment on above: Performed By: #### C BC, ADIFF, ANEU, LD, CMP, GFR, FIB, APTT, PRO ####[address] [address] Hematocrit (HCT) 33.1 % Low 34.0-46.0 [facility] ([place]) Comment on above: Performed By: #### C BC, ADIFF, ANEU, LD, CMP, GFR, FIB, APTT, PRO ####[place] [address] Hemoglobin mass conc (Bld) 11.3 G/dL Low 12.0-16.0 [facility] ([place]) Comment on above: Performed By: #### C BC, ADIFF, ANEU, LD, CMP, GFR, FIB, APTT, PRO ####[place] [address] MCH 31.7 pg Normal 27.0-33.0 [facility] ([place]) Comment on above: Performed By: #### C BC, ADIFF, ANEU, LD, CMP, GFR, FIB, APTT, PRO ####[place] [address] MCHC mass conc (RBC) 34.1 G/dL Normal 32.0-36.0 [facility] ([place]) Comment on above: Performed By: #### C BC, ADIFF, ANEU, LD, CMP, GFR, FIB, APTT, PRO ####[place] [address] MCV 92.9 fL Normal 80.0-99.0 [facility] ([place]) Comment on above: Performed By: #### C BC, ADIFF, ANEU, LD, CMP, GFR, FIB, APTT, PRO ####[place] [address] Platelet mean volume (PMV) 7.8 fL Normal 6.6-10.5 [facility] ([place]) Comment on above: Performed By: #### C BC, ADIFF, ANEU, LD, CMP, GFR, FIB, APTT, PRO ####[place] [address] Platelets 159 10 3/mcL Normal 150-450 [facility] ([place]) Comment on above: Performed By: #### C BC, ADIFF, ANEU, LD, CMP, GFR, FIB, APTT, PRO ####[place] [address] WBC (Leukocytes) 14.50 10 3/mcL High 4.50-10.80 [facility] ([place]) Comment on above: Performed By: #### C BC, ADIFF, ANEU, LD, CMP, GFR, FIB, APTT, PRO ####[place] [address] CMPon 11-05-2016 Alanine aminotransferase (ALT) 16 U/L Normal 10-49 [facility] ([place]) Comment on above: Performed By: #### C BC, ADIFF, ANEU, LD, CMP, GFR, FIB, APTT, PRO ####[place] [address] Albumin 2.0 G/dL Low 3.2-4.8 [facility] ([place]) Comment on above: Performed By: #### C BC, ADIFF, ANEU, LD, CMP, GFR, FIB, APTT, PRO ####[place] [address] Albumin/Globulin Ratio 0.6 {ratio} Low 0.9-1.6 [facility] ([place]) Comment on above: Performed By: #### C BC, ADIFF, ANEU, LD, CMP, GFR, FIB, APTT, PRO ####[place] [address] Alk Phos 76 U/L Normal 38-126 [facility] ([place]) Comment on above: Performed By: #### C BC, ADIFF, ANEU, LD, CMP, GFR, FIB, APTT, PRO ####[place] [address] Aspartate aminotransferase (AST) 21 U/L Normal 8-34 [facility] ([place]) Comment on above: Performed By: #### C BC, ADIFF, ANEU, LD, CMP, GFR, FIB, APTT, PRO ####[place] [address] Bili Total 0.6 mg/dL Normal 0.2-1.2 [facility] ([place]) Comment on above: Performed By: #### C BC, ADIFF, ANEU, LD, CMP, GFR, FIB, APTT, PRO ####[place] [address] BUN/Creatinine Ratio 23.3 ratio High 10.0-22.0 [facility] ([place]) Comment on above: Performed By: #### C BC, ADIFF, ANEU, LD, CMP, GFR, FIB, APTT, PRO ####[place] [address] Calcium 7.3 mg/dL Low 8.4-10.1 [facility] ([place]) Comment on above: Performed By: #### C BC, ADIFF, ANEU, LD, CMP, GFR, FIB, APTT, PRO ####[place] [address] Chloride 100 mmol/L Normal 98-110 [facility] ([place]) Comment on above: Performed By: #### C BC, ADIFF, ANEU, LD, CMP, GFR, FIB, APTT, PRO ####[place] [address] CO2 28 mmol/L Normal 22-32 [facility] ([place]) Comment on above: Performed By: #### C BC, ADIFF, ANEU, LD, CMP, GFR, FIB, APTT, PRO ####[place] [address] Creatinine 0.60 mg/dL Normal 0.50-1.20 [facility] ([place]) Comment on above: Performed By: #### C BC, ADIFF, ANEU, LD, CMP, GFR, FIB, APTT, PRO ####[place] [address] Electrolyte Balance 9.0 mEq/L Normal 4.0-15.0 Replaced by [facility] ([place]) Comment on above: Performed By: #### C BC, ADIFF, ANEU, LD, CMP, GFR, FIB, APTT, PRO ####[place] [address] Globulin 3.3 G/dL Normal 1.5-3.8 [facility] ([place]) Comment on above: Performed By: #### C BC, ADIFF, ANEU, LD, CMP, GFR, FIB, APTT, PRO ####[place] [address] Glucose mass conc 85 mg/dL Normal 70-110 [facility] ([place]) Comment on above: Performed By: #### C BC, ADIFF, ANEU, LD, CMP, GFR, FIB, APTT, PRO ####[place] [address] Potassium molar conc 4.3 mmol/L Normal 3.5-5.0 [facility] ([place]) Comment on above: Performed By: #### C BC, ADIFF, ANEU, LD, CMP, GFR, FIB, APTT, PRO ####[place] [address] Protein 5.3 G/dL Low 6.0-8.5 [facility] ([place]) Comment on above: Performed By: #### C BC, ADIFF, ANEU, LD, CMP, GFR, FIB, APTT, PRO ####[place] [address] Sodium 137 mmol/L Normal 136-145 [facility] ([place]) Comment on above: Performed By: #### C BC, ADIFF, ANEU, LD, CMP, GFR, FIB, APTT, PRO ####[place] [address] Urea nitrogen 14.0 mg/dL Normal 8.0-22.0 [facility] ([place]) Comment on above: Performed By: #### C BC, ADIFF, ANEU, LD, CMP, GFR, FIB, APTT, PRO ####[place] [address] Neurocritical Care Physician Progress Noteon 11-05-2016 Neurocritical Care Physician Progress Note Normal [facility] ([place]) LDHon 11-05-2016 LDH 275 U/L High 120-246 [facility] ([place]) Comment on above: Performed By: #### C BC, ADIFF, ANEU, LD, CMP, GFR, FIB, APTT, PRO ####[place] [address] MGon 11-05-2016 Magnesium 5.8 mg/dL Critically abnormal 1.6-2.4 [facility] ([place]) Comment on above: Performed By: #### C BC, ADIFF, ANEU, LD, CMP, GFR, FIB, APTT, PRO ####[place] [address] OB Anesthesia Procedure Prog ress Noteon 11-05-2016 OB Anesthesia Procedure Progress Note Normal [facility] ([place]) OB Progress Noteon 7 OB Progress Note Normal [facility] ([place]) .Auto Diffon 11-04-2016 Basophils Auto #/vol (Bld) 0.00 10 3/mcL Normal 0.00-0.27 [facility] ([place]) Comment on above: Performed By: #### C BC, ADIFF, ANEU, LD, CMP, GFR, FIB, APTT, PRO ####[address] [address] Basophils/100 WBC Auto (Bld) 0.1 % Normal 0.0-2.5 [facility] ([place]) Comment on above: Performed By: #### C BC, ADIFF, ANEU, LD, CMP, GFR, FIB, APTT, PRO ####[address] [address] Eosinophils 0.10 10 3/mcL Normal 0.00-0.65 [facility] ([place]) Comment on above: Performed By: #### C BC, ADIFF, ANEU, LD, CMP, GFR, FIB, APTT, PRO ####[address] [address] Eosinophils/100 leukocytes 0.5 % Normal 0.0-6.0 [facility] ([place]) Comment on above: Performed By: #### C BC, ADIFF, ANEU, LD, CMP, GFR, FIB, APTT, PRO ####[address] [address] Lymphocytes 1.80 10 3/mcL Normal 0.90-4.32 [facility] ([place]) Comment on above: Performed By: #### C BC, ADIFF, ANEU, LD, CMP, GFR, FIB, APTT, PRO ####[address] [address] Lymphocytes/100 leukocytes 10.4 % Low 20.0-40.0 [facility] ([place]) Comment on above: Performed By: #### C BC, ADIFF, ANEU, LD, CMP, GFR, FIB, APTT, PRO ####[address] [address] Monocytes 1.00 10 3/mcL Normal 0.09-1.40 [facility] ([place]) Comment on above: Performed By: #### C BC, ADIFF, ANEU, LD, CMP, GFR, FIB, APTT, PRO ####[address] [address] Monocytes/100 leukocytes 5.4 % Normal 2.0-13.0 [facility] ([place]) Comment on above: Performed By: #### C BC, ADIFF, ANEU, LD, CMP, GFR, FIB, APTT, PRO ####[address] [address] Neutrophils/100 WBC Auto (Bld) 83.6 % High 50.0-75.0 [facility] ([place]) Comment on above: Performed By: #### C BC, ADIFF, ANEU, LD, CMP, GFR, FIB, APTT, PRO ####[address] [address] Basophils Auto #/vol (Bld) 0.00 10 3/mcL Normal 0.00-0.27 [facility] ([place]) Comment on above: Performed By: #### C BC, ADIFF, ANEU, LD, CMP, GFR, FIB, APTT, PRO ####[address] [address] Basophils/100 WBC Auto (Bld) 0.2 % Normal 0.0-2.5 [facility] ([place]) Comment on above: Performed By: #### C BC, ADIFF, ANEU, LD, CMP, GFR, FIB, APTT, PRO ####[address] [address] Eosinophils 0.10 10 3/mcL Normal 0.00-0.65 [facility] ([place]) Comment on above: Performed By: #### C BC, ADIFF, ANEU, LD, CMP, GFR, FIB, APTT, PRO ####[address] [address] Eosinophils/100 leukocytes 0.6 % Normal 0.0-6.0 [facility] ([place]) Comment on above: Performed By: #### C BC, ADIFF, ANEU, LD, CMP, GFR, FIB, APTT, PRO ####[address] [address] Lymphocytes 1.60 10 3/mcL Normal 0.90-4.32 [facility] ([place]) Comment on above: Performed By: #### C BC, ADIFF, ANEU, LD, CMP, GFR, FIB, APTT, PRO ####[address] [address] Lymphocytes/100 leukocytes 11.4 % Low 20.0-40.0 [facility] ([place]) Comment on above: Performed By: #### C BC, ADIFF, ANEU, LD, CMP, GFR, FIB, APTT, PRO ####[address] [address] Monocytes 0.80 10 3/mcL Normal 0.09-1.40 [facility] ([place]) Comment on above: Performed By: #### C BC, ADIFF, ANEU, LD, CMP, GFR, FIB, APTT, PRO ####[address] [address] Monocytes/100 leukocytes 5.8 % Normal 2.0-13.0 [facility] ([place]) Comment on above: Performed By: #### C BC, ADIFF, ANEU, LD, CMP, GFR, FIB, APTT, PRO ####[address] [address] Neutrophils/100 WBC Auto (Bld) 82.0 % High 50.0-75.0 [facility] ([place]) Comment on above: Performed By: #### C BC, ADIFF, ANEU, LD, CMP, GFR, FIB, APTT, PRO ####[address] [address] Basophils Auto #/vol (Bld) 0.00 10 3/mcL Normal 0.00-0.27 [facility] ([place]) Comment on above: Performed By: #### C BC, ADIFF, ANEU, LD, CMP, GFR, FIB, APTT, PRO ####[address] [address] Basophils/100 WBC Auto (Bld) 0.2 % Normal 0.0-2.5 [facility] ([place]) Comment on above: Performed By: #### C BC, ADIFF, ANEU, LD, CMP, GFR, FIB, APTT, PRO ####[address] [address] Eosinophils 0.10 10 3/mcL Normal 0.00-0.65 [facility] ([place]) Comment on above: Performed By: #### C BC, ADIFF, ANEU, LD, CMP, GFR, FIB, APTT, PRO ####[address] [address] Eosinophils/100 leukocytes 0.7 % Normal 0.0-6.0 [facility] ([place]) Comment on above: Performed By: #### C BC, ADIFF, ANEU, LD, CMP, GFR, FIB, APTT, PRO ####[address] [address] Lymphocytes 2.00 10 3/mcL Normal 0.90-4.32 [facility] ([place]) Comment on above: Performed By: #### C BC, ADIFF, ANEU, LD, CMP, GFR, FIB, APTT, PRO ####[address] [address] Lymphocytes/100 leukocytes 16.6 % Low 20.0-40.0 [facility] ([place]) Comment on above: Performed By: #### C BC, ADIFF, ANEU, LD, CMP, GFR, FIB, APTT, PRO ####[address] [address] Monocytes 1.10 10 3/mcL Normal 0.09-1.40 [facility] ([place]) Comment on above: Performed By: #### C BC, ADIFF, ANEU, LD, CMP, GFR, FIB, APTT, PRO ####[address] [address] Monocytes/100 leukocytes 9.4 % Normal 2.0-13.0 [facility] ([place]) Comment on above: Performed By: #### C BC, ADIFF, ANEU, LD, CMP, GFR, FIB, APTT, PRO ####[address] [address] Neutrophils/100 WBC Auto (Bld) 73.1 % Normal 50.0-75.0 [facility] ([place]) Comment on above: Performed By: #### C BC, ADIFF, ANEU, LD, CMP, GFR, FIB, APTT, PRO ####[address] [address] .GFRon 11-04-2016 eGFR (non-black) mL/min/{1.73_m2} Normal [facility] ([place]) Comment on above: Result Comment: GFR Population [...] ANEU, LD, CMP, GFR, FIB, APTT, PRO ####[address] [address] eGFR (non-black) mL/min/{1.73_m2} Normal [facility] ([place]) Comment on above: Result Comment: GFR Population [...] ANEU, LD, CMP, GFR, FIB, APTT, PRO ####[address] [address] eGFR (non-black) mL/min/{1.73_m2} Normal [facility] ([place]) Comment on above: Result Comment: GFR Population [...] ANEU, LD, CMP, GFR, FIB, APTT, PRO ####[place] [address] .NEUABSon 11-04-2016 Neutrophils 14.90 10 3/mcL High 2.25-8.10 [facility] ([place]) Comment on above: Performed By: #### C BC, ADIFF, ANEU, LD, CMP, GFR, FIB, APTT, PRO ####[place] [id number] Neutrophils 11.40 10 3/mcL High 2.25-8.10 [facility] ([place]) Comment on above: Performed By: #### C BC, ADIFF, ANEU, LD, CMP, GFR, FIB, APTT, PRO ####[address] [address] Neutrophils 8.70 10 3/mcL High 2.25-8.10 [facility] ([place]) Comment on above: Performed By: #### C BC, ADIFF, ANEU, LD, CMP, GFR, FIB, APTT, PRO ####[place] [address] CBCon 11-04-2016 Erythrocyte distribution width Auto Ratio (RBC) 13.7 % Normal 11.5-15.5 [facility] ([place]) Comment on above: Performed By: #### C BC, ADIFF, ANEU, LD, CMP, GFR, FIB, APTT, PRO ####[place] [address] Erythrocytes (RBC) 3.90 10 6/mcL Low 4.10-5.30 [facility] ([place]) Comment on above: Performed By: #### C BC, ADIFF, ANEU, LD, CMP, GFR, FIB, APTT, PRO ####[place] [address] Hematocrit (HCT) 36.5 % Normal 34.0-46.0 [facility] ([place]) Comment on above: Performed By: #### C BC, ADIFF, ANEU, LD, CMP, GFR, FIB, APTT, PRO ####[place] [address] Hemoglobin mass conc (Bld) 12.1 G/dL Normal 12.0-16.0 [facility] ([place]) Comment on above: Performed By: #### C BC, ADIFF, ANEU, LD, CMP, GFR, FIB, APTT, PRO ####[place] [address] MCH 30.9 pg Normal 27.0-33.0 [facility] ([place]) Comment on above: Performed By: #### C BC, ADIFF, ANEU, LD, CMP, GFR, FIB, APTT, PRO ####[place] [address] MCHC mass conc (RBC) 33.0 G/dL Normal 32.0-36.0 [facility] ([place]) Comment on above: Performed By: #### C BC, ADIFF, ANEU, LD, CMP, GFR, FIB, APTT, PRO ####[place] [address] MCV 93.7 fL Normal 80.0-99.0 [facility] ([place]) Comment on above: Performed By: #### C BC, ADIFF, ANEU, LD, CMP, GFR, FIB, APTT, PRO ####[address] [address] Platelet mean volume (PMV) 7.9 fL Normal 6.6-10.5 [facility] ([place]) Comment on above: Performed By: #### C BC, ADIFF, ANEU, LD, CMP, GFR, FIB, APTT, PRO ####[address] [address] Platelets 205 10 3/mcL Normal 150-450 [facility] ([place]) Comment on above: Performed By: #### C BC, ADIFF, ANEU, LD, CMP, GFR, FIB, APTT, PRO ####[address] [address] WBC (Leukocytes) 17.80 10 3/mcL High 4.50-10.80 [facility] ([place]) Comment on above: Performed By: #### C BC, ADIFF, ANEU, LD, CMP, GFR, FIB, APTT, PRO ####[address] [address] Erythrocyte distribution width Auto Ratio (RBC) 13.9 % Normal 11.5-15.5 [facility] ([place]) Comment on above: Performed By: #### C BC, ADIFF, ANEU, LD, CMP, GFR, FIB, APTT, PRO ####[place] [phone] Erythrocytes (RBC) 4.02 10 6/mcL Low 4.10-5.30 [facility] ([place]) Comment on above: Performed By: #### C BC, ADIFF, ANEU, LD, CMP, GFR, FIB, APTT, PRO ####[address] [address] Hematocrit (HCT) 37.8 % Normal 34.0-46.0 [facility] ([place]) Comment on above: Performed By: #### C BC, ADIFF, ANEU, LD, CMP, GFR, FIB, APTT, PRO ####[place] [address] Hemoglobin mass conc (Bld) 12.6 G/dL Normal 12.0-16.0 [facility] ([place]) Comment on above: Performed By: #### C BC, ADIFF, ANEU, LD, CMP, GFR, FIB, APTT, PRO ####[place] [address] MCH 31.4 pg Normal 27.0-33.0 [facility] ([place]) Comment on above: Performed By: #### C BC, ADIFF, ANEU, LD, CMP, GFR, FIB, APTT, PRO ####[place] [address] MCHC mass conc (RBC) 33.4 G/dL Normal 32.0-36.0 [facility] ([place]) Comment on above: Performed By: #### C BC, ADIFF, ANEU, LD, CMP, GFR, FIB, APTT, PRO ####[place] [address] MCV 94.0 fL Normal 80.0-99.0 [facility] ([place]) Comment on above: Performed By: #### C BC, ADIFF, ANEU, LD, CMP, GFR, FIB, APTT, PRO ####[place] [address] Platelet mean volume (PMV) 8.4 fL Normal 6.6-10.5 [facility] ([place]) Comment on above: Performed By: #### C BC, ADIFF, ANEU, LD, CMP, GFR, FIB, APTT, PRO ####[place] [address] Platelets 199 10 3/mcL Normal 150-450 [facility] ([place]) Comment on above: Performed By: #### C BC, ADIFF, ANEU, LD, CMP, GFR, FIB, APTT, PRO ####[place] [address] WBC (Leukocytes) 13.90 10 3/mcL High 4.50-10.80 [facility] ([place]) Comment on above: Performed By: #### C BC, ADIFF, ANEU, LD, CMP, GFR, FIB, APTT, PRO ####[place] [address] Erythrocyte distribution width Auto Ratio (RBC) 13.9 % Normal 11.5-15.5 [facility] ([place]) Comment on above: Performed By: #### C BC, ADIFF, ANEU, LD, CMP, GFR, FIB, APTT, PRO ####[place] [address] Erythrocytes (RBC) 3.92 10 6/mcL Low 4.10-5.30 [facility] ([place]) Comment on above: Performed By: #### C BC, ADIFF, ANEU, LD, CMP, GFR, FIB, APTT, PRO ####[place] [address] Hematocrit (HCT) 36.5 % Normal 34.0-46.0 [facility] ([place]) Comment on above: Performed By: #### C BC, ADIFF, ANEU, LD, CMP, GFR, FIB, APTT, PRO ####[place] [address] Hemoglobin mass conc (Bld) 12.3 G/dL Normal 12.0-16.0 [facility] ([place]) Comment on above: Performed By: #### C BC, ADIFF, ANEU, LD, CMP, GFR, FIB, APTT, PRO ####[place] [address] MCH 31.3 pg Normal 27.0-33.0 [facility] ([place]) Comment on above: Performed By: #### C BC, ADIFF, ANEU, LD, CMP, GFR, FIB, APTT, PRO ####[place] [address] MCHC mass conc (RBC) 33.7 G/dL Normal 32.0-36.0 [facility] ([place]) Comment on above: Performed By: #### C BC, ADIFF, ANEU, LD, CMP, GFR, FIB, APTT, PRO ####[place] [address] MCV 93.0 fL Normal 80.0-99.0 [facility] ([place]) Comment on above: Performed By: #### C BC, ADIFF, ANEU, LD, CMP, GFR, FIB, APTT, PRO ####[address] [address] Platelet mean volume (PMV) 8.7 fL Normal 6.6-10.5 [facility] ([place]) Comment on above: Performed By: #### C BC, ADIFF, ANEU, LD, CMP, GFR, FIB, APTT, PRO ####[address] [address] Platelets 203 10 3/mcL Normal 150-450 [facility] ([place]) Comment on above: Performed By: #### C BC, ADIFF, ANEU, LD, CMP, GFR, FIB, APTT, PRO ####[address] [address] WBC (Leukocytes) 11.90 10 3/mcL High 4.50-10.80 [facility] ([place]) Comment on above: Performed By: #### C BC, ADIFF, ANEU, LD, CMP, GFR, FIB, APTT, PRO ####[address] [address] CHLA DNAon 11-04-2016 CHLA DNA Negative Normal Negative [facility] Comment on above: Performed By: #### L 200.3000, L200.3190 ####ML - [id number] [place] [address] CMPon 11-04-2016 Albumin/Globulin Ratio 0.6 {ratio} Low 0.9-1.6 [facility] ([place]) Comment on above: Performed By: #### C BC, ADIFF, ANEU, LD, CMP, GFR, FIB, APTT, PRO ####[address] [address] Alk Phos 86 U/L Normal 38-126 [facility] ([place]) Comment on above: Performed By: #### C BC, ADIFF, ANEU, LD, CMP, GFR, FIB, APTT, PRO ####[address] [address] Bili Total 0.4 mg/dL Normal 0.2-1.2 [facility] ([place]) Comment on above: Performed By: #### C BC, ADIFF, ANEU, LD, CMP, GFR, FIB, APTT, PRO ####[place] [address] BUN/Creatinine Ratio 20.3 ratio Normal 10.0-22.0 [facility] ([place]) Comment on above: Performed By: #### C BC, ADIFF, ANEU, LD, CMP, GFR, FIB, APTT, PRO ####[place] [address] Creatinine 0.74 mg/dL Normal 0.50-1.20 [facility] ([place]) Comment on above: Performed By: #### C BC, ADIFF, ANEU, LD, CMP, GFR, FIB, APTT, PRO ####[place] [address] Globulin 3.5 G/dL Normal 1.5-3.8 [facility] ([place]) Comment on above: Performed By: #### C BC, ADIFF, ANEU, LD, CMP, GFR, FIB, APTT, PRO ####[place] [address] Protein 5.6 G/dL Low 6.0-8.5 [facility] ([place]) Comment on above: Performed By: #### C BC, ADIFF, ANEU, LD, CMP, GFR, FIB, APTT, PRO ####[place] [address] Alanine aminotransferase (ALT) 18 U/L Normal 10-49 [facility] ([place]) Comment on above: Performed By: #### C BC, ADIFF, ANEU, LD, CMP, GFR, FIB, APTT, PRO ####[place] [address] Albumin 2.1 G/dL Low 3.2-4.8 [facility] ([place]) Comment on above: Performed By: #### C BC, ADIFF, ANEU, LD, CMP, GFR, FIB, APTT, PRO ####[place] [address] Aspartate aminotransferase (AST) 24 U/L Normal 8-34 [facility] ([place]) Comment on above: Performed By: #### C BC, ADIFF, ANEU, LD, CMP, GFR, FIB, APTT, PRO ####[place] [address] Calcium 7.9 mg/dL Low 8.4-10.1 [facility] ([place]) Comment on above: Performed By: #### C BC, ADIFF, ANEU, LD, CMP, GFR, FIB, APTT, PRO ####[place] [address] Chloride 98 mmol/L Normal 98-110 [facility] ([place]) Comment on above: Performed By: #### C BC, ADIFF, ANEU, LD, CMP, GFR, FIB, APTT, PRO ####[place] [address] CO2 26 mmol/L Normal 22-32 [facility] ([place]) Comment on above: Performed By: #### C BC, ADIFF, ANEU, LD, CMP, GFR, FIB, APTT, PRO ####[place] [address] Electrolyte Balance 10.0 mEq/L Normal 4.0-15.0 [facility]placed by [facility] ([place]) Comment on above: Performed By: #### C BC, ADIFF, ANEU, LD, CMP, GFR, FIB, APTT, PRO ####[place] [address] Glucose mass conc 83 mg/dL Normal 70-110 [facility] ([place]) Comment on above: Performed By: #### C BC, ADIFF, ANEU, LD, CMP, GFR, FIB, APTT, PRO ####[place] [address] Potassium molar conc 4.3 mmol/L Normal 3.5-5.0 [facility] ([place]) Comment on above: Performed By: #### C BC, ADIFF, ANEU, LD, CMP, GFR, FIB, APTT, PRO ####[place] [address] Sodium 134 mmol/L Low 136-145 [facility] ([place]) Comment on above: Performed By: #### C BC, ADIFF, ANEU, LD, CMP, GFR, FIB, APTT, PRO ####[place] [address] Urea nitrogen 15.0 mg/dL Normal 8.0-22.0 [facility] ([place]) Comment on above: Performed By: #### C BC, ADIFF, ANEU, LD, CMP, GFR, FIB, APTT, PRO ####[place] [address] Albumin/Globulin Ratio 0.6 {ratio} Low 0.9-1.6 [facility] ([place]) Comment on above: Performed By: #### C BC, ADIFF, ANEU, LD, CMP, GFR, FIB, APTT, PRO ####[place] [address] Alk Phos 84 U/L Normal 38-126 [facility] ([place]) Comment on above: Performed By: #### C BC, ADIFF, ANEU, LD, CMP, GFR, FIB, APTT, PRO ####[place] [address] Bili Total 0.2 mg/dL Normal 0.2-1.2 [facility] ([place]) Comment on above: Performed By: #### C BC, ADIFF, ANEU, LD, CMP, GFR, FIB, APTT, PRO ####[place] [address] Globulin 3.4 G/dL Normal 1.5-3.8 [facility] ([place]) Comment on above: Performed By: #### C BC, ADIFF, ANEU, LD, CMP, GFR, FIB, APTT, PRO ####[place] [address] Protein 5.5 G/dL Low 6.0-8.5 [facility] ([place]) Comment on above: Performed By: #### C BC, ADIFF, ANEU, LD, CMP, GFR, FIB, APTT, PRO ####[place] [address] Alanine aminotransferase (ALT) 16 U/L Normal 10-49 [facility] ([place]) Comment on above: Performed By: #### C BC, ADIFF, ANEU, LD, CMP, GFR, FIB, APTT, PRO ####[place] [address] Albumin 2.1 G/dL Low 3.2-4.8 [facility] ([place]) Comment on above: Performed By: #### C BC, ADIFF, ANEU, LD, CMP, GFR, FIB, APTT, PRO ####[place] [address] Aspartate aminotransferase (AST) 21 U/L Normal 8-34 [facility] ([place]) Comment on above: Performed By: #### C BC, ADIFF, ANEU, LD, CMP, GFR, FIB, APTT, PRO ####[place] [address] BUN/Creatinine Ratio 23.1 ratio High 10.0-22.0 [facility] ([place]) Comment on above: Performed By: #### C BC, ADIFF, ANEU, LD, CMP, GFR, FIB, APTT, PRO ####[place] [address] Calcium 8.6 mg/dL Normal 8.4-10.1 [facility] ([place]) Comment on above: Performed By: #### C BC, ADIFF, ANEU, LD, CMP, GFR, FIB, APTT, PRO ####[place] [address] Chloride 103 mmol/L Normal 98-110 [facility] ([place]) Comment on above: Performed By: #### C BC, ADIFF, ANEU, LD, CMP, GFR, FIB, APTT, PRO ####[place] [address] CO2 25 mmol/L Normal 22-32 [facility] ([place]) Comment on above: Performed By: #### C BC, ADIFF, ANEU, LD, CMP, GFR, FIB, APTT, PRO ####[place] [address] Creatinine 0.65 mg/dL Normal 0.50-1.20 [facility] ([place]) Comment on above: Performed By: #### C BC, ADIFF, ANEU, LD, CMP, GFR, FIB, APTT, PRO ####[place] [address] Electrolyte Balance 11.0 mEq/L Normal 4.0-15.0 Replaced by [facility] ([place]) Comment on above: Performed By: #### C BC, ADIFF, ANEU, LD, CMP, GFR, FIB, APTT, PRO ####[place] [address] Glucose mass conc 81 mg/dL Normal 70-110 [facility] ([place]) Comment on above: Performed By: #### C BC, ADIFF, ANEU, LD, CMP, GFR, FIB, APTT, PRO ####[place] [address] Potassium molar conc 4.6 mmol/L Normal 3.5-5.0 [facility] ([place]) Comment on above: Performed By: #### C BC, ADIFF, ANEU, LD, CMP, GFR, FIB, APTT, PRO ####[place] [address] Sodium 139 mmol/L Normal 136-145 [facility] ([place]) Comment on above: Performed By: #### C BC, ADIFF, ANEU, LD, CMP, GFR, FIB, APTT, PRO ####[place] [address] Urea nitrogen 15.0 mg/dL Normal 8.0-22.0 [facility] ([place]) Comment on above: Performed By: #### C BC, ADIFF, ANEU, LD, CMP, GFR, FIB, APTT, PRO ####[place] [address] Calcium 8.7 mg/dL Normal 8.4-10.1 [facility] ([place]) Comment on above: Performed By: #### C BC, ADIFF, ANEU, LD, CMP, GFR, FIB, APTT, PRO ####[address] [address] Alanine aminotransferase (ALT) 18 U/L Normal 10-49 [facility] ([place]) Comment on above: Performed By: #### C BC, ADIFF, ANEU, LD, CMP, GFR, FIB, APTT, PRO ####[place] [address] Albumin 2.2 G/dL Low 3.2-4.8 [facility] ([place]) Comment on above: Performed By: #### C BC, ADIFF, ANEU, LD, CMP, GFR, FIB, APTT, PRO ####[place] [id number] Albumin/Globulin Ratio 0.6 {ratio} Low 0.9-1.6 [facility] ([place]) Comment on above: Performed By: #### C BC, ADIFF, ANEU, LD, CMP, GFR, FIB, APTT, PRO ####[place] [address] Alk Phos 86 U/L Normal 38-126 [facility] ([place]) Comment on above: Performed By: #### C BC, ADIFF, ANEU, LD, CMP, GFR, FIB, APTT, PRO ####[place] [address] Aspartate aminotransferase (AST) 22 U/L Normal 8-34 [facility] ([place]) Comment on above: Performed By: #### C BC, ADIFF, ANEU, LD, CMP, GFR, FIB, APTT, PRO ####[place] [address] Bili Total 0.4 mg/dL Normal 0.2-1.2 [facility] ([place]) Comment on above: Performed By: #### C BC, ADIFF, ANEU, LD, CMP, GFR, FIB, APTT, PRO ####[place] [address] BUN/Creatinine Ratio 28.6 ratio High 10.0-22.0 [facility] ([place]) Comment on above: Performed By: #### C BC, ADIFF, ANEU, LD, CMP, GFR, FIB, APTT, PRO ####[place] [address] Chloride 106 mmol/L Normal 98-110 [facility] ([place]) Comment on above: Performed By: #### C BC, ADIFF, ANEU, LD, CMP, GFR, FIB, APTT, PRO ####[place] [address] CO2 22 mmol/L Normal 22-32 [facility] ([place]) Comment on above: Performed By: #### C BC, ADIFF, ANEU, LD, CMP, GFR, FIB, APTT, PRO ####[place] [address] Creatinine 0.56 mg/dL Normal 0.50-1.20 [facility] ([place]) Comment on above: Performed By: #### C BC, ADIFF, ANEU, LD, CMP, GFR, FIB, APTT, PRO ####[place] [address] Electrolyte Balance 11.0 mEq/L Normal 4.0-15.0 Replaced by [facility] ([place]) Comment on above: Performed By: #### C BC, ADIFF, ANEU, LD, CMP, GFR, FIB, APTT, PRO ####[place] [address] Globulin 3.5 G/dL Normal 1.5-3.8 [facility] ([place]) Comment on above: Performed By: #### C BC, ADIFF, ANEU, LD, CMP, GFR, FIB, APTT, PRO ####[place] [address] Glucose mass conc 75 mg/dL Normal 70-110 [facility] ([place]) Comment on above: Performed By: #### C BC, ADIFF, ANEU, LD, CMP, GFR, FIB, APTT, PRO ####[place] [address] Potassium molar conc 4.6 mmol/L Normal 3.5-5.0 [facility] ([place] Comment on above: Performed By: #### C BC, ADIFF, ANEU, LD, CMP, GFR, FIB, APTT, PRO ####[place] [address] Protein 5.7 G/dL Low 6.0-8.5 [facility] ([place]) Comment on above: Performed By: #### C BC, ADIFF, ANEU, LD, CMP, GFR, FIB, APTT, PRO ####[place] [address] Sodium 139 mmol/L Normal 136-145 [facility] ([place]) Comment on above: Performed By: #### C BC, ADIFF, ANEU, LD, CMP, GFR, FIB, APTT, PRO ####[place] [address] Urea nitrogen 16.0 mg/dL Normal 8.0-22.0 [facility] ([place]) Comment on above: Performed By: #### C BC, ADIFF, ANEU, LD, CMP, GFR, FIB, APTT, PRO ####[place] [address] LANDD Anesthesia Recordon LANDD Anesthesia Record Normal [facility] ([place]) LANDD Intraop Recordon 11-04 LANDD Intraop Record Normal [facility] [place] ([place]) LDHon 11-04-2016 LDH 281 U/L High 120-246 [facility] ([place]) Comment on above: Performed By: #### C BC, ADIFF, ANEU, LD, CMP, GFR, FIB, APTT, PRO ####[place] [address] LDH 205 U/L Normal 120-246 [facility] ([place]) Comment on above: Performed By: #### C BC, ADIFF, ANEU, LD, CMP, GFR, FIB, APTT, PRO ####[place] [address] LDH 193 U/L Normal 120-246 [facility] ([place]) Comment on above: Performed By: #### C BC, ADIFF, ANEU, LD, CMP, GFR, FIB, APTT, PRO ####[address] [address] MABOon 11-04-2016 ABO/Rh Interp Positive Invalid Interpretation Code [facility] ([place]) Comment on above: Performed By: #### C BC, ADIFF, ANEU, LD, CMP, GFR, FIB, APTT, PRO ####[place] [address] MABSon 11-04-2016 Antibody Screen Manual Negative Normal [facility] ([place]) Comment on above: Performed By: #### C BC, ADIFF, ANEU, LD, CMP, GFR, FIB, APTT, PRO ####[address] [address] MGon 11-04-2016 Magnesium 5.8 mg/dL Critically abnormal 1.6-2.4 [facility] ([place]) Comment on above: Performed By: #### C BC, ADIFF, ANEU, LD, CMP, GFR, FIB, APTT, PRO ####[place] [address] Magnesium 5.1 mg/dL High 1.6-2.4 [facility] ([place]) Comment on above: Performed By: #### C BC, ADIFF, ANEU, LD, CMP, GFR, FIB, APTT, PRO ####[place] [address] Maternal Medicine Prog ress Noteon 11-04-2016 Maternal Medicine Progress Note Normal [facility] ([place]) NEISGONNAAon 11-04-2016 NEISGONNAA Negative Normal Negative [facility] Comment on above: Result Comment: Perf ormed at: =G - [facility] [address] [id number] Director: Rita Aguilera MD, Phone: [phone] Performed By: #### L [id number], L206.2473 ####[facility] - [facility] [id number] [place] [address] OB Progress Noteon 7 OB Progress Note Normal [facility] ([place]) OB Progress Note Normal [facility] ([place] Operative Noteon 11-04-2016 Operative Note Normal [facility] ([place]) Operative Reporton 7 Operative Report Normal [facility] ([place]) CTPCRon 11-03-2016 C. trachomatis Interp C. trachomatis DNA not detected. Specimen is presumptive negative for C. trachomatis. A negative result does not preclude C. trachomatis infection because results depend on adequate specimen collection, absence of inhibitors, and sufficient DNA to be detected. Replaced By [facility] ([place]) Comment on above: Performed By: #### C BC, ADIFF, ANEU, LD, CMP, GFR, FIB, APTT, PRO ####[address] [address] C.trachomatis PCR Negative Replaced By [facility] ([place]) Comment on above: Result Comment: Ceci cular (PCR) assay performed on the Ciera Alie 4800 system. Performed By: #### C BC, ADIFF, ANEU, LD, CMP, GFR, FIB, APTT, PRO ####[address] [address] Chlam Source Cervix Normal [facility] ([place]) Comment on above: Performed By: #### C BC, ADIFF, ANEU, LD, CMP, GFR, FIB, APTT, PRO ####[address] [address] Maternal Medicine Prog ress Noteon 11-03-2016 Maternal Medicine Progress Note Normal [facility] ([place]) NGPCRon 11-03-2016 GC PCR Source Cervix Normal [facility] ([place]) Comment on above: Performed By: #### C BC, ADIFF, ANEU, LD, CMP, GFR, FIB, APTT, PRO ####[address] [address] N. gonorrhoeae (PCR) Negative [facility] ([place]) Comment on above: Result Comment: Ceci cular (PCR) assay performed on the Ciera Alie 4800 System. Performed By: #### C BC, ADIFF, ANEU, LD, CMP, GFR, FIB, APTT, PRO ####[address] [address] N. gonorrhoeae Interp N. gonorrhoeae DNA not detected. Specimen is presumptive negative for N. gonorrhoeae. A negative result does not preclude Neisseria gonorrhoeae infection because results depend on adequate specimen collection, absence of inhibitors, and sufficient DNA to be detected. Normal [facility] ([place]) Comment on above: Performed By: #### C LEONARD, DEEPA, ANEU, LD, CMP, GFR, FIB, APTT, PRO ####[place] [id number] [place] [address] Neonatology Consultationon 0 11-03-2016 Neonatology Consultation Normal [facility] ([place]) OB Progress Noteon 7 OB Progress Note Normal [facility] ([place]) OB Progress Note Normal [facility] ([place]) US BIOPHYSICAL PROFILEon US BIOPHYSICAL PROFILE ORIGINAL ------ OBSTETRICS REPORT (Signed Final 11/03/2016 08:56 am) -Patient Info ID #: [id number] : [birth year] (26 yrs)(F) Name: SONIA Nikki JULY Visit Date: 11/03/2016 06:28 am Performed By Performed By: Paula Forte RDMS Referred By: Wade Zhang MD Location: [facility] --Indications Severe PreE Labor and Delivery patient [...] Not Observed ------Biometry Ge stational Age Clinical WILILAM: 32w 0d WILLIAM: 12/29/16 Best: 32w 0d [...] Signed Final Report 11/03/2016 08:56 am Normal [facility] ([place]) .Auto Diffon 11-02-2016 Basophils Auto #/vol (Bld) 0.00 10 3/mcL Normal 0.00-0.27 [facility] ([place]) Comment on above: Performed By: #### C BC, ADIFF, ANEU, LD, CMP, GFR, FIB, APTT, PRO ####[address] [address] Basophils/100 WBC Auto (Bld) 0.2 % Normal 0.0-2.5 [facility] ([place]) Comment on above: Performed By: #### C BC, ADIFF, ANEU, LD, CMP, GFR, FIB, APTT, PRO ####[address] [address] Eosinophils 0.00 10 3/mcL Normal 0.00-0.65 [facility] ([place]) Comment on above: Performed By: #### C BC, ADIFF, ANEU, LD, CMP, GFR, FIB, APTT, PRO ####[address] [address] Eosinophils/100 leukocytes 0.1 % Normal 0.0-6.0 [facility] ([place]) Comment on above: Performed By: #### C BC, ADIFF, ANEU, LD, CMP, GFR, FIB, APTT, PRO ####[address] [address] Lymphocytes 1.60 10 3/mcL Normal 0.90-4.32 [facility] ([place]) Comment on above: Performed By: #### C BC, ADIFF, ANEU, LD, CMP, GFR, FIB, APTT, PRO ####[address] [address] Lymphocytes/100 leukocytes 8.2 % Low 20.0-40.0 [facility] ([place]) Comment on above: Performed By: #### C BC, ADIFF, ANEU, LD, CMP, GFR, FIB, APTT, PRO ####[address] [address] Monocytes 1.10 10 3/mcL Normal 0.09-1.40 [facility] ([place]) Comment on above: Performed By: #### C BC, ADIFF, ANEU, LD, CMP, GFR, FIB, APTT, PRO ####[address] [address] Monocytes/100 leukocytes 5.9 % Normal 2.0-13.0 [facility] ([place]) Comment on above: Performed By: #### C BC, ADIFF, ANEU, LD, CMP, GFR, FIB, APTT, PRO ####[address] [address] Neutrophils/100 WBC Auto (Bld) 85.6 % High 50.0-75.0 [facility] ([place]) Comment on above: Performed By: #### C BC, ADIFF, ANEU, LD, CMP, GFR, FIB, APTT, PRO ####[address] [address] .NEUABSon 11-02-2016 Neutrophils 16.60 10 3/mcL High 2.25-8.10 [facility] ([place]) Comment on above: Performed By: #### C BC, ADIFF, ANEU, LD, CMP, GFR, FIB, APTT, PRO ####[place] [address] CBCon 11-02-2016 Erythrocyte distribution width Auto Ratio (RBC) 14.1 % Normal 11.5-15.5 [facility] ([place]) Comment on above: Performed By: #### C BC, ADIFF, ANEU, LD, CMP, GFR, FIB, APTT, PRO ####[place] [address] Erythrocytes (RBC) 4.14 10 6/mcL Normal 4.10-5.30 [facility] ([place]) Comment on above: Performed By: #### C BC, ADIFF, ANEU, LD, CMP, GFR, FIB, APTT, PRO ####[place] [address] Hematocrit (HCT) 38.5 % Normal 34.0-46.0 [facility] ([place]) Comment on above: Performed By: #### C BC, ADIFF, ANEU, LD, CMP, GFR, FIB, APTT, PRO ####[place] [address] Hemoglobin mass conc (Bld) 13.0 G/dL Normal 12.0-16.0 [facility] ([place]) Comment on above: Performed By: #### C BC, ADIFF, ANEU, LD, CMP, GFR, FIB, APTT, PRO ####[place] [address] MCH 31.3 pg Normal 27.0-33.0 [facility] ([place]) Comment on above: Performed By: #### C BC, ADIFF, ANEU, LD, CMP, GFR, FIB, APTT, PRO ####[place] [address] MCHC mass conc (RBC) 33.7 G/dL Normal 32.0-36.0 [facility] ([place]) Comment on above: Performed By: #### C BC, ADIFF, ANEU, LD, CMP, GFR, FIB, APTT, PRO ####[place] [address] MCV 92.9 fL Normal 80.0-99.0 [facility] ([place]) Comment on above: Performed By: #### C BC, ADIFF, ANEU, LD, CMP, GFR, FIB, APTT, PRO ####[address] [address] Platelet mean volume (PMV) 8.0 fL Normal 6.6-10.5 [facility] ([place]) Comment on above: Performed By: #### C BC, ADIFF, ANEU, LD, CMP, GFR, FIB, APTT, PRO ####[address] [address] Platelets 238 10 3/mcL Normal 150-450 [facility] ([place]) Comment on above: Performed By: #### C BC, ADIFF, ANEU, LD, CMP, GFR, FIB, APTT, PRO ####[place] [address] WBC (Leukocytes) 19.40 10 3/mcL High 4.50-10.80 [facility] ([place]) Comment on above: Performed By: #### C BC, ADIFF, ANEU, LD, CMP, GFR, FIB, APTT, PRO ####[place] [address] CMPon 11-02-2016 Albumin/Globulin Ratio 0.6 {ratio} Low 0.9-1.6 [facility] ([place]) Comment on above: Performed By: #### C BC, ADIFF, ANEU, LD, CMP, GFR, FIB, APTT, PRO ####[address] [address] Alk Phos 105 U/L Normal 38-126 [facility] ([place]) Comment on above: Performed By: #### C BC, ADIFF, ANEU, LD, CMP, GFR, FIB, APTT, PRO ####[address] [address] Bili Total 0.3 mg/dL Normal 0.2-1.2 [facility] ([place]) Comment on above: Performed By: #### C BC, ADIFF, ANEU, LD, CMP, GFR, FIB, APTT, PRO ####[address] [address] Globulin 3.8 G/dL Normal 1.5-3.8 [facility] ([place]) Comment on above: Performed By: #### C BC, ADIFF, ANEU, LD, CMP, GFR, FIB, APTT, PRO ####[place] [id number] Protein 6.0 G/dL Normal 6.0-8.5 [facility] ([place]) Comment on above: Performed By: #### C BC, ADIFF, ANEU, LD, CMP, GFR, FIB, APTT, PRO ####[place] [phone] Alanine aminotransferase (ALT) 21 U/L Normal 10-49 [facility] ([place]) Comment on above: Performed By: #### C BC, ADIFF, ANEU, LD, CMP, GFR, FIB, APTT, PRO ####[place] [address] Albumin 2.2 G/dL Low 3.2-4.8 [facility] ([place]) Comment on above: Performed By: #### C BC, ADIFF, ANEU, LD, CMP, GFR, FIB, APTT, PRO ####[place] [address] Aspartate aminotransferase (AST) 23 U/L Normal 8-34 [facility] ([place]) Comment on above: Performed By: #### C BC, ADIFF, ANEU, LD, CMP, GFR, FIB, APTT, PRO ####[place] [address] BUN/Creatinine Ratio 22.4 ratio High 10.0-22.0 [facility] ([place]) Comment on above: Performed By: #### C BC, ADIFF, ANEU, LD, CMP, GFR, FIB, APTT, PRO ####[place] [address] Calcium 7.6 mg/dL Low 8.4-10.1 [facility] ([place]) Comment on above: Performed By: #### C BC, ADIFF, ANEU, LD, CMP, GFR, FIB, APTT, PRO ####[place] [address] Chloride 101 mmol/L Normal 98-110 [facility] ([place]) Comment on above: Performed By: #### C BC, ADIFF, ANEU, LD, CMP, GFR, FIB, APTT, PRO ####[place] [address] CO2 24 mmol/L Normal 22-32 [facility] ([place]) Comment on above: Performed By: #### C BC, ADIFF, ANEU, LD, CMP, GFR, FIB, APTT, PRO ####[place] [address] Creatinine 0.67 mg/dL Normal 0.50-1.20 [facility] ([place]) Comment on above: Performed By: #### C BC, ADIFF, ANEU, LD, CMP, GFR, FIB, APTT, PRO ####[place] [address] Electrolyte Balance 10.0 mEq/L Normal 4.0-15.0 Replaced by [facility] ([place]) Comment on above: Performed By: #### C BC, ADIFF, ANEU, LD, CMP, GFR, FIB, APTT, PRO ####[place] [address] Glucose mass conc 96 mg/dL Normal 70-110 [facility] ([place]) Comment on above: Performed By: #### C BC, ADIFF, ANEU, LD, CMP, GFR, FIB, APTT, PRO ####[place] [address] Potassium molar conc 4.3 mmol/L Normal 3.5-5.0 [facility] ([place]) Comment on above: Performed By: #### C BC, ADIFF, ANEU, LD, CMP, GFR, FIB, APTT, PRO ####[place] [address] Sodium 135 mmol/L Low 136-145 [facility] ([place]) Comment on above: Performed By: #### C BC, ADIFF, ANEU, LD, CMP, GFR, FIB, APTT, PRO ####[place] [address] [place] [address] Urea nitrogen 15.0 mg/dL Normal 8.0-22.0 [facility] ([place]) Comment on above: Performed By: #### C BC, ADIFF, ANEU, LD, CMP, GFR, FIB, APTT, PRO ####[place] [address] [place] [address] GFRon 11-02-2016 eGFR (non-black) mL/min/{1.73_m2} Normal [facility] ([place]) Comment on above: Result Comment: GFR Population [...] ANEU, LD, CMP, GFR, FIB, APTT, PRO ####[address] [address] GRP B SCNon 11-02-2016 GRP B SCN GROUP B STREP NO BET A HEMOLYTIC STREP ISOLATED Normal [facility] Comment on above: Performed By: #### M 150.0200 ####ML - [facility] [id number] [place] [address] LDHon 11-02-2016 LDH 266 U/L High 120-246 [facility] ([place]) Comment on above: Performed By: #### C BC, ADIFF, ANEU, LD, CMP, GFR, FIB, APTT, PRO ####[place] [address] [place] [address] MGon 11-02-2016 Magnesium 6.3 mg/dL Critically abnormal 1.6-2.4 [facility] ([place]) Comment on above: Performed By: #### C BC, ADIFF, ANEU, LD, CMP, GFR, FIB, APTT, PRO ####[address] [address] .Auto Diffon 11-01-2016 Basophils Auto #/vol (Bld) 0.00 10 3/mcL Normal 0.00-0.27 [facility] ([place]) Comment on above: Performed By: #### C BC, ADIFF, ANEU, LD, CMP, GFR, FIB, APTT, PRO ####[address] [address] Basophils/100 WBC Auto (Bld) 0.1 % Normal 0.0-2.5 [facility] ([place]) Comment on above: Performed By: #### C BC, ADIFF, ANEU, LD, CMP, GFR, FIB, APTT, PRO ####[address] [address] Eosinophils 0.00 10 3/mcL Normal 0.00-0.65 [facility] ([place]) Comment on above: Performed By: #### C BC, ADIFF, ANEU, LD, CMP, GFR, FIB, APTT, PRO ####[address] [address] Eosinophils/100 leukocytes 0.0 % Normal 0.0-6.0 [facility] ([place]) Comment on above: Performed By: #### C BC, ADIFF, ANEU, LD, CMP, GFR, FIB, APTT, PRO ####[address] [address] Lymphocytes 0.90 10 3/mcL Normal 0.90-4.32 [facility] ([place]) Comment on above: Performed By: #### C BC, ADIFF, ANEU, LD, CMP, GFR, FIB, APTT, PRO ####[address] [address] Lymphocytes/100 leukocytes 4.8 % Low 20.0-40.0 [facility] ([place]) Comment on above: Performed By: #### C BC, ADIFF, ANEU, LD, CMP, GFR, FIB, APTT, PRO ####[address] [address] Monocytes 0.50 10 3/mcL Normal 0.09-1.40 [facility] ([place]) Comment on above: Performed By: #### C BC, ADIFF, ANEU, LD, CMP, GFR, FIB, APTT, PRO ####[address] [address] Monocytes/100 leukocytes 2.5 % Normal 2.0-13.0 [facility] ([place]) Comment on above: Performed By: #### C BC, ADIFF, ANEU, LD, CMP, GFR, FIB, APTT, PRO ####[address] [address] Neutrophils/100 WBC Auto (Bld) 92.6 % High 50.0-75.0 [facility] ([place]) Comment on above: Performed By: #### C BC, ADIFF, ANEU, LD, CMP, GFR, FIB, APTT, PRO ####[address] [address] Basophils Auto #/vol (Bld) 0.10 10 3/mcL Normal 0.00-0.27 [facility] ([place]) Comment on above: Performed By: #### C BC, ADIFF, ANEU, LD, CMP, GFR, FIB, APTT, PRO ####[address] [address] Basophils/100 WBC Auto (Bld) 0.3 % Normal 0.0-2.5 [facility] ([place]) Comment on above: Performed By: #### C BC, ADIFF, ANEU, LD, CMP, GFR, FIB, APTT, PRO ####[address] [address] Eosinophils 0.00 10 3/mcL Normal 0.00-0.65 [facility] ([place]) Comment on above: Performed By: #### C BC, ADIFF, ANEU, LD, CMP, GFR, FIB, APTT, PRO ####[address] [address] Eosinophils/100 leukocytes 0.0 % Normal 0.0-6.0 [facility] ([place]) Comment on above: Performed By: #### C BC, ADIFF, ANEU, LD, CMP, GFR, FIB, APTT, PRO ####[address] [address] Lymphocytes 0.80 10 3/mcL Low 0.90-4.32 [facility] ([place]) Comment on above: Performed By: #### C BC, ADIFF, ANEU, LD, CMP, GFR, FIB, APTT, PRO ####[address] [address] Lymphocytes/100 leukocytes 4.4 % Low 20.0-40.0 [facility] ([place]) Comment on above: Performed By: #### C BC, ADIFF, ANEU, LD, CMP, GFR, FIB, APTT, PRO ####[address] [address] Monocytes 0.40 10 3/mcL Normal 0.09-1.40 [facility] ([place]) Comment on above: Performed By: #### C BC, ADIFF, ANEU, LD, CMP, GFR, FIB, APTT, PRO ####[address] [address] Monocytes/100 leukocytes 2.0 % Normal 2.0-13.0 [facility] ([place]) Comment on above: Performed By: #### C BC, ADIFF, ANEU, LD, CMP, GFR, FIB, APTT, PRO ####[address] [address] Neutrophils/100 WBC Auto (Bld) 93.3 % High 50.0-75.0 [facility] ([place]) Comment on above: Performed By: #### C BC, ADIFF, ANEU, LD, CMP, GFR, FIB, APTT, PRO ####[address] [address] .NEUABSon 11-01-2016 Neutrophils 16.80 10 3/mcL High 2.25-8.10 [facility] ([place]) Comment on above: Performed By: #### C BC, ADIFF, ANEU, LD, CMP, GFR, FIB, APTT, PRO ####[place] [address] Neutrophils 16.90 10 3/mcL High 2.25-8.10 [facility] ([place]) Comment on above: Performed By: #### C BC, ADIFF, ANEU, LD, CMP, GFR, FIB, APTT, PRO ####[place] [address] APTTon 11-01-2016 aPTT 19.8 s Low 25.0-35.0 [facility] ([place]) Comment on above: Result Comment: For Heparin anticoagulation therapy, the recommendedtherapeutic range is: 54-77 seconds (APTT Correlationwith Anti-Xa therapeutic range of 0.3-0.7 units/ml).PLEASE REFERENCE THE PHARMACY PROTOCOL FOR DOSING. Performed By: #### C BC, ADIFF, ANEU, LD, CMP, GFR, FIB, APTT, PRO ####[place] [address] aPTT None Normal [facility] ([place]) Comment on above: Performed By: #### C BC, ADIFF, ANEU, LD, CMP, GFR, FIB, APTT, PRO ####[place] [address] CBCon 11-01-2016 Erythrocyte distribution width Auto Ratio (RBC) 14.0 % Normal 11.5-15.5 [facility] ([place]) Comment on above: Performed By: #### C BC, ADIFF, ANEU, LD, CMP, GFR, FIB, APTT, PRO ####[place] [address] Erythrocytes (RBC) 4.33 10 6/mcL Normal 4.10-5.30 [facility] ([place]) Comment on above: Performed By: #### C BC, ADIFF, ANEU, LD, CMP, GFR, FIB, APTT, PRO ####[place] [address] Hematocrit (HCT) 39.9 % Normal 34.0-46.0 [facility] ([place]) Comment on above: Performed By: #### C BC, ADIFF, ANEU, LD, CMP, GFR, FIB, APTT, PRO ####[place] [address] Hemoglobin mass conc (Bld) 13.6 G/dL Normal 12.0-16.0 [facility] ([place]) Comment on above: Performed By: #### C BC, ADIFF, ANEU, LD, CMP, GFR, FIB, APTT, PRO ####[place] [address] MCH 31.3 pg Normal 27.0-33.0 [facility] ([place]) Comment on above: Performed By: #### C BC, ADIFF, ANEU, LD, CMP, GFR, FIB, APTT, PRO ####[place] [address] MCHC mass conc (RBC) 34.0 G/dL Normal 32.0-36.0 [facility] ([place]) Comment on above: Performed By: #### C BC, ADIFF, ANEU, LD, CMP, GFR, FIB, APTT, PRO ####[place] [address] MCV 92.1 fL Normal 80.0-99.0 [facility] ([place]) Comment on above: Performed By: #### C BC, ADIFF, ANEU, LD, CMP, GFR, FIB, APTT, PRO ####[place] [address] Platelet mean volume (PMV) 8.3 fL Normal 6.6-10.5 [facility] ([place]) Comment on above: Performed By: #### C BC, ADIFF, ANEU, LD, CMP, GFR, FIB, APTT, PRO ####[place] [address] Platelets 223 10 3/mcL Normal 150-450 [facility] ([place]) Comment on above: Performed By: #### C BC, ADIFF, ANEU, LD, CMP, GFR, FIB, APTT, PRO ####[place] [address] WBC (Leukocytes) 18.10 10 3/mcL High 4.50-10.80 [facility] ([place]) Comment on above: Performed By: #### C BC, ADIFF, ANEU, LD, CMP, GFR, FIB, APTT, PRO ####[place] [address] Erythrocyte distribution width Auto Ratio (RBC) 13.6 % Normal 11.5-15.5 [facility] ([place]) Comment on above: Performed By: #### C BC, ADIFF, ANEU, LD, CMP, GFR, FIB, APTT, PRO ####[place] [address] Erythrocytes (RBC) 4.45 10 6/mcL Normal 4.10-5.30 [facility] ([place]) Comment on above: Performed By: #### C BC, ADIFF, ANEU, LD, CMP, GFR, FIB, APTT, PRO ####[place] [address] Hematocrit (HCT) 40.7 % Normal 34.0-46.0 [facility] ([place]) Comment on above: Performed By: #### C BC, ADIFF, ANEU, LD, CMP, GFR, FIB, APTT, PRO ####[place] [address] Hemoglobin mass conc (Bld) 13.9 G/dL Normal 12.0-16.0 [facility] ([place]) Comment on above: Performed By: #### C BC, ADIFF, ANEU, LD, CMP, GFR, FIB, APTT, PRO ####[place] [address] MCH 31.2 pg Normal 27.0-33.0 [facility] ([place]) Comment on above: Performed By: #### C BC, ADIFF, ANEU, LD, CMP, GFR, FIB, APTT, PRO ####[place] [address] MCHC mass conc (RBC) 34.1 G/dL Normal 32.0-36.0 [facility] ([place]) Comment on above: Performed By: #### C BC, ADIFF, ANEU, LD, CMP, GFR, FIB, APTT, PRO ####[place] [id number] MCV 91.5 fL Normal 80.0-99.0 [facility] ([place]) Comment on above: Performed By: #### C BC, ADIFF, ANEU, LD, CMP, GFR, FIB, APTT, PRO ####[address] [address] Platelet mean volume (PMV) 8.0 fL Normal 6.6-10.5 [facility] ([place]) Comment on above: Performed By: #### C BC, ADIFF, ANEU, LD, CMP, GFR, FIB, APTT, PRO ####[address] [address] Platelets 207 10 3/mcL Normal 150-450 [facility] ([place]) Comment on above: Performed By: #### C BC, ADIFF, ANEU, LD, CMP, GFR, FIB, APTT, PRO ####[address] [address] WBC (Leukocytes) 18.10 10 3/mcL High 4.50-10.80 [facility] ([place]) Comment on above: Performed By: #### C BC, ADIFF, ANEU, LD, CMP, GFR, FIB, APTT, PRO ####[address] [address] Basophils Auto #/vol (Bld) 0.10 x10(3) Normal 0.00-0.10 [facility] Comment on above: Performed By: #### L 200.0010 ####[facility] [id number] [place] [address] Basophils/100 WBC Auto (Bld) 0.4 % Normal 0.0-1.0 [facility] Comment on above: Performed By: #### L 200.0010 ####ML [facility] [id number] [place] [address] Eosinophils 0.10 x10(3) Normal 0.00-0.54 [facility] Comment on above: Performed By: #### L 200.0010 ####ML [facility] [id number] [place] [address] Eosinophils/100 leukocytes 0.8 % Normal 0.5-4.9 [facility] Comment on above: Performed By: #### L 200.0010 ####ML - [id number] [place] [address] Erythrocyte distribution width Auto Ratio (RBC) 13.4 % Normal 12.5-15.7 [facility] Comment on above: Performed By: #### L 200.0010 ####ML - [id number] [place] [address] Erythrocytes (RBC) 4.43 x10(6) Normal 3.30-5.00 [facility] Comment on above: Performed By: #### L 200.0010 ####ML - [id number] [place] [address] Hematocrit (HCT) 40.6 % Normal 36.0-48.0 [facility] Comment on above: Performed By: #### L 200.0010 ####ML - [id number] [place] [address] Hemoglobin mass conc (Bld) 13.8 g/dL Normal 12.0-16.0 [facility] Comment on above: Performed By: #### L 200.0010 ####ML - [id number] [place] [address] Lymphocytes 1.60 x10(3) Normal 1.00-3.50 [facility] Comment on above: Performed By: #### L 200.0010 ####ML - [id number] [place] [address] Lymphocytes/100 leukocytes 10.0 % Low 16.0-48.0 [facility] Comment on above: Performed By: #### L 200.0010 ####ML - [id number] [place] [address] MCH 31.2 pg Normal 28.5-32.9 [facility] Comment on above: Performed By: #### L 200.0010 ####ML - [id number] [place] [address] MCHC mass conc (RBC) 34.0 g/dL Normal 33.0-36.0 [facility] Comment on above: Performed By: #### L 200.0010 ####ML - [id number] [place] [address] MCV 91.6 fL Normal 80.0-99.0 [facility] Comment on above: Performed By: #### L 200.0010 ####ML - [id number] [place] [address] Monocytes 1.00 x10(3) High 0.30-0.80 [facility] Comment on above: Performed By: #### L 200.0010 ####ML - [id number] [place] [address] Monocytes/100 leukocytes 6.5 % Normal 4.3-11.2 [facility] Comment on above: Performed By: #### L 200.0010 ####ML - [id number] [place] [address] Neutrophils 12.90 x10(3) High 1.40-6.50 [facility] Comment on above: Performed By: #### L 200.0010 ####ML - [id number] [place] [address] Neutrophils/100 WBC Auto (Bld) 82.3 % High 45.0-73.0 [facility] Comment on above: Performed By: #### L 200.0010 ####ML - [id number] [place] [address] Platelet mean volume (PMV) 8.0 fL Normal 7.5-9.5 [facility] Comment on above: Performed By: #### L 200.0010 ####ML - [id number] [place] [address] Platelets 184 X10(3) Normal 150-450 [facility] Comment on above: Performed By: #### L 200.0010 ####ML [facility] [id number] [place] [address] WBC (Leukocytes) 15.6 x10(3) High 4.5-10.0 [facility] Comment on above: Performed By: #### L 200.0010 ####ML [facility] [id number] [place] [address] CMPon 11-01-2016 Albumin/Globulin Ratio 0.6 {ratio} Low 0.9-1.6 [facility] ([place]) Comment on above: Performed By: #### C BC, ADIFF, ANEU, LD, CMP, GFR, FIB, APTT, PRO ####[address] [address] Alk Phos 97 U/L Normal 38-126 [facility] ([place]) Comment on above: Performed By: #### C BC, ADIFF, ANEU, LD, CMP, GFR, FIB, APTT, PRO ####[place] [address] Bili Total 0.4 mg/dL Normal 0.2-1.2 [facility] ([place]) Comment on above: Performed By: #### C BC, ADIFF, ANEU, LD, CMP, GFR, FIB, APTT, PRO ####[place] [address] BUN/Creatinine Ratio 22.8 ratio High 10.0-22.0 [facility] ([place]) Comment on above: Performed By: #### C BC, ADIFF, ANEU, LD, CMP, GFR, FIB, APTT, PRO ####[place] [address] Creatinine 0.57 mg/dL Normal 0.50-1.20 [facility] ([place]) Comment on above: Performed By: #### C BC, ADIFF, ANEU, LD, CMP, GFR, FIB, APTT, PRO ####[place] [address] Globulin 4.0 G/dL High 1.5-3.8 [facility] ([place]) Comment on above: Performed By: #### C BC, ADIFF, ANEU, LD, CMP, GFR, FIB, APTT, PRO ####[place] [address] Protein 6.3 G/dL Normal 6.0-8.5 [facility] ([place]) Comment on above: Performed By: #### C BC, ADIFF, ANEU, LD, CMP, GFR, FIB, APTT, PRO ####[place] [address] Alanine aminotransferase (ALT) 23 U/L Normal 10-49 [facility] ([place]) Comment on above: Performed By: #### C BC, ADIFF, ANEU, LD, CMP, GFR, FIB, APTT, PRO ####[place] [address] Albumin 2.3 G/dL Low 3.2-4.8 [facility] ([place]) Comment on above: Performed By: #### C BC, ADIFF, ANEU, LD, CMP, GFR, FIB, APTT, PRO ####[place] [place] [address] Aspartate aminotransferase (AST) 26 U/L Normal 8-34 [facility] ([place]) Comment on above: Performed By: #### C BC, ADIFF, ANEU, LD, CMP, GFR, FIB, APTT, PRO ####[place] [address] Calcium 8.2 mg/dL Low 8.4-10.1 [facility] ([place]) Comment on above: Performed By: #### C BC, ADIFF, ANEU, LD, CMP, GFR, FIB, APTT, PRO ####[place] [address] Chloride 103 mmol/L Normal 98-110 [facility] ([place]) Comment on above: Performed By: #### C BC, ADIFF, ANEU, LD, CMP, GFR, FIB, APTT, PRO ####[place] [address] CO2 22 mmol/L Normal 22-32 [facility] ([place]) Comment on above: Performed By: #### C BC, ADIFF, ANEU, LD, CMP, GFR, FIB, APTT, PRO ####[place] [address] Electrolyte Balance 12.0 mEq/L Normal 4.0-15.0 Replaced by [facility] ([place]) Comment on above: Performed By: #### C BC, ADIFF, ANEU, LD, CMP, GFR, FIB, APTT, PRO ####[place] [address] Glucose mass conc 101 mg/dL Normal 70-110 [facility] ([place]) Comment on above: Performed By: #### C BC, ADIFF, ANEU, LD, CMP, GFR, FIB, APTT, PRO ####[place] [address] Potassium molar conc 5.2 mmol/L High 3.5-5.0 [facility] ([place]) Comment on above: Performed By: #### C BC, ADIFF, ANEU, LD, CMP, GFR, FIB, APTT, PRO ####[place] [address] Sodium 137 mmol/L Normal 136-145 [facility] ([place]) Comment on above: Performed By: #### C BC, ADIFF, ANEU, LD, CMP, GFR, FIB, APTT, PRO ####[place] [address] Urea nitrogen 13.0 mg/dL Normal 8.0-22.0 [facility] ([place]) Comment on above: Performed By: #### C BC, ADIFF, ANEU, LD, CMP, GFR, FIB, APTT, PRO ####[place] [address] Alanine aminotransferase (ALT) 26 U/L Normal 10-49 [facility] ([place]) Comment on above: Performed By: #### C BC, ADIFF, ANEU, LD, CMP, GFR, FIB, APTT, PRO ####[place] [address] Albumin 2.2 G/dL Low 3.2-4.8 [facility] ([place]) Comment on above: Performed By: #### C BC, ADIFF, ANEU, LD, CMP, GFR, FIB, APTT, PRO ####[place] [address] Albumin/Globulin Ratio 0.6 {ratio} Low 0.9-1.6 [facility] ([place]) Comment on above: Performed By: #### C BC, ADIFF, ANEU, LD, CMP, GFR, FIB, APTT, PRO ####[place] [address] Alk Phos 105 U/L Normal 38-126 [facility] ([place]) Comment on above: Performed By: #### C BC, ADIFF, ANEU, LD, CMP, GFR, FIB, APTT, PRO ####[place] [address] Aspartate aminotransferase (AST) 46 U/L High 8-34 [facility] ([place]) Comment on above: Performed By: #### C BC, ADIFF, ANEU, LD, CMP, GFR, FIB, APTT, PRO ####[place] [address] Bili Total 0.5 mg/dL Normal 0.2-1.2 [facility] ([place]) Comment on above: Performed By: #### C BC, ADIFF, ANEU, LD, CMP, GFR, FIB, APTT, PRO ####[place] [address] BUN/Creatinine Ratio 17.9 ratio Normal 10.0-22.0 [facility] ([place]) Comment on above: Performed By: #### C BC, ADIFF, ANEU, LD, CMP, GFR, FIB, APTT, PRO ####[place] [address] Calcium 8.7 mg/dL Normal 8.4-10.1 [facility] ([place]) Comment on above: Performed By: #### C BC, ADIFF, ANEU, LD, CMP, GFR, FIB, APTT, PRO ####[place] [address] Chloride 105 mmol/L Normal 98-110 [facility] ([place]) Comment on above: Performed By: #### C BC, ADIFF, ANEU, LD, CMP, GFR, FIB, APTT, PRO ####[place] [address] CO2 22 mmol/L Normal 22-32 [facility] ([place]) Comment on above: Performed By: #### C BC, ADIFF, ANEU, LD, CMP, GFR, FIB, APTT, PRO ####[place] [address] Creatinine 0.56 mg/dL Normal 0.50-1.20 [facility] ([place]) Comment on above: Performed By: #### C BC, ADIFF, ANEU, LD, CMP, GFR, FIB, APTT, PRO ####[place] [address] Electrolyte Balance 10.0 mEq/L Normal 4.0-15.0 Replaced by [facility] ([place]) Comment on above: Performed By: #### C BC, ADIFF, ANEU, LD, CMP, GFR, FIB, APTT, PRO ####[place] [address] Globulin 3.9 G/dL High 1.5-3.8 [facility] ([place]) Comment on above: Performed By: #### C BC, ADIFF, ANEU, LD, CMP, GFR, FIB, APTT, PRO ####[place] [address] Glucose mass conc 88 mg/dL Normal 70-110 [facility] ([place]) Comment on above: Performed By: #### C BC, ADIFF, ANEU, LD, CMP, GFR, FIB, APTT, PRO ####[place] [address] Potassium molar conc 4.9 mmol/L Normal 3.5-5.0 [facility] ([place]) Comment on above: Result Comment: Spec imen slightly hemolyzed. Performed By: #### C BC, ADIFF, ANEU, LD, CMP, GFR, FIB, APTT, PRO ####[place] [address] Protein 6.1 G/dL Normal 6.0-8.5 [facility] ([place]) Comment on above: Performed By: #### C BC, ADIFF, ANEU, LD, CMP, GFR, FIB, APTT, PRO ####[place] [address] Sodium 137 mmol/L Normal 136-145 [facility] ([place]) Comment on above: Performed By: #### C BC, ADIFF, ANEU, LD, CMP, GFR, FIB, APTT, PRO ####[facility] [place] [address] Urea nitrogen 10.0 mg/dL Normal 8.0-22.0 [facility] ([place]) Comment on above: Performed By: #### C BC, ADIFF, ANEU, LD, CMP, GFR, FIB, APTT, PRO ####[facility] [place] [address] A:G RATIO 0.90 Low 1.1-2.5 [facility] Comment on above: Performed By: #### L 100.0005 ####[facility] SRQICLABVJ[address] [place] [address] Alanine aminotransferase (ALT) 18 U/L Normal 5-33 [facility] Comment on above: Performed By: #### L 100.0005 ####[facility] FYKMIXGWLQ[address] [place] [address] Albumin 2.9 g/dL Low 3.5-5.2 [facility] Comment on above: Performed By: #### L 100.0005 ####[facility] LCXXOKJSGO[address] [place] [address] ALK. PHOS 81 U/L Normal 35-105 [facility] Comment on above: Performed By: #### L 100.0005 ####[facility] LWFHBBOISC[address] [place] [address] Anion gap 17.4 mmol/L Normal 15-22 [facility] Comment on above: Performed By: #### L 100.0005 ####[facility] JDLEWWSFMG[address] [place] [address]2018 Aspartate aminotransferase (AST) 29 U/L Normal 5-32 [facility] Comment on above: Performed By: #### L 100.0005 ####[facility] FXRTRCUAOZ[address] [place] [address]007 Bilirubin Ql (U) 0.5 mg/dL Normal 0.2-1.2 [facility] Comment on above: Performed By: #### L 100.0005 ####ML [facility] [address] [place] [address] Calcium 8.8 mg/dL Normal 8.6-10.0 [facility] Comment on above: Performed By: #### L 100.0005 ####ML - [id number] [place] [address] Chloride 103 mmol/L Normal 98-107 [facility] Comment on above: Performed By: #### L 100.0005 ####ML - MLLWIQJRQZ[address] [place] [address] CO2 21 mmol/L Low 22-29 [facility] Comment on above: Performed By: #### L 100.0005 ####ML - [id number] [place] [address] Creatinine 0.53 mg/dL Normal 0.50-0.90 [facility] Comment on above: Performed By: #### L 100.0005 ####ML - [address] [address] eGFR (non-black) > 60 ml/min/1.73m2 Normal [facility] Comment on above: Result Comment: eGFR >= [...] website (www.nkdep.nih.gov). Performed By: #### L 100.0005 ####ML - [id number] [place] [address] Globulin 3.2 g/dL Normal 1.5-4.5 [facility] Comment on above: Performed By: #### L 100.0005 ####ML - [id number] [place] [address] Glucose mass conc 89 mg/dL Normal 74-106 [facility] Comment on above: Performed By: #### L 100.0005 ####ML - [id number] [place] [address] Potassium molar conc 4.4 mmol/L Normal 3.5-5.0 [facility] Comment on above: Performed By: #### L 100.0005 ####ML - [id number] [place] [address] Protein 6.1 g/dL Low 6.4-8.3 [facility] Comment on above: Performed By: #### L 100.0005 ####ML - [id number] [place] [address] Sodium 137 mmol/L Normal 135-145 [facility] Comment on above: Performed By: #### L 100.0005 ####ML - [id number] [place] [address] Urea nitrogen 11 mg/dL Normal 6-20 [facility] Comment on above: Performed By: #### L 100.0005 ####ML - [id number] [place] [address] FIBon 11-01-2016 Fibrinogen >700 High 250-550 [facility] ([place]) Comment on above: Performed By: #### C BC, ADIFF, ANEU, LD, CMP, GFR, FIB, APTT, PRO ####[place] [address] GFRon 11-01-2016 eGFR (non-black) mL/min/{1.73_m2} Normal [facility] ([place]) Comment on above: Result Comment: GFR Population [...] ANEU, LD, CMP, GFR, FIB, APTT, PRO ####[place] [address] [place] [address] eGFR (non-black) mL/min/{1.73_m2} Normal [facility] ([place]) Comment on above: Result Comment: GFR Population [...] ANEU, LD, CMP, GFR, FIB, APTT, PRO ####[facility] [place] [address] HISTORY AND PHYSICALon 11-01 HISTORY AND PHYSICAL [place], [place] [address]EJYEJC INFORMATION MANAGEMENTHISTORY AND PHYSICALPatient: SONIA MISTRY CHINYERE M.D.[id number] FStatus: REG CLI LDDATE OF UGTJUUDZW52/20/2017BRIEF HISTORY OF PRESENT ILLNESSThe patient is a [...] stabilized (I have discussed the patientwith Dr. Zamarripa) then we will be transporting her to [facility]. We will continue toclosely follow and preeclampsia protocols have been initiated and have been closelyfollowing fetus and heart tracing has remained very reassuring. Discussed plan withthe patient and she clearly understands and is agreeable with plan. The goal at [facility] be to hopefully get her second dose of steroids at [place] and closely follow there. 11/02/16 0842 __DAVIDA HARVEY M.D.cc: [facility] [employer]; NESS ZAMARRIPA M.D.; WADE ZHANG M.D.; KEVIN HARVEY << Signature on File>> Reported By: DAVIDA HARVEY M.D. Signed By: DAVIDA HARVEY M.D.Tests performed at:[address] [phone] Normal [facility] LDHon 11-01-2016 LDH 248 U/L High 120-246 [facility] ([place]) Comment on above: Performed By: #### C BC, ADIFF, ANEU, LD, CMP, GFR, FIB, APTT, PRO ####[address] [address] LDH 369 U/L High 120-246 [facility] ([place]) Comment on above: Performed By: #### C BC, ADIFF, ANEU, LD, CMP, GFR, FIB, APTT, PRO ####[place] [address] [place] [address] MABSon 11-01-2016 Antibody Screen Manual Negative Normal [facility] ([place]) Comment on above: Performed By: #### C BC, ADIFF, ANEU, LD, CMP, GFR, FIB, APTT, PRO ####[address] [address] MGon 11-01-2016 Magnesium 5.9 mg/dL Critically abnormal 1.6-2.4 [facility] ([place]) Comment on above: Result Comment: Spec imen slightly hemolyzed. Results may be falsely elevated. Performed By: #### C BC, ADIFF, ANEU, LD, CMP, GFR, FIB, APTT, PRO ####[facility] [place] [address] Magnesium 5.4 mg/dL Critically abnormal 1.6-2.4 [facility] ([place]) Comment on above: Performed By: #### C BC, ADIFF, ANEU, LD, CMP, GFR, FIB, APTT, PRO ####[facility] [place] [address] MTP/CREA RATIOon 11-01-2016 MTP/CREAT RATIO 4.06 RATIO Normal [facility] Comment on above: Result Comment: NORM AL RATIO IS <0.2 Performed By: #### L 100.0779 ####ML - [facility] [id number] [place] [address] URINE PROTEIN ( 414.5 mg/dL High 0-10 [facility] Comment on above: Performed By: #### L 100.0779 ####ML - [facility] [id number] [place] [address] URINE CREATININ 102.2 mg/dL Normal [facility] Comment on above: Result Comment: NO R EFERENCE RANGES ESTABLISHED. Performed By: #### L 100.0779 ####ML - [facility] [id number] [place] [address] OB History and Physicalon OB History and Physical Normal [facility] ([place]) OB History and Physical Normal [facility] ([place]) OB Progress Noteon 7 OB Progress Note Normal [facility] ([place]) PROon 11-01-2016 INR Coag RelTime (PPP) 0.8 {INR} Normal [facility] ([place]) Comment on above: Result Comment: [employer] (CHEST, 1992, 102:312S-25S)recommended therapeutic range for oral anticoagulant therapy is:LOW RISK: Prophylaxis of venous thrombosis INR: 2.0-3.0 Treatment of pulmonary embolism 2.0-3.0 Prevention of systemic embolism 2.0-3.0HIGH RISK: Mechanical prosthetic valves 2.5-3.5 Performed By: #### C BC, ADIFF, ANEU, LD, CMP, GFR, FIB, APTT, PRO ####[address] [address] Prothrombin time (PT) Coag time (PPP) 9.9 s Normal 9.0-14.4 [facility] ([place]) Comment on above: Result Comment: Effe ctive 09/27/07, Protime results may be affected by some antibiotics (i.e. Ciprofloxacin, Azithromycin, Bactrim) which may potentiate the action of oral anticoagulants, with further increase in Protime/INR. Performed By: #### C BC, ADIFF, ANEU, LD, CMP, GFR, FIB, APTT, PRO ####[place] [address] RPCURon 11-01-2016 Creatinine 29.1 mg/dL Normal [facility] ([place]) Comment on above: Performed By: #### C BC, ADIFF, ANEU, LD, CMP, GFR, FIB, APTT, PRO ####[address] [address] U Protein 142.0 mg/dL Normal [facility] ([place]) Comment on above: Performed By: #### C BC, ADIFF, ANEU, LD, CMP, GFR, FIB, APTT, PRO ####[place] [id number] U Ratio Prot/Creat 4.9 ratio Normal [facility] ([place]) Comment on above: Performed By: #### C BC, ADIFF, ANEU, LD, CMP, GFR, FIB, APTT, PRO ####[place] [address] TABOon 11-01-2016 ABO/Rh Interp Positive Invalid Interpretation Code [facility] ([place]) Comment on above: Order Comment: colle ct every 72 hours Performed By: #### C BC, ADIFF, ANEU, LD, CMP, GFR, FIB, APTT, PRO ####[place] [address] TABSon 11-01-2016 Antibody Screen Tango Positive Normal [facility] ([place]) Comment on above: Order Comment: Tango antibody screen results invalidated by fibrin/clotting in test wells. Repeat antibody screen performed at bench.collect every 72 hours Performed By: #### C BC, ADIFF, ANEU, LD, CMP, GFR, FIB, APTT, PRO ####[place] [address] TYPE AND SCREENon 11-01-2016 AB SCRN Negative [facility] Comment on above: Performed By: #### B 100.0700 ####ML - [facility] [id number] [place] [address] BLD TYPE Positive [facility] Comment on above: Performed By: #### B 100.0700 ####ML - [facility] [id number] [place] [address] UAon 11-01-2016 UA Appear Clear Normal Clear [facility] ([place]) Comment on above: Performed By: #### U A, RPCUR, UAMIC ####[place] [address] UA Blood Negative Normal Neg-Trace [facility] ([place]) Comment on above: Performed By: #### U A, RPCUR, UAMIC ####[place] [address] UA Leuk Est Negative Normal Negative [facility] ([place]) Comment on above: Performed By: #### U A, RPCUR, UAMIC ####[place] [address] UA Nitrite Negative Normal Negative [facility] ([place]) Comment on above: Performed By: #### U A, RPCUR, UAMIC ####[place] [address] UA pH 5.5 Normal 5.0 - 8.0 [facility] ([place]) Comment on above: Performed By: #### U A, RPCUR, UAMIC ####[place] [address] UA Protein 100 mg/dL Abnormal Negative [facility] ([place]) Comment on above: Performed By: #### U A, RPCUR, UAMIC ####[place] [address] UA Spec Grav 1.010 Normal 1.006-1.029 [facility] ([place]) Comment on above: Performed By: #### U A, RPCUR, UAMIC ####[place] [address] UA Specimen Type Catheter Normal [facility] ([place]) Comment on above: Performed By: #### U A, RPCUR, UAMIC ####[place] [address] UA Urobilinogen 0.2 E.U./dL Normal 0.2-1.0 [facility] ([place]) Comment on above: Performed By: #### U A, RPCUR, UAMIC ####[place] [address] Urine, color Yellow Normal [facility] ([place]) Comment on above: Performed By: #### U A, RPCUR, UAMIC ####[place] [address] Urine, glucose Negative Normal Negative [facility] ([place]) Comment on above: Performed By: #### U A, RPCUR, UAMIC ####[place] [address] Urine, ketones presence Negative Normal Neg-Trace [facility] ([place]) Comment on above: Performed By: #### U A, RPCUR, UAMIC ####[place] [address] Urine, urobilinogen Negative Normal Neg-Trace Replaced by [facility] ([place]) Comment on above: Performed By: #### U A, RPCUR, UAMIC ####[place] [address] UAMICon 11-01-2016 UA Amorphus Trace Normal [facility] ([place]) Comment on above: Performed By: #### C BC, ADIFF, ANEU, LD, CMP, GFR, FIB, APTT, PRO ####[facility] [place] [address] UA Mucous Trace Normal [facility] ([place]) Comment on above: Performed By: #### C BC, ADIFF, ANEU, LD, CMP, GFR, FIB, APTT, PRO ####[address] [address] UA Squam Epithelial 0-2 Normal 0-20 Replaced by [facility] ([place]) Comment on above: Performed By: #### C BC, ADIFF, ANEU, LD, CMP, GFR, FIB, APTT, PRO ####[facility] [place] [address] UA WBC 0-2 Normal 0-5 [facility] ([place]) Comment on above: Performed By: #### C BC, ADIFF, ANEU, LD, CMP, GFR, FIB, APTT, PRO ####[address] [address] Urine, erythrocytes 0-2 Normal 0-2 Replaced by [facility] ([place]) Comment on above: Performed By: #### C BC, ADIFF, ANEU, LD, CMP, GFR, FIB, APTT, PRO ####[address] [address] UCon 11-01-2016 UC No Growth Normal [facility] Comment on above: Performed By: #### M 120.0100 ####ML - [id number] [place] [address] URINALYSISon 11-01-2016 Bilirubin Ql (U) Negative Normal NEGATIVE [facility] Comment on above: Performed By: #### L 200.3000, L200.3190 ####ML - [facility] [id number] [place] [address] URINE APPEARANC CLEAR Normal CLEAR [facility] Comment on above: Performed By: #### L 200.3000, L200.3190 ####ML - [id number] [place] [address] URINE KETONE Negative Normal NEGATIVE [facility] Comment on above: Performed By: #### L 200.3000, L200.3190 ####ML - [id number] [place] [address] URINE SPECIFIC 1.025 Normal 1.001-1.035 [facility] Comment on above: Performed By: #### L 200.3000, L200.3190 ####ML - [id number] [place] [address] URINE UROBILINO 0.2 EU/DL Normal 0.2-1.0 [facility] Comment on above: Performed By: #### L 200.3000, L200.3190 ####ML - [id number] [place] [address] Urine, color YELLOW Normal YELLOW [facility] Comment on above: Performed By: #### L 200.3000, L200.3190 ####ML - OJFFOATBPL[address] [place] [address] Urine, glucose presence Negative Normal NEGATIVE [facility] Comment on above: Performed By: #### L 200.3000, L200.3190 ####ML - [id number] [place] [address] Urine, hemoglobin presence TRACE-INTACT Normal NEGATIVE [facility] Comment on above: Performed By: #### L 200.3000, L200.3190 ####ML - [id number] [place] [address] Urine, leukocyte esterase presence Negative Normal NEGATIVE [facility] Comment on above: Performed By: #### L 200.3000, L200.3190 ####ML - [id number] [place] [address] Urine, nitrite presence Negative Normal NEGATIVE [facility] Comment on above: Performed By: #### L 200.3000, L200.3190 ####ML - [id number] [place] [address] Urine, pH 6.5 [pH] Normal 5.0-8.0 [facility] Comment on above: Performed By: #### L 200.3000, L200.3190 ####ML - [id number] [place] [address] Urine, protein presence >=300 Normal NEGATIVE [facility] Comment on above: Performed By: #### L 200.3000, L200.3190 ####ML - [facility] YTOKLOMCGK[address] [place] [address] URINE MICROSCOPon 11-01-2016 AMORPHOUS TR Normal NEGATIVE [facility] Comment on above: Performed By: #### L 200.3000, L200.3190 ####ML - [facility] [id number] [place] [address] FINE GRANULAR 0-1 Normal NEGATIVE [facility] Comment on above: Performed By: #### L 200.3000, L200.3190 ####ML - [facility] IWOPPIENMV[address] [place] [address] HYALINE 0-3 Normal NEGATIVE [facility] Comment on above: Performed By: #### L 200.3000, L200.3190 ####ML - [facility] [id number] [place] [address] RENAL EPI OCC Normal [facility] Comment on above: Performed By: #### L 200.3000, L200.3190 ####ML - [facility] [id number] [place] [address] SQUAMOUS MOD Normal NEGATIVE [facility] Comment on above: Performed By: #### L 200.3000, L200.3190 ####ML - [facility] [id number] [place] [address] Urine, bacteria in sediment 1+ Normal [facility] Comment on above: Performed By: #### L 200.3000, L200.3190 ####ML - [facility] [id number] [place] [address] Urine, erythrocytes 3-6 Normal 0-2 [facility] Comment on above: Performed By: #### L 200.3000, L200.3190 ####ML - [facility] VFWBRKTBNO[address] [place] [address] Urine, leukocytes 3-6 Normal 0-5 [facility] Comment on above: Performed By: #### L 200.3000, L200.3190 ####ML - [facility] [id number] [place] [address] Urine, mucus presence in sediment 2+ Normal [facility] Comment on above: Performed By: #### L 200.3000, L200.3190 ####ML - [facility] [id number] [place] [address] US OB W/BIOPHYSICAL /CORD DO PPLERon 11-01-2016 US OB W/BIOPHYSICAL /CORD DOPPLER ORIGINAL ------ OBSTETRICS REPORT (Signed Final 11/01/2016 12:21 pm) -Patient Info ID #: [id number] : [birth year] (26 yrs)(F) Name: SONIA Nikki JULY Visit Date: 11/01/2016 11:34 am Performed By Performed By: Justa Gaspar [facility] Referred By: Wade Zhang MD Location: [facility] --Indications Pre-E with severe features Labor and [...] you have any questions or concerns. Ness Zamarripa MDElectronically Signed Final Report 11/01/2016 12:21 pm Normal [facility] ([place]) 1HR GLUCOSEon 09-28-2016 Glucose mass conc 119 mg/dL Normal [facility] Comment on above: Order Comment: 1HR G LUCOSE VERNON 1H GLU 1HR GLUCOSE from [id number]. Performed By: #### L 100.0080 ####ML - [facility] [id number] [place] [address] Vital Signs Date Time Vital Sign Value Performing Clinician Facility 09-04-2024 13:07-0400 Body height 167.6 cm Rose Mary Larsen MD Work Phone: [facility] 09-04-2024 13:07-0400 Body mass index (BMI) [Ratio] 29.38 kg/m2 Rose Mary Larsen MD Work Phone: [facility] 09-04-2024 13:07-0400 Body weight 82.56 kg Rose Mary Larsen MD Work Phone: [facility] 09-04-2024 13:07-0400 Diastolic blood pressure 80 mm[Hg] Rose Mary Larsen MD Work Phone: [facility] 09-04-2024 13:07-0400 Systolic blood pressure 110 mm[Hg] Rose Mary Larsen MD Work Phone: [facility] 07-25-2024 12:56-0400 Body height 167.6 cm Pmh 1 [facility] 07-25-2024 12:56-0400 Body mass index (BMI) [Ratio] 29.05 kg/m2 Pm 1 [facility] 07-25-2024 12:56-0400 Body weight 81.65 kg Pm 1 [facility] 06-15-2024 09:26-0400 Diastolic blood pressure 71 mm[Hg] Kelly Aichholz Work Phone: [facility] 06-15-2024 09:26-0400 Heart rate 75 /min Kelly Aichholz Work Phone: [facility] 06-15-2024 09:26-0400 Respiratory rate 16 /min Kelly Aichholz Work Phone: [facility] 06-15-2024 09:26-0400 SaO2% (BldA) [Mass fraction] 100 % Kelly Aichholz Work Phone: [facility] 06-15-2024 09:26-0400 Systolic blood pressure 108 mm[Hg] Kelly Aichholz Work Phone: [facility] 06-15-2024 07:14-0400 Body height 167.64 cm Kelly Aichholz Work Phone: [facility] 06-15-2024 07:14-0400 Body weight 81.64 kg Kelly Aichholz Work Phone: [facility] 06-12-2024 13:16-0400 Body height 167.6 cm Delilah Cain TECHNICAL ADVISOR-[employer] Work Phone: [facility] 06-12-2024 13:16-0400 Body mass index (BMI) [Ratio] 29.54 kg/m2 Delilah Cain TECHNICAL ADVISOR-CNM Work Phone: [facility] 06-12-2024 13:16-0400 Body weight 83.01 kg Delilah Cain TECHNICAL ADVISOR-CNM Work Phone: [facility] 06-12-2024 13:16-0400 Diastolic blood pressure 64 mm[Hg] Delilah Cain TECHNICAL ADVISOR-CNM Work Phone: [facility] 06-12-2024 13:16-0400 Systolic blood pressure 108 mm[Hg] Delilah Cain TECHNICAL ADVISOR-CNM Work Phone: [facility] 06-06-2024 12:02-0400 Body height 167.64 cm [facility] 06-06-2024 12:02-0400 Body mass index (BMI) [Ratio] 28.7 kg/m2 [facility] 06-06-2024 12:02-0400 Body weight 80.73 kg [facility] 05-01-2024 17:19-0500 Body height 167.64 cm [facility] 05-01-2024 17:19-0500 Body mass index (BMI) [Ratio] 29.2 kg/m2 [facility] 05-01-2024 17:19-0500 Body temperature 96.9 [degF] [facility] 05-01-2024 17:19-0500 Body weight 82.32 kg [facility] 05-01-2024 17:19-0500 Diastolic blood pressure 76 mm[Hg] [facility] 05-01-2024 17:19-0500 Heart rate 66 /min [facility] 05-01-2024 17:19-0500 Respiratory rate 18 /min [facility] 05-01-2024 17:19-0500 SaO2% (BldA) [Mass fraction] 99 % [facility] 05-01-2024 17:19-0500 Systolic blood pressure 113 mm[Hg] [facility] 05-01-2024 11:00-0500 Body height 167.6 cm [facility] 05-01-2024 11:00-0500 Body mass index (BMI) [Ratio] 29.25 kg/m2 [facility] 05-01-2024 11:00-0500 Body temperature 97 [degF] [facility] 05-01-2024 11:00-0500 Body weight 82.2 kg [facility] 05-01-2024 11:00-0500 Diastolic blood pressure 77 mm[Hg] [facility] 05-01-2024 11:00-0500 Heart rate 71 /min [facility] 05-01-2024 11:00-0500 Systolic blood pressure 112 mm[Hg] [facility] 03-20-2024 11:00-0500 Body height 167.6 cm Felicity Tyrel TECHNICAL ADVISOR-MEAT SEAFOOD ASSOCIATE Work Phone: [facility] 03-20-2024 11:00-0500 Body mass index (BMI) [Ratio] 28.17 kg/m2 Felicity Tyrel TECHNICAL ADVISOR-MEAT SEAFOOD ASSOCIATE Work Phone: [facility] 03-20-2024 11:00-0500 Body temperature 96.69 [degF] Felicity Tyrel TECHNICAL ADVISOR-MEAT SEAFOOD ASSOCIATE Work Phone: [facility] 03-20-2024 11:00-0500 Body weight 79.15 kg Felicity Tyrel TECHNICAL ADVISOR-MEAT SEAFOOD ASSOCIATE Work Phone: [facility] 03-20-2024 11:00-0500 Diastolic blood pressure 68 mm[Hg] Felicity Tyrel TECHNICAL ADVISOR-MEAT SEAFOOD ASSOCIATE Work Phone: [facility] 03-20-2024 11:00-0500 Heart rate 73 /min Felicity Tyrel TECHNICAL ADVISOR-MEAT SEAFOOD ASSOCIATE Work Phone: [facility] 03-20-2024 11:00-0500 Systolic blood pressure 101 mm[Hg] Felicity Sarah APRN-MEAT SEAFOOD ASSOCIATE Work Phone: [facility] 12-07-2023 13:47-0400 Body height 167.6 cm Kelly Aichholz WORKERS COMPENSATION CLAIMS SPECIALIST Work Phone: [facility] 12-07-2023 13:47-0400 Body mass index (BMI) [Ratio] 29.86 kg/m2 Kelly Aichholz WORKERS COMPENSATION CLAIMS SPECIALIST Work Phone: [facility] 12-07-2023 13:47-0400 Body temperature 98.49 [degF] Kelly Aichholz WORKERS COMPENSATION CLAIMS SPECIALIST Work Phone: [facility] 12-07-2023 13:47-0400 Body weight 83.92 kg Kelly Aichholz WORKERS COMPENSATION CLAIMS SPECIALIST Work Phone: [facility] 12-07-2023 13:47-0400 Diastolic blood pressure 80 mm[Hg] Kelly Aichholz WORKERS COMPENSATION CLAIMS SPECIALIST Work Phone: [facility] 12-07-2023 13:47-0400 Heart rate 68 /min Kelly Aichholz WORKERS COMPENSATION CLAIMS SPECIALIST Work Phone: [facility] 12-07-2023 13:47-0400 Respiratory rate 18 /min Kelly Aichholz WORKERS COMPENSATION CLAIMS SPECIALIST Work Phone: [facility] 12-07-2023 13:47-0400 SaO2% (BldA) [Mass fraction] 100 % Kelly Aichholz WORKERS COMPENSATION CLAIMS SPECIALIST Work Phone: [facility] 12-07-2023 13:47-0400 Systolic blood pressure 112 mm[Hg] Kelly Aichholz WORKERS COMPENSATION CLAIMS SPECIALIST Work Phone: [facility] 11-13-2023 09:56-0400 Body height 167.64 cm [facility] 11-13-2023 09:56-0400 Body mass index (BMI) [Ratio] 29.5 kg/m2 [facility] 11-13-2023 09:56-0400 Body temperature 97.9 [degF] [facility] 11-13-2023 09:56-0400 Body weight 83.09 kg [facility] 11-13-2023 09:56-0400 Diastolic blood pressure 76 mm[Hg] [facility] 11-13-2023 09:56-0400 Heart rate 65 /min [facility] 11-13-2023 09:56-0400 Respiratory rate 18 /min [facility] 11-13-2023 09:56-0400 SaO2% (BldA) [Mass fraction] 97 % [facility] 11-13-2023 09:56-0400 Systolic blood pressure 115 mm[Hg] [facility] 11-10-2023 14:43-0400 Body height 167.6 cm Kelly Cain WORKERS COMPENSATION CLAIMS SPECIALIST Work Phone: [facility] 11-10-2023 14:43-0400 Body mass index (BMI) [Ratio] 29.41 kg/m2 Kellyromina Cain WORKERS COMPENSATION CLAIMS SPECIALIST Work Phone: [facility] 11-10-2023 14:43-0400 Body temperature 97.5 [degF] Kelly Cain WORKERS COMPENSATION CLAIMS SPECIALIST Work Phone: [facility] 11-10-2023 14:43-0400 Body weight 82.64 kg Kelly Cain WORKERS COMPENSATION CLAIMS SPECIALIST Work Phone: [facility] 11-10-2023 14:43-0400 Diastolic blood pressure 76 mm[Hg] Kellyromina Cain WORKERS COMPENSATION CLAIMS SPECIALIST Work Phone: [facility] 11-10-2023 14:43-0400 Heart rate 86 /min Kelly Payton WORKERS COMPENSATION CLAIMS SPECIALIST Work Phone: [facility] 11-10-2023 14:43-0400 Respiratory rate 18 /min Kelly Payton WORKERS COMPENSATION CLAIMS SPECIALIST Work Phone: [facility] 11-10-2023 14:43-0400 SaO2% (BldA) [Mass fraction] 100 % Kelly Payton WORKERS COMPENSATION CLAIMS SPECIALIST Work Phone: [facility] 11-10-2023 14:43-0400 Systolic blood pressure 106 mm[Hg] Kelly Payton WORKERS COMPENSATION CLAIMS SPECIALIST Work Phone: [facility] 06-23-2023 15:43-0400 Body height 165.1 cm [facility] 06-23-2023 15:43-0400 Body mass index (BMI) [Ratio] 31.1 kg/m2 [facility] 06-23-2023 15:43-0400 Body weight 84.82 kg [facility] 06-23-2023 15:43-0400 Diastolic blood pressure 76 mm[Hg] [facility] 06-23-2023 15:43-0400 Systolic blood pressure 120 mm[Hg] [facility] 06-08-2023 18:03-0400 Body height 165.1 cm [facility] 06-08-2023 18:03-0400 Body mass index (BMI) [Ratio] 29.9 kg/m2 [facility] 06-08-2023 18:03-0400 Body temperature 98.5 [degF] [facility] 06-08-2023 18:03-0400 Body weight 81.64 kg [facility] 06-08-2023 18:03-0400 Heart rate 76 /min [facility] 06-08-2023 18:03-0400 Respiratory rate 16 /min [facility] 06-08-2023 18:03-0400 SaO2% (BldA) [Mass fraction] 98 % [facility] 05-13-2023 13:58-0500 Body height 167.6 cm [facility] 05-13-2023 13:58-0500 Body mass index (BMI) [Ratio] 29.89 kg/m2 [facility] 05-13-2023 13:58-0500 [facility] 05-13-[facility]23 13:58-0500 Diastolic blood pressure 76 mm[Hg] [facility] 05-13-2023 13:58-0500 Systolic blood pressure 114 mm[Hg] [facility] 05-09-2023 13:19-0500 Body height 165.1 cm [facility] 05-09-2023 13:19-0500 Body mass index (BMI) [Ratio] 29.9 kg/m2 [facility] 05-09-2023 13:19-0500 Body temperature 96.8 [degF] [facility] 05-09-2023 13:19-0500 Body weight 81.76 kg [facility] 05-09-2023 13:19-0500 Heart rate 76 /min [facility] 05-09-2023 13:19-0500 Respiratory rate 18 /min [facility] 05-09-2023 13:19-0500 SaO2% (BldA) [Mass fraction] 97 % [facility] 04-05-2023 13:50-0500 Body height 165.1 cm [facility] 04-05-2023 13:50-0500 Body weight 81.64 kg [facility] 03-25-2023 17:20-0500 Body height 165.1 cm Chio Holley Other [facility] 03-25-2023 17:20-0500 Body mass index (BMI) [Ratio] 30.18 kg/m2 Chio Holley Other [employer] [facility] [employer] Other 03-25-2023 17:20-0500 Body temperature 97.4 [degF] Chio Holley Other [employer] [facility] [employer] Other 03-25-2023 17:20-0500 Body weight 82.28 kg Chio Holley Other [facility] 03-25-2023 17:20-0500 Respiratory rate 18 /min Chio Holley Other [employer] [facility] [employer] Other 03-25-2023 17:20-0500 SaO2% (BldA) [Mass fraction] 99 % Chio Holley Other [employer] Other 03-19-2023 17:40-0500 Body height 165.1 cm Nan Jewell Other [facility] 03-19-2023 17:40-0500 Body mass index (BMI) [Ratio] 29.82 kg/m2 Nan Jewell Other [employer] Other 03-19-2023 17:40-0500 Body temperature 96.8 [degF] Nan Jewell Other [employer] Other 03-19-2023 17:40-0500 Body weight 81.29 kg Nan Jewell Other [employer] Other 03-19-2023 17:40-0500 Body weight 81.28 kg [facility] 03-19-2023 17:40-0500 Respiratory rate 18 /min Nan Jewell Other [employer] Other 03-19-2023 17:40-0500 SaO2% (BldA) [Mass fraction] 99 % Nan Jewell Other [employer] Other 05-24-2022 13:45-0400 Body height 165.1 cm Julia Morris Other [employer] Other 05-24-2022 13:45-0400 Body mass index (BMI) [Ratio] 28.19 kg/m2 Julia Morris Other [employer] Other 05-24-2022 13:45-0400 Body temperature 97.8 [degF] Julia Morris Other [employer] Other 05-24-2022 13:45-0400 Body weight 76.84 kg Julia Morris Other [employer] Other 05-24-2022 13:45-0400 Diastolic blood pressure 74 mm[Hg] Julia Morirs Other [employer] Other 05-24-2022 13:45-0400 SaO2% (BldA) [Mass fraction] 99 % Julia Morris Other [employer] Other 05-24-2022 13:45-0400 Systolic blood pressure 134 mm[Hg] Julia Morris Other [employer] Other 12-24-2020 16:15-0400 Body height 165.1 cm Julia Morris Other [employer] Other 12-24-2020 16:15-0400 Body mass index (BMI) [Ratio] 26.12 kg/m2 Julia Morris Other [employer] Other 12-24-2020 16:15-0400 Body weight 71.22 kg Julia Morris Other [employer] Other 01-28-2020 11:45-0500 Pulse Oximetry 100 % [facility] [place] [facility] [place] 01-28-2020 11:31-0500 BP Diastolic 81 mm[Hg] [facility] [place] [facility] [place] 01-28-2020 11:31-0500 BP Systolic 122 mm[Hg] [facility] [place] [facility] [place] 01-28-2020 10:15-0500 Body Temperature 96.91 [degF] Elías Becerra [employer] [place], [place] 01-28-2020 10:15-0500 Body weight 72.58 kg [facility] [place] 01-28-2020 10:15-0500 Pulse (Heart Rate) 76 /min [facility] [place] 01-28-2020 10:15-0500 Respiratory Rate 16 /min Elías [facility], [place] Encounters Encounter Date Encounter Type Care Provider Facility Start: 09-04-2024 End: 09-04-2024 ambulatory [facility] Start: 09-04-2024 End: 09-04-2024 Office outpatient visit 15 minutes Rose Mary Larsen MD Work Phone: [facility] Comment on above: 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) Start: 08-14-2024 End: 08-14-2024 Evaluation and management of inpatient [facility] Start: 07-25-2024 End: 07-25-20[facility] Start: 07-25-2024 End: 07-25-2024 Patient encounter procedure [facility] Pre-Admission Testing 1 [facility] - Pre Admit Start: 07-19-2024 End: 07-19-2024 Telephone encounter Rose Mary Larsen MD Work Phone: [facility] Start: 07-18-2024 End: 07-18-2024 Office outpatient visit 15 minutes Rose Mary Larsen MD Work Phone: [facility] Comment on above: 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) Start: 07-18-2024 End: 07-18-2024 ambulatory [facility] Start: 07-04-2024 End: 07-04-2024 [facility] Start: 07-04-2024 End: 07-04-2024 ambulatory [facility] Start: 07-04-2024 End: 07-04-2024 Office outpatient visit 15 minutes Rose Mary Larsen MD Work Phone: [facility] Comment on above: 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 TECHNICAL ADVISOR-CNM Work Phone: [facility] Work Phone: Start: 06-12-2024 End: 06-12-2024 Periodic preventive med est patient 18-39 yrs Delilah Cain TECHNICAL ADVISOR-CNM Work Phone: [facility] Comment on above: Family history of pa ncreatic cancer (Primary Dx); Well woman exam with routine gynecological exam; Pap smear for cervical cancer screening; Screen for STD (sexually transmitted disease); Pre-conception counseling Start: 06-12-2024 End: 06-12-2024 ambulatory [facility] Start: 06-12-2024 Encounter for gynecological examination (general) (routine) without abnormal findings [facility] Start: 06-12-2024 Non-patient / Non-visit Kelly flowers Work Phone: [facility] Work Phone: Start: 06-12-2024 End: 06-12-2024 [facility] Start: 06-12-2024 Encounter for gynecological examination (general) (routine) without abnormal findings [facility] Start: 06-06-2024 End: 06-06-2024 ambulatory [facility] Work Phone: Start: 06-06-2024 End: 06-06-2024 Patient encounter procedure [facility] Work Phone: Start: 05-12-2024 End: 05-12-2024 Evaluation and management of inpatient [facility] Start: 05-11-2024 End: 05-12-2024 [facility] Start: 05-01-2024 End: 05-01-2024 ambulatory [facility] Work Phone: Start: 05-01-2024 Encounter for other preprocedural examination [facility] Start: 05-01-2024 End: 05-01-2024 Patient encounter procedure [facility] Work Phone: Comment on above: Pre-op testing (Prim jd Dx) Start: 05-01-2024 End: 05-01-2024 Patient encounter status [facility] Start: 03-20-2024 End: 03-20-2024 [facility] Start: 03-20-2024 End: 03-20-2024 Office outpatient visit 25 minutes Felicity Sarah TECHNICAL ADVISOR-MEAT SEAFOOD ASSOCIATE Work Phone: [facility] Comment on above: History of Alyssa-en-Y gastric bypass (Primary Dx); Intestinal malabsorption following gastrectomy; Malnutrition following gastrointestinal surgery Start: 03-10-2024 End: 03-10-2024 ambulatory [facility] Start: 03-09-2024 End: 03-09-2024 Orders Only Nikkie Aldridge RN Work Phone: [facility] Comment on above: History of Alyssa-en-Y gastric bypass (Primary Dx); Intestinal malabsorption following gastrectomy; Malnutrition following gastrointestinal surgery Start: 03-06-2024 End: 03-06-2024 Refill Kelly Cani WORKERS COMPENSATION CLAIMS SPECIALIST Work Phone: [facility] Comment on above: Nausea and vomiting, unspecified vomiting type (Primary Dx) Start: 02-07-2024 Non-patient / Non-visit [facility] Work Phone: Start: 02-04-2024 Non-patient / Non-visit [facility] Work Phone: Start: 12-07-2023 End: 12-07-2023 Bamboo flowsheet Kelly Cain WORKERS COMPENSATION CLAIMS SPECIALIST Work Phone: [facility] Start: 12-07-2023 End: 12-07-2023 Bamboo flowsheet Kelly Cain WORKERS COMPENSATION CLAIMS SPECIALIST Work Phone: [facility] Start: 12-07-2023 End: 12-07-2023 ambulatory KELLY CAIN Not Available Start: 12-07-2023 End: 12-07-2023 Office outpatient visit 15 minutes Kelly Cain WORKERS COMPENSATION CLAIMS SPECIALIST Work Phone: [facility] Comment on above: Change in consistenc y of stool (Primary Dx); S/P bariatric surgery Start: 11-13-2023 End: 11-13-2023 ambulatory [facility] Work Phone: Start: 11-13-2023 End: 11-13-2023 Patient encounter procedure [facility] Work Phone: Start: 11-10-2023 End: 11-10-2023 Office outpatient visit 25 minutes Kelly Cain WORKERS COMPENSATION CLAIMS SPECIALIST Work Phone: [facility] Comment on above: Generalized anxiety disorder (CMS/HCC) (Primary Dx); S/P bariatric surgery; Macromastia; Yeast dermatitis Start: 11-10-2023 End: 11-10-2023 ambulatory KELLY MICHELKATINACar Not Available Start: 11-10-2023 End: 11-10-2023 Bamboo flowsheet Kelly Michelaron WORKERS COMPENSATION CLAIMS SPECIALIST Work Phone: [facility] Start: 11-10-2023 End: 11-10-2023 Bamboo flowsheet Kelly Michelaron WORKERS COMPENSATION CLAIMS SPECIALIST Work Phone: [facility] Start: 06-23-2023 End: 06-23-2023 ambulatory [facility] Work Phone: Start: 06-23-2023 End: 06-23-2023 Patient encounter procedure [facility] Work Phone: Start: 06-08-2023 End: 06-08-2023 ambulatory [facility] Work Phone: Start: 06-08-2023 End: 06-08-2023 Patient encounter procedure [facility] Work Phone: Start: 05-13-2023 End: 05-13-2023 Encounter for gynecological examination (general) (routine) without abnormal findings [facility] [employer] Financial Services Counselor [facility] Work Phone: Start: 05-13-2023 End: 05-13-2023 Initial preventive medicine new pt age 18-39yrs [facility] Student Financial Services Counselor [facility] Comment on above: Well woman exam with routine gynecological exam (Primary Dx); Cervical smear, as part of routine gynecological examination; Screening for STD (sexually transmitted disease); Pelvic pain; Standardized adult depression screening tool completed Start: 05-13-2023 End: 05-13-2023 [facility] Start: 05-09-2023 End: 05-09-2023 ambulatory [facility] Work Phone: Start: 05-09-2023 End: 05-09-2023 Patient encounter procedure [facility] Work Phone: Start: 04-05-2023 End: 04-05-2023 Patient encounter procedure [facility] Start: 03-25-2023 End: 03-25-2023 ambulatory Chio Holley Other [employer] Other Start: 03-25-2023 Office outpatient vi sit 25 minutes Chio Holley [facility] Start: 03-25-2023 End: 03-25-2023 Patient encounter procedure [facility] Work Phone: Start: 03-19-2023 End: 03-19-2023 ambulatory Nan Fanta Other [employer] Other Start: 03-19-2023 Office outpatient vi sit 15 minutes Nan Fanta [facility] Start: 03-19-2023 End: 03-19-2023 Patient encounter procedure [facility] Work Phone: Start: 05-24-2022 End: 05-24-2022 ambulatory Julia Morris Other [employer] Other Start: 05-24-2022 Office outpatient vi sit 15 minutes Julia Morris [facility] Start: 02-17-2022 End: 02-17-2022 ambulatory KEMI FERGUSONA PAYTON Facility:[facility] Start: 11-24-2021 End: 11-24-2021 ambulatory KEMI FERGUSONA PAYTON Facility:[facility] Start: 06-09-2021 End: 06-10-[address] MARANDA PEREYRA Facility:[facility] Start: 05-06-2021 End: 05-07-2021 ambulatory KEMI CAIN Facility:[facility] Start: 12-24-2020 Office outpatient vi sit 15 minutes Julia Alexandra [facility] Start: 01-28-2020 Emergency department patient visit [facility] Start: 01-28-2020 End: 01-28-2020 Emergency department patient visit Elías Crismaru Work Phone: [facility] Comment on above: Pain of upper abdome n (Primary Dx) Start: 05-13-2017 Ambulatory JAYSHREE CARIAS Facil ity:[facility] Start: 03-26-2017 Ambulatory Denisse Lee Facili ty:[facility] Start: 11-01-2016 End: 11-08-2016 Evaluation and management of inpatient NESS ZAMARRIPA Facility:A Start: 11-01-2016 Ambulatory DAVIDA Rowe ORCARMELITAU Fac ility:[facility] Start: 09-28-2016 Ambulatory WADE Victoria NWIZU Facility :[facility] Procedures Date Procedure Procedure Detail Performing Clinician Start: 07-04-2024 Urine test visual color cmprsn meths Rose Mary Larsen MD Work Phone: Start: 07-04-2024 Colposcopy Colposcopy ROSE MARY LARSEN Start: 06-15-2024 Colonoscopy Kelly Loraaron Work Phone: Start: 06-12-2024 Adult depression screening assessment Delilahrachel Cain TECHNICAL ADVISOR-CNM Work Phone: Start: 06-12-2024 Microscopic observation [Identifier] in Cervix by Cyto stain Rose Mary Larsen MD Work Phone: Start: 05-01-2024 Basic metabolic panel calcium total Osvaldo C Friess DO Work Phone: Start: 05-13-2023 Adult depression screening assessment [facility] [employer] Services Counselor Start: 05-13-2023 Microscopic observation [Identifier] in Cervix by Cyto stain Nikkie Aldridge RN Work Phone: Start: 05-09-2023 Quick Strep (POC) Start: 01-28-2020 Ct abdomen & pelvis w/contrast material ELÍAS CRISMARU Start: 01-28-2020 Assay of lactate ELÍAS CRISMARU Start: 01-28-2020 Urinalysis microscopic only ELÍAS MILLER STARR Start: 01-28-2020 Urine test visual color cmprsn meths ELÍAS CRISMARU Start: 01-28-2020 Urnls dip stick/tablet rgnt auto w/o microscopy ELÍAS CRISMARU Start: 01-28-2020 Assay of lipase ELÍAS CRISMARU Start: 01-28-2020 Blood count complete auto&auto difrntl wbc ELÍAS CRISMARU Start: 01-28-2020 Comprehensive metabolic panel ELÍAS CRISMARU Start: 01-28-2020 INSERT PERIPHERAL IV ELÍAS CRISMARU Start: 01-28-2020 Ct abdomen & pelvis w/contrast material Elías Crismaru Work Phone: Start: 01-28-2020 Assay of lactate Elías Crismaru Work Phone: Start: 01-28-2020 Urinalysis microscopic only Elías Miller starr Work Phone: Start: 01-28-2020 Urine test visual color cmprsn meths Elías Crismaru Work Phone: Start: 01-28-2020 Urnls dip stick/tablet rgnt auto w/o microscopy Elías Crismaru Work Phone: Start: 01-28-2020 Assay of lipase Elías Crismaru Work Phone: Start: 01-28-2020 Blood count complete auto&auto difrntl wbc Elías Crismaru Work Phone: Start: 01-28-2020 Comprehensive metabolic panel Elías Crismaru Work Phone: Start: 02-24-2019 Microscopic observation [Identifier] in Cervix by Cyto stain [facility] [employer] Financial Services Counselor Start: 09-12-2015 Microscopic observation [Identifier] in Cervix by Cyto stain Kelly Cain WORKERS COMPENSATION CLAIMS SPECIALIST Work Phone: History of gastroint estinal tract bypass History of Alyssa-en-Y gastric bypass Nikkie Aldridge RN Work Phone: History of gastroint estinal tract bypass History of Alyssa-en-Y gastric bypass Felicity Sarah APRN-MEAT SEAFOOD ASSOCIATE Work Phone: Plan of Treatment Date Care Activity Detail Author Start: 05-12-2028 Screening for malignant neoplasm of cervix [facility] Start: 06-13-2027 Screening for malignant neoplasm of cervix Pap Smear [facility] Start: 05-12-2026 Screening for malignant neoplasm of cervix Pap Smear [facility] Start: 09-04-2025 Adult BMI Screening Adult BMI Screening [facility] Start: 09-04-2025 Tobacco Screening Tobacco Screening [facility] Start: 07-25-2025 Adult BMI Screening Adult BMI Screening [facility] Start: 07-25-2025 Tobacco Screening Tobacco Screening [facility] Start: 06-12-2025 Adult BMI Follow Up Plan Adult BMI Follow Up Plan [facility] Start: 06-12-2025 Adult BMI Screening Adult BMI Screening [facility] Start: 06-12-2025 Depression Screening Depression Screening [facility] Start: 06-12-2025 Tobacco Screening Tobacco Screening [facility] Start: 05-01-2025 Adult BMI Screening Adult BMI Screening [facility] Start: 03-20-2025 Tobacco Screening Tobacco Screening [facility] Start: 02-26-2025 End: 03-16-2025 Calcium [Mass/volume] in Serum or Plasma Calcium Lab Routine History of Alyssa-en-Y gastric bypass Intestinal malabsorption following gastrectomy Malnutrition following gastrointestinal surgery Expected: 02/26/2025 (Approximate), Expires: 03/16/2025 [employer] Phone: Comment on above: Expected: 02/26/2025 (Approximate), Expi res: 03/16/2025 Start: 02-26-2025 End: 03-16-2025 CBC W Auto Differential panel - Blood CBC auto differential Lab Routine History of Alyssa-en-Y gastric bypass Intestinal malabsorption following gastrectomy Malnutrition following gastrointestinal surgery Expected: 02/26/2025 (Approximate), Expires: 03/16/2025 [facility] Comment on above: Expected: 02/26/2025 (Approximate), Expi res: 03/16/2025 Start: 02-26-2025 End: 03-16-2025 Copper, S Copper, S Lab Routine History of Alyssa-en-Y gastric bypass Intestinal malabsorption following gastrectomy Malnutrition following gastrointestinal surgery Expected: 02/26/2025 (Approximate), Expires: 03/16/2025 [facility] Comment on above: Expected: 02/26/2025 (Approximate), Expi res: 03/16/2025 Start: 02-26-2025 End: 03-16-2025 Cyanocobalamin vitamin b-12 Vitamin B12 Lab Routine History of Alyssa-en-Y gastric bypass Intestinal malabsorption following gastrectomy Malnutrition following gastrointestinal surgery Expected: 02/26/2025 (Approximate), Expires: 03/16/2025 [facility] Comment on above: Expected: 02/26/2025 (Approximate), Expi res: 03/16/2025 Start: 02-26-2025 End: 03-16-2025 Folate Folate Lab Routine History of Alyssa-en-Y gastric bypass Intestinal malabsorption following gastrectomy Malnutrition following gastrointestinal surgery Expected: 02/26/2025 (Approximate), Expires: 03/16/2025 [facility] Comment on above: Expected: 02/26/2025 (Approximate), Expi res: 03/16/2025 Start: 02-26-2025 End: 03-16-2025 Iron [Mass/volume] in Serum or Plasma Iron Lab Routine History of Alyssa-en-Y gastric bypass Intestinal malabsorption following gastrectomy Malnutrition following gastrointestinal surgery Expected: 02/26/2025 (Approximate), Expires: 03/16/2025 [facility] Comment on above: Expected: 02/26/2025 (Approximate), Expi res: 03/16/2025 Start: 02-26-2025 End: 03-16-2025 Liver panel Liver panel Lab Routine History of Alyssa-en-Y gastric bypass Intestinal malabsorption following gastrectomy Malnutrition following gastrointestinal surgery Expected: 02/26/2025 (Approximate), Expires: 03/16/2025 [facility] Comment on above: Expected: 02/26/2025 (Approximate), Expi res: 03/16/2025 Start: 02-26-2025 End: 03-16-2025 Parathyroid Hormone, intact Parathyroid Hormone, intact Lab Routine History of Alyssa-en-Y gastric bypass Intestinal malabsorption following gastrectomy Malnutrition following gastrointestinal surgery Expected: 02/26/2025 (Approximate), Expires: 03/16/2025 [facility] Comment on above: Expected: 02/26/2025 (Approximate), Expi res: 03/16/2025 Start: 02-26-2025 End: 03-16-2025 Thiamin (Vitamin B1), WB Thiamin (Vitamin B1), WB Lab Routine History of Alyssa-en-Y gastric bypass Intestinal malabsorption following gastrectomy Malnutrition following gastrointestinal surgery Expected: 02/26/2025 (Approximate), Expires: 03/16/2025 [facility] Comment on above: Expected: 02/26/2025 (Approximate), Expi res: 03/16/2025 Start: 02-26-2025 End: 03-16-2025 Vitamin A (Retinol) Vitamin A (Retinol) Lab Routine History of Alyssa-en-Y gastric bypass Intestinal malabsorption following gastrectomy Malnutrition following gastrointestinal surgery Expected: 02/26/2025 (Approximate), Expires: 03/16/2025 [facility] Comment on above: Expected: 02/26/2025 (Approximate), Expi res: 03/16/2025 Start: 02-26-2025 End: 03-16-2025 Vitamin D 25 hydroxy Vitamin D 25 hydroxy Lab Routine History of Alyssa-en-Y gastric bypass Intestinal malabsorption following gastrectomy Malnutrition following gastrointestinal surgery Expected: 02/26/2025 (Approximate), Expires: 03/16/2025 [facility] Comment on above: Expected: 02/26/2025 (Approximate), Expi res: 03/16/2025 Start: 02-26-2025 End: 03-16-2025 Zinc, Serum Zinc, Serum Lab Routine History of Alyssa-en-Y gastric bypass Intestinal malabsorption following gastrectomy Malnutrition following gastrointestinal surgery Expected: 02/26/2025 (Approximate), Expires: 03/16/2025 [facility] Comment on above: Expected: 02/26/2025 (Approximate), Expi res: 03/16/2025 Start: 11-13-2024 Influenza vaccination Influenza Vaccine [facility] Start: 08-14-2024 End: 08-14-2024 Admission to same day surgery center 08/14/2024 10:30 AM EDT - 08/14/2024 11:30 AM EDT Surgery [facility] - Surgery [address] [place] [id number] Rose Mary Larsen MD [address] [place] [address] LEEP CERVIX [07751 (CPT )] [facility] Comment on above: LEEP CERVIX [79459 (CPT )] Start: 08-14-2024 End: 08-14-2024 Anesthesia consultation 08/14/2024 10:30 AM EDT Anesthesia Event [facility] [address] [place] [address] Roberto Rodriguez, DO [address] [place] [address] [facility] Start: 08-14-2024 End: 08-14-2024 Conization cervix w/wo d&c rpr eltrd exc LEEP CERVIX abnormal PAP test 08/14/2024 10:30 AM EDT [facility] Start: 08-14-2024 Subsequent hospital visit by physician 08/14/2024 10:30 AM EDT Hospital Encounter [facility] [address] [place] [address] Rose Mary Larsen MD [address] [place] [address] [facility] Start: 07-25-2024 End: 07-25-2024 Patient encounter procedure 07/25/2024 12:45 PM EDT Procedure visit [facility] - Pre Admit [address] [place] [address] [facility] - Pre Admit Start: 07-18-2024 End: 07-18-2024 Patient encounter procedure 07/18/2024 9:30 AM EDT Office Visit [facility] Obstetrics/Gynecology [address] [place] [address] Rose Mary Larsen MD [address] [place] [address] [facility] Obstetrics/Gynecolo gy Start: 07-04-2024 End: 07-04-2025 Surgical Pathology Surgical Pathology Pathology and Cytology Routine LGSIL on Pap smear of cervix Expected: 07/04/2024 (Approximate), Expires: 07/04/2025 Jon Work Phone: Comment on above: Expected: 07/04/2024 (Approximate), Expi res: 07/04/2025 Start: 06-15-2024 End: 06-15-2024 [facility] Start: 05-12-2024 Adult BMI Follow Up Plan Adult BMI Follow Up Plan [facility] Start: 05-12-2024 Adult BMI Screening Adult BMI Screening [facility] Start: 05-12-2024 Depression Screening Depression Screening [facility] Start: 05-12-2024 Tobacco Screening Tobacco Screening [facility] Start: 05-11-2024 End: 05-11-2024 Patient encounter procedure 05/11/2024 2:20 PM EST Office Visit [facility] [address] [place] [address] Kelly Cain NP [address] [place] [address] [facility] Start: 05-11-2024 End: 05-11-2024 Admission to same day surgery center 05/11/2024 12:00 PM EST - 05/11/2024 4:30 PM EST Surgery [facility] A Division of [facility] Surgery [address] [facility] [address] [place] [id number] Rima Cisneros MD [facility] [facility] [place] [address] REDUCTION BREAST(WITH POSSIBLE FREE NIPPLE GRAFT) [81835 (CPT )] [facility] A Division of [facility] - Surgery Comment on above: REDUCTION BREAST(WITH POSSIBLE FREE NIPP LE GRAFT) [75194 (CPT )] Start: 05-11-2024 End: 05-11-2024 Reduction mammaplasty REDUCTION BREAST MACROMASTIA 05/11/2024 12:00 PM EST [facility] Start: 05-11-2024 Subsequent hospital visit by physician 05/11/2024 12:00 PM EST Hospital Encounter [facility] Surgery [facility] - Surgery [address] [facility] [address] [place] [address] Rima Cisneros MD [address] [place] [address] [address] [place] [address] [facility] Surgery A Division [facility] Surgery Start: 03-20-2024 End: 03-20-2024 Patient encounter procedure 03/20/2024 11:00 AM EST Office Visit [facility]-B[facility]ric [address] [place] [phone] Felicity Sarah, TECHNICAL ADVISOR-MEAT SEA[employer] ASSOCIATE [address] [place], [place] [id number] [facility] General [facility]-Bariatric Start: 03-10-2024 End: 03-09-2025 Calcium [Mass/volume] in Serum or Plasma Calcium Lab Routine History of Alyssa-en-Y gastric bypass Intestinal malabsorption following gastrectomy Malnutrition following gastrointestinal surgery Expected: 03/10/2024, Expires: 03/09/2025 [employer] Work Phone: Comment on above: Expected: 03/10/2024, Expires: Start: 03-10-2024 End: 03-09-2025 CBC W Auto Differential panel - Blood CBC auto differential Lab Routine History of Alyssa-en-Y gastric bypass Intestinal malabsorption following gastrectomy Malnutrition following gastrointestinal surgery Expected: 03/10/2024, Expires: 03/09/2025 [facility] [employer] Comment on above: Expected: 03/10/2024, Expires: Start: 03-10-2024 End: 03-09-2025 Copper, S Copper, S Lab Routine History of Alyssa-en-Y gastric bypass Intestinal malabsorption following gastrectomy Malnutrition following gastrointestinal surgery Expected: 03/10/2024, Expires: 03/09/2025 [facility] Comment on above: Expected: 03/10/2024, Expires: Start: 03-10-2024 End: 03-09-2025 Cyanocobalamin vitamin b-12 Vitamin B12 Lab Routine History of Alyssa-en-Y gastric bypass Intestinal malabsorption following gastrectomy Malnutrition following gastrointestinal surgery Expected: 03/10/2024, Expires: 03/09/2025 [facility] Comment on above: Expected: 03/10/2024, Expires: Start: 03-10-2024 End: 03-09-2025 Folate Folate Lab Routine History of Alyssa-en-Y gastric bypass Intestinal malabsorption following gastrectomy Malnutrition following gastrointestinal surgery Expected: 03/10/2024, Expires: 03/09/2025 [facility] Comment on above: Expected: 03/10/2024, Expires: Start: 03-10-2024 End: 03-09-2025 Iron [Mass/volume] in Serum or Plasma Iron Lab Routine History of Alyssa-en-Y gastric bypass Intestinal malabsorption following gastrectomy Malnutrition following gastrointestinal surgery Expected: 03/10/2024, Expires: 03/09/2025 [facility] [employer] Comment on above: Expected: 03/10/2024, Expires: Start: 03-10-2024 End: 03-09-2025 Liver panel Liver panel Lab Routine History of Alyssa-en-Y gastric bypass Intestinal malabsorption following gastrectomy Malnutrition following gastrointestinal surgery Expected: 03/10/2024, Expires: 03/09/2025 [facility] Comment on above: Expected: 03/10/2024, Expires: Start: 03-10-2024 End: 03-09-2025 Parathyroid Hormone, intact Parathyroid Hormone, intact Lab Routine History of Alyssa-en-Y gastric bypass Intestinal malabsorption following gastrectomy Malnutrition following gastrointestinal surgery Expected: 03/10/2024, Expires: 03/09/2025 [facility] Comment on above: Expected: 03/10/2024, Expires: Start: 03-10-2024 End: 03-09-2025 Thiamin (Vitamin B1), WB Thiamin (Vitamin B1), WB Lab Routine History of Alyssa-en-Y gastric bypass Intestinal malabsorption following gastrectomy Malnutrition following gastrointestinal surgery Expected: 03/10/2024, Expires: 03/09/2025 [facility] Comment on above: Expected: 03/10/2024, Expires: Start: 03-10-2024 End: 03-09-2025 Vitamin A (Retinol) Vitamin A (Retinol) Lab Routine History of Alyssa-en-Y gastric bypass Intestinal malabsorption following gastrectomy Malnutrition following gastrointestinal surgery Expected: 03/10/2024, Expires: 03/09/2025 [facility] [employer] Comment on above: Expected: 03/10/2024, Expires: Start: 03-10-2024 End: 03-09-2025 Vitamin D 25 hydroxy Vitamin D 25 hydroxy Lab Routine History of Alyssa-en-Y gastric bypass Intestinal malabsorption following gastrectomy Malnutrition following gastrointestinal surgery Expected: 03/10/2024, Expires: 03/09/2025 [facility] [employer] [facility] Comment on above: Expected: 03/10/2024, Expires: Start: 03-10-2024 End: 03-09-2025 Zinc, Serum Zinc, Serum Lab Routine History of Alyssa-en-Y gastric bypass Intestinal malabsorption following gastrectomy Malnutrition following gastrointestinal surgery Expected: 03/10/2024, Expires: 03/09/2025 [facility] [employer] Comment on above: Expected: 03/10/2024, Expires: Start: 01-13-2024 Influenza vaccination Influenza Vaccine (#1) [facility] Comment on above: Postponed from 11/14/2023 (Patient Does Not Have Time) Start: 11-14-2023 COVID-19 Vaccine ( season) COVID-19 Vaccine () [facility] [employer] [facility] Start: 11-14-2023 Influenza vaccination [facility] Start: 11-10-2023 End: 11-10-2023 Patient encounter procedure 11/10/2023 2:20 PM EDT Office Visit [facility] [address] [place] [address] Kelly Cain NP [address] [place] [address] Arrived [facility] Comment on above: Arrived Start: 05-13-2023 End: 05-12-2024 Cytopathology procedure, preparation of smear, genital source Pap Smear Pathology and Cytology Routine Cervical smear, as part of routine gynecological examination Expected: 05/13/2023 (Approximate), Expires: 05/12/2024 [employer] Phone: Comment on above: Expected: 05/13/2023 (Approximate), Expi res: 05/12/2024 Start: 05-13-2023 End: 05-12-2024 US Pelvis transabdominal and transvaginal Ultrasound pelvic with transvaginal Imaging Routine Pelvic pain Expected: 05/13/2023, Expires: 05/12/2024 [facility] Comment on above: Expected: 05/13/2023, Expires: Start: 05-13-2023 End: 05-12-2024 Vaginitis Panel PCR Vaginitis Panel PCR Microbiology Routine Screening for STD (sexually transmitted disease) Expected: 05/13/2023 (Approximate), Expires: 05/12/2024 [facility] Comment on above: Expected: 05/13/2023 (Approximate), Expi res: 05/12/2024 Start: 11-13-2022 COVID-19 Vaccine ( season) COVID-19 Vaccine ( season) [facility] Start: 11-13-2022 Influenza vaccination Influenza Vaccine [facility] Start: 02-24-2022 Screening for malignant neoplasm of cervix Pap Smear [facility] Start: 11-14-2019 Influenza vaccination Flu vaccine (#1) [place], [place] Start: 09-11-2018 Screening for malignant neoplasm of cervix Pap Smear [facility] Start: 07-11-2011 Screening for malignant neoplasm of cervix Cervical cancer screen [place], [place] Start: 2009 DTaP,Tdap and Td Vaccines (1 - Tdap) DTaP,Tdap and Td Vaccines (1 - Tdap) [facility] [employer] [facility] Start: 2009 DTaP/Tdap/Td vaccine (1 - Tdap) DTaP/Tdap/Td vaccine (1 - Tdap) [place], [place] Start: 2005 HIV screening HIV screen [place], [place] Start: 07-11-1991 Varicella vaccine (1 of 2 - 2-dose childhood series) Varicella vaccine (1 of 2 - 2-dose childhood series) [place] Campylobacter coli+jejuni+upsaliensis DNA [Presence] in Stool by ODILIA with non-probe detection [facility] End: 05-12-2024 Chlamydia/GC by PCR ThinPrep fluid Chlamydia/GC by PCR ThinPrep fluid Microbiology Routine Screening for STD (sexually transmitted disease) 1 Occurrences starting 05/13/2023 until 05/12/2024 [facility] [employer] [facility] Comment on above: 1 Occurrences starting 05/13/2023 until 05/12/2024 End: 06-09-2025 Cytology report of Cervical or vaginal smear or scraping Cyto stain.thin prep Pap Smear Pathology and Cytology Routine Well woman exam with routine gynecological exam Pap smear for cervical cancer screening 1 Occurrences starting 06/12/2024 until 06/09/2025 [facility] Work Phone: Comment on above: 1 Occurrences starting 06/12/2024 until 06/09/2025 Escherichia coli enteropathogenic eae gene [Presence] in Stool by ODILIA with non-probe [facility] Escherichia coli enterotoxigenic ltA+st1a+st1b genes [Presence] in Stool by ODILIA with [facility] Escherichia coli O15 7 DNA [Presence] in Stool by ODILIA with non-probe detection [facility] Escherichia coli Stx 1 and Stx2 toxin stx1+stx2 genes [Presence] in Stool by ODILIA with non-probe detection [facility] Hepatic function panel [facility] End: 05-12-2024 High risk HPV w/robert High risk HPV w/robert Lab Routine Cervical smear, as part of routine gynecological examination 1 Occurrences starting 05/13/2023 until 05/12/2024 [facility] Comment on above: 1 Occurrences starting 05/13/2023 until 05/12/2024 End: 06-09-2025 High risk HPV w/robert High risk HPV w/robert Lab Routine Well woman exam with routine gynecological exam Pap smear for cervical cancer screening 1 Occurrences starting 06/12/2024 until 06/09/2025 [facility] Comment on above: 1 Occurrences starting 06/12/2024 until 06/09/2025 Infectious agent gen otype identification [facility] Patient Education Know your Meds [facility] Work Phone: Plesiomonas shigello ides DNA [Presence] in Stool by ODILIA with non-probe detection [facility] Salmonella enterica+bongori DNA [Presence] in Stool by ODILIA with non-probe detection [facility] Shigella species+EIE C invasion plasmid antigen H ipaH gene [Presence] in Stool by ODILIA [facility] Vibrio cholerae DNA [Presence] in Stool by ODILIA with non-probe detection [facility] Vibrio cholerae+parahaemolyticus +vulnificus DNA [Presence] in Stool by ODILIA with non-probe detection [facility] Immunizations Immunization Date Immunization Notes Care Provider Yon harvey 12-28-2019 influenza virus vacc ine, unspecified formulation Pfws 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 2022 Medicaid [id number] 2. [id number] 2016 Unknown [id number] 1990 Unknown [id number] 2.16.8 40.1.439978.3.579.2.173 1990 Unknown [id number] 2.16.84 0.1.964792.3.579.2.593 1990 Unknown [id number] 2.16.84 0.1.910961.3.579.2.593 1990 Unknown [id number] 2.16.84 0.1.145792.3.579.2.593 1990 Unknown [id number] 2.16.84 0.1.935627.3.579.2.593 1990 Unknown [id number] 2.16.84 0.1.836779.3.579.2.1259 1990 Unknown [id number] 2.16.84 0.1.862060.3.579.2.1259 1990 Unknown [id number] 2.16. 840.1.432339.3.579.2.1286 1990 Unknown [id number] 2.16. 840.1.462969.3.579.2.6 1990 Unknown [id number] 2.16. 840.1.627503.3.579.2.1285 1990 Unknown [id number] 2.16. 840.1.732890.3.579.2.1285 1990 Unknown [id number] 2.16. 840.1.245791.3.579.2.1285 1990 Unknown [id number] 2.16. 840.1.135456.3.579.2.1285 1990 Unknown [id number] 2.16. 840.1.359139.3.579.2.6 1990 Unknown [id number] 2.16. 840.1.616603.3.579.2.1285 1990 Unknown [id number] 2.16. 840.1.063899.3.579.2.128 1990 Unknown [id number] 2.16. 840.1.228126.3.579.2.1285 1990 Unknown [id number] 2.16. 840.1.942699.3.579.2.1286 1990 Unknown [id number] 2.16.8 40.1.274447.3.579.2.128 1990 Unknown [id number] 2.16. 840.1.959682.3.579.2.1286 1990 Unknown [id number] 2.16. 840.1.727398.3.579.2.1286 1990 Unknown [id number] 2.16. 840.1.003509.3.579.2.1286 1990 Unknown [id number] 2.16. 840.1.656237.3.579.2.1286 1959 Unknown [id number] 2.1 6.840.1.552956.19 Unknown [id number] Unknown [id number] 2.16.8 40.1.605469.3.579.2.531 Social History Date Type Detail Facility Start: 01-28-2020 End: 05-01-2024 Tobacco smoking status [facility] Never smoker [facility] Start: 01-28-2020 End: 05-01-2024 [facility] use and exposure [facility] [place] Start: 1990 Sex Assigned At Not on file [place] Exposure to SARS-CoV -2 (event) Yes [place] Start: 07-16-2021 End: 11-09-2023 Sex Assigned At [facility] Start: 1990 Sex Assigned At Female [facility] Start: 11-10-2023 End: 09-04-2024 Alcoholic beverage intake Ex-drinker (finding) [facility] Start: 07-16-2021 End: 11-09-2023 History of Social function [facility] How often do you nee d to have someone help you when you read instructions, pamphlets, or other written material from your doctor or pharmacy [SILS] Never [facility] Do you belong to any clubs or organizations such as jain groups, unions, fraternal or athletic groups, or school groups? No [facility] Are you now , , , , never or living with a partner? Never [facility] How often to you hav e a drink containing alcohol? Monthly or less [facility] How many standard dr inks containing alcohol do you have on a typical day? 1 or 2 [facility] How often do you hav e 6 or more drinks on 1 occasion? Never [facility] How hard is it for y ou to pay for the very basics like food, housing, medical care, and heating Hard [facility] Do you feel stress - tense, restless, nervous, or anxious, or unable to sleep at night because your mind is troubled all the time - these days [OSQ] To some extent [facility] (I/We) worried [facility] (my/our) food would run out before (I/we) got money to buy more. Often true [facility] Start: 11-10-2023 Alcohol Comment coffee 1 cup daily [facility] How often to you hav e a drink containing alcohol? 2-4 times a month [facility] How hard is it for y ou to pay for the very basics like food, housing, medical care, and heating Somewhat hard [facility] Do you feel stress - tense, restless, nervous, or anxious, or unable to sleep at night because your mind is troubled all the time - these days [OSQ] Only a little [facility] Start: 07-16-2021 Education 12 [facility] Start: 10-16-2014 End: 06-15-2024 Sex Female (finding) [facility] NEGATED: Highlighted rowStart: NINF History of tobacco use Passive smoker [facility] Goals Date Patient Goal Desired Activity /State Personal health goal Comment on above: Formatting of this n ote might be different from the original. Evaluation of progress towards goal: Patients goal is to discharge to home. Personal health goal Clinical Notes 10-13-2016 to 09-04-2024 Rose Mary Larsen MD - 09/04/2024 1:00 PM EDTPatient InstructionsPerioperative Nursing Note - Madalyn Hobson RN - 07/25/2024 12:45 PM EDTTelephone Encounter - Grazyna Rg - 07/19/2024 2:43 PM EDT Note Date & Type Note Facility 09-04-2024 History of Presen t illness Narrative Sonia Mistry is a 34 y.o.female. Patient's last menstrual period was 07/23/2024.. She presents for a follow up for a LEEP procedure that was on . Periods are regular. Current contraception:no method RESULTS DISCUSSED: Final Diagnosis Cervix, cone biopsy: Low grade Squamous Intraepithelial Lesion, multifocal and focally involving an endocervical gland. LSIL closely approaches the endocervical margin in the 9-12:00 quadrant. All other margins clearly negative. 2. Endocervix, curettage: Negative for atypia/dysplasia. OB History 1 Para 1 Term 1 AB Living SAB IAB Ectopic Multiple Live Births MEDICAL HX Past Medical History: Diagnosis Date Anxiety, generalized 03/31/2023 Iron deficiency anemia 12/07/2023 takes iron Macromastia 11/10/2023 Obesity resolved with gastric bypass Pelvic pain in female 05/13/2023 Plantar fasciitis Recurrent serous otitis media of both ears 01/11/2020 Tinnitus of both ears 01/11/2020 Tonsillar hypertrophy 01/11/2020 Visual impairment Glasses SURGICAL HX Past Surgical History: Procedure Laterality Date ABDOMINOPLASTY N/A 07/09/2020 Performed by Karthik Denney MD at [facility] SECTION 2017 EXCISION CYST HEAD/NECK Left 05/02/2020 Performed by Milton Richard MD PhD at [facility] GASTRIC BYPASS 04/2019 INCISION DRAINAGE BREAST Right 05/11/2024 Performed by Rima Cisneros MD at [facility] LAPAROSCOPIC ALYSSA EN Y GASTRIC BYPASS WITH CHOLECYSTECTOMY N/A 04/25/2019 Performed by Karthik Denney MD at [facility] LEEP CERVIX N/A 08/14/2024 Performed by Rose Mary Larsen MD at [facility] PANNICULECTOMY N/A 07/09/2020 Performed by Karthik Denney MD at [facility] PLANTAR FASCIA RELEASE Left 2018 REDUCTION BREAST Bilateral 05/11/2024 Performed by Rima Cisneros MD at [facility] FAMILY HX Family History Problem Relation Age of Onset Pancreatic cancer Mother 55 Pt. had genetic testing which was WNL Stroke Father Diabetes Father Hypertension Father Melanoma Father 65 nose Diabetes Sister Hypertension Sister Breast cancer Maternal great-grandmother MGMs mom, age unknown Anesthesia problems Neg Hx Colon cancer Neg Hx Ovarian cancer Neg Hx Uterine cancer Neg Hx Prostate cancer Neg Hx MEDS Current Outpatient Medications Medication Sig Dispense Refill ascorbic acid, vitamin C, (VITAMIN C) 1000 mg tablet Take 1 tablet (1,000 mg total) by mouth in the morning. calcium citrate (CALCITRATE) 200 mg (950 mg) tablet CLASSIC 28 mg iron- 800 mcg tablet TAKE 1 TABLET BY MOUTH EVERY DAY 90 tablet 3 escitalopram (LEXAPRO) 5 mg tablet Take 1 tablet (5 mg total) by mouth in the morning. Indications: repeated episodes of anxiety. vit B complex no.12/niacin,B3, (VITAMIN B COMPLEX NO.12-NIACIN ORAL) Take by mouth. No current facility-administered medications for this visit. ALLERGIES No Known Allergies Review of Systems Review of Systems Objective Ht 167.6 cm (5' 6 ) Wt 82.6 kg (182 lb) LMP 07/23/2024 BMI 29.38 kg/m Physical Exam Physical Exam GEN AAOX3, NAD HEENT UNREMARKABLE HEART RRR LUNGS CTAB ABD BENIGN, OBESE, NTND PELVIS: EG APPROP FOR AGE, LEEP SITE HEALING WELL BIMANUAL NO MASSES OR TENDERNESS RECTAL DEFERRED EXTREM NO CCE, NO CALF TENDERNESS Assessment/Plan: Diagnoses and all orders for this visit: LGSIL on Pap smear of cervix Discussed the patients surgical pathology results, all benign. Discussed how she has been feeling since the procedure. Examined surgical site, well healing. Advised she may want to wait another week before engaging in sexual intercourse as bleeding may occur. Follow up in one year for annual well women and pap. GENNA Fontaneza Jose 09/04/24 1320 ROSE MARY LARSEN MD documented in this encounter [facility] 07-25-2024 Instructions Madalyn Hobson RN - 07/25/2024 12:45 PM EDT Preoperative Education Checklist- General Surgery date: 08/14/24 Surgery time: 1030 a.m. Arrival time: 0830 a.m. 1. Bring a photo ID and your insurance card with you the day of surgery. You will check in at the main lobby of the [facility]- registration desk is straight ahead as soon as you walk in. Tell them you are here for surgery. 2. If you have a Living Will/Durable Power of Donor Specialist for Health Care that is not on file here, please bring a copy the day of surgery. 3. Please shower/bathe the night before surgery with the provided soap or wipes. Do not shower the morning of surgery- you will do use wipes when you arrive here at the hospital before getting into your surgical gown. Do not shave the area of your procedure for 2 days prior to your surgery. 4. NO powder, lotion, perfume/cologne, aftershave, make-up, deodorant, or hair products after you have bathed. 5. NO nail mosotho/acrylic on at least one finger. If you are having a hand, wrist or foot surgery then all nail mosotho and artificial/acrylic nails must be removed from that hand or foot. 6. Avoid ALL Aspirin and non-steroidal anti-inflammatory drugs and certain vitamins (Ibuprofen, Advil, Aleve, Excedrin, Meloxicam, Celebrex, fish/krill oil, etc.) for 7 days prior to surgery as instructed by your surgeon and/or your prescribing doctor. Tylenol IS ALLOWED. If you are on Ticlid, Xarelto, Eliquis, Pradaxa, Plavix or Coumadin, please check with your prescribing doctor for instructions for when to stop them. 7. If you use an inhaler, continue to use it routinely. 8. Nothing to eat or drink (not even water, gum, mints, or hard candy!) AFTER midnight prior to your surgery. 9. Take only medications that you are instructed to on the morning of surgery with a TINY SIP OF WATER. 10. Choose a responsible adult that will be able to drive you home when you are discharged from your hospital stay for your surgery and can stay with you in your home for 24 hours after your procedure. You must NOT drive any vehicle or operate any machinery for 24 hours after surgery. 11. When you dress for your appointment, please wear loose fitting clothing that is appropriate to accommodate your surgical area procedure. BRING WITH YOU ANY DEVICES YOU MAY NEED: ROSAURA hose, ice machine, sling/swath, brace or special shoe, oversized zip-up or button up shirt, CPAP machine if staying overnight. 12. Do NOT wear jewelry, watches, or any piercings or metal for surgery- leave these valuables and money at home. 13. Do NOT wear contact lenses for surgery- glasses are okay if needed. 14. The anesthesiologist will talk with you the day of surgery and will ask you to sign a Consent Form. 15. Refrain from smoking or any type of tobacco use for at least 8 hours and marijuana for 24 hours prior to arrival for your surgery. 16. Notify your surgeon if you develop any illness before your surgery. 17. If you are staying overnight, please DO NOT BRING your home medications with you. 18. If you have any questions prior to surgery, please call the Pread[facility] office at [phone], Mon.-Fri. 7 a.m.-3 p.m. Leave a voicemail if needed. Pre-Surgery Instructions: Medication Instructions ascorbic acid, vitamin C, (VITAMIN C) 1000 mg tablet Stop taking 0 days prior to procedure calcium citrate (CALCITRATE) 200 mg (950 mg) tablet Stop taking 0 days prior to procedure CLASSIC 28 mg iron- 800 mcg tablet Stop taking 0 days prior to procedure escitalopram (LEXAPRO) 5 mg tablet Stop taking 0 days prior to procedure vit B complex no.12/niacin,B3, (VITAMIN B COMPLEX NO.12-NIACIN ORAL) Stop taking 0 days prior to procedure How to Avoid an Infection after Your Surgery Your doctor will give you specific instructions, but remember: -ALWAYS wash hands before caring for your catheter and/or after using the restroom. -ALWAYS wipe from front to back. -No make creams, lotion, powder, rubbing alcohol or hydrogen peroxide on surgical area (can harm the tissue and slow healing). -Your doctor will give you specific instructions for what type of dressing or equipment you will need and how often it will need changed for infection purposes. -Do not allow anyone to touch your surgical area unless they are cleaning, checking, or redressing it (be sure they wash their hands first). -No contact of your surgical area with pets or pet hair; avoid sleeping with pets. -Take full course of antibiotic if prescribed for you after surgery- do not stop unless directed to by your physician. You may also be given an antibiotic prior to your surgery to help prevent surgical site infections. -Eat a healthy and varied diet including proteins, fruits, and vegetables to help promote wound healing and keep blood sugars under control if you are diabetic. -Smoking slows the healing process by decreasing the amount of oxygen in your blood that is needed for tissue healing. Try to avoid or stop smoking if possible. CALL your doctor if you notice any of the following: -Increased redness or hardening around the surgical area. -Increased pain or increased blood in your urine. -If urine becomes increasingly cloudy, you notice sediment or particles in your urine, or you notice a foul odor or yellow or green discharge. -Fever higher than 101 degrees Fahrenheit for more than 4 hours. If you have a question, call your doctor s office. Go to the follow-up appointment with your doctor. documented in this encounter [facility] 07-25-2024 Miscellaneous Notes Preoperative Education Checklist- General Surgery date: 08/14/24 Surgery time: 1030 a.m. Arrival time: 0830 a.m. 1. Bring a photo ID and your insurance card with you the day of surgery. You will check in at the main lobby of the [facility]- registration desk is straight ahead as soon as you walk in. Tell them you are here for surgery. 2. If you have a Living Will/Durable Power of Donor Specialist for Health Care that is not on file here, please bring a copy the day of surgery. 3. Please shower/bathe the night before surgery with the provided soap or wipes. Do not shower the morning of surgery- you will do use wipes when you arrive here at the hospital before getting into your surgical gown. Do not shave the area of your procedure for 2 days prior to your surgery. 4. NO powder, lotion, perfume/cologne, aftershave, make-up, deodorant, or hair products after you have bathed. 5. NO nail mosotho/acrylic on at least one finger. If you are having a hand, wrist or foot surgery then all nail mosotho and artificial/acrylic nails must be removed from that hand or foot. 6. Avoid ALL Aspirin and non-steroidal anti-inflammatory drugs and certain vitamins (Ibuprofen, Advil, Aleve, Excedrin, Meloxicam, Celebrex, fish/krill oil, etc.) for 7 days prior to surgery as instructed by your surgeon and/or your prescribing doctor. Tylenol IS ALLOWED. If you are on Ticlid, Xarelto, Eliquis, Pradaxa, Plavix or Coumadin, please check with your prescribing doctor for instructions for when to stop them. 7. If you use an inhaler, continue to use it routinely. 8. Nothing to eat or drink (not even water, gum, mints, or hard candy!) AFTER midnight prior to your surgery. 9. Take only medications that you are instructed to on the morning of surgery with a TINY SIP OF WATER. 10. Choose a responsible adult that will be able to drive you home when you are discharged from your hospital stay for your surgery and can stay with you in your home for 24 hours after your procedure. You must NOT drive any vehicle or operate any machinery for 24 hours after surgery. 11. When you dress for your appointment, please wear loose fitting clothing that is appropriate to accommodate your surgical area procedure. BRING WITH YOU ANY DEVICES YOU MAY NEED: ROSAURA hose, ice machine, sling/swath, brace or special shoe, oversized zip-up or button up shirt, CPAP machine if staying overnight. 12. Do NOT wear jewelry, watches, or any piercings or metal for surgery- leave these valuables and money at home. 13. Do NOT wear contact lenses for surgery- glasses are okay if needed. 14. The anesthesiologist will talk with you the day of surgery and will ask you to sign a Consent Form. 15. Refrain from smoking or any type of tobacco use for at least 8 hours and marijuana for 24 hours prior to arrival for your surgery. 16. Notify your surgeon if you develop any illness before your surgery. 17. If you are staying overnight, please DO NOT BRING your home medications with you. 18. If you have any questions prior to surgery, please call the Preadmission Testing office at [phone], Mon.-Fri. 7 a.m.-3 p.m. Leave a voicemail if needed. Pre-Surgery Instructions: Medication Instructions ascorbic acid, vitamin C, (VITAMIN C) 1000 mg tablet Stop taking 0 days prior to procedure calcium citrate (CALCITRATE) 200 mg (950 mg) tablet Stop taking 0 days prior to procedure CLASSIC 28 mg iron- 800 mcg tablet Stop taking 0 days prior to procedure escitalopram (LEXAPRO) 5 mg tablet Stop taking 0 days prior to procedure vit B complex no.12/niacin,B3, (VITAMIN B COMPLEX NO.12-NIACIN ORAL) Stop taking 0 days prior to procedure How to Avoid an Infection after Your Surgery Your doctor will give you specific instructions, but remember: -ALWAYS wash hands before caring for your catheter and/or after using the restroom. -ALWAYS wipe from front to back. -No make creams, lotion, powder, rubbing alcohol or hydrogen peroxide on surgical area (can harm the tissue and slow healing). -Your doctor will give you specific instructions for what type of dressing or equipment you will need and how often it will need changed for infection purposes. -Do not allow anyone to touch your surgical area unless they are cleaning, checking, or redressing it (be sure they wash their hands first). -No contact of your surgical area with pets or pet hair; avoid sleeping with pets. -Take full course of antibiotic if prescribed for you after surgery- do not stop unless directed to by your physician. You may also be given an antibiotic prior to your surgery to help prevent surgical site infections. -Eat a healthy and varied diet including proteins, fruits, and vegetables to help promote wound healing and keep blood sugars under control if you are diabetic. -Smoking slows the healing process by decreasing the amount of oxygen in your blood that is needed for tissue healing. Try to avoid or stop smoking if possible. CALL your doctor if you notice any of the following: -Increased redness or hardening around the surgical area. -Increased pain or increased blood in your urine. -If urine becomes increasingly cloudy, you notice sediment or particles in your urine, or you notice a foul odor or yellow or green discharge. -Fever higher than 101 degrees Fahrenheit for more than 4 hours. If you have a question, call your doctor s office. Go to the follow-up appointment with your doctor. Surgical instructions reviewed. Patient verbalized understanding. documented in this encounter [facility] 07-25-2024 Nurse Note Preoperative Education Checklist- General Surgery date: 08/14/24 Surgery time: 1030 a.m. Arrival time: 0830 a.m. 1. Bring a photo ID and your insurance card with you the day of surgery. You will check in at the main lobby of the [facility]- registration desk is straight ahead as soon as you walk in. Tell them you are here for surgery. 2. If you have a Living Will/Durable Power of Donor Specialist for Health Care that is not on file here, please bring a copy the day of surgery. 3. Please shower/bathe the night before surgery with the provided soap or wipes. Do not shower the morning of surgery- you will do use wipes when you arrive here at the hospital before getting into your surgical gown. Do not shave the area of your procedure for 2 days prior to your surgery. 4. NO powder, lotion, perfume/cologne, aftershave, make-up, deodorant, or hair products after you have bathed. 5. NO nail mosotho/acrylic on at least one finger. If you are having a hand, wrist or foot surgery then all nail mosotho and artificial/acrylic nails must be removed from that hand or foot. 6. Avoid ALL Aspirin and non-steroidal anti-inflammatory drugs and certain vitamins (Ibuprofen, Advil, Aleve, Excedrin, Meloxicam, Celebrex, fish/krill oil, etc.) for 7 days prior to surgery as instructed by your surgeon and/or your prescribing doctor. Tylenol IS ALLOWED. If you are on Ticlid, Xarelto, Eliquis, Pradaxa, Plavix or Coumadin, please check with your prescribing doctor for instructions for when to stop them. 7. If you use an inhaler, continue to use it routinely. 8. Nothing to eat or drink (not even water, gum, mints, or hard candy!) AFTER midnight prior to your surgery. 9. Take only medications that you are instructed to on the morning of surgery with a TINY SIP OF WATER. 10. Choose a responsible adult that will be able to drive you home when you are discharged from your hospital stay for your surgery and can stay with you in your home for 24 hours after your procedure. You must NOT drive any vehicle or operate any machinery for 24 hours after surgery. 11. When you dress for your appointment, please wear loose fitting clothing that is appropriate to accommodate your surgical area procedure. BRING WITH YOU ANY DEVICES YOU MAY NEED: ROSAURA hose, ice machine, sling/swath, brace or special shoe, oversized zip-up or button up shirt, CPAP machine if staying overnight. 12. Do NOT wear jewelry, watches, or any piercings or metal for surgery- leave these valuables and money at home. 13. Do NOT wear contact lenses for surgery- glasses are okay if needed. 14. The anesthesiologist will talk with you the day of surgery and will ask you to sign a Consent Form. 15. Refrain from smoking or any type of tobacco use for at least 8 hours and marijuana for 24 hours prior to arrival for your surgery. 16. Notify your surgeon if you develop any illness before your surgery. 17. If you are staying overnight, please DO NOT BRING your home medications with you. 18. If you have any questions prior to surgery, please call the Preadmission Testing office at [phone], Mon.-Fri. 7 a.m.-3 p.m. Leave a voicemail if needed. Pre-Surgery Instructions: Medication Instructions ascorbic acid, vitamin C, (VITAMIN C) 1000 mg tablet Stop taking 0 days prior to procedure calcium citrate (CALCITRATE) 200 mg (950 mg) tablet Stop taking 0 days prior to procedure CLASSIC 28 mg iron- 800 mcg tablet Stop taking 0 days prior to procedure escitalopram (LEXAPRO) 5 mg tablet Stop taking 0 days prior to procedure vit B complex no.12/niacin,B3, (VITAMIN B COMPLEX NO.12-NIACIN ORAL) Stop taking 0 days prior to procedure How to Avoid an Infection after Your Surgery Your doctor will give you specific instructions, but remember: -ALWAYS wash hands before caring for your catheter and/or after using the restroom. -ALWAYS wipe from front to back. -No make creams, lotion, powder, rubbing alcohol or hydrogen peroxide on surgical area (can harm the tissue and slow healing). -Your doctor will give you specific instructions for what type of dressing or equipment you will need and how often it will need changed for infection purposes. -Do not allow anyone to touch your surgical area unless they are cleaning, checking, or redressing it (be sure they wash their hands first). -No contact of your surgical area with pets or pet hair; avoid sleeping with pets. -Take full course of antibiotic if prescribed for you after surgery- do not stop unless directed to by your physician. You may also be given an antibiotic prior to your surgery to help prevent surgical site infections. -Eat a healthy and varied diet including proteins, fruits, and vegetables to help promote wound healing and keep blood sugars under control if you are diabetic. -Smoking slows the healing process by decreasing the amount of oxygen in your blood that is needed for tissue healing. Try to avoid or stop smoking if possible. CALL your doctor if you notice any of the following: -Increased redness or hardening around the surgical area. -Increased pain or increased blood in your urine. -If urine becomes increasingly cloudy, you notice sediment or particles in your urine, or you notice a foul odor or yellow or green discharge. -Fever higher than 101 degrees Fahrenheit for more than 4 hours. If you have a question, call your doctor s office. Go to the follow-up appointment with your doctor. [facility] 07-25-2024 Nurse Note Surgical instructions reviewed. Patient verbalized understanding. [facility] 07-19-2024 Miscellaneous Notes Pt scheduled with Dr. Larsen for surgery on 08/14/24 at 10:30am with hospital arrival time of 8:30am. PAT is scheduled for 07/25/24 at 12:45pm. LVM for Pt to call Office for dates and times. Hospital surgery consent to be signed day of surgery. Pt returned call and advised of all dates and times. Surgery information letter mailed. documented in this encounter [facility] 07-19-2024 Telephone encounter Note Pt scheduled with Dr. Larsen for surgery on 08/14/24 at 10:30am with hospital arrival time of 8:30am. PAT is scheduled for 07/25/24 at 12:45pm. LVM for Pt to call Office for dates and times. [facility] 07-19-2024 Telephone encounter Note Hospital surgery consent to be signed day of surgery. [facility] 07-19-2024 Telephone encounter Note Pt returned call and advised of all dates and times. Surgery information letter mailed. [facility] 07-18-2024 History of Presen t illness Narrative HPI: Patient is a 34 y.o. [facility] for results follow up from Colposcopy on 07/04/24. Patient is not on birthcontrol. Previous Pap smear results: HPV and LGSIL Results Discussed: Final Pathologic Diagnosis 1. Cervix at 7:00, biopsy: Low-grade squamous intraepithelial lesion (MARCIO-1). 2. Endocervical curettings: Low-grade squamous intraepithelial lesion (MARCIO-1). ASSESSMENT/PLAN: Discussed the patients pathology results at length. Discussed treatment options at this time including LEEP vs observation. Discussed with positive ECC it is recommended to treat the cervix with a LEEP. Risks, benefits, indications, and procedural techniques of the LEEP were discussed. Discussed the LEEP is best done 1-2 weeks after a period. Patient is agreeable to LEEP. Patient reports she is not using birthcontrol at this time and is not preventing . Advised patient to use condoms prior to the procedure. Recommended waiting 3-6 months for her cervix to heal before attempting conception afterwards. RBAI OF LEEP DW PT AT LENGTH TO INCL BUT NOT LIMITED TO BLEEDING TRANSFUSION INFX ANESTHESIA INJURY TO SURROUNDING TISSUES OR NEED FOR MORE EXTENSIVE SURGERY. VOICES UNDERSTANDING AND DESIRES TO PROCEED. CONSENT SIGNED AND ON CHART. Carley Jose 07/18/24 0942 Carley Jose 07/18/24 0956 ROSE MARY LARSEN MD documented in this encounter [facility] 07-04-2024 History of Presen t illness Narrative PATHOPHYSIOLOGY OF CERVICAL DYSPLASIA DW PT AT LENGTH AND ALL?S ANSWERED AT LENGTH. PATHOPHYSIOLOGY OF HPV DW PT AT LENGTH AND ALL?S ANSWERED AT LENGTH. ADVISED TO UNDERGO COLPOSCOPY AND BIOPSY/ECC PRN. PROCEDURE DESCRIBED IN DETAIL AND ALL QUESTIONS ANSWERED. PT ADVISED TO INCREASE FOLIC ACID IN DIET/SUPPLEMENT REGIMEN AND AVOID TOBACCO PRODUCTS/SMOKING CESSATION. HER RESULTS SPECIFICALLY REVIEWED: LGSIL/+HPV Colposcopy Procedure Note Indications: Pap smear 2 months ago showed: low-grade squamous intraepithelial neoplasia (LGSIL - encompassing HPV,mild dysplasia,MARCIO I). The prior pap showed high risk other . Prior cervical/vaginal disease: normal exam without visible pathology. Prior cervical treatment: no treatment. Procedure Details The risks and benefits of the procedure and Written informed consent obtained. Speculum placed in vagina and excellent visualization of cervix achieved, cervix swabbed x 3 with acetic acid solution. Findings: Cervix: no visible lesions; endocervical speculum placed, endocervical curettage performed, and cervical biopsies taken at 7 o'clock. Vaginal inspection: vaginal colposcopy not performed. Vulvar colposcopy: vulvar colposcopy not performed. Specimens: ECC and 7 o'clock cervical biopsy Complications: none. Plan: Specimens labelled and sent to Pathology. Will base further treatment on Pathology findings. Treatment options discussed with patient. Post biopsy instructions given to patient. Return to discuss Pathology results in 2 weeks. Carley Garcia 07/04/24 0828 ROSE MARY LARSEN MD documented in this encounter [facility] 06-15-2024 Procedure note [facility] Medical C enter 06-12-2024 History of Present illness Narrative Annual Well Woman Visit 06/12/2024 Phong Mistry is a pleasant 33 y.o. female who presents for annual staker surveying exam. Periods are regular every 28-30 days, lasting 5 days. Dysmenorrhea: moderate, occurring first 1-2 days of flow. Cyclic symptoms include none. No intermenstrual bleeding, spotting, or abnormal discharge. No pelvic pain. Patient desires STD testing today of gonorrhea and chlamydia added to PAP only. She declines serum STI studies. Pt. Not using control and relates that she would be OK if she got . Complaints today: none Relationship status: in a relationship The patient reports that there is not domestic violence in her life. 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-smoker Children YES How many One Current contraception: None History of abnormal Pap smear: yes - 05/13/23 Neg/+ OHR HPV Last pap: 05/13/23 Neg/+OHR HPV Regular self breast exam: yes Last mammogram: N/A Family history of breast cancer: yes - MGGM Family history of uterine or ovarian cancer: no Family history of pancreatic or prostate cancer: yes - Mother- Pancreatic, age 55 Family history of colon cancer: no HPV vaccinated: Yes Flu shot this flu season: No PHQ9 depression screeninw/negative self harm component LMP 05/23/2024 OB History 1 Para 1 Term 1 AB Living SAB IAB Ectopic Multiple Live Births The following portions of the patient's history were reviewed and updated as appropriate: allergies, current medications, past family history, past medical history, past social history, past surgical history and problem list. MEDICAL HX Past Medical History: Diagnosis Date Anxiety, generalized 03/31/2023 Iron deficiency anemia 12/07/2023 takes iron Macromastia 11/10/2023 Obesity resolved with gastric bypass Pelvic pain in female 05/13/2023 Plantar fasciitis Recurrent serous otitis media of both ears 01/11/2020 Tinnitus of both ears 01/11/2020 Tonsillar hypertrophy 01/11/2020 Visual impairment Glasses SURGICAL HX Past Surgical History: Procedure Laterality Date ABDOMINOPLASTY N/A 07/09/2020 Performed by Karthik Denney MD at [facility] SECTION 2017 EXCISION CYST HEAD/NECK Left 05/02/2020 Performed by Milton Richard MD PhD at [facility] GASTRIC BYPASS 04/2019 INCISION DRAINAGE BREAST Right 05/11/2024 Performed by Rima Cisneros MD at [facility] LAPAROSCOPIC ALYSSA EN Y GASTRIC BYPASS WITH CHOLECYSTECTOMY N/A 04/25/2019 Performed by Karthik Denney MD at [facility] PANNICULECTOMY N/A 07/09/2020 Performed by Karthik Denney MD at [facility] PLANTAR FASCIA RELEASE Left 2018 REDUCTION BREAST Bilateral 05/11/2024 Performed by Rima Cisneros MD at [facility] FAMILY HX Family History Problem Relation Age of Onset Stroke Father Diabetes Father Hypertension Father Melanoma Father 65 nose Pancreatic cancer Mother 55 No known genetic testing Diabetes Sister Hypertension Sister Breast cancer Maternal great-grandmother MGMs mom, age unknown Anesthesia problems Neg Hx Colon cancer Neg Hx Ovarian cancer Neg Hx Uterine cancer Neg Hx Prostate cancer Neg Hx MEDS Current Outpatient Medications Medication Sig Dispense Refill ascorbic acid, vitamin C, (VITAMIN C) 1000 mg tablet Take 1 tablet (1,000 mg total) by mouth in the morning. calcium citrate (CALCITRATE) 200 mg (950 mg) tablet three times daily CLASSIC 28 mg iron- 800 mcg tablet TAKE 1 TABLET BY MOUTH EVERY DAY 90 tablet 3 CLENPIQ 10 mg-3.5 gram- 12 gram/175 mL solution escitalopram (LEXAPRO) 5 mg tablet Take 1 tablet (5 mg total) by mouth in the morning. Indications: repeated episodes of anxiety. vit B complex no.12/niacin,B3, (VITAMIN B COMPLEX NO.12-NIACIN ORAL) Take by mouth. No current facility-administered medications for this visit. ALLERGIES No Known Allergies Review of Systems Constitutional: Negative for chills and fever. HENT: Negative for ear pain, sinus pain and sore throat. Eyes: Negative for pain. Respiratory: Negative for cough and shortness of breath. Cardiovascular: Positive for chest pain. Related to recent breast reduction surgery Gastrointestinal: Negative for abdominal pain, constipation, diarrhea, nausea and vomiting. Genitourinary: Negative for difficulty urinating, dyspareunia, vaginal bleeding and vaginal discharge. Skin: Negative for rash and wound. Psychiatric/Behavioral: Negative for dysphoric mood. The patient is not nervous/anxious. Objective BP 108/64 Ht 167.6 cm (5' 6 ) Wt 83 kg (183 lb) LMP 05/23/2024 (Exact Date) BMI 29.54 kg/m Physical Exam Vitals and nursing note reviewed. Constitutional: General: She is not in acute distress. Appearance: Normal appearance. She is not ill-appearing, toxic-appearing or diaphoretic. HENT: Head: Normocephalic and atraumatic. Eyes: General: No scleral icterus. Right eye: No discharge. Left eye: No discharge. Neck: Thyroid: No thyroid mass, thyromegaly or thyroid tenderness. Cardiovascular: Rate and Rhythm: Normal rate and regular rhythm. Heart sounds: Normal heart sounds. Pulmonary: Effort: Pulmonary effort is normal. Breath sounds: Normal breath sounds. Chest: Chest wall: No mass, lacerations, deformity, swelling or tenderness. Breasts: Ricardo Score is 5. Breasts are symmetrical. Right: Skin change and tenderness present. No swelling, bleeding, inverted nipple, mass or nipple discharge. Left: Skin change and tenderness present. No swelling, bleeding, inverted nipple, mass or nipple discharge. Comments: Surgical scars noted from breast reduction surgery a month ago. They are healed. Ecchymosis noted and firmness to inferior aspect of right breast where hematoma is that is resolving per pt. Report. Slight firmness noted to inferior aspect of right breast also. Recent surgery and recovery from said inhibits examination. No discrete mass noted. Abdominal: General: There is no distension. Palpations: Abdomen is soft. There is no mass. Tenderness: There is no abdominal tenderness. There is no guarding or rebound. Hernia: No hernia is present. Genitourinary: General: Normal vulva. Exam position: Lithotomy position. Pubic Area: No rash or pubic lice. Labia: Right: No rash, tenderness, lesion or injury. Left: No rash, tenderness, lesion or injury. Urethra: No prolapse, urethral pain, urethral swelling or urethral lesion. Vagina: Normal. Cervix: Normal. Uterus: Normal. Adnexa: Right adnexa normal and left adnexa normal. Rectum: No external hemorrhoid. Musculoskeletal: Cervical back: Neck supple. No rigidity or tenderness. Lymphadenopathy: Cervical: No cervical adenopathy. Right cervical: No superficial, deep or posterior cervical adenopathy. Left cervical: No superficial, deep or posterior cervical adenopathy. Skin: General: Skin is warm and dry. Neurological: General: No focal deficit present. Mental Status: She is alert. Psychiatric: Mood and Affect: Mood normal. Behavior: Behavior normal. Assessment/Plan: Sonia was seen today for gynecologic exam. Diagnoses and all orders for this visit: Family history of pancreatic cancer Well woman exam with routine gynecological exam - Pap Smear; Future - High risk HPV w/robert; Future Pap smear for cervical cancer screening - Pap Smear; Future - High risk HPV w/robert; Future Screen for STD (sexually transmitted disease) - Cancel: Trichomonas by PCR; Future Pre-conception counseling Discussed avoidance of toxic substances, I.e, drugs, tobacco, alcohol and taking a vitamin, which pt. Is already doing BMI is above average; Discussed eating tips for weight loss and and exercise steps. Breast self exam technique reviewed and patient encouraged to perform self-exam monthly. Discussed pancreatic cancer and qualifies for genetic testing. Discussed availability of same and how to make appt. Discussed healthy lifestyle modifications. Educational material distributed. Follow up in 1 year for annual staker surveying exam. Follow up as needed. Next pap due pending results of today's per ASCCP guidelines. Discussed Discussed need for yearly mammogram after 40 yo. Discussed colon cancer screening recommendations to begin at 45 yo, patient to discuss with PCP. All questions answered. FINN Hook APRN, RUPERTO Rodríguez 06/12/24 1657 documented in this encounter [facility] 05-01-2024 Evaluation note Diagnosis Onset Date Resolution Viral URI noneactive May 01, 2024 5:07pm Bilateral otitis media noneactive Fe bruary 2024 5:07pm Change in consistency of stool acute June 06, 2024 11:08am [facility] Work Phone: [phone]) 763-432702-17-2025 Evaluation note* Diagnosis Onset Date Resolution Status Admit Date Viral URI noneactive May 01, 2024 5:07pm Bilateral otitis media noneactive Fe bruary 2024 5:07pm Change in consistency of stool acute June 06, 2024 11:08am Elevated bilirubin acute June 06, 2024 11:08am [facility] Work Phone: [phone]) 487-300302-17-2025 History and physical note* NADIR Aceves - 05/01/2024 11:00 AM EST PRE-ADMISSION TESTING HISTORY AND PHYSICAL EXAM DATE: 05/01/24 PCP: NADIR STEELE CHIEF COMPLAINT: macromastia HISTORY OF PRESENT ILLNESS: Sonia Mistry, a 33 y.o. White or female, presents to [facility] for a pre- surgical H&P. The patient has been diagnosed with macromastia. She states her breasts have been larger than she'd like since her teens. She wears a DDD. She states she has difficulty finding a bra to fit. She c/o associated neck/ upper back pain. She c/o bra dents in her shoulders. She c/o frequent rashes beneath h er breasts, but not currently. Anesthesia problems: pt denies. Latex allergy: pt denies. Bleeding/ clotting disorders: pt denies. Recent hospitalizations: pt denies. PAST MEDICAL HISTORY: Past Medical History: Diagnosis Date Anxiety, generalized 03/31/2023 Iron deficiency anemia 12/07/2023 takes iron Macromastia 11/10/2023 Obesity resolved with gastric bypass Pelvic pain in female 05/13/2023 Recurrent serous otitis media of both ears 01/11/2020 Tinnitus of both ears 01/11/2020 Tonsillar hypertrophy 01/11/2020 Visual impairment Glasses PAST SURGICAL HISTORY: Past Surgical History: Procedure Laterality Date ABDOMINOPLASTY N/A 07/09/2020 Performed by Karthik Denney MD at [facility] SECTION 2017 EXCISION CYST HEAD/NECK Left 05/02/2020 Performed by Milton Richard MD PhD at [facility] LAPAROSCOPIC ALYSSA EN Y GASTRIC BYPASS WITH CHOLECYSTECTOMY N/A 04/25/2019 Performed by Karthik Denney MD at [facility] PANNICULECTOMY N/A 07/09/2020 Performed by Karthik Denney MD at [facility] PLANTAR FASCIA RELEASE Left 2018 FAMILY HISTORY: Family History Problem Relation Age of Onset Anesthesia problems Neg Hx SOCIAL HISTORY: The patient reports that she does not currently use alcohol. She reports that she has never smoked. She has never been exposed to tobacco smoke. She has never used smokeless tobacco. She reports no history of drug use. ALLERGIES: No Known Allergies MEDICATIONS: Current Outpatient Medications: ascorbic acid, vitamin C, (VITAMIN C) 1000 mg tablet, Take 1 tablet (1,000 mg total) by mouth in the morning., Disp: , Rfl: calcium citrate (CALCITRATE) 200 mg (950 mg) tablet, three times daily, Disp: , Rfl: CLASSIC 28 mg iron- 800 mcg tablet, TAKE 1 TABLET BY MOUTH EVERY DAY, Disp: 90 tablet, Rfl: 3 escitalopram (LEXAPRO) 5 mg tablet, Take 1 tablet (5 mg total) by mouth in the morning. Indications: repeated episodes of anxiety., Disp: , Rfl: vit B complex no.12/niacin,B3, (VITAMIN B COMPLEX NO.12-NIACIN ORAL), Take by mouth., Disp: , Rfl: REVIEW OF SYSTEMS: Review of Systems Constitutional: Negative for fever. HENT: Negative for dental problem, ear pain, rhinorrhea, sore throat and trouble swallowing. Eyes: Negative for redness. Respiratory: Negative for cough and shortness of breath. Cardiovascular: Negative for chest pain and leg swelling. Gastrointestinal: Negative for nausea, vomiting and diarrhea. Genitourinary: Negative for dysuria and hematuria. Skin: Negative for rash and wound. Neurological: Negative for seizures and syncope. Psychiatric/Behavioral: The patient is not nervous/anxious. VITAL SIGNS: BP 112/77 Pulse 71 Temp 36.1 C (97 F) (Tympanic) Ht 167.6 cm (5' 6 ) Wt 82.2 kg (181 lb 3.5oz) LMP 04/24/2024 SpO2 99% No BMI 29.25 kg/m PHYSICAL EXAM: Physical Exam Constitutional: General: She is not in acute distress. Appearance: She is not toxic-appearing or diaphoretic. HENT: Head: Atraumatic. Nose: No rhinorrhea. Mouth/Throat: Mouth: Mucous membranes are moist. Pharynx: No posterior oropharyngeal erythema. Eyes: Conjunctiva/sclera: Conjunctivae normal. Pupils: Pupils are equal, round, and reactive to light. Cardiovascular: Rate and Rhythm: Normal rate and regular rhythm. Pulses: Normal pulses. Heart sounds: No murmur heard. Pulmonary: Effort: Pulmonary effort is normal. No respiratory distress. Breath sounds: No wheezing, rhonchi or rales. Abdominal: General: Bowel sounds are normal. Tenderness: There is no guarding. Musculoskeletal: General: No swelling. Skin: General: Skin is warm and dry. Neurological: Mental Status: She is alert and oriented to person, place, and time. Psychiatric: Mood and Affect: Mood normal. Behavior: Behavior normal. Behavior is cooperative. PERTINENT TESTING AVAILABLE IN [facility] (WITHIN THE PAST 2 YEARS): No results found. RECENT LABS: Lab Results Component Value Date WBC 4.7 03/10/2024 HGB 13.5 03/10/2024 HCT 38.8 03/10/2024 PLT 194 03/10/2024 CALCIUM 9.3 03/10/2024 ALBUMIN 4.6 03/10/2024 ALT 9 03/10/2024 AST 17 03/10/2024 *Please note that labs listed above are the most recent lab values available in [facility] at the time ofthe office visit. PAT labs are pending. ASSESSMENT / DIAGNOSIS: Linked DX: MACROMASTIA PLAN: Sonia Mistry is scheduled for Case Date: 05/11/2024 Linked Surgeon: Darlene Cisneros MD Linked Procedure: Reduction Breast (With Possible Free Nipple Graft) - Bilateral. Testing performed in Pre-Admission Clinic today: [facility] NADIR Aceves 05/01/24 1131 [facility]02-17-2025 History and physical note* NADIR Aceves - 05/01/2024 11:00 AM EST PRE-ADMISSION TESTING HISTORY AND PHYSICAL EXAM DATE: 05/01/24 PCP: NADIR STEELE CHIEF COMPLAINT: macromastia HISTORY OF PRESENT ILLNESS: Sonia Mistry, a 33 y.o. White or female, presents to [facility] for a pre- surgical H&P. The patient has been diagnosed with macromastia. She states her breasts have been larger than she'd like since her teens. She wears a DDD. She states she has difficulty finding a bra to fit. She c/o associated neck/ upper back pain. She c/o bra dents in her shoulders. She c/o frequent rashes beneath h er breasts, but not currently. Anesthesia problems: pt denies. Latex allergy: pt denies. Bleeding/ clotting disorders: pt denies. Recent hospitalizations: pt denies. PAST MEDICAL HISTORY: Past Medical History: Diagnosis Date Anxiety, generalized 03/31/2023 Iron deficiency anemia 12/07/2023 takes iron Macromastia 11/10/2023 Obesity resolved with gastric bypass Pelvic pain in female 05/13/2023 Recurrent serous otitis media of both ears 01/11/2020 Tinnitus of both ears 01/11/2020 Tonsillar hypertrophy 01/11/2020 Visual impairment Glasses PAST SURGICAL HISTORY: Past Surgical History: Procedure Laterality Date ABDOMINOPLASTY N/A 07/09/2020 Performed by Karthik Denney MD at [facility] SECTION 2017 EXCISION CYST HEAD/NECK Left 05/02/2020 Performed by Milton Richard MD PhD at [facility] LAPAROSCOPIC ALYSSA EN Y GASTRIC BYPASS WITH CHOLECYSTECTOMY N/A 04/25/2019 Performed by Karthik Denney MD at [facility] PANNICULECTOMY N/A 07/09/2020 Performed by Karthik Denney MD at [facility] PLANTAR FASCIA RELEASE Left 2018 FAMILY HISTORY: Family History Problem Relation Age of Onset Anesthesia problems Neg Hx SOCIAL HISTORY: The patient reports that she does not currently use alcohol. She reports that she has never smoked. She has never been exposed to tobacco smoke. She has never used smokeless tobacco. She reports no history of drug use. ALLERGIES: No Known Allergies MEDICATIONS: Current Outpatient Medications: ascorbic acid, vitamin C, (VITAMIN C) 1000 mg tablet, Take 1 tablet (1,000 mg total) by mouth in the morning., Disp: , Rfl: calcium citrate (CALCITRATE) 200 mg (950 mg) tablet, three times daily, Disp: , Rfl: CLASSIC 28 mg iron- 800 mcg tablet, TAKE 1 TABLET BY MOUTH EVERY DAY, Disp: 90 tablet, Rfl: 3 escitalopram (LEXAPRO) 5 mg tablet, Take 1 tablet (5 mg total) by mouth in the morning. Indications: repeated episodes of anxiety., Disp: , Rfl: vit B complex no.12/niacin,B3, (VITAMIN B COMPLEX NO.12-NIACIN ORAL), Take by mouth., Disp: , Rfl: REVIEW OF SYSTEMS: Review of Systems Constitutional: Negative for fever. HENT: Negative for dental problem, ear pain, rhinorrhea, sore throat and trouble swallowing. Eyes: Negative for redness. Respiratory: Negative for cough and shortness of breath. Cardiovascular: Negative for chest pain and leg swelling. Gastrointestinal: Negative for nausea, vomiting and diarrhea. Genitourinary: Negative for dysuria and hematuria. Skin: Negative for rash and wound. Neurological: Negative for seizures and syncope. Psychiatric/Behavioral: The patient is not nervous/anxious. VITAL SIGNS: BP 112/77 Pulse 71 Temp 36.1 C (97 F) (Tympanic) Ht 167.6 cm (5' 6 ) Wt 82.2 kg (181 lb 3.5oz) LMP 04/24/2024 SpO2 99% No BMI 29.25 kg/m PHYSICAL EXAM: Physical Exam Constitutional: General: She is not in acute distress. Appearance: She is not toxic-appearing or diaphoretic. HENT: Head: Atraumatic. Nose: No rhinorrhea. Mouth/Throat: Mouth: Mucous membranes are moist. Pharynx: No posterior oropharyngeal erythema. Eyes: Conjunctiva/sclera: Conjunctivae normal. Pupils: Pupils are equal, round, and reactive to light. Cardiovascular: Rate and Rhythm: Normal rate and regular rhythm. Pulses: Normal pulses. Heart sounds: No murmur heard. Pulmonary: Effort: Pulmonary effort is normal. No respiratory distress. Breath sounds: No wheezing, rhonchi or rales. Abdominal: General: Bowel sounds are normal. Tenderness: There is no guarding. Musculoskeletal: General: No swelling. Skin: General: Skin is warm and dry. Neurological: Mental Status: She is alert and oriented to person, place, and time. Psychiatric: Mood and Affect: Mood normal. Behavior: Behavior normal. Behavior is cooperative. PERTINENT TESTING AVAILABLE IN [facility] (WITHIN THE PAST 2 YEARS): No results found. RECENT LABS: Lab Results Component Value Date WBC 4.7 03/10/2024 HGB 13.5 03/10/2024 HCT 38.8 03/10/2024 PLT 194 03/10/2024 CALCIUM 9.3 03/10/2024 ALBUMIN 4.6 03/10/2024 ALT 9 03/10/2024 AST 17 03/10/2024 *Please note that labs listed above are the most recent lab values available in [facility] at the time ofthe office visit. PAT labs are pending. ASSESSMENT / DIAGNOSIS: Linked DX: MACROMASTIA PLAN: Sonia Mistry is scheduled for Case Date: 05/11/2024 Linked Surgeon: Darlene Cisneros MD Linked Procedure: Reduction Breast (With Possible Free Nipple Graft) - Bilateral. Testing performed in Pre-Admission Clinic today: [facility] NADIR Aceves 05/01/24 1131 [facility] [id number] Instructions* Patient Instructions* Olesya Tran RN - 05/01/2024 11:00 AM EST Your Procedure/Surgery is scheduled at [facility] on 05/11/24 [facility], [address] [place] [address] You will receive a phone call from [facility] the day before your surgery to verify your arrival time. Notify your SURGEON if you develop any illness such as a cold, cough, fever, sore throat, vomiting or are hospitalized between now and your surgery. If you have any questions prior to your surgery, call Pre-Admission Clinic at [phone]. For questions the day of surgery, call the Pre-op Department at [phone]. Medication Instructions (Do not stop your medications without consulting the prescribing physician). Take the following medications the morning of surgery with a sip of water: Lexapro Diabetic or Weight loss medications: HOLD/NONE Take inhalers as prescribed the morning of surgery. Due to the risk associated with these medications. If these medications are not held per instruction below, your surgery is at an increased risk for cancellation (See instructions above). SGLT2 Medications- Hold 3 days prior to surgery: Jardiance, Empagliflozin, Farxiga, Dapagliflozin, Invokana, Canagliflozin, Trijardy, Synjardy GLP-1 Medications (Injection or Pill)- If taken daily hold day of surgery. If taken weekly, hold 1 week prior to surgery: Adlyxin, Byetta, Bydureon, Ozempic, Rybelsus,Trulicity, Victoza, Wegovy, Lixisenatide, Exenatide, Semaglutide, Dulaglutide, Liraglutide GIP/GLP-1(Injection or Pill)- If taken daily hold day of surgery. If taken weekly, hold 1 week prior to surgery: Perezunwillianro . Blood thinners: Please contact your prescribing physician regarding a stop/hold date for these medications. Medications such as Coumadin, Heparin, Aspirin, Plavix, Eliquis, Pradaxa Diabetics: If you take insulin, contact your prescribing doctor for instructions on how to manage this the night before and the morning of surgery. Non-steriodal Anti-Inflammatory Drugs (NSAIDS)- Hold 3 days prior to surgery unless otherwise directed by your surgeon. Tylenol ok. Vitamins/Herbal Products: You may continue to take your prescribed vitamins such as potassium, iron, vitamin B, vitamin C, or multivitamin unless specifically instructed by your surgeon to hold. STOPtaking all herbal products/teas one week prior to your surgery. *Per Surgeon* Marijuana: Stop marijuana 72 hours prior to surgery, stop CBD oil 48 hours prior to surgery. If you have been given bowel prep instructions by your surgeon, please call the surgeon's office with any questions about these instructions. What do I do the day of Surgery? Age 2 through adult - Stop all solids by midnight, You may have clear liquids up to 2 hours before surgery, unless otherwise instructed by your surgeon Clear liquids are: water, sports drinks such as Gatorade or G2, or apple juice. You may NOT have: tube feedings, dairy products, alcoholic beverages, orange juice, or any liquids with solids or pulp in it If applicable, shower again with CHG soap the morning of your surgery. If you received a green plastic bracelet, bring it with you the day of surgery and your nurse will put it on you. What do I need to do to prepare for surgery? If you will be going home the same day as your surgery, arrange for an adult over [address] If your transportation is by cab, uber, bus, you must be accompanied by somone over 18 years of age.You cannot ride alone. You should not smoke or drink alcohol 24 hours before your surgery. Do not wear lotion, cream, powder, perfume, make up, cologne or after-shaves day of surgery. Remove ALL jewelry including wedding rings, body piercings (including dermal piercings),hair extensions that contain metal,make-up, and contact lens. You may brush your teeth the morning of surgery. Wear your dentures and partial plates to the hospital (no adhesive). If applicable, the evening before surgery, shower with chlorhexidine gluconate (CHG soap). What should I bring to the hospital? If you received a green plastic bracelet, bring it with you the day of surgery and your nurse will put it on you. Eyeglass, contact lens and/or denture cases. If you will be spending the night, please bring personal care items and leave them in the car untilyou are taken to your room after surgery. Leave ALL valuables at home. If any of these instructions conflict with those you recieved from the surgeon, please seek clarification from your surgeon's office. DEEP BREATHING EXERCISES This exercise helps promote good air exchange and helps to prevent pneumonia after surgery. Breathe in slowly and deeply through the nose. Hold your breath for a few seconds and then exhale slowly through the mouth. Repeat this three times and then cough.Coughing helps to clear your lungs. If you have had a surgery with an incision into your abdomen or chest, press gently against your incision with a pillow or a folded blanket when you cough. Please be aware - it may not be durant to cough following some types of surgeries involving the eyes,ears, sinuses and throat. Always follow your doctor's instructions. LEG EXERCISE These exercises help promote good circulation and help to prevent blood clots after surgery. Point your toes to the ceiling and then point them to the wall. Do this slowly about 15-20 times. You may also move your feet in circles. Do the exercise that is most comfortable for you. If you have had surgery involving your shoulder or arm, we recommend you move your fingers. PRACTICING We ask that you begin practicing these exercises before your surgery. After surgery try to do both exercises at least every 2 hours during the day and early evening. Surgical Site Infection Prevention What is a Surgical Site Infection? Infection can happen to the area of the body where surgery is done. This is called a surgical site infection (SSI). A SSI does not happen very often. Can SSIs be treated? Antibiotics are used to treat SSI. Some patients may need another surgery to treat the infection. The doctor will discuss treatment options with you. What are some of the things that hospitals are doing to prevent SSIs? Soap and water or alcohol hand rub are used before and after caring for each patient. Special soap is used to clean surgery workers hands and arms just before the surgery. Masks, gowns, gloves and hair covers are worn during the surgery to keep the area clean. Hair in the surgery area may be removed with clippers (not razors). A special soap that kills germs is used to clean the skin at the surgery site. Antibiotics may be given before the surgery starts. What can you do to prevent SSIs? Before surgery: You may be asked to shower or bathe with a special soap that kills germs the night before and the day of surgery. Use the soap as you were told. If you smoke, stop or cut down. Ask your doctor about ways to quit. Do not shave near where you will have surgery. Shaving can irritate the skin and make it easier to get and infection. After surgery: Be sure that the doctors and nurses clean their hands before and after touching you.Be sure your family and friends clean their hands before and after visiting you. Do not be afraid to remind them. * Care for your wound at home as told by your doctor or nurse * Call your doctor right away if you have fever, redness, increased pain, or drainage at the surgery site. Further questions? Contact the doctor, nurse or the Infection Prevention and Control department if you have any questions. PATIENT RIGHTS AND RESPONSIBILITIES As a patient at [facility], you have the right to: Receive medical care and be informed of who is taking care of you Be treated with dignity and respect Have a family member/labor relations representative of choice and your physician notified of your admission Receive information and actively participate in decisions about your care and treatment Refuse care, treatment and services Decide who may provide your support and speak for you Access anglican and spiritual services Participate in ethical issues and questions about your care Receive private and confidential care Have appropriate assessment and management of your pain Know guest visitation restrictions or limitations Have an advance directive Access protective services Consent or refuse to participate in research studies or production or recordings, films or other images Have resolution of your complaints Receive information of hospital charges and payment methods Patient/patient labor relations representative responsibilities are to: Provide information about health status to facilitate care, treatment and services Follow the treatment, plan, keep appointments and speak up when you do not understand the plan Respect the rights of other patients and healthcare personnel Follow organizational rules and regulations that support quality care and a safe environment Fulfill financial obligations as promptly as possible documented in this encounterPremier HealthOpinionLab [facility] [id number] History of Present illness Narrative* Felicity Sarah, TECHNICAL ADVISOR-[employer]OCIATE - 03/20/2024 11:00 AM ESTSummary: Early 5 years s/p RYGB and gloria; Dr Denney Images from the original note were not included. [facility] [address] [place] [id number] Subjective Patient ID: Sonia Mistry is a 33 y.o. female who is an established patient. HPI: Sonia underwent laparoscopic alyssa en y gastric bypass and cholecystectomy with Dr Denney on 04/25/2019. She later underwent panniculectomy and abdominoplasty with Dr Denney in June 2020. She has been lost to follow up last seen in our office in July 2020. Presents today for routine annual bariatric visit, now nearly 5 years post op. Complains of abdominal pain and oily foul smelling diarrhea. Pain is described as a bloating uncomfortable feeling in generalized abdomen. This has been ongoing for months (past 6 months or so) andworsening over time. Had been happening 2-3 times per week and now often daily. Finding it hard to eat as she is feeling nauseated with foods. No sick contacts or antibiotic use. Denies . Has tried OTC antidiarrheals without relief. Went to PCP and referred to GI, and is scheduled to see GI later this month. She has noticed ever since her gallbladder was removed any greasy foods tend to go right through her therefore avoids. Meals: Eating 3 meals and 1 snack. Ex: eggs, triple zero yogurt, chicken and veggies. Fluids: 3-4 bottles water daily; 1 cup coffee with creamer (stopped the creamer recently) now only adding in stevia. 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 Avoid lifelong (ulcerogenic) NSAIDS: Denies. Avoid lifelong (ulcerogenic) The following portions of the patient's history were reviewed and updated as appropriate: allergies, current medications, past family history, past medical history, past social history, past surgicalhistory, problem list, and medication reconciliation was completed including current medication andpost discharge medication. Weight and Comorbid Conditions: 1. Morbid Obesity [place] body weight: 155 lb BMI 25.0 Height: 5'6 Personal Goal: 170s Pre op: 231 lb BMI 37.43 1 year post op: 157 lb BMI 25.29 2 years post op (2 week s/p panniculectomy): 159 lb BMI 25.66 3 years post op: NO VISIT 4 years post op: NO VISIT Early 5 years post op: 174 lb BMI 28.17 2. Hypertension: Resolved Vitamins: - taking daily Calcium- once daily Vitamin B12- sublingual daily Vitamin D- OTC daily ROS: Review of Systems Constitutional: Negative for appetite change and fatigue. Respiratory: Negative for apnea and shortness of breath. Cardiovascular: Negative for palpitations and leg swelling. Gastrointestinal: Positive for abdominal distention, abdominal pain, diarrhea and nausea. Negative for constipation and vomiting. Endocrine: Negative for polydipsia and polyphagia. Genitourinary: Negative for dysuria and frequency. Musculoskeletal: Negative for arthralgias, back pain and myalgias. Neurological: Negative for dizziness and light-headedness. Psychiatric/Behavioral: Negative for dysphoric mood. The patient is not nervous/anxious. Objective Lab Review: Component Latest Ref Rng 03/10/2024 White Blood Cells 4.0 - 11.0 X10E9/L 4.7 RBC count 3.80 - 5.20 X10E12/L 4.10 Hemoglobin 11.7 - 15.5 g/dL 13.5 Hematocrit 35 - 47 % 38.8 MCV 80 - 100 fL 95 MCH 27 - 34 pg 32.8 MCHC 32 - 36 g/dL 34.7 RDW 11.5 - 15.0 % 12.6 Platelets 150 - 450 X10E9/L 194 MPV 7 - 12 fL 8.3 % neutrophils % 67.5 % lymphocytes % 23.9 % monocytes % 7.4 % eosinophils % 1.0 % Basophils % 0.2 Neutrophils Absolute (A) 1.5 - 6.6 X10E9/L 3.2 Lymphocytes Absolute 1.0 - 3.5 X10E9/L 1.1 Monocytes Absolute 0 - 0.9 X10E9/L 0.3 Eosinophils Absolute 0.0 - 0.4 X10E9/L 0.0 Basophils Absolute 0.0 - 0.2 X10E9/L 0.0 Alkaline phosphatase 39 - 130 U/L 49 AST 0 - 41 U/L 17 ALT 0 - 31 U/L 9 Total bilirubin 0.3 - 1.2 mg/dL 1.4 (H) Bilirubin, direct 0.0 - 0.4 mg/dL 0.2 Albumin 3.2 - 5.3 g/dL 4.6 Total Protein 6.0 - 8.0 g/dL 7.2 Vitamin A (Retinol) 0.30 - 1.20 mg/L 0.50 Vit A (Retinyl Palmitate) 0.00 - 0.10 mg/L <0.02 Vit A, Ser/Pl Interp NORMAL Zinc 60 - 106 mcg/dL 83 Vit D, 25-hydroxy 30 - 100 ng/mL 36.6 Vitamin B-12 180 - 914 pg/mL 439 Thiamine 70 - 180 nmol/L 103 PTH 12 - 88 pg/mL 54 Iron 50 - 170 ug/dL 123 Folate >5.8 ng/mL 17.5 Copper, S 77 - 206 mcg/dL 109 Calcium 8.5 - 10.5 mg/dL 9.3 Vitals and Bariatric Vitals: Vitals: 03/20/24 1100 BP: 101/68 BP Site: Left Arm BP Postition: Sitting BP CUFF SIZE: L (13-17 inches) Pulse: 73 Temp: (!) 35.9 C (96.7 F) TempSrc: Temporal Weight: 79.2 kg (174 lb 8 oz) Height: 167.6 cm (5' 6 ) # Days Post Op: (bypass 2019) Weight: 79.2 kg (174 lb 8 oz) BMI: 28.17 Decrease in BMI: 9.26 Weight Lost (kg): 26.05 Weight Lost (lbs): 57.43 % Decreased BMI: 24.74 % Decreased Excess Weight: 74.66 Physical Exam Vitals and nursing note reviewed. Constitutional: Appearance: Normal appearance. HENT: Head: Normocephalic and atraumatic. Right Ear: External ear normal. Left Ear: External ear normal. Nose: Nose normal. Mouth/Throat: Mouth: Mucous membranes are moist. Eyes: General: Right eye: No discharge. Left eye: No discharge. Pulmonary: Effort: Pulmonary effort is normal. No respiratory distress. Breath sounds: No wheezing or rales. Abdominal: General: Bowel sounds are increased. There is no distension. Palpations: Abdomen is soft. There is no mass. Tenderness: There is no abdominal tenderness. There is no guarding or rebound. Hernia: No hernia is present. Musculoskeletal: General: Normal range of motion. Cervical back: Normal range of motion and neck supple. Skin: General: Skin is warm and dry. Neurological: General: No focal deficit present. Mental Status: She is alert and oriented to person, place, and time. Sensory: Sensation is intact. Motor: Motor function is intact. Coordination: Coordination is intact. Gait: Gait is intact. Psychiatric: Attention and Perception: Attention normal. Mood and Affect: Mood normal. Speech: Speech normal. Behavior: Behavior normal. Thought Content: Thought content normal. Cognition and Memory: Cognition and memory normal. Judgment: Judgment normal. Assesment and Plan: Assessment/Plan Sonia was seen today for consult. Diagnoses and all orders for this visit: History of Alyssa-en-Y gastric bypass - Calcium; Future - CBC auto differential; Future - Copper, S; Future - Folate; Future - Iron; Future - Liver panel; Future - Parathyroid Hormone, intact; Future - Thiamin (Vitamin B1), WB; Future - Vitamin A (Retinol); Future - Vitamin B12; Future - Vitamin D 25 hydroxy; Future - Zinc, Serum; Future Intestinal malabsorption following gastrectomy - Calcium; Future - CBC auto differential; Future - Copper, S; Future - Folate; Future - Iron; Future - Liver panel; Future - Parathyroid Hormone, intact; Future - Thiamin (Vitamin B1), WB; Future - Vitamin A (Retinol); Future - Vitamin B12; Future - Vitamin D 25 hydroxy; Future - Zinc, Serum; Future Malnutrition following gastrointestinal surgery - Calcium; Future - CBC auto differential; Future - Copper, S; Future - Folate; Future - Iron; Future - Liver panel; Future - Parathyroid Hormone, intact; Future - Thiamin (Vitamin B1), WB; Future - Vitamin A (Retinol); Future - Vitamin B12; Future - Vitamin D 25 hydroxy; Future - Zinc, Serum; Future 5 yr s/p RYGB and gloria, maintained 75% EBWL S/p panniculectomy/abdominoplasty 2020 Continue high protein, high veggie diet Consume 4-5 small meals per day, eating something every 3-4 hours Lifelong avoidance of all NSAIDs and tobacco products to reduce risk of anastomotic ulcer formation Continue with good fluid intake, take in at least 64 oz of water per day Increase exercise each week, goal =150 minutes per week Labs reviewed Continue /multivitamin, calcium and vitamin B12 for life F/u labs in 1 year, obtain 1 wk prior to scheduled appointment F/u in 1 year for annual visit F/u with GI as scheduled; continue OTC antidiarrheals PRN NADIR Mcneil APRN-CNP 03/20/24 1235 documented in this [facility]01-06-2025 Instructions* Patient Instructions* NADIR Brantley - 03/20/2024 11:00 AM EST 5 yr s/p RYGB S/p panniculectomy/abdominoplasty 2020 Continue high protein, high veggie diet Consume 4-5 small meals per day, eating something every 3-4 hours Lifelong avoidance of all NSAIDs and tobacco products to reduce risk of anastomotic ulcer formation Continue with good fluid intake, take in at least 64 oz of water per day Increase exercise each week, goal =150 minutes per week Labs reviewed Continue /multivitamin, calcium and vitamin B12 for life F/u labs in 1 year, obtain 1 wk prior to scheduled appointment F/u in 1 year for annual visit documented in this [facility]12-26-2024 History of Present illness Narrative* Nikkie Aldridge RN - 03/09/2024 2:46 PM EST Annual lab orders entered. Patient has annual appointment scheduled 03/20/2023 with Felicity. [facility] in this [facility] History of Present illness Narrative* Kelly Cain NP - 12/07/2023 3:07 PM EDTAssociated Problem(s): Change in consistency of stool Will refer to GI Differentials: EPI, related to bariatric procedure/absorption issues * KHAHN REYNAGA - 12/07/2023 1:40 PM EDT Pt has been having on and off oily stools for a few months now. Pt states it is not every day it does happen maybe 2-3 times a week. The oily stools also have a foul smell, no blood or stomach pain. * Kelly Cain NP - 12/07/2023 1:40 PM EDT Images from the original note were not included. Sonia Mistry is a 33 y.o. female presents with chief complaint of No chief complaint on file. HPI: Is concerned over having oily stools. This has been ongoing for the last few months off and on. No blood, no pian, no GERD sxs, does have some occ bloating, hx of bariatric surgery and cholecystectomy . No correlation to type of food. She is concerned as her mother from pancreatic cancer as well. SUBJECTIVE: MEDICATIONS: Current Outpatient Medications Medication Instructions calcium citrate (Calcitrate) 950 (200 Ca) MG tablet three times daily cetirizine (ZYRTEC) 10 mg, Oral, Daily escitalopram (LEXAPRO) 5 mg, Oral, Every morning Levonorgestrel-Eth Estradiol (Twirla) 120-30 MCG/24HR patch weekly ALLERGIES: No Known Allergies REVIEW OF SYMPTOMS: Review of Systems Constitutional: Negative for appetite change, chills and fever. HENT: Negative for congestion, ear pain and sore throat. Eyes: Negative for pain, discharge, redness and visual disturbance. Respiratory: Negative for cough, shortness of breath and wheezing. Cardiovascular: Negative for chest pain, palpitations and leg swelling. Gastrointestinal: Negative for abdominal pain, blood in stool, constipation, diarrhea, nausea and vomiting. Bloating occasionally, and Oily stools Genitourinary: Negative for difficulty urinating, dysuria and frequency. Musculoskeletal: Negative for arthralgias, back pain, joint swelling and myalgias. Skin: Negative for rash and wound. Neurological: Negative for dizziness, tremors, seizures, syncope and headaches. Psychiatric/Behavioral: Negative for behavioral problems, self-injury and suicidal ideas. The patient is not nervous/anxious. Hematological: Does not bruise/bleed easily. Endocrine: Negative for polydipsia, polyphagia and polyuria. Allergic/Immunologic: Negative for environmental allergies and food allergies. PAST MEDICAL HISTORY Past Medical History: Diagnosis Date Abnormal results of thyroid function studies Anxiety, generalized (CMS/HCC) At low risk for fall Cyst of skin Fatigue Gastrocnemius equinus, right H/O bariatric surgery Herpetic gingivostomatitis Appears c/w herpetic gingivostomatitis Hypertension (CMS/HCC) Influenza vaccination declined Irregular intermenstrual bleeding were reviewed-likely rapid weiGht loss. Recommend switching to Depo with calcium supplementation until weiGht stabilizes. Script sent to pharmacy after R/B/A as well as Se were reviewed. RTC for deposhot and nexplanon removal. Advised patient to keep cycle diary in the interim. All of patient's questions were answered and she expressed understanding.Advised to call in interim with ?s or concerns. Irregular menses Large breasts Malabsorption syndrome (CMS/HCC) Nexplanon in place Nexplanon recheck-PE described as above and patient reassured. All of patient's questions were answered and she expressed understanding. Will continue to follow. Advised to call in interim with questions or concerns. Papule of skin Past Surgical History: Procedure Laterality Date ABDOMINAL SURGERY 07/09/2020 Panniculectomy / abdominalplasty SECTION, LOW TRANSVERSE CHOLECYSTECTOMY 04/25/2019 CYST REMOVAL Left 05/02/2020 left post auricular cyst GASTRIC BYPASS 10/22/2020 PLANTAR FASCIA SURGERY Left 12/21/2017 family history includes Asthma in her brother; Diabetes in her father and sister; Stroke in her father. OBJECTIVE: Visit Vitals BP 112/80 (BP Location: Left arm, Patient Position: Sitting, BP Cuff Size: Adult long) Pulse 68 Temp 98.5 F (Temporal) Resp 18 Ht 5' 6 Wt 185 lb SpO2 100% BMI 29.86 kg/m Smoking Status Never BSA 1.98 m Physical Exam Vitals and nursing note reviewed. Constitutional: General: She is not in acute distress. Appearance: Normal appearance. HENT: Head: Normocephalic and atraumatic. Right Ear: External ear normal. Left Ear: External ear normal. Nose: Nose normal. Mouth/Throat: Mouth: Mucous membranes are moist. Eyes: Extraocular Movements: Extraocular movements intact. Conjunctiva/sclera: Conjunctivae normal. Cardiovascular: Rate and Rhythm: Normal rate and regular rhythm. Pulses: Normal pulses. Heart sounds: Normal heart sounds. Pulmonary: Effort: Pulmonary effort is normal. Breath sounds: Normal breath sounds. Abdominal: General: Bowel sounds are normal. There is no distension. Palpations: Abdomen is soft. There is no mass. Tenderness: There is no abdominal tenderness. Musculoskeletal: General: Normal range of motion. Cervical back: Normal range of motion and neck supple. Skin: General: Skin is warm and dry. Capillary Refill: Capillary refill takes 2 to 3 seconds. Findings: No rash. Neurological: General: No focal deficit present. Mental Status: She is alert and oriented to person, place, and time. Psychiatric: Mood and Affect: Mood normal. Behavior: Behavior normal. Thought Content: Thought content normal. Judgment: Judgment normal. ASSESSMENT AND PLAN: No follow-ups on file. Problem List Items Addressed This Visit S/P bariatric surgery - Primary Change in consistency of stool Will refer to GI Differentials: EPI, related to bariatric procedure/absorption issues Relevant Orders Ambulatory referral to Gastroenterology documented in this encounterCox Walnut [id number] History of Present illness Narrative* Kelly Cain NP - 11/10/2023 3:37 PM EDTAssociated Problem(s): Macromastia Referral for plastics to discuss breast reduction surgery * Kelly Cain NP - 11/10/2023 3:35 PM EDTAssociated Problem(s): Generalized anxiety disorder (CMS/HCC) Continue with use of lexapro at 5mg daily * Kelly Cain NP - 11/10/2023 2:20 PM EDT Images from the original note were not included. Sonia Mistry is a 33 y.o. female presents with chief complaint of No chief complaint on file. HPI: Would like a referral for a breast reduction: Currentlly in a G cup, pt has had bariatric surgery 3 years ago, has kept her weight down She experiences neck, shoulder and upper back pain, difficulty with exercise d/t the post work out pain Also experiences yeast infections under her breast d/t their large size Anxiety Presents for follow-up visit. Patient reports no chest pain, compulsions, confusion, depressed mood, dizziness, dry mouth, excessive worry, feeling of choking, irritability, malaise, muscle tension, nausea, nervous/anxious behavior, palpitations, panic, shortness of breath or suicidal ideas. The sev erity of symptoms is mild. The quality of sleep is good. Compliance with medications is 76-100%. SUBJECTIVE: MEDICATIONS: Current Outpatient Medications Medication Instructions calcium citrate (Calcitrate) 950 (200 Ca) MG tablet three times daily cetirizine (ZYRTEC) 10 mg, Oral, Daily escitalopram (LEXAPRO) 5 mg, Oral, Every morning ALLERGIES: No Known Allergies REVIEW OF SYMPTOMS: Review of Systems Constitutional: Negative for appetite change, chills, fever and irritability. HENT: Negative for congestion, ear pain and sore throat. Eyes: Negative for pain, discharge, redness and visual disturbance. Breasts: Negative for breast mass and breast discharge. Respiratory: Negative for cough, shortness of breath and wheezing. Cardiovascular: Negative for chest pain, palpitations and leg swelling. Gastrointestinal: Negative for abdominal pain, blood in stool, constipation, diarrhea, nausea and vomiting. Genitourinary: Negative for difficulty urinating, dysuria and frequency. Musculoskeletal: Positive for back pain. Negative for arthralgias, joint swelling and myalgias. Skin: Negative for rash and wound. Neurological: Negative for dizziness, tremors, seizures, syncope and headaches. Psychiatric/Behavioral: Negative for behavioral problems, confusion, self-injury and suicidal ideas. The patient is not nervous/anxious. Hematological: Does not bruise/bleed easily. Endocrine: Negative for polydipsia, polyphagia and polyuria. Allergic/Immunologic: Negative for environmental allergies and food allergies. PAST MEDICAL HISTORY Past Medical History: Diagnosis Date Abnormal results of thyroid function studies Anxiety, generalized (CMS/HCC) At low risk for fall Cyst of skin Fatigue Gastrocnemius equinus, right H/O bariatric surgery Herpetic gingivostomatitis Appears c/w herpetic gingivostomatitis Hypertension (CMS/HCC) Influenza vaccination declined Irregular intermenstrual bleeding were reviewed-likely rapid weiGht loss. Recommend switching to Depo with calcium supplementation until weiGht stabilizes. Script sent to pharmacy after R/B/A as well as Se were reviewed. RTC for deposhot and nexplanon removal. Advised patient to keep cycle diary in the interim. All of patient's questions were answered and she expressed understanding.Advised to call in interim with ?s or concerns. Irregular menses Large breasts Malabsorption syndrome (CMS/HCC) Nexplanon in place Nexplanon recheck-PE described as above and patient reassured. All of patient's questions were answered and she expressed understanding. Will continue to follow. Advised to call in interim with questions or concerns. Papule of skin Past Surgical History: Procedure Laterality Date ABDOMINAL SURGERY 07/09/2020 Panniculectomy / abdominalplasty SECTION, LOW TRANSVERSE CHOLECYSTECTOMY 04/25/2019 CYST REMOVAL Left 05/02/2020 left post auricular cyst GASTRIC BYPASS 10/22/2020 PLANTAR FASCIA SURGERY Left 12/21/2017 family history includes Asthma in her brother; Diabetes in her father and sister; Stroke in her father. OBJECTIVE: Visit Vitals BP 106/76 (BP Location: Left arm, Patient Position: Sitting, BP Cuff Size: Adult long) Pulse 86 Temp 97.5 F (Temporal) Resp 18 Ht 5' 6 Wt 182 lb 3.2 oz SpO2 100% BMI 29.41 kg/m Smoking Status Never BSA 1.96 m Physical Exam Vitals and nursing note reviewed. Constitutional: General: She is not in acute distress. Appearance: Normal appearance. HENT: Head: Normocephalic and atraumatic. Right Ear: Tympanic membrane, ear canal and external ear normal. Left Ear: Tympanic membrane, ear canal and external ear normal. Nose: Nose normal. No congestion or rhinorrhea. Mouth/Throat: Mouth: Mucous membranes are moist. Pharynx: No oropharyngeal exudate or posterior oropharyngeal erythema. Eyes: Extraocular Movements: Extraocular movements intact. Conjunctiva/sclera: Conjunctivae normal. Cardiovascular: Rate and Rhythm: Normal rate and regular rhythm. Pulses: Normal pulses. Heart sounds: Normal heart sounds. Pulmonary: Effort: Pulmonary effort is normal. Breath sounds: Normal breath sounds. Abdominal: General: Bowel sounds are normal. There is no distension. Palpations: Abdomen is soft. There is no mass. Tenderness: There is no abdominal tenderness. Musculoskeletal: General: Normal range of motion. Cervical back: Normal range of motion and neck supple. Right lower leg: No edema. Left lower leg: No edema. Lymphadenopathy: Cervical: No cervical adenopathy. Skin: General: Skin is warm and dry. Capillary Refill: Capillary refill takes 2 to 3 seconds. Findings: No rash. Neurological: General: No focal deficit present. Mental Status: She is alert and oriented to person, place, and time. Psychiatric: Mood and Affect: Mood normal. Behavior: Behavior normal. Thought Content: Thought content normal. Judgment: Judgment normal. ASSESSMENT AND PLAN: No follow-ups on file. Problem List Items Addressed This Visit Generalized anxiety disorder (CMS/HCC) Continue with use of lexapro at 5mg daily Relevant Medications escitalopram (Lexapro) 5 MG tablet S/P bariatric surgery - Primary Relevant Orders Ambulatory referral to Plastic Surgery Macromastia Referral for plastics to discuss breast reduction surgery Relevant Orders Ambulatory referral to Plastic Surgery Yeast dermatitis Relevant Orders Ambulatory referral to Plastic Surgery documented [facility] encounter[facility] [id number] History of Present illness Narrative* Kelly You, TECHNICAL ADVISOR-MEAT SEAFOOD ASSOCIATE - 05/13/2023 2:00 PM EST Annual Well Woman Visit 05/13/2023 Phong Mistry is a 32 y.o. female new patient who presents for annual staker surveying exam. Periods are regularevery 28-30 days, lasting 5 days. Dysmenorrhea: moderate, occurring premenstrually. Cyclic symptomsinclude breast tenderness. No intermenstrual bleeding, spotting, or abnormal discharge. Some pelvicpain prior to periods. Patient desires STD testing today. Complaints today: none Relationship status: not in a relationship The patient reports that there is not domestic violence in her life. 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 MEDICAL HX Past Medical History: Diagnosis Date Visual impairment Glasses SURGICAL HX Past Surgical History: Procedure Laterality Date ABDOMINOPLASTY N/A 07/09/2020 Performed by Karthik Denney MD at [facility] SECTION 2017 EXCISION CYST HEAD/NECK Left 05/02/2020 Performed by Milton Richard MD PhD at [facility] GASTRIC BYPASS 04/2019 LAPAROSCOPIC ALYSSA EN Y GASTRIC BYPASS WITH CHOLECYSTECTOMY N/A 04/25/2019 Performed by Karthik Denney MD at [facility] PANNICULECTOMY N/A 07/09/2020 Performed by Karthik Denney MD at [facility] PLANTAR FASCIA RELEASE Left 2018 FAMILY HX [...] Follow up in 1 year for annual staker surveying exam. Follow up as needed. Await pap. Discussed ASCCP screening guidelines. Discussed taking a multivitamin. Discussed Calcium and Vitamin D for prevention of osteoporosis. Discussed need for yearly mammogram after 40 yo. Discussed colon cancer screening recommendations to begin at 45 yo, patient to discuss with PCP. All questions answered. TEDDY DOMINGUEZ [facility] NADIR Garrett APRN-CNP 05/13/23 1433 [facility] Evaluation note* Encounter Date Diagnosis Assessment Notes Treatment Notes Treatment Clinical Notes Mar, Contact with and (suspected) exposure [...] treatment plan. Patient left in stable condition. [facility] Other 01-05-2024 Evaluation note* Encounter Date Diagnosis [...] no improvement in 2 to 3 days [facility] Other 03-12-2023 Evaluation note* Encounter Date Diagnosis [...] Zofran 4mg 2 tab po in office [facility] Other 10-12-2021 Evaluation note* Encounter Date Diagnosis [...] Patient care instructions given in writting by [facility] At Home document. [facility] Other 08-01-2017 History general Narrative - Reported* Type Description Date Medical History Anxiety Surgical History C section Surgical History Foot Surgery Surgical History gastric bypass Hospitalization History in oct high blood pressure baby had to be delivered. [facility] Other Evaluycpib noteNo assessment information available [facility] Work Phone: evaluation note* Diagnosis Onset Date Resolution Status Viral URI with cough noneact rigoberto Viral URI with cough noneact rigoberto [facility] Work Phone: Evaluation note* Diagnosis Onset Date Resolution Status Viral URI with cough noneact rigoberto Viral URI with cough noneact rigoberto Bronchitis acute Maxillary sinusitis acute [facility] Work Phone: Evaluation note* Diagnosis Generalized anxiety disorder (CMS/HCC)- Primary Generalized anxiety disorder S/P bariatric surgery Macromastia Hypertrophy of breast Yeast dermatitis [facility] Diagnosis Change in consistency of stool- Primary S/P bariatric surgery [facility] Diagnosis Generalized anxiety disorder (CMS/HCC)- Primary Generalized anxiety disorder S/P bariatric surgery Macromastia Hypertrophy of breast Yeast dermatitis Change in consistency of stool- Primary S/P bariatric surgery Nausea and vomiting, unspecified vomiting type- Primary [facility]* Diagnosis History of Alyssa-en-Y gastric bypass- Primary Intestinal malabsorption following gastrectomy Malnutrition following gastrointestinal surgery Other and unspecified postsurgical nonabsorption [facility] Diagnosis History of Alyssa-en-Y gastric bypass- Primary Intestinal malabsorption following gastrectomy Malnutrition following gastrointestinal surgery Other and unspecified postsurgical nonabsorption [facility] Diagnosis Well woman exam with routine gynecological exam- Primary Routine gynecological examination Cervical smear, as part of routine gynecological examination Screening for malignant neoplasm of the cervix Screening for STD (sexually transmitted disease) Pelvic pain Standardized adult depression screening tool completed [facility] Diagnosis Pre-op testing- Primary Unspecified pre-operative examination [facility] Diagnosis Family history of pancreatic cancer- Primary Family history of malignant neoplasm of gastrointestinal tract Well woman exam with routine gynecological exam Routine gynecological examination Pap smear for cervical cancer screening Screening for malignant neoplasm of the cervix Screen for STD (sexually transmitted disease) Screening examination for venereal disease Pre-conception counseling Other procreative management counseling and advice [facility] Diagnosis LGSIL on Pap smear of cervix- Primary [facility]* Diagnosis LGSIL on Pap smear of cervix- Primary [facility]* Diagnosis LGSIL on Pap smear of cervix- Primary documented in this encounter [facility] SystemInstructionsNot on filedocumented in this encounter [facility]* Attachments The following attachments cannot be sent through Care Everywhere. * Pelvic Pain (Northern Irish) * Control Options (Northern Irish) [facility] System[facility]* Attachments The following attachments cannot be sent through Care Everywhere. * Sexually transmitted infections (Northern Irish) documented in this encounterPro[facility] SystemInstructionsNot on file documented in this encounterProDetwiler [facility] SystemInstructionsNot on file documented in this encounterProDetwiler [facility] SystemInstructionsNot on file documented in this encounterReg[facility] SystemReason for referral (narrative)* Consultation (Routine) - Pending Review Specialty Diagnoses / Procedures Referred By Contac t Referred To Contact Plastic Surgery Diagnoses S/P bariatric surgery Macromastia Yeast dermatitis Procedures PA OFFICE/OUTPATIENT NEW HIGH MDM 60 MINUTES Kelly Cain NP [address] [place] [address] Cas Zelaya MD [address] [address] Referral ID Status Reason Start Date Expiration Date Visits Requested Visits Authorized [id number] Pending Review Specialty Services Required 11/10/2023 05/08/2024 1 1 [facility]wnReason for referral (narrative)* Consultation (Routine) - Pending Review Specialty Diagnoses / Procedures Referred By Contac t Referred To Contact Gastroenterology Diagnoses Change in consistency of stool Procedures PA OFFICE/OUTPATIENT NEW HIGH MDM 60 MINUTES Kelly Cain NP [address] [place] [address] Stephanie Kelley DO [address] [address] Referral ID Status Reason Start Date Expiration Date Visits Requested Visits Authorized [id number] Pending Review Specialty Services Required 12/07/2023 06/04/2024 1 1 [facility] Healthcare Summary Purpose Family History No Family History Records Found Relationship Condition Age at Onset Recorded Date/T sarah father Heart disease Unknown Unknown Not Specified Malignant neoplasm Unknown Relationship Condition Age at Onset Recorded Date/T sarah father Heart disease Unknown Unknown mother Malignant neoplasm Unknown Relationship Condition Age at Onset Recorded Date/T sarah father Heart disease Unknown Unknown Diabetes mellitus Unknown mother Unknown Malignant neoplasm of pancreas Unknown Advance Directives No Advanced Directives Records Found Advance Directive Response Recorded Date/ Time Advance Directives No April 1:03pm Advance Directive Response Recorded Date/ Time Advance Directives No April 2:03pm Date Activated Date Inactivated Comments 07/09/2020 1:46 PM 2020 4:02 PM Date Activated Date Inactivated Comments 04/25/2019 11:02 AM 04/26/2019 3:24 PM Latest Code Status on File Code Status Date Activated Date Inactivated Comments Full Code 07/09/2020 1:46 PM 2020 4:02 PM Code Status History Code Status Date Activated Date Inactivated Comments Full Code 04/25/2019 11:02 AM 04/26/2019 3:24 PM Assessments Diagnosis Pain of upper abdomen Abdominal [...] Chief Complaint both eyes, poss pink eye Chief Complaint Admit Date Amb Documentation February 07, 2024 3:18pm Earache, sore throat May 01, 2024 5:07pm Chief Complaint Admit Date Earache, sore throat May 01, 2024 5:07pm refer: change in consistency of stool [facility] 2024 11:08am Reason for Visit Admit Date Viral URI May 01, 2024 5:07pm Bilateral otitis media May 01 5:07pm Change in consistency of stool May 11:08am Chief Complaint Admit Date Earache, sore throat May 01, 2024 5:07pm refer: change in consistency of stool [facility] 2024 11:08am change in stool / diarrhea June 15 7:00am change in stool / diarrhea June 15 8:32am Reason for Visit Admit Date Viral URI May 01, 2024 5:07pm Bilateral otitis media May 01 5:07pm Change in consistency of stool May 11:08am Elevated bilirubin June 06, 2024 11: 08am Additional Source Comments INFORMATION SOURCE (unrecogn ized section and content) DATE CREATED AUTHOR 09/03/2017 [facility] DATE CREATED AUTHOR AUTHOR'S ORGANIZ ATION 09/08/2017 [facility] ([place]) DATE CREATED AUTHOR AUTHOR'S ORGANIZ ATION 09/10/2017 [facility] [place] DATE CREATED AUTHOR AUTHOR[facility]S ORGANIZ ATION [facility] DATE CREATED AUTHOR AUTHOR'S ORGANIZ ATION 02/23/2022 [facility] DATE CREATED AUTHOR AUTHOR'S ORGANIZ ATION 12/10/2023 [facility] EPIC DATE CREATED AUTHOR AUTHOR'S ORGANIZ ATION 05/19/2024 [facility] DATE CREATED AUTHOR AUTHOR'S ORGANIZ ATION 06/26/2024 [facility] DATE CREATED AUTHOR AUTHOR'S ORGANIZ ATION 08/26/2024 [facility] DATE CREATED AUTHOR AUTHOR'S ORGANIZ ATION 09/05/2024 [facility] Reason for Visit (unrecogniz ed section and content) Reason Comments Abdominal Pain mid upper abd pain, onset for a week. PT states she has an out pt CT ordered for tomorrow Reason Comments Consult bypass 2019 White/no t seen since 2020/abdominal pain/can't eat Reason Comments Annual Exam Reason Comments Gynecologic Exam Annual with Pap Reason Comments Colposcopy Care Teams (unrecognized sec tion and content) Team Status: Active Member Role Status Dates Kelly Cain Primary Care Provider Active Team Status: Inactive Member Role Status Dates LORIE Jimenez Attending Provider Active S tart: March 19, [...] May 09, 2023 End: May 09, 2023 Team Status: Inactive Member Role Status Dates Kelly Cain Primary Care Provider Active Sta rt: June 08, 2023 End: June 08, 2023 Chio Holley APRN Attending Provider Active Start: June 08, 2023 End: June 08, 2023 Team Status: Active Member Role Status Dates Olive Russo APRN WORKERS COMPENSATION CLAIMS SPECIALIST-C Primary Care Provider Active Team Status: Inactive Member Role Status Dates Olive Russo APRN WORKERS COMPENSATION CLAIMS SPECIALIST-C Primary Care Provider, Attending Provider Active Start: June 23, 2023 End: June 23, 2023 Team Status: Inactive Member Role Status Dates Olive Russo APRN WORKERS COMPENSATION CLAIMS SPECIALIST-C Primary Care Provider Active Start: November 13, 2023 End: November 13, 2023 Eliana Fernandez APRN Attending Provider Active Start: November 13, 2023 End: November 13, 2023 Evaluation Manager Relationship Specialty Start Date End Date Christopher Ruffin MD [address] [place] [phone] PCP - General Family Medicine 05/07/23 Kelly Cain NP [address] [place] [address] Nurse Practitioner Family Medicine 10/19/23 Evaluation Manager Relationship Specialty Start Date End Date Christopher Ruffin MD [address] [place] [address] PCP - General Family Medicine 05/07/23 Kelly Cain NP [address] [place] [address] Nurse Practitioner Family Medicine 10/19/23 Evaluation Manager Relationship Specialty Start Date End Date Christopher Ruffin MD [address] [place] [address] PCP - General Family Medicine 05/07/23 Kelly Cain NP [address] [place] [address] Nurse Practitioner Family Medicine 10/19/23 Evaluation Manager Relationship Specialty Start Date End Date Christopher Ruffin MD [address] [place] [address] PCP - General Family Medicine 05/07/23 Kelly Cain NP [address] [place] [phone] Nurse Practitioner Family Medicine 10/19/23 Evaluation Manager Relationship Specialty Start Date End Date Christopher Ruffin MD [address] [place] [address] PCP - General Family Medicine 05/07/23 Kelly Cain NP [address] [place] [address] Nurse Practitioner Family Medicine 10/19/23 Evaluation Manager Relationship Specialty Start Date End Date Kelly Cain APRN-MEAT SEAFOOD ASSOCIATE PCP - General Nurse Practitioner 01/09/19 Evaluation Manager Relationship Specialty Start Date End Date Kelly Cain APRN-MEAT SEAFOOD ASSOCIATE [address] [place] [address] PCP - General Nurse Practitioner 03/10/24 Evaluation Manager Relationship Specialty Start Date End Date Kelly Cain APRN-MEAT SEAFOOD ASSOCIATE [address] [place] [address] PCP - General Nurse Practitioner 01/09/19 Team Status: Active Member Role Status Dates Olive Russo APRN WORKERS COMPENSATION CLAIMS SPECIALIST-C Primary Care Provider, Attending Provider Active Start: February 04, 2024 Team Status: Active Member Role Status Dates Olive Russo APRN WORKERS COMPENSATION CLAIMS SPECIALIST-C Primary Care Provider Active Start: February 062023 Stephanie lAejandre CMA Attending Provider Active Start: February 07, 2024 Team Status: Inactive Member Role Status Dates Olive Russo APRN WORKERS COMPENSATION CLAIMS SPECIALIST-C Primary Care Provider Active Start: May [id number] End: May 01, 2024 Elvia Castro APRN Attending Provider Active Sta rt: May 01, 2024 End: May 01, 2024 Evaluation Manager Relationship Specialty Start Date End Date LoraKelly sharp APRN-[facility] [address] [place] [address] PCP - General Nurse Practitioner 03/10/24 Team Status: Inactive Member Role Status Dates Olive Russo APRN WORKERS COMPENSATION CLAIMS SPECIALIST-C Primary Care Provider Active Start: June 06, 2024 End: June 06, 2024 Eriberto Kimbrough MD Attending Provider Active S tart: June 06, 2024 End: June 06, 2024 Evaluation Manager Relationship Specialty Start Date End Date Kelly Cain APRN-MEAT SEAFOOD ASSOCIATE [address] [place] [address] PCP - General Nurse Practitioner 03/10/24 Team Status: Active Member Role Status Dates Olive Russo APRN WORKERS COMPENSATION CLAIMS SPECIALIST-C Primary Care Provider Active Start: June 12, 2024 Eriberto Kimbrough MD Attending Provider Active S tart: June 12, 2024 Team Status: Inactive Member Role Status Dates Eriberto Kimbrough MD Attending Provider Active S tart: June 15, 2024 End: June 15, 2024 Kelly Cain Primary Care Provider Active Sta rt: June 15, 2024 End: June 15, 2024 Team Status: Active Member Role Status Dates Eriberto Kimbrough MD Attending Provider, Other Provide r Active Start: June 15, 2024 Kelly Cain Primary Care Provider Active Sta rt: June 15, 2024 Evaluation Manager Relationship Specialty Start Date End Date Kelly Cain [facility] [address] [place] [address] PCP - General Nurse Practitioner 03/10/24 Evaluation Manager Relationship Specialty Start Date End Date Kelly Cain [facility] [address] [place] [address] PCP - General Nurse Practitioner 03/10/24 Evaluation Manager Relationship Specialty Start Date End Date Kelly Cain [facility] PCP - General Nurse Practitioner 03/10/24 Evaluation Manager Relationship Specialty Start Date End Date Kelly Cain [facility] PCP - General Nurse Practitioner 03/10/24 Evaluation Manager Relationship Specialty Start Date End Date Kelly Cain [facility]NEW [facility] PCP - General Nurse Practitioner 03/10/24 Goals (unrecognized section and content) Goals may [...] BE BASED ON THE PRIMARY CLINICAL RECORDS. [facility] [employer] [facility]. provides no warranty or guarantee of the accuracy or completeness of information in this document.
--- OUTSIDE RECORDS SUMMARY | 2024-09-22 02:39 | XMS_ITS | Patient Health Record ---
Author Organization [facility] (formerly [facility]) Address [address] [place], [place] [id number] Care Team Providers Care Personal Health Coach Name Role Phone [email or web address] Primary Care Provider [phone] Reason For Referral No Information Medications Medication SIG (Take, Route, Frequency, Duration) Notes Start Date End Date Status Diclofenac Sodium 75 MG Tablet Delayed Release 1 tablet with food or milk Orally Twice a day; Duration: 30 day(s) Active Tri-Previfem 0.18/0.215/0.25 MG-35 MCG Tablet 1 tablet Orally Once a day; Duration: 28 day(s) 05/11/2017 Active Social History Tobacco Use: Social History Observation Description Date Details (start date - stop date) Never Smoker NA - NA Social History Miscellaneous: Social Info Question Answer Notes Culture/Christianity: Culture/Christianity Pra ctice Affecting Treatment No Level of Education Level of Education Finished [employer] Sexual History: Social Info Question Answer Notes Gender Identity Gender Identity Female Sexual Orientation Sexual Orientation Straight ( not lesbian or awad) Sexual Abuse History: none Sexual History Had sex in the past 12 months (vaginal, oral, or anal)? Yes with Men only Use protection? Yes Prevention strategies discussed: Condoms Have you ever had a Sexually transmitted disease ? No Drugs/Alcohol: Social Info Question Answer Notes Alcohol Screen (Audit-C) Did you have a drink containing alcohol in the past year? No Points 0 Interpretation Negative Have you used drugs other th an those for medical reasons Drug Use Never Tobacco Use: Social Info Question Answer Notes Tobacco Use/Smoking Are you a nonsmoker Additional Details Category Social Info Options Details Miscellaneous: Caffeine: 1-2 cups per day Plan Of Treatment No Information Insurance Providers Payer Name Payer Address Payer Phone Subscriber Number Group Number Insured Name Patient Relationship to Insured Coverage Start Date Coverage End Date [facility] [address] [place] [address] [id number] JULY, PARISA Self - patient is the insured MEDICAID WRAP [address] [facility] [place] [address] [id number] JULY, PARISA Self - patient is the insured Medical (General) History Medical History History ICD Code Anxiety F41.9 Surgical History Surgery Date(Month/Year) section 11/04/16 Hospitalization History Reason Date(Month/Year) 10/29
--- OUTSIDE RECORDS SUMMARY | 2024-09-22 02:39 | XMS_ITS | Encounter Summary ---
Author Organization [facility] Address [address] [place] [address] Care Team Providers Care Yacht Builder Name Role Phone Christopher Ruffin MD Primary Care Provider Kelly Cain NP Unavailable [phone] Encounter Details Date Type Department Care Team ([facility] Contact Info) Description 06/19/2024 Orders Only [facility] [address] [place] [address] Eriberto Kimbrough MD [address] [facility] [address] [place] [address] Social History Tobacco Use Types Packs/Day Years [...] week 11/09/2023 How often do you attend yarsani or denominational serv ices? Never 11/09/2023 Do you belong to any clubs o r organizations such as yarsani groups, unions, fraternal or athletic groups, or [...] housing, medical care, and heating? Hard 11/09/2023 [facility] Occupat ional Health - Occupational Stress [...] any time in the past 12 m onths, were you homeless or living in a mcfp (including now)? No 11/09/2023 Comments Unknown Sex and Gender Information Value Date Recorded Sex Assigned at Not on file Legal Sex Female 8:24 PM EDT Gender Identity Not on file Sexual Orientation Not on file documented as of this encounter Plan of Treatment Not on file documented as of this encounter Procedures Procedure Name Priority Date/Time Associated Diagnosis Comments SCANNED LABS Routine 06/19/2024 10:01 AM EDT documented in this encounter Results * SCANNED LABS (06/19/2024 10:01 AM EDT) us Eriberto Kimbrough MD LAB CHG PERFORMABLES Final Resu lt documented in this encounter Visit Diagnoses Not on filedocumented in this encounter Care Teams Yacht Builder Relationship Specialty Start Date End Date Christopher Ruffin MD [address] [place] [address] PCP - General Family Medicine 05/07/23 Kelly Cain NP [address] [place] [address] Nurse Practitioner Family Medicine 10/19/23 documented as of this encounter
--- OUTSIDE RECORDS SUMMARY | 2024-09-22 02:39 | XMS_ITS | Encounter Summary ---
Author Organization [employer] [facility] Address [id number] [address] [place] [address] Care Team Providers Care Pelletizer Name Role Phone Kelly Cain APRN-MANAGER ACCESS Primary Care Provider Reason for Visit * Reason Comments Med Refill Encounter Details Date Type Department Care Team (Late st Contact Info) Description 01/24/2021 Refill [facility] Surgery-B[facility]ric [address] [place] [address]. [address] [place] [phone] Dominic Sorensen PA [address] [place] [address] [address] [place] [address] Malnutrition, unspecified type (CMS-HCC); Intestinal malabsorption, unspecified type; History of Laura-en-Y gastric bypass Social History Tobacco Use Types Packs/Day Years Used Date Smoking Tobacco: Never Smokeless Tobacco: Never Alcohol Use Standard Drinks/Week Comments Not Currently 0 (1 standard drink = 0.6 oz pur e alcohol) PHQ-2 Answer Date Recorded Total Score 0 04/10/2020 Childcare Answer Date Recorded Childcare Unknown 08/23/2018 Employment Answer Date Recorded Employment Unknown 08/23/2018 Purpose - Life Answer Date Recorded Purpose and direction in life Unknown Comments No Sex and Gender Information Value Date Recorded Sex Assigned at Not on file Legal Sex Female 8:52 PM EDT Gender Identity Not on file Sexual Orientation Not on file documented as of this encounter Plan of Treatment Not on file documented as of this encounter Goals Goal Patient Goal Type Associated Problems Recent Progress Patient-Stated? Author Home General Yes Leatha Harper, RN Note: Evaluation of progress towards goal: Patients goal is to discharge to home. 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
--- OUTSIDE RECORDS SUMMARY | 2024-09-22 02:39 | XMS_ITS | Encounter Summary ---
Author Organization [facility] Address [id number] [address] [place] [address] Care Team Providers Care Channel Layer Name Role Phone Kelly Cain APRN-CUSTOMER RELATIONS CONSULTANT Primary Care Provider Reason for Visit * Reason Onset Date Comments GENETICS 06/17/2021 CLERICAL Encounter Details Date Type Department Care Team (Late st Contact Info) Description 06/17/2021 Telephone [facility] - Medical Oncology [address] [place] [phone] Kay Garzon, [facility] [address] [facility] [address] [place] [address] GENETICS (CLERICAL) Social History Tobacco Use Types Packs/Day Years [...] on file Sexual Orientation Not on file COVID-19 Exposure Response Date Recorded In the last 10 days, have yo u been in contact with someone who was confirmed or suspected to have Coronavirus/COVID-19? No / Unsure 05/28/2021 7:34 AM EDT documented as of this encounter Miscellaneous Notes * Telephone Encounter - Sara Clayton - 06/17/2021 12:36 PM EDT LVM on 06/17/2021 at 12:39 PM asking patient to return call to schedule genetics appointment.. GRICELDA * Telephone Encounter - Sara Clayton - 06/17/2021 12:36 PM EDT 07/15/21 had 2 appt times for pt, LVM asking her to call me. Pt called back and confirmed that I had her sched'd on 08/28, but she moved appt up to 07/17/21 at [place]. gricelda * Telephone Encounter - Anne Solis - 06/17/2021 12:36 PM EDT 07/16/21 CALLED PT LVM & REMINDED TO COMPLETE PRE-APPT QUESTIONNAIRE FOR UPCOMING APPT & OFFERED TO ASSIST IF NEEDED KO * Telephone Encounter - Sara Clayton - 06/17/2021 12:36 PM EDT Mailed 07/17/21 Genetics Consult and Pedigree to patient and faxed/routed to all providers ON 07/18/21.GRICELDA * Telephone Encounter - Piper Lovell - 06/17/2021 12:36 PM EDT 08/01/2021 at 9:42 AM 07/17/21 GENETICS CONSULT & PEDIGREE FAXED TO [facility] PER HER REQUEST VIC * Telephone Encounter - Sara Clayton - 06/17/2021 12:36 PM EDT Mailed 08/14/21 Genetics Follow-up to patient and faxed/routed to all providers - 08/15/2021 at 3:14 PM. SJ documented in this encounter Plan of Treatment Not on file documented as of this encounter Goals Goal Patient Goal Type Associated Problems Recent Progress Patient-Stated? Author Home General Yes Leatha Harper, RN Note: Evaluation of progress towards goal: Patients goal is to discharge to home. documented as of this encounter Visit Diagnoses Not on filedocumented in this encounter Additional Health Concerns Assessment Noted Time PHQ-9 Depression Total Score: 0 04/10/19 21 3:21 PM EST documented as of this encounter Care Teams Channel Layer Relationship Specialty Start Date End Date Kelly Cain APRN-CUSTOMER RELATIONS CONSULTANT PCP - General Nurse Practitioner 03/10/24 documented as of this encounter
--- OUTSIDE RECORDS SUMMARY | 2024-09-22 02:39 | XMS_ITS | Encounter Summary ---
Author Organization [facility] Address [address] [place] [address] Care Team Providers Care Contact Worker Name Role Phone Christopher Ruffin MD Primary Care Provider [phone] Kelly Cain NP Unavailable [phone] Encounter Details Date Type Department Care Team ([facility] Contact Info) Description 06/21/2024 Orders Only [facility] [address] [place] [address] Eriberto Kimbrough MD [address] [facility] [address] [place] [address] Social History Tobacco Use Types [...] week 11/09/2023 How often do you attend shinto or protestant serv ices? Never 11/09/2023 Do you belong to any clubs o r organizations such as shinto groups, unions, fraternal or athletic groups, or [...] housing, medical care, and heating? Hard 11/09/2023 [facility] ional [facility] - Occupational Stress [...] were you homeless or living in a long-term (including now)? No 11/09/2023 Comments Unknown Sex and Gender Information Value Date Recorded Sex Assigned at Not on file Legal Sex Female 8:24 PM EDT Gender Identity Not on file Sexual Orientation Not on file documented as of this encounter Plan of Treatment Not on file documented as of this encounter Procedures Procedure Name Priority Date/Time Associated Diagnosis Comments SCANNED LABS Routine 06/21/2024 10:20 AM EDT documented in this encounter Results * SCANNED LABS (06/21/2024 10:20 AM EDT) us Eriberto Kimbrough MD LAB CHG PERFORMABLES Final Resu lt documented in this encounter Visit Diagnoses Not on filedocumented in this encounter Care Teams Contact Worker Relationship Specialty Start Date End Date Christopher Ruffin MD [address] [place] [address] PCP - General Family Medicine 05/07/23 Kelly Cain NP [address] [place] [phone] Nurse Practitioner Family Medicine 10/19/23 documented as of this encounter
--- OUTSIDE RECORDS SUMMARY | 2024-09-22 02:39 | XMS_ITS | Encounter Summary ---
Author Organization [facility] Address [address] [facility] [place] [address] Care Team Providers Care Software Writer Name Role Phone Christopher Ruffin MD Primary Care Provider [phone] Kelly Cain NP Unavailable [phone] Reason for Visit * Reason Comments Med Refill Encounter Details Date Type Department Care Team (Late st Contact Info) Description 09/27/2023 Refill [facility] [address] [place] [phone] Kelly Cain NP [address] [place] [phone] Generalized anxiety disorder Social History Tobacco Use Types Packs/Day Years Used Date Smoking Tobacco: Never Comments Unknown Sex and Gender Information Value Date Recorded Sex Assigned at Not on file Legal Sex Female 8:24 PM EDT Gender Identity Not on file Sexual Orientation Not on file documented as of this encounter Plan of Treatment Not on file documented as of this encounter Visit Diagnoses Diagnosis Generalized anxiety disorder Generalized anxiety disorder documented in this encounter Care Teams Software Writer Relationship Specialty Start Date End Date Christopher Ruffin MD [address] [place] [phone] PCP - General Family Medicine 05/07/23 Kelly Cain NP [address] [place] [phone] Nurse Practitioner Family Medicine 10/19/23 documented as of this encounter
--- OUTSIDE RECORDS SUMMARY | 2024-09-22 02:39 | XMS_ITS | Encounter Summary ---
[id number] [address] [place] [address] Care Team Providers Care Rn Teacher Name Role Phone Kelly Cain APRN-ELECTRONIC NEWS GATHERING EDITOR Primary Care Provider Encounter Details Date Type Department Care Team (Late st Contact Info) Description 04/24/2020 [facility] [address] [place] [address] Olive Garcia RMA Social History Tobacco Use Types Packs/Day Years [...] Exposure Response Date Recorded In the last month, have you been in contact with someone who was confirmed or suspected to have Coronavirus / COVID-19? No / Unsure 04/25/2020 12:59 PM EST documented as of this encounter Miscellaneous Notes * Telephone Encounter - MALGORZATA Mcclendon - 04/24/2020 8:39 AM EST Tried to call patient to ask her if she had her hearing test done, if she did not we will have to reschedule because her appointment is to go over the hearing test. Patient did not answer and her voicemail is full so a message could not be left. MALGORZATA Mcclendon 04/24/20 0840 documented in this encounter Plan of Treatment [...] documented as of this encounter Care Teams Rn Teacher Relationship Specialty Start Date End Date Kelly Cain, DOCK MANAGER-ELECTRONIC NEWS GATHERING EDITOR PCP - General Nurse Practitioner 03/10/24 documented as of this encounter
--- OUTSIDE RECORDS SUMMARY | 2024-09-22 02:39 | XMS_ITS | Clinical Summary ---
Author Organization [facility] tem Address [id number] [address] [place] [address] Care Team Providers Care Material Handler 1St Shift Name Role Phone Kelly Cain APRN-IN HOUSE COUNSEL Primary Care Provider Allergies No known active allergies Medications vit B complex no.12/niacin,B3, (VITAMIN B COMPLEX NO.12-NIACIN ORAL) Take by mouth. Active calcium citrate (CALCITRATE) 200 mg (950 mg) tablet Active CLASSIC 28 mg iron- 800 mcg tabletIndication s:Malnutrition, unspecified type,Intestinal malabsorption, unspecified type,History of Laura-en-Y gastric bypass TAKE 1 TABLET BY MOUTH EVERY DAY 90 tablet 3 1 Active escitalopram (LEXAPRO) 5 mg tabletIndication s:generalized anxiety disorder Take 1 tablet (5 mg total) by mouth in the morning. Indications: repeated episodes of anxiety. Active ascorbic acid, vitamin C, (VITAMIN C) 1000 mg tablet Take 1 tablet (1,000 mg total) by mouth in the morning. Active Active Problems Problem Noted Date Diagnosed Date Low grade squamous intraepit h lesion on cytologic smear cervix (lgsil) 06/28/2024 Overview (06/28/2024): 07/04/2024 colpo scheduled Postoperative hematoma of edwards bcutaneous tissue following non-dermatologic procedure 05/11/2024 Macromastia 11/10/2023 Environmental and seasonal allergies 06/15/2023 Overweight 05/13/2023 Pelvic pain in female 05/13/2023 Anxiety, generalized 03/31/2023 Tinnitus of both ears 01/11/2020 Recurrent serous otitis media of both ears 01/10 Tonsillar hypertrophy 01/11/2020 Visual impairment Overview (05/01/2024): Glasses Resolved Problems Problem Noted Date Diagnosed Date Resolved Date Iron deficiency anemia 12/07/202305/01 Equinus contracture of left ankle 06/24/2023 05/01/2024 Encounters Date Type Department Care Team Description 09/04/2024 1:00 PM EDT Office Visit [facility]necol[facility] [address] [place] [address] Rose Mary Cornejo MD LGSIL on Pap smear of cervix (Primary Dx) 09/04/2024 Travel 08/14/2024 10:30 AM EDT - 08/14/2024 11:30 AM EDT Surgery [facility] - Surgery [address] [place] [address] Rose Mary Cornejo MD LEEP CERVIX [[id number] (CPT )] 08/14/2024 10:29 AM EDT Anesthesia Event [facility] - Surgery [address] [place] [address] Roberto Reese, 08/14/2024 8:37 AM EDT - 08/14/2024 11:59 AM EDT Hospital Encounter [facility] - Surgery [address] [place] [address] Rose Mary Cornejo MD Discharge Disposition: Home 08/14/2024 Travel 07/25/2024 12:45 PM EDT Procedure visit [facility] - Pre Admit [address] [place] [address] 07/25/2024 Travel 07/19/2024 Telephone [facility] [address] [place] [address] Rose Mary Cornejo MD 07/18/2024 9:30 AM EDT Telemedicine [facility]Gynecolo [facility] [address] [place] [id number] Rose Mary Cornejo MD LGSIL on Pap smear of cervix (Primary Dx) 07/18/2024 Travel 07/04/2024 10:45 PM EDT - 07/04/2024 11:59 PM EDT Hospital Encounter [facility] - Lab [address] [place] [phone] LGSIL on Pap smear of cervix Discharge Disposition: Home 07/04/2024 8:00 AM EDT Procedure visit [facility]necol[facility] [address] [place] [id number] Rose Mary Cornejo MD LGSIL on Pap smear of cervix (Primary Dx) 07/04/2024 Travel from Last 3 Months Immunizations No known immunizations Family History Medical History Relation Name Comments Diabetes Father Daniel may Hypertension Father Daniel may Melanoma Father Daniel may nose Stroke Father Daniel may Breast cancer Maternal great-grandmother MGMs mom, age unknown Diabetes Mother Mom Pancreatic cancer Mother Mom Pt. had ge netic testing which was WNL Diabetes Sister 1 Dad Hypertension Sister 1 Dad Diabetes Sister 2 Eliz pelish Hypertension Sister 2 Eliz pelish Anesthesia problems Neg Hx Colon cancer Neg Hx Ovarian cancer Neg Hx Prostate cancer Neg Hx Uterine cancer Neg Hx Relation Name Status Comments Brother Alive Father Daniel may Alive Maternal great-grandmother Alive Mother Mom Sister 1 Dad Alive Sister 2 Eliz pelish Alive Social History Tobacco Use Types Packs/Day Years Used Date Smoking Tobacco: Never Passive Smoke Exposure: Never Smokeless Tobacco: Never Tobacco Cessation:Counseling Given: Not Answered Alcohol Use Standard Drinks/Week Comments Not Currently 0 (1 standard drink = 0.6 oz pur e alcohol) [facility] Utilities Answer Date Recorded In the past 12 months has [employer], gas, oil, or water [employer] threatened to shut off services in your home? No 05/11/2024 Social Connection and Isolation Panel [NHANES] A nswer Date Recorded In a typical week, how many times do you talk on the phone with family, friends, or neighbors? Three times a week 07/16/2021 How often do you get togethe r with friends or relatives? Twice a week 07/16/2021 How often do you attend chur ch or orthodoxy services? Never 07/16/2021 Do you belong to any clubs o r organizations such as latter day groups, unions, fraternal or athletic groups, or school groups? No 07/16/2021 How often do you attend meet ings of the clubs or organizations you belong to? Never 07/16/2021 Are you , , di vorced, , never , or living with a partner? Never 07/16/2021 AUDIT-C Answer Date Recorded Q1: How often do you have a drink containing alc ohol? 2-4 times a month 07/16/2021 Q2: How many drinks containi ng alcohol do you have on a typical day when you are drinking? 1 or 2 07/16/2021 Q3: How often do you have si x or more drinks on one occasion? Never 07/16/2021 Overall Financial Resource Strain (CARDIA) Answe r Date Recorded How hard is it for you to pa y for the very basics like food, housing, medical care, and heating? Somewhat hard 07/16/2021 PHQ-2 Answer Date Recorded Total Score 1 06/12/2024 [facility] [place] of Occupat ional Health - Occupational Stress Questionnaire Answer Date Recorded Do you feel stress - tense, restless, nervous, or anxious, or unable to sleep at night because your mind is troubled all the time - these days? Only a little 07/16/2021 Exercise Vital Sign Answer Date Recorde d On average, how many days pe r week do you engage in moderate to strenuous exercise (like a brisk walk)? 7 days 07/16/2021 On average, how many minutes do you engage in exercise at this level? 150+ min 07/16/2021 PRAPARE - Transportation Answer Date Re corded In the past 12 months, has l ack of transportation kept you from medical appointments or from getting medications? No 04/16 In the past 12 months, has l ack of transportation kept you from meetings, work, or from getting things needed for daily living? No 05/11/2024 Housing Instability Answer Date Recorde d Are you worried or concerned that in the next two months you may not have stable housing that you own, rent or stay in as a part of a household? No 05/11/2024 Childcare Answer Date Recorded Do problems getting child ca re make it difficult for you to work or study? Yes 07/16/2021 Employment Answer Date Recorded Do you need help finding a [facility] and/or a training program? No 07/16/2021 Hunger Screening Answer Date Recorded Within the past 12 months we worried whether our food would run out before we got money to buy more. Never True 06/12/2024 Within the past 12 months th e food we bought just didn't last and we didn't have money to get more. Never True 06/12/2024 Purpose - Life Answer Date Recorded I have a purpose and direction in my life. Agree 07/16/2021 Education Answer Date Recorded What is the highest level of school you have completed or the highest degree you have received? 12th grade 07/16/2021 Comments No Sex and Gender Information Value Date Recorded Sex Assigned at Not on file Legal Sex Female 8:52 PM EDT Gender Identity Not on file Sexual Orientation Not on file Last Filed Vital Signs Vital Sign Reading Time Taken Comments Blood Pressure 110/80 09/04/2024 1:07 PM EDT Pulse 70 08/14/2024 11:50 AM EDT Temperature 36.8 C (98.2 F) 08/14/2024 11:10 AM EDT Respiratory Rate 15 08/14/2024 11:50 AM EDT Oxygen Saturation 99% 08/14/2024 11:50 AM EDT Inhaled Oxygen Concentration - - Weight 82.6 kg (182 lb) 09/04/2024 1:07 PM EDT Height 167.6 cm (5' 6 ) 09/04/2024 1:07 PM EDT Body Mass Index 29.38 09/04/2024 1:07 PM EDT Plan of Treatment Health Maintenance Due Date Last Done Comments DTaP,Tdap and Td Vaccines (1 - Tdap) 2009 COVID-19 Vaccine (3 - 2023-2 5 season) 2023 07/30/2020, 07/02/2020 Influenza Vaccine 11/13/2024 12/28/2019 Adult BMI Follow Up Plan 06/12/2025 06/12/2024 Depression Screening 06/12/2025 06/12/2024 Adult BMI Screening 09/04/2025 09/04/2024 Tobacco Screening 09/04/2025 09/04/2024 Pap Smear 06/13/2027 06/12/2024, 05/15, 05/13/2023, Additional history exists Goals Goal Patient Goal Type Associated Problems Recent Progress Patient-Stated? Author Home General Yes Leatha Harper, RN Note: Evaluation of progress towards goal: Patients goal is to discharge to home. Medical Devices Not on file Procedures Procedure Name Priority Date/Time Associated Diagnosis Comments SURGICAL PATHOLOGY Routine 08/14/2024 10 :58 AM EDT ANESTHESIA INTUBATION Routine 08/14/2024 10:33 AM EDT PA CONIZATION CERVIX,LOOP ELECTRD 08/14/2024 10:29 AM EDT abnormal PAP test SURGICAL PATHOLOGY Routine 07/04/2024 10 :46 PM EDT LGSIL on Pap smear of cervix POCT , URINE (NUCG) Routine 07/04/2024 8:30 AM EDT LGSIL on Pap smear of cervix HIGH RISK HPV W/ROBERT Routine 06/12/2024 4:33 AM EDT Well woman exam with routine gynecological exam Pap smear for cervical cancer screening from Last 3 Months or Most Recently Relevant to Health Maintenance Results * Surgical Pathology (08/14/2024 10:58 AM EDT) Only the most recent of2 resultswithin the time period is included. Case Report Surgical Pathology Report Case: [id number] Authorizing Provider: Rose Mary Cornejo MD Collected: 08/14/2024 1058 Ordering Location: [facility] Received: 08/14/2024 1159 [facility] - Surgery Pathologist: Braxton Odom MD Specimens: 1) - Cervix, cervical cone with sitich at 12oclock 2) - Endocervix, endocervical currettings 08/23/2024 1:51 PM EDT [facility] Final Diagnosis Cervix, cone biopsy: Low grade Squamous Intraepithelial Lesion, multifocal and focally involving an endocervical gland. LSIL closely approaches the endocervical margin in the 9-12:00 quadrant. All other margins clearly negative. 2. Endocervix, curettage: Negative for atypia/dysplasia. 08/23/2024 1:51 PM EDT [facility] at 1351 EDT Gross Description 1. Received in formalin labeled, JULY, cervical cone with stitch at 12:00 is a irregular portion of cervical stroma surfaced by cervical mucosa, 2.1 x 2.1 x 0.7 cm, with a stitch at 12. The mucosal surface is pale-hairston smooth and glistening with a slitlike os measuring 0.4 cm in greatest dimension. The endocervical margin is inked orange with the remainder of the resection margin inked black and the specimen is into quadrants and serially sectioned. Sections are submitted in cassettes, A-B as follows: A- 12-3 o'clock portion B- 3-6 o'clock portion C- 6-9 o'clock portion D- 9-12 o'clock portion (4, ns, [id number], m8.1) TB 2. Received in formalin labeled, JULY, ECC is a Telfa pad with a pale-hairston mucoid material admixed with hairston friable soft tissue fragments and brown hemorrhagic friable material, 1.2 x 0.8 x 0.1 cm in aggregate. The specimens are filtered and submitted in single cassette. (1, ns, [id number], m8.1) TB 08/23/2024 1:51 PM EDT [facility] Embedded Images 08/23/2024 1:51 PM EDT [facility] Tissue Cervix uteri structure / Unknown 08/14/2024 10:58 AM EDT 08/14/2024 11:59 AM EDT Comment:Pre-op diagnosis: abnormal PAP test Tissue specimen (specimen) Endocervical structure / Unknown 08/14/2024 10:59 AM EDT 08/14/2024 11:59 AM EDT Comment:Pre-op diagnosis: abnormal PAP test Rose Mary Cornejo MD PATHOLOGY/CYTOLOGY ORDERABLES Final Result [facility] [address] [place] [address], [place] [phone] * PA AN ELECTIVE SUPRAGLOTTIC AIRWAY (08/14/2024 10:33 AM EDT) Chio Robles APRN-CRNA - 08/14/2024 10:33 AM EDT ROSA M Meneses 08/14/2024 10:35 AM Airway Patient location during procedure: OR Urgency: Elective Date/Time: 08/14/2024 10:33 AM Airway not difficult IV In Situ: Peripheral General Information and Staff Service Provider: ROSA M Meneses Placed by: ROSA M Meneses Patient Identified, IV Checked, Risks and Benefits Discussed, Surgical Consent, Monitors and Equipment Checked, Pre-op Evaluation and Timeout Performed Fire Risk Assessment Score: 0 Consent for Emergent Airway (if performed for an anesthetic, see related documentation for consents) Risks and benefits: risks, benefits and alternatives were discussed Indications and Patient Condition Sedation level: Deep Preoxygenated: yesPatient position: Supine and Sniffing MILS maintained throughout Mask difficulty assessment: Not Attempted Indications for airway management: Anesthesia Complications: No Complicating Factors: No Final Airway Details Final airway type: Supraglottic Airway Successful Airway: LMA and I GelOral SGA size: 4 Dentition Check Pre: See Pre-Evaluaton documentation Post Intubation Trauma? No Placement verified by: chest auscultation, capnography and symmetrical chest wall movement Number of other approaches attempted: 0 Number of attempts at approach: 1 Airway Brand: LMA and I Gel Roberto Reese DO ANESTHESIA ORDERABLES Final R esult * POCT , urine (07/04/2024 8:30 AM EDT) External Poct Urine Negative MANUALLY TRANSCRIBED RESULTS Urine 07/04/2024 8:30 AM EDT Rose Mary Cornejo MD POINT OF CARE TEST ORDERABLES Final Result MANUALLY TRANSCRIBED RESULTS * (ABNORMAL) High risk HPV w/robert (06/12/2024 4:33 AM EDT) Hpv specimen type ThinPrep 06/13/2024 4:33 AM EDT [facility] Hpv 16 Negative Negative^ Negative 06/13/2024 2:24 PM EDT [facility] Hpv 18 Negative Negative^ Negative 06/13/2024 2:24 PM EDT [facility] Other high risk hpv Positive(A) Negative^ Negative 06/13/2024 2:24 PM EDT [facility] Comment: For the DNA of any or combination of the following HPV types: 31,33,35,45, 52,56,58,59,66 and 68. THINP 06/12/2024 4:33 AM EDT 06/12/2024 4:39 AM EDT us Nathalia Sood SUPERVISOR IN CIRCUIT TESTING-[facility] LAB BLOOD ORDERABLES Fin al Result Performing Organization Address City/[facility]/ZIP Co de Phone Number [facility] [address] [place] [address] [facility] [address] [place] [address] from Last 3 Months or Most Recently Relevant to Health Maintenance Insurance [facility] MEDICAID Advance Directives * Full Code (Latest Code Status on File) Date Activated Date Inactivated Comments 07/09/2020 1:46 PM 2020 4:02 PM * Full Code Date Activated Date Inactivated Comments 04/25/2019 11:02 AM 04/26/2019 3:24 PM Care Teams Material Handler 1St Shift Relationship Specialty Start Date End Date Kelly Cain, TEODORO-IN HOUSE COUNSEL PCP - General Nurse Practitioner 03/10/24
--- OUTSIDE RECORDS SUMMARY | 2024-09-22 02:39 | XMS_ITS | Encounter Summary ---
Author Organization [facility] tem Address [id number] [address] [place] [address] Care Team Providers Care Electrical Systems Designer Name Role Phone Kelly Cain Primary Care Provider Encounter Details Date Type Department Care Team (Late st Contact Info) Description 04/28/2019 Telephone [facility] - Surgery [address] [place] [phone] Emeli Strange Social History Tobacco Use Types Packs/Day Years Used Date Smoking Tobacco: Never Smokeless Tobacco: Never Alcohol Use Standard Drinks/Week Comments Not Currently 0 (1 standard drink = 0.6 oz pur e alcohol) Childcare Answer Date Recorded Childcare Unknown 08/23/2018 Employment Answer Date Recorded Employment Unknown 08/23/2018 Comments No Sex and Gender Information Value [...] filedocumented in this encounter Additional Health Concerns Infection Onset Date Last Indicated Resolved Time Enteric Rule-Out 09/25/2019 09/25/2019 09/25/2019 7:21 PM EDT documented as of this encounter Care Teams Electrical Systems Designer Relationship Specialty Start Date End Date Kelly Cain APRN-CNP PCP - General Nurse Practitioner 03/10/24 documented as of this encounter
--- OUTSIDE RECORDS SUMMARY | 2024-09-22 02:39 | XMS_ITS | Encounter Summary ---
Author Organization [facility] [employer] [facility] tem Address [facility] [id number] [address] [place] [address] Care Team Providers Care Colon And Rectal Surgeon Name Role Phone Kelly Cain APRN-COMMERCIAL ENGINEER Primary Care Provider Encounter Details Date Type Department Care Team (Late st Contact Info) Description 07/02/2021 Treatment [facility] Ob[facility]etrics/Gynecology [address] [place] [address] Kelly Mckinnon LPN Social History Tobacco Use Types Packs/Day Years [...] documented as of this encounter Care Teams Colon And Rectal Surgeon Relationship Specialty Start Date End Date Kelly Cain, TRAFFIC CONTROL OFFICER-COMMERCIAL ENGINEER PCP - General Nurse Practitioner 03/10/24 documented as of this encounter
--- OUTSIDE RECORDS SUMMARY | 2024-09-22 02:39 | XMS_ITS | Clinical Summary ---
Author Organization [facility] Address [address] [place], [place] [id number] Care Team Providers Care City Surveyor Name Role Phone Unavailable Primary Care Provider Unavailabl e Allergies No known active allergies Medications Norgestimate-Et hinyl Estradiol (TRI-ESTARYLLA) 0.18/0.215/0.25 mg-35 mcg (28) tab Take 1 tablet by mouth once daily. Active omeprazole (PRILOSEC) 20 mg capsule Take 20 mg by mouth once daily. Active FLUoxetine (PROZAC) 20 mg capsule Take 20 mg by mouth once daily. Active Multivitamin capsule Take 1 capsule by mouth once daily. Active Active Problems Problem Noted Date Diagnosed Date Breast hypertrophy in female 03/15/2016 Anxiety disorder GERD (gastroesophageal reflux disease) Morbid obesity Family History Medical History Relation Comments healthy Brother Diabetes Father healthy Sister x 2 Anesthesia Problems No Family History Clotting Disorder No Family History Relation Status Comments Brother Alive Father Alive Mother Alive Sister Alive Social History Tobacco Use Types Packs/Day Years Used Date Smoking Tobacco: Never Smokeless Tobacco: Never Alcohol Use Standard Drinks/Week Comments No 0 (1 standard drink = 0.6 oz pur e alcohol) Comments No Sex and Gender Information Value Date Recorded Sex Assigned at Not on file Legal Sex Female 8:41 AM EST Gender Identity Not on file Sexual Orientation Not on file 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
--- OUTSIDE RECORDS SUMMARY | 2024-09-22 02:39 | XMS_ITS | Encounter Summary ---
Author Organization [facility] Address [address] [place] [address] Care Team Providers Care Chemical Worker Name Role Phone Christopher Ruffin MD Primary Care Provider [phone] Kelly Cain NP Unavailable [phone] Encounter Details Date Type Department Care Team ([facility] Contact Info) Description 06/15/2024 Orders Only [facility] [address] [place] [place] [address] Eriberto Kimbrough MD [address] [facility] [address] [place] [address] Social History Tobacco Use Types [...] week 11/09/2023 How often do you attend gnosticism or cheondoism serv ices? Never 11/09/2023 Do you belong to any clubs o r organizations such as gnosticism groups, unions, fraternal or athletic groups, or [...] housing, medical care, and heating? Hard 11/09/2023 [facility] [place] of Occupat ional Health - Occupational Stress [...] were you homeless or living in a prison (including now)? No 11/09/2023 Comments Unknown Sex and Gender Information Value Date Recorded Sex Assigned at Not on file Legal Sex Female 8:24 PM EDT Gender Identity Not on file Sexual Orientation Not on file documented as of this encounter Plan of Treatment Not on file documented as of this encounter Procedures Procedure Name Priority Date/Time Associated Diagnosis Comments SCANNED LABS Routine 06/15/2024 2:11 PM EDT COLONOSCOPY Routine 06/15/2024 2:10 PM EDT documented in this encounter Results * SCANNED LABS (06/15/2024 2:11 PM EDT) us Eriberto Kimbrough MD LAB CHG PERFORMABLES Final Resu lt * Colonoscopy (06/15/2024 2:10 PM EDT) Anatomical Region Laterality Modality Endoscopy us Eriberto Kimbrough MD ENDOSCOPY PROCEDURE ORDERABLES Final Result documented in this encounter Visit Diagnoses Not on filedocumented in this encounter Care Teams Chemical Worker Relationship Specialty Start Date End Date Christopher Ruffin MD [address] [place] [address] PCP - General Family Medicine 05/07/23 Kelly Cain NP [address] [place] [address] Nurse Practitioner Family Medicine 10/19/23 documented as of this encounter
--- NOTE | 2024-09-22 03:03 | ED_ITS ---
HPI - Dental/Oral General Chief complaint: Dental/Oral Stated complaint: TOOTH ACHE Time Seen by Provider: 09/22/24 02:39 Source: patient Mode of arrival: walk-in History of Present Illness HPI Narrative: dental pain for one week. she purchased temporary filling cement and placed it in the tooth. Still has pain and is now throbbing and interfering with sleep. Neg facial swelling or fever Related Data Home Medications ?Medication ?Instructions ?Recorded ?Confirmed escitalopram oxalate 5 mg tablet 5 mg PO DAILY 4 09/22/24 Allergies Allergy/AdvReac Type Severity Reaction Status Date / Time No Known Drug Allergies Allergy Verified 09/22/24 02:31 Review of Systems ROS Status of ROS 10 or more systems reviewed and unremark able except as noted in history and below [facility] Social History Little interest or pleasure in doing things: not at all Feeling down, depressed, or hopeless: not at all Exam Constitutional Vital Signs, click to edit/add: Last Vital Signs Pulse 85 09/22/24 02:32 Resp 20 09/22/24 02:32 BP 149/88 H 09/22/24 02:32 Pulse Ox 100 09/22/24 02:32 O2 Del Method Room Air 09/22/24 02:32 Common normals: no apparent distress, average body habitus, oriented x3, no limitations, healthy appearing, alert and well nourished [facility] Common normals: normocephalic and head/scalp atraumatic Other: left upper molar caries covered with temporary cement Eye Common normals: EOMs intact bilaterally and conjunctivae normal Respiratory Common normals: normal respiratory effort, no retractions, no use of accessory muscles and clear to auscultation bilaterally Cardio Common normals: regular rate, regular rhythm, S1 normal heart sound and S2 normal heart sound Extremity Common normals: normal to inspection and full ROM Neuro Common normals: oriented x3, CN's II-XII intact bilaterally, moves all extremities and no focal motor deficits Psych Appearance: grossly normal Course Vital Signs Vital signs: Vital Signs Pulse Rate 85 09/22/24 02:32 Respiratory Rate 20 09/22/24 02:32 Blood Pressure 149/88 H 09/22/24 02:32 Pulse Oximetry 100 09/22/24 02:32 Oxygen Delivery Method Room Air 09/22/24 02:32 Pulse Rate 85 09/22/24 02:32 Respiratory Rate 20 09/22/24 02:32 Blood Pressure 149/88 H 09/22/24 02:32 Pulse Oximetry 100 09/22/24 02:32 Oxygen Delivery Method Room Air 09/22/24 02:32 MDM - Dental/Oral MDM Narrative Medical decision making narrative: presents with dental pain and likely abscess. She has covered the tooth with temporary cement she purchased OTC. tooth is tender. No obvious swelling but describes throbbing pain that after one week is now interfering with sleep. will treat as an abscess with amoxicillin and adivse she follow up with her dentist. Provided #4 norco 5/325 tonight for pain at home Discharge Plan Discharge Chief Complaint: Dental/Oral Clinical Impression: Dental abscess Patient Disposition: Home, Self-Care Prescriptions / Home Meds: No Action escitalopram oxalate 5 mg tablet 5 mg PO DAILY Print Language: Malian Instructions: Dental Abscess (ED) Additional Instructions: follow up with your dentist next week Referrals: Kelly Cain NP [Primary Care Provider, Family Practice] - 1 week
[2024-09-22] MEDS: HYDROCODONE/ACET 5-325 MG TABLET 4 TAB PO (03:27)
[2024-09-22] MEDS: AMOXICILLIN 500 MG CAPSULE 1000 MG PO (03:27)
== END 2024-09-22 03:35 | disposition home or self-care (01) ==
PROVIDERS: Emergency Provider Internal Medicine; PCP Nurse Practitioner
DX: K04.7 Periapical abscess without sinus (principal); K08.89 Other specified disorders of teeth and supporting structures
CPT/HCPCS: 99283